=== PATIENT | female | born 1935 | race Caucasian/White ===

== ENCOUNTER 2017-02-27 14:06 | Outpatient (CLI) | payer OTHER ==
[2017-02-27 14:21] LABS: BILIRUBIN,URINE Negative (NEGATIVE); KETONES,URINE Negative (NEGATIVE); LEUKOCYTE ESTERASE ,URINE 1+ (NEGATIVE); NITRITE,URINE Positive (NEGATIVE); PH,URINE 5.5 (5-9); PROTEIN,URINE 1+ (NEGATIVE); URINE, BLOOD Trace-intact (NEGATIVE)
[2017-02-27 14:25] LABS: ADD URINE MICROSCOPIC YES
[2017-02-27 14:27] LABS: BACTERIA,URINE 2+ (NOT PRESENT)
== END 2017-02-27 14:07 | disposition home or self-care (01) ==
LOC: NONPT 14:06
PROVIDERS: ATTEND Family Medicine
DX: R30.0 Dysuria (principal)
CPT/HCPCS: 81001; 87086; 87186

== ENCOUNTER 2017-04-26 08:54 | Outpatient (CLI) | END 2017-04-26 08:55 | disposition home or self-care (01) | LOC: AMBL 08:54 | PROVIDERS: ATTEND Internal Medicine | DX: R53.1 Weakness (principal); R00.0 Tachycardia, unspecified; I49.3 Ventricular premature depolarization; R73.9 Hyperglycemia, unspecified; H57.04 Mydriasis ==

== ENCOUNTER 2017-08-09 08:34 | Emergency (ER) | payer OTHER ==
[2017-08-09 08:57] VITALS: BP 112/72; TEMP 99.8; BMI 25.8
--- NOTE | 2017-08-09 09:07 | ED.PDOC ---
General ED Provider: Dr. PRECIOUS BEASLEY Chief Complaint: Nausea/Vomiting Stated Complaint: Patient is here for nausea & vomitting. Patient is a very poor historian. States this problem has been going on for months. He's seen at least 2 doctors but has no idea what they did or concluded. Admits to weakness and poor appetite. Admits to vague abdominal pain. Time Seen by Physician: 09:00 Mode of Arrival: Ambulance Information Source: Patient, Prison Exam Limitations: Other (Patient has only vague knowledge of PMH and current complaint) Nursing and Triage Documentation Reviewed and Agree: Yes GI Complaint Exam - Vomiting/Diarrhea Complaint/Exam Symptoms Are: Still present Episodes of Diarrhea Over Last 24 Hours: 0 Initial Severity: Mild Current Severity: Moderate Character of Vomiting: Reports: Non-bilious Aggravating: Reports: None Alleviating: Reports: None Associated Signs and Symptoms: Reports: Light-headedness, Abdominal pain Last Oral Intake: earlier today ate a peanut butter sandwich and kept it down Last Bowel Movement: unknown Non-GI Risk Factors: Reports: None Surgical Obstruction Risk Factors: Reports: None Abdominal Findings: Present: None Kussmaul Respirations Present: No Differential Diagnoses: Dehydration, Gastritis, PUD Review of Systems - Review Of Systems Constitutional: Reports: Weakness, Loss of appetite Respiratory: Reports: No symptoms Cardiac: Reports: No symptoms GI: Reports: Abdominal pain, Nausea, Poor appetite, Vomiting : Reports: No symptoms Musculoskeletal: Reports: No symptoms Skin: Reports: No symptoms Neurological: Reports: No symptoms All Other Systems: Reviewed and Negative Past Medical History - Past Medical History Previously Healthy: Yes Endocrine: Reports: Hypothyroid Cardiovascular: Reports: CAD Respiratory: Reports: None Hematological: Reports: None Gastrointestinal: Reports: None Genitourinary: Reports: Other (BPH) 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, CVA Musculoskeletal: Reports: None Cancer: Reports: None Last Menstrual Period: n/a - Surgical History General Surgical History: Reports: Orthopedic (OMER), Stent Placement - Family History Family History: Reports: Unknown - Social History Smoking Status: Never smoker Hx Substance Use: No Alcohol Screening: Occasionally Lives: Alone - Immunizations Tetanus Shot up to Date: Yes Influenza Vaccine within 12 Months: No Pneumococcal Vaccine up to Date: No Physical Exam - Physical Exam Appearance: Well-appearing, No pain distress, Well-nourished Ill-appearing: None Pain Distress: None Eyes: JESU, EOMI, Conjunctiva clear ENT: Ears normal, Nose normal, Oropharynx normal Neck: Supple Respiratory: Airway patent, Breath sounds clear (frequent moist cough noted), Breath sounds equal, Respirations nonlabored Cardiovascular: RRR, Pulses normal, No rub, No murmur GI/: Soft, No masses, Bowel sounds normal, No Organomegaly, Tender Musculoskeletal: ROM intact, No edema, No calf tenderness, Limited strength Skin: Warm, Dry, Normal color Neurological: Sensation intact, Motor intact, Reflexes intact, Cranial nerves intact, Alert, Oriented Psychiatric: Affect appropriate, Mood appropriate Critical Care Note - Critical Care Note Total Time (mins): 0 Course - Course Hematology/Chemistry: 08/09/17 09:25 08/09/17 09:25 Orders, Labs, Meds: Lab Review 08/09/17 08/09/17 09:25 09:40 WBC 10.76 H RBC 3.80 L Hgb 11.1 L Hct 34.2 L MCV 90.0 MCH 29.2 MCHC 32.5 RDW Coeff of Sandra 14.7 Plt Count 120 L Immature Gran % (Auto) 0.5 Neut % (Auto) 86.6 Lymph % (Auto) 5.7 L [place] % (Auto) 5.6 Eos % (Auto) 1.3 Baso % (Auto) 0.3 Immature Gran # (Auto) 0.1 Neut # 9.3 H Lymph # 0.6 Davie # 0.6 Eos # 0.1 Baso # 0.0 Sodium 139 Potassium 4.1 Chloride 106 Carbon Dioxide 21 L Anion Gap 16.1 BUN 36 H Creatinine 1.98 H Estimated GFR (MDRD) 24.00 BUN/Creatinine Ratio 18.18 Glucose 138 H Calcium 9.3 Total Bilirubin 0.48 AST 18 ALT 12 Alkaline Phosphatase 57 Total Protein 6.7 Albumin 3.0 L Globulin 3.7 Albumin/Globulin Ratio 0.81 Amylase 40 Lipase 8 Urine Color Yellow Urine Clarity Slightly Urine pH 5.5 Ur Specific [place] 1.025 Urine Protein 2+ Urine Glucose (UA) Negative Urine Ketones Negative Urine Blood 2+ Urine Nitrite Positive Urine Bilirubin Negative Urine Urobilinogen 0.2 Ur Leukocyte Esterase 1+ Urine Microscopic RBC 2-5 Urine Microscopic WBC 10-20 Ur Squamous Epith Cells 0-2 Urine Bacteria 2+ Orders Category Date Time Status AMYLASE Stat LAB 08/09/17 09:25 Completed CBC W/ AUTO DIFF Stat LAB 08/09/17 09:25 Completed COMPREHENSIVE METABOLIC PANEL Stat LAB 08/09/17 09:25 Completed LIPASE Stat LAB 08/09/17 09:25 Completed URINALYSIS C & S IF INDICATED Stat LAB 08/09/17 09:40 Completed URINE CULTURE Stat LAB 08/09/17 09:40 Received Sodium Chloride 0.9% [Sodium Chloride] 1,000 ml MEDS 08/09/17 09:18 Active IV BOLUS Medications Discontinued Medications Generic Name Dose Route Start Last Admin Trade Name Ridgeq PRN Reason Stop Dose Admin Sodium Chloride 1,000 mls @ 1,000 mls/hr 08/09/17 09:18 08/09/17 09:38 Sodium Chloride IV 08/09/17 10:17 1,000 mls/hr BOLUS STA Administration Vital Signs: Temp Pulse Resp BP Pulse Ox 08/09/17 08:40 99.8 F H 98 H 20 112/72 95 Departure - Departure Time of Disposition: 10:31 Disposition: HOME SELF-CARE Discharge Problem: Prostatitis, acute Discharge Problem: (Ruled Out): Urinary tract infection Instructions: Prostatitis (ED) Condition: Good Pt referred to PMD for follow-up: No (if no better in 3 days, see PCP) Additional Instructions: Hold simvastatin (Zocor) while taking Biaxin. Resume once finished. Prescriptions: Clarithromycin [Biaxin] 500 mg PO Q12HR #42 tablet Allergies/Adverse Reactions: Allergies No Known Allergies Allergy (Unverified 08/09/17 09:06) Home Medications: Ambulatory Orders Acetaminophen [Mapap] 2 tab PO Q4HR PRN 08/09/17 Allopurinol 300 mg PO BEDTIME 08/09/17 Aspirin 81 mg PO DAILY 08/09/17 Bumetanide 0.5 mg PO DAILY 08/09/17 Cetirizine HCl [Zyrtec] 10 mg PO DAILY 08/09/17 Clarithromycin [Biaxin] 500 mg PO Q12HR #42 tablet 08/09/17 Docusate Sodium [Dok] 100 mg PO DAILY 08/09/17 Hydrocodone/Acetaminophen [[place] 5-325 Tablet] 5 - 325 mg PO BID 08/09/17 Hydrocortisone [Hydrocortisone 1% Cream] 1 bottle TP Q12HR PRN 08/09/17 Insulin Glargine,Hum.rec.anlog [Lantus Solostar] 10 units SUBCUT BEDTIME Ipratropium/Albuterol Neb [Duoneb] 0.5 - 2.5 mg INH Q12HR PRN 08/09/17 Levothyroxine Sodium [Synthroid] 100 mcg PO DAILY 08/09/17 Lisinopril [Zestril] 5 mg PO DAILY 08/09/17 Nitroglycerin [Nitrostat] 0.4 mg PO PRN PRN 08/09/17 Ondansetron HCl [Zofran] 4 mg PO Q6HR PRN 08/09/17 Penicillin V Potassium 500 mg PO TID 08/09/17 Polyethylene Glycol 3350 [Miralax] 17 gm PO BID 08/09/17 Sennosides/Docusate Sodium [Senokot-S Tablet] 1 mg PO BID 08/09/17 Simvastatin [Zocor] 40 mg PO DAILY 08/09/17 Tamsulosin HCl [Flomax] 0.4 mg PO DAILY 08/09/17
[2017-08-09] MEDS ORDERED: SODIUM CHLORIDE 1,000 ML IV STA (09:18)
[2017-08-09 09:33] LABS: BASOPHILS % (AUTO) 0.3 % (0.0-3.0); EOSINOPHILS # (AUTO) 0.1 K/ul (0.0-0.7); EOSINOPHILS % (AUTO) 1.3 % (0.0-7.0); HEMATOCRIT 34.2 % (37.0-47.0); HEMOGLOBIN 11.1 g/dl (12.0-16.0); IMMATURE GRANULOCYTE % (AUTO) 0.5 % (0.0-5.0); LYMPHOCYTES # (AUTO) 0.6 K/uL (0.60-3.4); LYMPHOCYTES % (AUTO) 5.7 (10.0-50.0); MEAN CORPUSCULAR HEMOGLOBIN 29.2 pg (27.0-31.0); MEAN CORPUSCULAR HGB CONC 32.5 (31.8-35.4); MONOCYTES # (AUTO) 0.6 K/uL (0.4-2.0); MONOCYTES % (AUTO) 5.6 (0-10); NEUTROPHILS # (AUTO) 9.3 K/ul (2.0-6.9); NEUTROPHILS % (AUTO) 86.6; PLATELET COUNT 120 10^3/uL (140-440); WHITE BLOOD COUNT 10.76 K/ul (4.6-10.2)
[2017-08-09 09:48] LABS: BILIRUBIN,URINE Negative (NEGATIVE); KETONES,URINE Negative (NEGATIVE); LEUKOCYTE ESTERASE ,URINE 1+ (NEGATIVE); NITRITE,URINE Positive (NEGATIVE); PH,URINE 5.5 (5-9); PROTEIN,URINE 2+ (NEGATIVE); URINE, BLOOD 2+ (NEGATIVE)
[2017-08-09 09:49] LABS: ADD URINE MICROSCOPIC YES
[2017-08-09 09:50] LABS: BACTERIA,URINE 2+ (NOT PRESENT)
[2017-08-09 09:52] LABS: ALBUMIN/GLOBULIN RATIO 0.81; ANION GAP 16.1; BILIRUBIN,TOTAL 0.48 mg/dL (0.00-1.20); BUN/CREATININE RATIO 18.18; CALCIUM 9.3 mg/dL (8.2-10.2); CREATININE 1.98 mg/dL (0.60-1.30); POTASSIUM 4.1 mmol/L (3.5-5.10); TOTAL PROTEIN 6.7 g/dL (5.8-8.1)
== END 2017-08-09 11:09 | disposition home or self-care (01) ==
LOC: EDSEX 08:34 → ED 08:34
DX: N41.0 Acute prostatitis (principal); R11.2 Nausea with vomiting, unspecified; R42 Dizziness and giddiness; R10.9 Unspecified abdominal pain; R53.1 Weakness; R63.0 Anorexia; R05 Cough; R50.9 Fever, unspecified; E03.9 Hypothyroidism, unspecified; I25.10 Atherosclerotic heart disease of native coronary artery without angina pectoris; Z86.73 Personal history of transient ischemic attack (TIA), and cerebral infarction without residual deficits; Z79.899 Other long term (current) drug therapy
CPT/HCPCS: 36415; 80053; 81001; 82150; 83690; 85025; 87086; 87186; 96360; 99283

== ENCOUNTER 2017-09-09 09:15 | Outpatient (CLI) | payer OTHER ==
[2017-09-09 09:26] LABS: BILIRUBIN,URINE Negative (NEGATIVE); KETONES,URINE Negative (NEGATIVE); LEUKOCYTE ESTERASE ,URINE 3+ (NEGATIVE); NITRITE,URINE Positive (NEGATIVE); PH,URINE 5.5 (5-9); PROTEIN,URINE Negative (NEGATIVE); URINE, BLOOD 1+ (NEGATIVE)
[2017-09-09 09:31] LABS: ADD URINE MICROSCOPIC YES
[2017-09-09 09:32] LABS: BACTERIA,URINE 2+ (NOT PRESENT)
== END 2017-09-09 09:16 | disposition home or self-care (01) ==
LOC: NONPT 09:15
PROVIDERS: ATTEND Family Medicine
DX: N39.0 Urinary tract infection, site not specified (principal)
CPT/HCPCS: 81001; 87086

== ENCOUNTER 2017-12-26 09:13 | Outpatient (CLI) | END 2017-12-26 09:14 | disposition home or self-care (01) | LOC: NONPT 09:13 | PROVIDERS: ATTEND Family Medicine | DX: N39.0 Urinary tract infection, site not specified (principal) | CPT/HCPCS: 81001; 87086; 87186 ==

== ENCOUNTER 2018-02-10 18:05 | Outpatient (CLI) | END 2018-02-10 18:06 | disposition home or self-care (01) | LOC: NONPT 18:05 | PROVIDERS: ATTEND Family Medicine | DX: R05 Cough (principal); R50.9 Fever, unspecified; R68.89 Other general symptoms and signs | CPT/HCPCS: 87502 ==

== ENCOUNTER 2018-03-20 13:19 | Outpatient (CLI) ==
--- NOTE | 2018-03-20 14:26 | US ---
EXAM: Scrotal ultrasound HISTORY: Right testicle pain COMPARISON: None TECHNIQUE: Scrotal ultrasound was performed FINDINGS: Right: Right testicle measures 2.1 x 2.5 x 4.1 cm. Right testicle normal in echogenicity and vascul arity.. There is a cyst in the right epididymis measuring 1.4 cm. Right epididymis otherwise unrema rkable. Small right hydrocele. No right varicocele. Left: Left testicle measures 1.8 x 2.6 x 3.9 cm. Left testicle normal in echogenicity vascularity. There is a cyst in the left epididymis measuring 0.4 cm. Left epididymis otherwise appears normal. Small left hydrocele. No left varicocele. IMPRESSION: 1. Normal appearance right and left testicle. 2. Bilateral epididymal cysts, larger on the right and measuring 0.4 cm. 3. Small bilateral hydrocele.
== END 2018-03-20 13:20 | disposition home or self-care (01) ==
LOC: RAD 13:19
PROVIDERS: ATTEND Family Medicine
DX: N50.811 Right testicular pain (principal)

== ENCOUNTER 2018-06-26 06:48 | Outpatient (CLI) | payer OTHER | END 2018-06-26 06:49 | disposition home or self-care (01) | LOC: NONPT 06:48 | PROVIDERS: ATTEND Emergency Medicine | DX: R50.9 Fever, unspecified (principal); R82.90 Unspecified abnormal findings in urine | CPT/HCPCS: 81001; 87086; 87186 ==

== ENCOUNTER 2018-08-05 08:25 | Outpatient (CLI) | payer OTHER | END 2018-08-05 08:26 | disposition home or self-care (01) | LOC: NONPT 08:25 | PROVIDERS: ATTEND Emergency Medicine | DX: N39.0 Urinary tract infection, site not specified (principal) | CPT/HCPCS: 81001 ==

== ENCOUNTER 2018-09-03 08:19 | Outpatient (CLI) | payer OTHER | END 2018-09-03 08:20 | disposition home or self-care (01) | LOC: NONPT 08:19 | PROVIDERS: ATTEND Internal Medicine | DX: R50.9 Fever, unspecified (principal); R30.0 Dysuria | CPT/HCPCS: 81001; 87086 ==

== ENCOUNTER 2019-03-05 15:30 | Outpatient (CLI) | payer OTHER ==
[2019-03-05 15:59] VITALS: BMI 26.8
== END 2019-03-05 15:36 | disposition critical access hospital (66) ==
LOC: AMBL 15:30
PROVIDERS: ATTEND Family Medicine
DX: I10 Essential (primary) hypertension (principal); I48.91 Unspecified atrial fibrillation; R73.9 Hyperglycemia, unspecified

== ENCOUNTER 2019-03-05 15:44 | Emergency (ER) | payer OTHER ==
--- NOTE | 2019-03-05 15:56 | ED.PDOC ---
General ED Provider: Dr. VIOLETTE MARTINEZ MD Chief Complaint: Hypertension Stated Complaint: high blood pressure reading, no pain Time Seen by Physician: 15:48 Information Source: EMT Exam Limitations: No limitations Primary Care Provider: HUONG COWAN Nursing and Triage Documentation Reviewed and Agree: Yes Does patient meet sepsis criteria?: No System Inflammatory Response Syndrome: Not Applicable Sepsis Protocol: For patient's 13 years and over: Temp is 96.8 and below OR 101 and greater Pulse >90 BPM Resp >20/minute Acutely Altered Mental Status Are patient's symptoms suggestive of a new infection, such as: -Pneumonia -Skin, Soft Tissue -Endocarditis -UTI -Bone, Joint Infection -Implantable Device -Acute Abdominal Infection -Wound Infection -Meningitis -Blood Stream Catheter Infection -Unknown Review of Systems - Review Of Systems Constitutional: Reports: No symptoms Eyes: Reports: No symptoms Ears, Nose, Mouth, Throat: Reports: No symptoms Respiratory: Reports: No symptoms Cardiac: Reports: No symptoms GI: Reports: No symptoms : Reports: No symptoms Musculoskeletal: Reports: No symptoms Skin: Reports: No symptoms Neurological: Reports: No symptoms Endocrine: Reports: No symptoms Hematologic/Lymphatic: Reports: No symptoms All Other Systems: Reviewed and Negative Past Medical History - Past Medical History Previously Healthy: Yes Endocrine: Reports: Hypothyroid Cardiovascular: Reports: CAD Respiratory: Reports: None Hematological: Reports: None Gastrointestinal: Reports: None Genitourinary: Reports: Other (BPH) 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, CVA Musculoskeletal: Reports: None Cancer: Reports: None - Surgical History General Surgical History: Reports: None - Family History Family History: Reports: Unknown - Social History Smoking Status: Never smoker Hx Substance Use: No Alcohol Screening: Occasionally - Immunizations Influenza Vaccine within 12 Months: No Pneumococcal Vaccine up to Date: No Physical Exam - Physical Exam Appearance: Well-appearing, No pain distress, Well-nourished, Obese Ill-appearing: None Pain Distress: None Eyes: JESU, EOMI, Conjunctiva clear ENT: Ears normal, Nose normal, Oropharynx normal Respiratory: Airway patent, Breath sounds clear, Breath sounds equal, Respirations nonlabored Cardiovascular: RRR, Pulses normal, No rub, No murmur GI/: Soft, Nontender, No masses, Bowel sounds normal, No Organomegaly Musculoskeletal: Normal strength, ROM intact, No edema, No calf tenderness Skin: Warm, Dry, Normal color Neurological: Sensation intact, Motor intact, Reflexes intact, Cranial nerves intact, Alert, Oriented Psychiatric: Affect appropriate, Mood appropriate Critical Care Note - Critical Care Note Total Time (mins): 0 Course - Course Orders, Labs, Meds: Orders Category Date Time Status Clonidine HCl [Catapres] MEDS 03/05/19 16:02 Discontinued 0.1 mg PO ONCE STA Medications Discontinued Medications Generic Name Dose Route Start Last Admin Trade Name Tunde PRN Reason Stop Dose Admin Clonidine 0.1 mg 03/05/19 16:02 03/05/19 16:37 Catapres PO 03/05/19 16:03 0.1 mg ONCE STA Administration Vital Signs: Temp Pulse Resp BP Pulse Ox 03/05/19 15:46 97.7 F 83 20 189/92 H 98 Departure - Departure Time of Disposition: 17:30 Disposition: TRANSFER SNF Discharge Problem: Hypertension Qualifiers: Hypertension type: essential hypertension Qualified Code(s): I10 - Essential ( primary) hypertension Instructions: Hypertension (ED) Condition: Good Pt referred to PMD for follow-up: Yes IPMP verified?: No Allergies/Adverse Reactions: Allergies No Known Allergies Allergy (Unverified 08/09/17 09:06) Home Medications: Ambulatory Orders Acetaminophen [Mapap] 2 tab PO Q4HR PRN 08/09/17 Allopurinol 300 mg PO BEDTIME 08/09/17 Aspirin 81 mg PO DAILY 08/09/17 Bumetanide 0.5 mg PO DAILY 08/09/17 Cetirizine HCl [Zyrtec] 10 mg PO DAILY 08/09/17 Docusate Sodium [Dok] 100 mg PO DAILY 08/09/17 Hydrocortisone [Hydrocortisone 1% Cream] 1 bottle TP Q12HR PRN 08/09/17 Insulin Glargine,Hum.rec.anlog [Lantus Solostar] 10 units SUBCUT BEDTIME Ipratropium/Albuterol Neb [Duoneb] 0.5 - 2.5 mg INH Q12HR PRN 08/09/17 Lisinopril [Zestril] 10 mg PO DAILY 08/09/17 Nitroglycerin [Nitrostat] 0.4 mg PO PRN PRN 08/09/17 Penicillin V Potassium 500 mg PO TID 08/09/17 Polyethylene Glycol 3350 [Miralax] 17 gm PO BID 08/09/17 Sennosides/Docusate Sodium [Senokot-S Tablet] 1 mg PO BID 08/09/17 Simvastatin [Zocor] 40 mg PO DAILY 08/09/17 Tamsulosin HCl [Flomax] 0.4 mg PO DAILY 08/09/17 Ferrous Sulfate 325 mg PO TID 03/05/19 Gabapentin [Neurontin] 300 mg PO BEDTIME 03/05/19 Hydrocodone/Acetaminophen [Hydrocodon-Acetaminophen 5-325] 1 each PO DAILY 03/05 Levothyroxine Sodium [Synthroid] 125 mcg PO DAILY 03/05/19 Multivitamin 1 cap PO DAILY 03/05/19 Nystatin [Nystatin Cream] 1 applic TP BID PRN 03/05/19 Transfer Form Completed: No Disposition Discussed With: Patient, Family
[2019-03-05 15:59] VITALS: TEMP 97.7; BMI 26.8
[2019-03-05] MEDS ORDERED: CATAPRES PO STA (16:02)
[2019-03-05 18:14] VITALS: BP 160/83
== END 2019-03-05 18:17 ==
LOC: ED 15:44
DX: I10 Essential (primary) hypertension (principal); I25.10 Atherosclerotic heart disease of native coronary artery without angina pectoris; E03.9 Hypothyroidism, unspecified; Z86.73 Personal history of transient ischemic attack (TIA), and cerebral infarction without residual deficits; Z79.899 Other long term (current) drug therapy
CPT/HCPCS: 99283

== ENCOUNTER 2019-04-19 09:29 | Outpatient (CLI) ==
--- NOTE | 2019-04-19 09:59 | DI ---
EXAM: Two views of the chest. History: Chest congestion. Comparison: None available. Findings: Heart is borderline enlarged. Atherosclerotic vascular calcifications. Rectangular opaci ty seen projecting over the right lower hemithorax. No pneumothorax. No appreciable pleural fluid. No acute osseous abnormalities. Calcified granuloma within the left upper lobe. Impression: A rectangular opacity seen projecting over the right lower hemithorax could represent a pleural mass or calcification. Recommend further evaluation with contrast enhanced chest CT.
[2019-04-19 16:21] VITALS: BMI 25.4
== END 2019-04-19 09:30 | disposition home or self-care (01) ==
LOC: RAD 09:29
PROVIDERS: ATTEND Internal Medicine
DX: R09.89 Other specified symptoms and signs involving the circulatory and respiratory systems (principal); Z79.2 Long term (current) use of antibiotics
CPT/HCPCS: 36415; 80053; 85025

== ENCOUNTER 2019-05-01 03:40 | Outpatient (CLI) | payer OTHER | END 2019-05-01 03:41 | disposition home or self-care (01) | LOC: LAB 03:40 | PROVIDERS: ATTEND Internal Medicine | DX: N39.0 Urinary tract infection, site not specified (principal) | CPT/HCPCS: 81001; 87086 ==

== ENCOUNTER 2019-06-19 19:15 | Inpatient (IN) ==
[2019-06-19 19:31] VITALS: BMI 26.5
--- NOTE | 2019-06-19 19:56 | ED.PDOC ---
General ED Provider: Dr. PHAN CALDWELL Chief Complaint: Fever Stated Complaint: [facility] is an 83 [facility] was given norco for fever and sent here. The [place] staff states he was confused prior to arrival. upon arrival he appears to be alert and oriented. Time Seen by Physician: 19:53 Mode of Arrival: Ambulance Information Source: Custodial, EMT Exam Limitations: No limitations Primary Care Provider: HUONG COWAN Nursing and Triage Documentation Reviewed and Agree: Yes Does patient meet sepsis criteria?: No System Inflammatory Response Syndrome: Not Applicable Sepsis Protocol: For patient's 13 years and over: Temp is 96.8 and below OR 101 and greater Pulse >90 BPM Resp >20/minute Acutely Altered Mental Status Are patient's symptoms suggestive of a new infection, such as: -Pneumonia -Skin, Soft Tissue -Endocarditis -UTI -Bone, Joint Infection -Implantable Device -Acute Abdominal Infection -Wound Infection -Meningitis -Blood Stream Catheter Infection -Unknown Miscellaneous Complaint Exam - Febrile Illness/Adult Complaint/Exam Onset/Duration: 1 day Symptoms Are: Still present Timing: Constant Highest Temperature Recorded: 101.9 Initial Severity: Moderate Current Severity: Moderate Associated Signs and Symptoms: Reports: Short of air, Cough Pseudomonas Risk Factors: Reports: None Serious Bacterial Infection Risk Factors: Reports: None Current Antibiotic Use: Yes Last Time and Dose of Tylenol (acetaminophen): just prior to arrival ( [place]) Review of Systems - Review Of Systems Constitutional: Reports: Fever Eyes: Reports: No symptoms Ears, Nose, Mouth, Throat: Reports: No symptoms Respiratory: Reports: Cough, Short of air (mild ) Cardiac: Reports: No symptoms GI: Reports: No symptoms : Reports: No symptoms Musculoskeletal: Reports: Back pain (Better after [place] ) Skin: Reports: No symptoms Neurological: Reports: No symptoms Endocrine: Reports: No symptoms Hematologic/Lymphatic: Reports: No symptoms All Other Systems: Reviewed and Negative Past Medical History - Past Medical History Previously Healthy: Yes Endocrine: Reports: DM 2, Hypothyroid Cardiovascular: Reports: CAD, Hypertension, CHF (diastolic), Other (NON RHEUMATIC VALVULAR HEART DISEASE) Respiratory: Reports: Pneumonia Hematological: Reports: Anemia (iron deficiency) Gastrointestinal: Reports: None, Other (Constipation) Genitourinary: Reports: CKD (stage 3 ), Other (BPH) 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, CVA, Dementia, Other (Dysphagia ) Musculoskeletal: Reports: Arthritis, Back Pain (spinal stenosis ), Gout Cancer: Reports: Skin (Malignant Melenoma ) Other Pertinent Past Medical History: ESBL, MUSCLE WEAKNESS - Surgical History General Surgical History: Reports: Stent, Orthopedic (right prostetic hip joint replacemetn ) - Family History Family History: Reports: Unknown - Social History Smoking Status: Never smoker Hx Substance Use: No Alcohol Screening: None Lives: In [facility]ustodial [facility] ) - Immunizations Tetanus Shot up to Date: No (unknown) Influenza Vaccine within 12 Months: No Pneumococcal Vaccine up to Date: No Physical Exam - Physical Exam Appearance: Well-appearing Eyes: JESU Neck: Supple Respiratory: Airway patent, Crackles (mild at the bases. ) Cardiovascular: RRR, Pulses normal, No rub, No murmur GI/: Soft, Nontender, No masses, Bowel sounds normal, No Organomegaly Musculoskeletal: Normal strength, ROM intact, No edema, No calf tenderness Skin: Warm, Dry, Normal color Neurological: Sensation intact, Motor intact, Cranial nerves intact, Alert, Oriented Psychiatric: Affect appropriate, Mood appropriate Interpretation - Radiology Interpretation Radiology Interpretation By: Radiologist Radiology Results: Negative Exam Interpreted: Portable CXR - EKG Interpretation Rate: Normal Rhythm: Sinus Ectopy: None [place]: NL Interpretation: no peeked T waves Physician Notification - Case Discussed Physician Notified: Dr aviles Time of Notification: 21:40 Critical Care Note - Critical Care Note Total Time (mins): 35 Course - Course Hematology/Chemistry: 06/19/19 20:02 06/19/19 20:02 Orders, Labs, Meds: Lab Review 06/19/19 06/19/19 06/19/19 16:25 20:02 20:02 WBC 14.48 H RBC 3.44 L Hgb 10.5 L Hct 32.9 L MCV 95.6 H MCH 30.5 MCHC 31.9 RDW Coeff of Sandra 13.9 Plt Count 177 Immature Gran % (Auto) 0.5 Neut % (Auto) 77.5 Lymph % (Auto) 9.3 L [place] % (Auto) 8.2 Eos % (Auto) 4.2 Baso % (Auto) 0.3 Immature Gran # (Auto) 0.1 Neut # (Auto) 11.2 H Lymph # (Auto) 1.4 [place] # (Auto) 1.2 Eos # (Auto) 0.6 Baso # (Auto) 0.1 Sodium 137.5 Potassium 5.83 H Chloride 101.5 Carbon Dioxide 26.3 Anion Gap 15.53 BUN 48.5 H Creatinine 2.12 H Estimated GFR (MDRD) 30.00 BUN/Creatinine Ratio 22.87 Glucose 130.2 H Lactic Acid Calcium 9.35 Total Bilirubin 0.64 AST 17.4 ALT 13.7 Alkaline Phosphatase 74.6 NT-Pro-B Natriuret Pep Total Protein 7.45 Albumin 4.00 Globulin 3.45 Albumin/Globulin Ratio 1.15 Amylase 101.3 Lipase 46.1 Urine Color Yellow Urine Clarity Cloudy Urine pH 7.0 Ur Specific [place] 1.015 Urine Protein 1+ Urine Glucose (UA) Negative Urine Ketones Negative Urine Blood 1+ Urine Nitrite Negative Urine Bilirubin Negative Urine Urobilinogen 0.2 Ur Leukocyte Esterase 3+ Urine Microscopic RBC 5-10 Urine Microscopic WBC Tntc Ur Squamous Epith Cells Not present Urine Bacteria 2+ Urine Mucus 1+ 06/19/19 06/19/19 20:02 20:02 WBC RBC Hgb Hct MCV MCH MCHC RDW Coeff of Sandra Plt Count Immature Gran % (Auto) Neut % (Auto) Lymph % (Auto) [place] % (Auto) Eos % (Auto) Baso % (Auto) Immature Gran # (Auto) Neut # (Auto) Lymph # (Auto) [place] # (Auto) Eos # (Auto) Baso # (Auto) Sodium Potassium Chloride Carbon Dioxide Anion Gap BUN Creatinine Estimated GFR (MDRD) BUN/Creatinine Ratio Glucose Lactic Acid 0.83 Calcium Total Bilirubin AST ALT Alkaline Phosphatase NT-Pro-B Natriuret Pep 73594.000 H Total Protein Albumin Globulin Albumin/Globulin Ratio Amylase Lipase Urine Color Urine Clarity Urine pH Ur Specific [place] Urine Protein Urine Glucose (UA) Urine Ketones Urine Blood Urine Nitrite Urine Bilirubin Urine Urobilinogen Ur Leukocyte Esterase Urine Microscopic RBC Urine Microscopic WBC Ur Squamous Epith Cells Urine Bacteria Urine Mucus Orders Category Date Time Status ED IV/MEDIPORT/POWERPORT .ONCE EMERGENCY 06/19/19 19:45 Active AMYLASE Stat LAB 06/19/19 20:02 Completed BLOOD CULTURE (ED ONLY) Stat LAB 06/19/19 20:25 Received CBC W/ AUTO DIFF Stat LAB 06/19/19 20:02 Completed COMPREHENSIVE METABOLIC PANEL Stat LAB 06/19/19 20:02 Completed LACTIC ACID Stat LAB 06/19/19 20:02 Completed LIPASE Stat LAB 06/19/19 20:02 Completed NT-PROBNP Stat LAB 06/19/19 20:02 Completed URINALYSIS C & S IF INDICATED Stat LAB 06/19/19 16:25 Completed URINE CULTURE Stat LAB 06/19/19 16:25 Received 0.9 % Sodium Chloride [Saline Flush] MEDS 06/19/19 19:45 Active 1 syr IVF PRN PRN Aztreonam [Azactam] MEDS 06/19/19 21:09 Discontinued 1 gm .ROUTE .STK-MED ONE Aztreonam [Azactam] 1 gm MEDS 06/19/19 21:01 Discontinued 0.9 % Sodium Chloride [Sodium Chloride] 50 ml IV ONCE Sodium Chloride 0.9% [Sodium Chloride] 1,000 ml MEDS 06/19/19 21:49 Active IV 75 mls/hr CHEST, 1V AP ONLY Stat RADS 06/19/19 19:56 Completed Medications Generic Name Dose Route Start Last Admin Trade Name Freq PRN Reason Stop Dose Admin Acetaminophen 650 mg 06/19/19 22:13 Tylenol PO Q4H PRN Fever > 102 Hydrocodone Bitart/Acetaminophen 1 tab 06/20/19 09:00 [place] 5-325 PO DAILY MARIA G Albuterol/Ipratropium 1 vial 06/20/19 06:00 Duoneb NEB RTBID MARIA G Allopurinol 100 mg 06/20/19 21:00 Zyloprim PO BEDTIME MARI AG Aspirin 81 mg 06/20/19 09:00 Aspirin Chewable PO DAILY MARIA G Cholecalciferol 3,000 unit 06/20/19 09:00 Vitamin D PO DAILY MARIA G Docusate Sodium 100 mg 06/20/19 09:00 Colace PO BID MARIA G Docusate Sodium 100 mg 06/20/19 09:00 Colace PO BID MARIA G Enoxaparin Sodium 30 mg 06/20/19 09:00 Lovenox SUBCUT DAILY MARIA G Ferrous Sulfate 324 mg 06/20/19 09:00 Ferrous Sulfate PO DAILY MARIA G Gabapentin 300 mg 06/20/19 21:00 Neurontin PO BEDTIME MARIA G Hydrocortisone 1 applic 06/19/19 22:17 Hydrocortisone 1% Cream TP Q12HR PRN Hemorroids Sodium Chloride 1,000 mls @ 75 mls/hr 06/19/19 21:49 Sodium Chloride IV 06/20/19 11:08 .[id number] STA Ertapenem 0.5 gm/ Sodium 50 mls @ 75 mls/hr 06/19/19 23:30 Chloride IV 06/26/19 23:29 DAILY [facility] Insulin Glargine 10 unit 06/19/19 23:00 Lantus SUBCUT BEDTIME [facility] Levothyroxine Sodium 125 mcg 06/20/19 06:30 Synthroid PO DAILY@0630 [facility] Losartan Potassium 100 mg 06/20/19 21:00 Cozaar PO BEDTIME [facility] Nitroglycerin 0.4 mg 06/19/19 22:17 Nitrostat SL PRN PRN Angina Non-Formulary Medication 10 mg 06/20/19 09:00 Cetirizine Hcl [Zyrtec] PO DAILY [facility] Ondansetron HCl 4 mg 06/19/19 22:13 Zofran 4 Mg/2 Ml IVP Q6H PRN Nausea / Vomiting Polyethylene Glycol 17 gm 06/20/19 09:00 Miralax PO DAILY [facility] Sennosides 8.6 mg 06/20/19 09:00 Senna PO BID [facility] Simvastatin 40 mg 06/20/19 21:00 Zocor PO BEDTIME [facility] Sodium Chloride 1 syr 06/19/19 19:45 Saline Flush IVF PRN PRN To flush IV Tamsulosin HCl 0.4 mg 06/20/19 09:00 Flomax PO DAILY [facility] Discontinued Medications Generic Name Dose Route Start Last Admin Trade Name Freq PRN Reason Stop Dose Admin Aztreonam 1 gm/ Sodium 50 mls @ 75 mls/hr 06/19/19 21:01 06/19/19 21:13 Chloride IV 06/19/19 21:40 75 mls/hr ONCE STA Administration Aztreonam 1 gm/ Sodium 50 mls @ 75 mls/hr 06/20/19 05:00 Chloride IV 06/23/19 04:59 Q8HR [facility] Vital Signs: Temp Pulse Resp BP Pulse Ox 06/19/19 19:17 99.3 F 89 20 144/77 H 97 Departure - Departure Time of Disposition: 22:00 Disposition: HOME SELF-CARE Discharge Problem: Hyperkalemia Acute kidney failure Qualifiers: Acute renal failure type: unspecified Qualified Code(s): N17.9 - Acute kidney failure, unspecified Urinary tract infection Qualifiers: Urinary tract infection type: acute cystitis Hematuria presence: without hematuria Qualified Code(s): N30.00 - Acute cystitis without hematuria Condition: Stable Pt referred to PMD for follow-up: Yes IPMP verified?: No Allergies/Adverse Reactions: Allergies No Known Allergies Allergy (Verified 06/19/19 19:32) Home Medications: Ambulatory Orders Aspirin 81 mg PO DAILY 08/09/17 Bumetanide 0.5 mg PO DAILY 08/09/17 Cetirizine HCl [Zyrtec] 10 mg PO DAILY 08/09/17 Docusate Sodium [Dok] 100 mg PO BID 08/09/17 Hydrocortisone [Hydrocortisone 1% Cream] 1 bottle TP Q12HR PRN 08/09/17 Insulin Glargine,Hum.rec.anlog [Lantus Solostar] 10 units SUBCUT BEDTIME Nitroglycerin [Nitrostat] 0.4 mg PO PRN PRN 08/09/17 Penicillin V Potassium 500 mg PO TID 08/09/17 Polyethylene Glycol 3350 [Miralax] 17 gm PO DAILY 08/09/17 Sennosides/Docusate Sodium [Senokot-S Tablet] 1 tab PO BID 08/09/17 Simvastatin [Zocor] 40 mg PO BEDTIME 08/09/17 Tamsulosin HCl [Flomax] 0.4 mg PO DAILY 08/09/17 Ferrous Sulfate 325 mg PO DAILY 03/05/19 Gabapentin [Neurontin] 300 mg PO BEDTIME 03/05/19 Hydrocodone/Acetaminophen [Hydrocodone-Acetamin 5-325 mg] 5 - 325 mg PO DAILY Levothyroxine Sodium [Synthroid] 125 mcg PO DAILY 03/05/19 Multivitamin 1 cap PO DAILY 03/05/19 Nystatin [Nystatin Cream] 1 applic TP BID PRN 03/05/19 Acetaminophen [Tylenol] 650 mg PO Q4HR PRN 04/19/19 Allopurinol [Zyloprim] 100 mg PO BEDTIME tablet 04/23/19 Ipratropium/Albuterol Neb [Duoneb] 1 vial NEB BID vial.neb 04/23/19 Losartan Potassium [Cozaar] 100 mg PO BEDTIME tab 04/23/19 Cholecalciferol (Vitamin D3) [Vitamin D3] 3,000 unit PO DAILY 06/19/19 Disposition Discussed With: Patient
[2019-06-19] MEDS ORDERED: AZACTAM 1 GM in SODIUM CHLORIDE 50 ML IV STA (21:01)
[2019-06-19] MEDS ORDERED: AZACTAM ONE (21:09)
--- NOTE | 2019-06-19 21:18 | DI ---
EXAM: Single view chest. HISTORY: Cough COMPARISON: 04/23/2019. FINDINGS: The heart is on the upper limits of normal in size. Calcified plaques overlie the aorta. Pulmonary vascularity is within normal limits. No focal airspace opacity or pleural effusion is seen . Calcified pleural plaque at the right lung base is not significantly changed. Left upper lung kelly cified granuloma appears unchanged. Osseous structures are unremarkable. IMPRESSION: No acute cardiopulmonary findings. Unchanged right basilar calcified pleural plaque.
[2019-06-19] MEDS ORDERED: SODIUM CHLORIDE 1,000 ML IV STA (21:49)
[2019-06-19] MEDS ORDERED: TYLENOL PO PRN (22:13)
[2019-06-19] MEDS ORDERED: ZOFRAN 4 MG/2 ML IVP PRN (22:13)
[2019-06-19] MEDS ORDERED: NITROSTAT SL PRN (22:17)
[2019-06-19] MEDS ORDERED: HYDROCORTISONE 1% CREAM TP PRN (22:17)
--- NOTE | 2019-06-19 22:58 | PCM ---
- Chief Complaint Chief Complaint: Fever, Long Term Resident, altered mental status. ESBL [place]. PCP DR. COWAN. - History of Present Illness History of Present Illness: 83 yr old CM prsented to ED [facility] at 19:53 via ambulance from [facility]. Patient with history of aortic valve insufficiency, CVA, TIA, Dementia, Peripheral neuropathy, dysphagia, CKD 3+, History of ESBL, OA, depression, h/o hip replacement. , No ETOH ,no tobacco. Family history of bladder cancer. Patient has had recent admit to hospital 04/19/19 for cough/congestion was on z melissa and prednisone through snf at that time. Admitted with pneumonitis, dehydration/renal failure, right sided chest mass, CVA, CHF, aortic stenosis, CKD, DM 2, HTN, TIA history, Gout history, hypothyroid, dementia, recurrent UTI ESBL [place]. He was admitted with tele, xopenex nebs, rocephin 1gram daily, pulmicort, NS 75 q hour, solu cortef 100 q 8, PCN and potassium, lantus, SSI, thyroid labs. [place] thick liquids and DNR status. Presented today with acute change in mental status, vitals 99.3, pulse 89, rr 20 , bp 144/77, pulse ox 97. Labs showed WBC 14.48, hgb 10.5, plt 177. Compared these to previous admit and he had 14.88 04/23/19 essentially unchanged. Hgb mildly worse but not much different than 04/21/19. MCV is elevated. Patient potassium today was 5.83, will repeat that tomorrow am. He has been on oral K+ . Was 3.45-3.85 at last eval. His current lactic acid is negative. Glucose was 130.2 and similar to last admit. Calcium normal, bili normal, ast/alt normal. Remainder of CMP today normal. Amylase and lipase normal. Last TSH 3.30 04/19/19 normal. Last Free T4 04/19/19 1.10 and normal. CXR in our ER showed "No acute cardiopulmonary findings, unchanged right basilar calcified pleural plaque. Compared this to 04/23/19 and he had cardiomegaly without acute process. CT chest 04/20/19 mild bilateral pneumonia, benign calcified pleural plaque. Cardiomegaly/CAD. 4cm ascending aortic aneursym (AVOID FQ). He was d/c 04/23/19 and returned to [place] only to return today. D/c on ertapenem daily 1 gram daily. He was treated for pneumonia, dehydration UTI ESBL. Reviewed d/c summary today. Repeat CXR cleared up. He had ESBL on urine culture. I will give him ertapenem again. They did give him aztreonam in our ER, which will likely not cover. Returning to our labs, he had lactic acid of 0.83, and a BNP of 10, 900. He was d/c on 04/20/19 with weight of 177 and now weight of 181 on the floor. He appears to be up 4 lb. Additionally his creatinine is up to 2.12 from his nromal 1.30. GFR 30. CrCl original [place] 30, modifed using adjusted body weight of 28ml/min. I would estimate him to be 28-30 as reasonable. I would like to use invanz. With his cutoff of <30 I will use 500mg/day. I will also run fluids at 120 ml/hour Normal saline. I will not give any potassium, hold home potassium as his K+ is mildly elevated. Dr. Campbell called me at 21:40. Urine noted to be 1+ protein, 1+ blood, neg nitrite, LE 3+, micro RBC 5-10, WBC Tntc, bact 2+, mucus 1+. Brought to ER by [facility] from [place]. Fever 101 norco and temp down to 99.1 Urinary problems with cloudy strong smelling urine and altered mental status. Sugars normal. 20G in right wrist. Ate lunch, limited dinner. Never smoker. AMAN, weight to be checked daily. He has no SOA, no PND, no orthopnea. He has no fever now. VIral URI possible, uti possible. Patient has history of chronic dementia, unsure of day. HE has pressure ulcer x 3-4 from [place] already that we will monitor and address during hospital stay. Personally called [facility] and Reviewed most recent weight 06/02/19 178.8. He is ranging 174- 178. 02/01/19 183.6. It seems he runs from 174-184. Diet is supposed to be nectar thick. Supposed to be on increased fluid intake due to kidney function decline. Low air loss matress to promote wound healing/protection. Pressure areas upper buttock left, coccyx, right upper buttock. Roho cushions all times. Meds reviewed, called jovanny. He was fine up until today and started having fever, responsive to norco. Confusion is present. Did not meet sirs criteria. He was pleasant, noted he had atoney of his left leg. I asked him to clarify then he said pleural, like the lung. I asked him to clarify and he could not. Back pain better after norco at [place]. No pain reported now except in his right shoulder because he noted "I used to play a lot of baseball." - Review of Systems Constitutional: fever, chills, weakness, fatigue, loss of appetite. No: sweats , other Eyes: other (patient has history of glasses but they were not present during our examination. ). No: blurred vision, double-vision, discharge, itching, pain , redness, photophobia Ears: No: pain, bleeding, drainage, ringing, hearing loss, other Nose: No: bleeding, congestion, discharge, other Throat: No: pain, swelling, voice change, other Mouth: No: bleeding, pain, swelling, other Respiratory: cough, shortness of air, wheeze. No: hemoptysis, pain with breathing, other Cardiovascular: other. No: chest pain, left arm pain, diaphoresis, PND, orthopnea, edema, palpitations, syncope Gastrointestinal: No: abdominal pain, nausea, vomiting, diarrhea, melena, hematemesis, hematochezia, dysphagia, constipation, other Genitourinary: dysuria, frequency, incontinence, flank pain (back pain resolved with norco at [place]. ). No: hematuria, penile discharge, testicular pain, testicular swelling, other Neurological: other (chronic confusion/dementia. ) Musculoskeletal: pain, swelling in joints Skin: other (sacral/coccyx/buttock pressure ulcer) Immunology: No: hives, itching, frequent infections, difficulty healing, other Hematology: easy bruising. No: swollen glands Endocrine: No: weight changes Psychiatric: No: depression, anxiety, sleeplessness, hallucinations Habits: No: tobacco use, substance use, alcohol use, other - Past Medical History Past Medical History: CVA, CHF, Aortic stenosis, CAD, Cardiomegaly, CKD 3, DM 2 , HTN, TIA, Dementia, Spinal stenosis, hypothyroid, melanoma, THR right with staph infeciton. REcurrent UTI ESBL +, renal failure Acute on chronic. Pneumonia 04/19-04/23/19. CHronic NH patient. Pressure ulcer coccyx. Melanoma, Muscle weakness. - Past Surgical History Past Surgical History: Hip replacement, melanoma. ?Stent. History obtained from review of outlying [place] records and previous H+P. Patient history is fragmented. - Allergies Allergies/Adverse Reactions: Allergies Allergy/AdvReac Type Severity Reaction Status Date / Time No Known Allergies Allergy Verified 06/19/19 19:32 - Medications Medications: Medications Generic Name Dose Route Start Last Admin Trade Name Freq PRN Reason Stop Dose Admin Acetaminophen 650 mg 06/19/19 22:13 Tylenol PO Q4H PRN Fever > 102 Hydrocodone Bitart/Acetaminophen 1 tab 06/20/19 09:00 [place] 5-325 PO DAILY MARIA G Albuterol/Ipratropium 1 vial 06/20/19 06:00 Duoneb NEB RTBID MARIA G Allopurinol 100 mg 06/20/19 21:00 Zyloprim PO BEDTIME ON LICENSE OF [facility] Aspirin 81 mg 06/20/19 09:00 Aspirin Chewable PO DAILY ON LICENSE OF [facility] Cholecalciferol 3,000 unit 06/20/19 09:00 Vitamin D PO DAILY ON LICENSE OF [facility] Docusate Sodium 100 mg 06/20/19 09:00 Colace PO BID ON LICENSE OF [facility] Enoxaparin Sodium 30 mg 06/20/19 09:00 Lovenox SUBCUT DAILY ON LICENSE OF [facility] Ferrous Sulfate 324 mg 06/20/19 09:00 Ferrous Sulfate PO DAILY MARIA G Gabapentin 300 mg 06/20/19 21:00 Neurontin PO BEDTIME MARIA G Hydrocortisone 1 applic 06/19/19 22:17 Hydrocortisone 1% Cream TP Q12HR PRN Hemorroids Sodium Chloride 1,000 mls @ 75 mls/hr 06/19/19 21:49 Sodium Chloride IV 06/20/19 11:08 .[id number] STA Aztreonam 0.5 gm/ Sodium 50 mls @ 75 mls/hr 06/20/19 05:00 Chloride IV 06/23/19 04:59 Q8HR ON LICENSE OF [facility] Insulin Glargine 10 unit 06/19/19 23:00 Lantus SUBCUT BEDTIME MARIA G Losartan Potassium 100 mg 06/20/19 21:00 Cozaar PO BEDTIME MARIA G Multivitamins 1 tab 06/20/19 09:00 Multivitamin Tablet PO DAILY MARIA G Nitroglycerin 0.4 mg 06/19/19 22:17 Nitrostat SL PRN PRN Angina Non-Formulary Medication 10 mg 06/20/19 09:00 Cetirizine Hcl [Zyrtec] PO DAILY MARIA G Non-Formulary Medication 1 tab 06/20/19 09:00 Sennosides/Docusate Sodium [Senokot-S Tablet] PO BID MARIAG Non-Formulary Medication 125 mcg 06/20/19 09:00 Levothyroxine Sodium [Synthroid] PO DAILY MARIA G Ondansetron HCl 4 mg 06/19/19 22:13 Zofran 4 Mg/2 Ml IVP Q6H PRN Nausea / Vomiting Polyethylene Glycol 17 gm 06/20/19 09:00 Miralax PO DAILY MARIA G Simvastatin 40 mg 06/20/19 21:00 Zocor PO BEDTIME MARIA G Sodium Chloride 1 syr 06/19/19 19:45 Saline Flush IVF PRN PRN To flush IV Tamsulosin HCl 0.4 mg 06/20/19 09:00 Flomax PO DAILY MARIA G - Family History Past Family History: Patient confused. Brother/sister in law. Sister in law helps him make decisions but he reports no POA. Asthma in family, TB in family. History obtained from review of outlying [place] records and previous H+P. Patient history is fragmented. - Social History Past Social History: Never smoker. No ETOH. [place] resident. .History obtained from review of outlying [place] records and previous H+P. Patient history is fragmented. - Body Composition Height: 5 ft 10 in Weight: 185 lb 3.013 oz Body Mass Index (BMI): 26.5 - Physical Examination HEENT: Constitutional: Appearance-No acute distress, Consistent with stated age. Orientation- Oriented x 3, but some answer are a little confused. He has some dementia with some periods of lucency. Build and Nutrition-[normal] General- Patient is pleasant and cooperative with the interview and exam. No glasses in place. [place] patient. Integumentary: General-Sacral ulcers stage 2 at least 3 of them with surrounding overlying slough. He has large area of erythema with 3 ulcerations that are bandaged. They arrived from [place] in this state. Appropriately bandaged and pressure/rolling will occur while in hospital. Head/Neck: Head- normocephalic and atraumatic. Neck- without visible/palpable lumps or pulsations. Palpation- No bony tenderness about head/neck along frontal, occipital, temporal, parietal, mastoid, jawline, zygoma, orbit or any other location. NO temporal artery tenderness. No TMJ tenderness. Neck Supple. Thyroid-No thyromegaly, no nodules Eye: Bilaterally PERRLA, EOMI. No discharge. Upper and lower eyelids are normal. Sclera/conjunctiva normal without discharge. No conjunctival injection. He does not have his glasses. ENMT: Pinna- normal without tenderness or erythema. External auditory canal Left- normal without erythema or discharge, no excessive cerumen. External auditory canal Right-normal without erythema or discharge, no excessive cerumen. TM left- [place]/pearly, normal light reflex and anatomy TM Right- [place]/ pearly, normal light reflex and anatomy Hearing Assessment-normal to conversational speech. Nose and sinus- No sinus tenderness along frontal/ maxillary region. External appearance normal and midline. Nares- bilateral quiet airflow, no discharge. Nasal mucosa- No bleeding noted and no ulcerations observed. [place], moist. Turbinates non boggy. Lips- normal color, moist without cracks/lesions Oral Cavity/Palate- hard/soft palate intact without lesions, oral mucosa pink and moist. Tongue normal midline. Oropharynx- no pharyngeal erythema, Uvula midline. No post nasal drip. No exudate. Salivary glands- Non tender to palpation CHEST/LUNG: Inspection- symmetric chest wall no pectus deformity. Normal effort , no distress, no use of accessory muscles. Palpation- nontender sternum, ribline. No abnormal pulsations. Auscultation- Breath sounds normal throughout all lung ch[place]. Normal tracheal sounds, Normal bronchial sounds overlying sternum, Bronchovessicular sounds normal between scapulae posteriorly, Normal vessicular breath sounds heard throughout periphery. Lungs are clear today. Adventitious sounds- No wheezes, rales, rhonchi. Normal respirations, no e/o consolidation. CARDIOVASCULAR: Carotid artery- normal, no bruits or abnormal pulsations. Jugular vein- no pulsations. Palpation/Percussion- Displaced PMI inferolaterally , no palpable thrill Auscultation- Regular rate and rhythm. III/ murmur left 2nd intercostal space radiates into carotid. Known aortic issues. It appears he has systolic and diastolic. reports of stenosis and regurgitation,which makes sense clinically. Extremities- no cyanosis, edema, or increased warmth. ABDOMEN: Inspection- normal and no visible pulsations. Normal contour. Auscultation- Bowel sounds normal, no abdominal bruits. Palpation/Percussion- soft, non-tender, no rebound tenderness, no rigidity (guarding), no jar tenderness, no masses. Liver-no hepatomegaly, Spleen no splenomegaly, Hernias - none. Rectal not examined. Peripheral Vascular: Upper extremity Left- Normal temperature with pink nailbeds and no ulcerations. Upper extremity Right- Normal temperature with pink nailbeds and no ulcerations. Lower extremity- Normal temperature with pink nailbeds and no ulcerations. DP pulses 1+ bilaterally. He has some softness to the L>R posterior heel. No skin breakdown. Concern for early pressure injury. He has reduced Pedal hair. capillary refill appears normal. Edema- No edema. Musculoskeletal: Generalized-No generalized swelling or edema of extremities, no digital clubbing or cyanosis, neurovascularly intact all four extremities. Upper extremity- Asymmetrical posture. Sitting at angle in bed. No visible deformity. Normal sensation along medial and lateral upper extremity proximally and distally. NO tenderness overlying shoulder, reports pain and limited ROM of right shoulder. ROM decreased to flex/extend/abduct. NO pain at AC but e/o degeneration bilaterally. Left shoulder more ROM with ability to lift arm above head. [place] Up 4+/5 and strength 4+/5 bilateral UE. Elbow palpated, no tenderness overlying olecranon. Normal supination, pronation to active/ passive ROM and to resisted rotation. Bicep insertion/tricep insertion appear normal without obvious pathology. Lower extremity- Hip: Not tender to palpation, no pain, no swelling, edema or erythema of surrounding tissue, normal strength and tone. Reduced appearing hip ROM bilaterally without pain. Flexion of hip 4+/5 bilaterally. Knee: Knee ROM reduced. No tenderness overlying trochanters, no tenderness about patella, quad tendon, patellar tendon. No tenderness at tibial tuberosity. Ankle: normal ROM not tender to palpation along medial/lateral malleolus. Toes mildly hyperemic but good cap refill. Spine/Rbs- No deformities, masses. Tenderness paraspinal Tspine and Lspine. Neurological: General- Moves all 4 extremities symmetrically. Symmetrical face and body posture. Cranial nerves- individually evaluated II-XII and intact. PERRLA, Normal EOMI, visual/special senses appear intact, Face is symmetrical and normal sensation/movement, normal tongue, normal strength/posture of neck musculature. Reflexes- intact with DTR 2+ patellar, Achilles, bicep, brachial, tricep. Strength- as noted aboev. Soft touch- intact bilateral UE and LE. Temperature sensation- intact bilateral UE and LE. Neuropsych: Oriented- Person, place, time. (AAOx3), other times confused to date. Pleasant jovial and in good spirit. He has chronic dementia and he seems to have improved some already with abx and tx in ER. Mood/affect- normal and congruent. Sparse information, poor historian but pleasant. Speech-Normal speech, normal rate, normal tone, Judgment/insight- Seems Appropriate, aware of care, aware of some of his history. No family present. I think patient can understand enough to know where he is and what is going on. Lymphatic: Head/Neck- normal size and non tender to palpation. Axillary- normal size and non tender to palpation. Femoral and Inguinal- normal size and non tender to palpation. GENERAL: The patient is awake, alert and oriented, lying in bed in no distress. VITAL SIGNS: Temperature 98.4 F, Pulse 70, Respiratory Rate 20, BP 135/72, Pulse Ox 100% HEENT: Head normocephalic, atraumatic. Eyes: Extraocular muscles are intact. Pupils are equal, round and reactive to light and accommodation. Ears: No lesions. Nose appeared normal. Throat: No exudate or erythema. NECK: Supple. No JVD, no carotid bruit. No lymphadenopathy or thyromegaly. LUNGS: Decreased breath sounds, Harsh breath sounds. Clear to auscultation. Percussion note normal. Chest symmetrical. HEART: S1, S2, no S3. No murmurs. No cyanosis or clubbing. No ascites. Pulses: Dorsalis pedis and posterior tibial pulses +1 to +2 both sides. ABDOMEN: Soft. Non-tender. Bowel sounds active. No CVA tenderness. No mass felt. EXTREMITIES: No edema. Full range of motion of all extremities, equal. NEUROLOGIC: No focal deficit. Cranial nerves II through XII are grossly intact. No headache, no double vision or headache. SKIN: Warm and dry. Intact. Turgor-normal. LYMPHATIC: No palpable lymph nodes/no lymphedema. MUSCULOSKELETAL: Normal joints with no swelling. Muscle tone is normal. - Lab/Tests/Diagnostic Imaging Lab/Tests/Diagnostic Imaging: Laboratory Last Values WBC 14.48 K/ul (4.2-10.2) H 06/19/19 20:02 RBC 3.44 10^6/ul (4.70-6.10) L 06/19/19 20:02 Hgb 10.5 g/dl (14.0-18.0) L 06/19/19 20:02 Hct 32.9 % (42.0-52.0) L 06/19/19: MCV 95.6 fl (80.0-94.0) H 06/19/19 20: MCH 30.5 pg (27.0-31.0) 06/19/19 20: MCHC 31.9 (31.8-35.4) 06/19/19 20: RDW Coeff of Sandra 13.9 % (11.6-14.8) 06/19/19: Plt Count 177 10^3/uL (140-440) 06/19/19 20: Immature Gran % (Auto) 0.5 % (0.0-5.0) 06/19/19 20: Neut % (Auto) 77.5 06/19/19 20:02 Lymph % (Auto) 9.3 (10.0-50.0) L 06/19/19: [place] % (Auto) 8.2 (0-10) 06/19/19 20: Eos % (Auto) 4.2 % (0.0-7.0) 06/19/19 20: Baso % (Auto) 0.3 % (0.0-3.0) 06/19/19: Immature Gran # (Auto) 0.1 (0.0-1.0) 06/19/19 20:02 Neut # (Auto) 11.2 K/ul (2.0-6.9) H 06/19/19 20:02 Lymph # (Auto) 1.4 K/uL (0.60-3.4) 06/19/19 20:02 [place] # (Auto) 1.2 K/uL (0.4-2.0) 06/19/19 20:02 Eos # (Auto) 0.6 K/ul (0.0-0.7) 06/19/19 20:02 Baso # (Auto) 0.1 K/uL (0-0.2) 06/19/19 20:02 Sodium 137.5 mmol/L (134.5-145) 06/19/19 20:02 Potassium 5.83 mmol/L (3.5-5.1) H 06/19/19 20:02 Chloride 101.5 mmol/L (98-107) 06/19/19 20:02 Carbon Dioxide 26.3 mmol/L (22-30.0) 06/19/19 20:02 Anion Gap 15.53 06/19/19 20:02 BUN 48.5 mg/dL (9-20) H 06/19/19 20:02 Creatinine 2.12 mg/dL (0.60-1.10) H 06/19/19 20:02 Estimated GFR (MDRD) 30.00 mL/min 06/19/19 20:02 BUN/Creatinine Ratio 22.87 06/19/19 20:02 Glucose 130.2 mg/dL (74-106) H 06/19/19 20:02 Lactic Acid 0.83 mmol/L (0.7-2.1) 06/19/19 20:02 Calcium 9.35 mg/dL (8.4-10.2) 06/19/19 20:02 Total Bilirubin 0.64 mg/dL (0.2-1.3) 06/19/19 20:02 AST 17.4 U/L (17-59) 06/19/19 20:02 ALT 13.7 U/L (0-50) 06/19/19 20:02 Alkaline Phosphatase 74.6 U/L (56-119) 06/19/19 20:02 NT-Pro-B Natriuret Pep 25299.000 pg/mL (0-300) H 06/19/19 20:02 Total Protein 7.45 g/dL (6.3-8.2) 06/19/19 20:02 Albumin 4.00 g/dL (3.5-5.0) 06/19/19 20:02 Globulin 3.45 06/19/19 20:02 Albumin/Globulin Ratio 1.15 06/19/19 20:02 Amylase 101.3 U/L (30-110) 06/19/19 20:02 Lipase 46.1 U/L (23-300) 06/19/19 20:02 Urine Color Yellow (YELLOW) 06/19/19 16:25 Urine Clarity Cloudy (CLEAR) 06/19/19 16:25 Urine pH 7.0 (5-9) 06/19/19 16:25 Ur Specific [place] 1.015 (1.005-1.030) 06/19/19 16:25 Urine Protein 1+ (NEGATIVE) 06/19/19 16:25 Urine Glucose (UA) Negative (NEGATIVE) 06/19/19 16:25 Urine Ketones Negative (NEGATIVE) 06/19/19 16:25 Urine Blood 1+ (NEGATIVE) 06/19/19 16:25 Urine Nitrite Negative (NEGATIVE) 06/19/19 16:25 Urine Bilirubin Negative (NEGATIVE) 06/19/19 16:25 Urine Urobilinogen 0.2 (0.2) 06/19/19 16:25 Ur Leukocyte Esterase 3+ (NEGATIVE) 06/19/19 16:25 Urine Microscopic RBC 5-10 (0-2) 06/19/19 16:25 Urine Microscopic WBC Tntc (0-2) 06/19/19 16:25 Ur Squamous Epith Cells Not present (0-5) 06/19/19 16:25 Urine Bacteria 2+ (NOT PRESENT) 06/19/19 16:25 Urine Mucus 1+ (NOT PRESENT) 06/19/19 16:25 CXR in our ER showed "No acute cardiopulmonary findings, unchanged right basilar calcified pleural plaque." Compared this to 04/23/19 cardiomegaly w/o acute process. - Assessment (1) Elevated brain natriuretic peptide (BNP) level Status: Acute Code(s): R79.89 - OTHER SPECIFIED ABNORMAL FINDINGS OF BLOOD CHEMISTRY SNOMED Code(s): 017088454, 599431172 (2) Pressure ulcer Status: Acute Code(s): L89.90 - PRESSURE ULCER OF UNSPECIFIED SITE, UNSPECIFIED STAGE SNOMED Code(s): 894028034 (3) Acute kidney failure Status: Acute Code(s): N17.9 - ACUTE KIDNEY FAILURE, UNSPECIFIED SNOMED Code (s): 42623687 Qualifiers: Acute renal failure type: unspecified Qualified Code(s): N17.9 - Acute kidney failure, unspecified (4) Hyperkalemia Status: Acute Code(s): E87.5 - HYPERKALEMIA SNOMED Code(s): 93581820 (5) Urinary tract infection Status: Acute Code(s): N39.0 - URINARY TRACT INFECTION, SITE NOT SPECIFIED SNOMED Code(s): 05285535 Qualifiers: Urinary tract infection type: acute cystitis Hematuria presence: without hematuria Qualified Code(s): N30.00 - Acute cystitis without hematuria (6) Dehydration Status: Acute Code(s): E86.0 - DEHYDRATION SNOMED Code(s): 59462929 (7) Macrocytic anemia Status: Acute Code(s): D53.9 - NUTRITIONAL ANEMIA, UNSPECIFIED SNOMED Code(s ): 61631289 - Plan Plan: Acute kidney failure (Acute)/Dehydration (Acute)/REcurrent UTI and ESBL+: AMAN on top of CKD. Appears baseline creatinine runs 1.30-1.33 and GFR around 51- 53. He is currently at 30. Dehydration, decreased PO intake, elevated K+ seem possible. Sugars seem stable. Report from [facility] that he has been under control. Continue bumex. At present 0.5mg daily will help him to continue to urinate. Repeat labs in am, adjust meds based on CrCl. - Admit to inpatient - Telemetry - Fluid hydration 100ml/hour (gentle tonight) - Duoneb BID - Labs in am (B12/folate/CBC/CMP/A1C) - Weigh patient daily - INvanz 500mg daily x 7 days adjust when CrCl >30ml/min. Elevated brain natriuretic peptide (BNP) level (Acute): Unknown chronicity for this problem. Weight at [place] ranges 174-185. He is 181 on floor. Will monitor output/weight. He is incontinent. Pressure ulcers present. ON ARB. No acute s/ sx of CHF exacerbation. Weights within range over last 6 months. NO obvious increases, no obvious swelling of LE. Hyperkalemia (Acute): Typically low. I will repeat CMP in am. Stop MVI, stop K +. - CMP in am Pressure ulcer (Acute): Calmoseptine, pressure avoidance recommended. Heel Pain: Offload pressure. Nursing updated/aware. Urinary tract infection (Acute): Aztreonam in Er. I have d/c this and added ertapenem 500mg. CrCl 28-30 thus 500mg daily. - INvanz 500mg daily. Hypothyroidism: Stable with last check of TSH 3.370 . - Resume home meds. DM2 INDDM: Will check a1c. Will given insulin 10 units lantus at night. If A1C <7.0 will consider stopping that altogether. Monitor accucheck, no correction unless >180. Not on metformin. Continue insulin lantus 10 units daily. Will adjust based on a1c. - A1C in am. - Home meds. DVT PRophy: Lovenox 30. CrCl 28-30. - Subcut Lovenox 30mg daily. Diet: [place] thick Activity: Fall precaution. Regular rolling. Disposition: >70 minutes spent during admit today. REviewed ER note, 1:1 discussion with ER provider, contacted NH, discussed case with nursing for last weights. Reviewed d/c summary from 04/23/19. Compared labs to last known labs. BNP elevated, no echo that I can find. PCP is unavailable and out of area for 1 week. He does not have s/sx of acute CHF at this time.
[2019-06-19] MEDS ORDERED: INVANZ 0.5 GM in SODIUM CHLORIDE 50 ML IV SCH (23:30)
[2019-06-20] MEDS: LANTUS SUBCUT SCH ×2 (00:01→21:22)
[2019-06-20] MEDS ORDERED: INVANZ ONE (00:06)
[2019-06-20] MEDS ORDERED: AZACTAM 0.5 GM in SODIUM CHLORIDE 50 ML IV SCH (05:00)
[2019-06-20] MEDS ORDERED: AZACTAM 1 GM in SODIUM CHLORIDE 50 ML IV SCH (05:00)
[2019-06-20] MEDS: DUONEB NEB SCH ×2 (06:05→16:45)
[2019-06-20] MEDS ORDERED: SYNTHROID PO SCH (06:30)
[2019-06-20] MEDS ORDERED: COLACE PO SCH (09:00)
[2019-06-20] MEDS ORDERED: NON-FORMULARY MEDICATION (Cetirizine Hcl [Zyrtec] 10 MG) PO SCH (09:00)
[2019-06-20] MEDS ORDERED: MULTIVITAMIN TABLET PO SCH (09:00)
[2019-06-20] MEDS: ASPIRIN CHEWABLE PO SCH (09:09)
[2019-06-20] MEDS: BUMEX PO SCH (09:09)
[2019-06-20] MEDS: COLACE PO SCH ×2 (09:10→21:22)
[2019-06-20] MEDS: SENNA PO SCH ×2 (09:10→21:22)
[2019-06-20] MEDS: CLARITIN PO SCH (09:10)
[2019-06-20] MEDS: VITAMIN D PO SCH (09:10)
[2019-06-20] MEDS: LOVENOX SUBCUT SCH (09:11)
[2019-06-20] MEDS: NORCO 5-325 PO SCH (09:11)
[2019-06-20] MEDS: FLOMAX PO SCH (09:11)
[2019-06-20] MEDS: FERROUS SULFATE PO SCH (09:11)
[2019-06-20] MEDS: MIRALAX PO SCH (09:11)
--- NOTE | 2019-06-20 09:15 | PCM.PROG ---
Subjective: 83 yo CM HD #2 admitted from ER after AL noted change in Mentation, concern for UTI. He was found to have fever, hyperkalemia, AMAN and was admitted to inpatient status due to the AMAN. AAox3 but cognition changes frequently. Chronic leukocytosis, improved from admit with am labs showing wbc 12.97 down from 14.48. Hgb down from 10.5 to 10.1 and plt dropping from 177 to 167 suggesting dilutional effect. A1C 7.46 and reasonable for age/medical problems. Hyperkalemia resolved w/ gentle hydration. Down to 4.68 from 5.83 at admit. Sodium is fine. His Creatinine has dropped from 2.12 to 2.01. Glucose is stable. Calcium stable. BNP was markedly elevated at admit at 10,900. No obvious s/sx of fluid overload. Weight today 179 with average at AL 177-182. Known ESBL, heavy growth of G- rods on our culture. I have him on INVANZ 500 daily until his CrCl >30 reliably. This am he is at 28.2-31 depending on which formula you use. I will continue invanz 500 daily x 7 days for now. He has been afebrile throughout entire stay. HR 84-98. TEle SR. O2 95-98 on RA. BP 117 /63 this am. incontinent of urine/stool. He has sacral ulcers, bandaged and tended. He had 3 voids throughout the evening hours. At this point nothing new to report. HE has had an improvement in his renal function. Await urine culture. With acute renal failure and urological source, I want to make sure that we have a speciation before we discharge back to [place]. Plan to d/c tomorrow if culture available. He is improving/stable but kidney function not yet back to baseline. Review of Systems Constitutional: fever (RESOLVED), chills (RESOLVED), weakness (IMPROVED), fatigue, loss of appetite. No: sweats, other Eyes: other. No: blurred vision, double-vision, discharge, itching, pain, redness, photophobia Ears: No: pain, bleeding, drainage, ringing, hearing loss, other Nose: No: bleeding, congestion, discharge, other Throat: No: pain, swelling, voice change, other Mouth: No: bleeding, pain, swelling, other Respiratory: cough, shortness of air, wheeze. No: hemoptysis, pain with breathing, other Cardiovascular: other. No: chest pain, left arm pain, diaphoresis, PND, orthopnea, edema, palpitations, syncope Gastrointestinal: No: abdominal pain, nausea, vomiting, diarrhea, melena, hematemesis, hematochezia, dysphagia, constipation, other Genitourinary: dysuria, frequency, incontinence, flank pain (back pain resolved with norco at AL. ). No: hematuria, penile discharge, testicular pain, testicular swelling, other Neurological: other (chronic confusion/dementia. ) Musculoskeletal: pain, swelling in joints Skin: other (sacral/coccyx/buttock pressure ulcer) Immunology: No: hives, itching, frequent infections, difficulty healing, other Hematology: easy bruising. No: swollen glands Endocrine: No: weight changes Psychiatric: No: depression, anxiety, sleeplessness, hallucinations Habits: No: tobacco use, substance use, alcohol use, other Objective: Vital Signs - 24 hr 06/19/19 06/19/19 06/20/19 19:17 22:28 02:00 Temperature 99.3 F 99.6 F 98.9 F Pulse Rate 89 84 Respiratory 20 14 Rate Blood Pressure 144/77 H O2 Sat by Pulse 97 98 Oximetry 06/20/19 05:36 Temperature 98.1 F Pulse Rate 98 H Respiratory 18 Rate Blood Pressure 117/63 O2 Sat by Pulse 95 Oximetry Constitutional: Appearance-No acute distress, Consistent with stated age. Orientation- Oriented x 3, but some answers remain a little confused. He has some dementia with some periods of lucency. Build and Nutrition-[normal] General- Patient is pleasant and cooperative with the interview and exam. No glasses in place. AL patient. Integumentary: General-Sacral ulcers stage 2 at least 3 of them with surrounding overlying slough. He has large area of erythema with 3 ulcerations that are bandaged. They arrived from [place] in this state. Appropriately bandaged and pressure/rolling will occur while in hospital. ENMT: Hearing Assessment-normal to conversational speech. Nose and sinus- No sinus tenderness along frontal/maxillary region. External appearance normal and midline. Nares- bilateral quiet airflow, no discharge. Nasal mucosa- No bleeding noted and no ulcerations observed. [place], moist. Turbinates non boggy. Lips- normal color, moist without cracks/lesions Oral Cavity/Palate- hard/soft palate intact without lesions, oral mucosa pink and moist. Tongue normal midline. Oropharynx- no pharyngeal erythema, Uvula midline. No post nasal drip. No exudate. Salivary glands- Non tender to palpation CHEST/LUNG: Inspection- symmetric chest wall no pectus deformity. Normal effort , no distress, no use of accessory muscles. Palpation- nontender sternum, ribline. No abnormal pulsations. Auscultation- Breath sounds normal throughout all lung chisholm. Normal tracheal sounds, Normal bronchial sounds overlying sternum, Bronchovessicular sounds normal between scapulae posteriorly, Normal vessicular breath sounds heard throughout periphery. Lungs are clear today. Adventitious sounds- No wheezes, rales, rhonchi. Normal respirations, no e/o consolidation. CARDIOVASCULAR: Auscultation- Regular rate and rhythm. III/ murmur left 2nd intercostal space radiates into carotid. Known aortic issues. It appears he has systolic and diastolic. reports of stenosis and regurgitation,which makes sense clinically. Extremities- no cyanosis, edema, or increased warmth. ABDOMEN: Inspection- normal and no visible pulsations. Normal contour. Auscultation- Bowel sounds normal, no abdominal bruits. Palpation/Percussion- soft, non-tender, no rebound tenderness, no rigidity (guarding), no jar tenderness, no masses. Liver-no hepatomegaly, Spleen no splenomegaly, Hernias - none. Rectal not examined. Peripheral Vascular: Lower extremity- Normal temperature with pink nailbeds and no ulcerations. DP pulses 1+ bilaterally. He has some softness to the L>R posterior heel. No skin breakdown. Concern for early pressure injury. He has reduced Pedal hair. capillary refill appears normal. Unchanged today. No sores , no lesions, no changes in skin. Neuropsych: Oriented- Sleepy today. Mood/affect- Upbeat and positive. normal and congruent. Sparse information, poor historian but pleasant. Speech-Normal speech, normal rate, normal tone, Laboratory Last Values WBC 12.97 K/ul (4.2-10.2) H 06/20/19 04:45 RBC 3.27 10^6/ul (4.70-6.10) L 06/20/19 04:45 Hgb 10.1 g/dl (14.0-18.0) L 06/20/19 04:45 Hct 31.3 % (42.0-52.0) L 06/20/19 04:45 MCV 95.7 fl (80.0-94.0) H 06/20/19 04:45 MCH 30.9 pg (27.0-31.0) 06/20/19 04:45 MCHC 32.3 (31.8-35.4) 06/20/19 04:45 RDW Coeff of Sandra 13.9 % (11.6-14.8) 06/20/19 04:45 Plt Count 167 10^3/uL (140-440) 06/20/19 04:45 Immature Gran % (Auto) 0.5 % (0.0-5.0) 06/20/19 04:45 Neut % (Auto) 75.7 06/20/19 04:45 Lymph % (Auto) 10.8 (10.0-50.0) 06/20/19 04:45 [place] % (Auto) 8.2 (0-10) 06/20/19 04:45 Eos % (Auto) 4.4 % (0.0-7.0) 06/20/19 04:45 Baso % (Auto) 0.4 % (0.0-3.0) 06/20/19 04:45 Immature Gran # (Auto) 0.1 (0.0-1.0) 06/20/19 04:45 Neut # (Auto) 9.8 K/ul (2.0-6.9) H 06/20/19 04:45 Lymph # (Auto) 1.4 K/uL (0.60-3.4) 06/20/19 04:45 [place] # (Auto) 1.1 K/uL (0.4-2.0) 06/20/19 04:45 Eos # (Auto) 0.6 K/ul (0.0-0.7) 06/20/19 04:45 Baso # (Auto) 0.1 K/uL (0-0.2) 06/20/19 04:45 Sodium 137.7 mmol/L (134.5-145) 06/20/19 04:45 Potassium 4.68 mmol/L (3.5-5.1) 06/20/19 04:45 Chloride 104.1 mmol/L (98-107) 06/20/19 04:45 Carbon Dioxide 26.0 mmol/L (22-30.0) 06/20/19 04:45 Anion Gap 12.28 06/20/19 04:45 BUN 45.3 mg/dL (9-20) H 06/20/19 04:45 Creatinine 2.01 mg/dL (0.60-1.10) H 06/20/19 04:45 Estimated GFR (MDRD) 32.00 mL/min 06/20/19 04:45 BUN/Creatinine Ratio 22.53 06/20/19 04:45 Glucose 106.2 mg/dL (74-106) H 06/20/19 04:45 Hemoglobin A1c 7.46 (4.0-6.0) H 06/20/19 04:45 Lactic Acid 0.83 mmol/L (0.7-2.1) 06/19/19 20:02 Calcium 8.84 mg/dL (8.4-10.2) 06/20/19 04:45 Total Bilirubin 0.64 mg/dL (0.2-1.3) 06/19/19 20:02 AST 17.4 U/L (17-59) 06/19/19 20:02 ALT 13.7 U/L (0-50) 06/19/19 20:02 Alkaline Phosphatase 74.6 U/L (56-119) 06/19/19 20:02 NT-Pro-B Natriuret Pep 54184.000 pg/mL (0-300) H 06/19/19 20:02 Total Protein 7.45 g/dL (6.3-8.2) 06/19/19 20:02 Albumin 4.00 g/dL (3.5-5.0) 06/19/19 20:02 Globulin 3.45 06/19/19 20:02 Albumin/Globulin Ratio 1.15 06/19/19 20:02 Amylase 101.3 U/L (30-110) 06/19/19 20:02 Lipase 46.1 U/L (23-300) 06/19/19 20:02 Vitamin B12 588 pg/mL (239-931) 06/20/19 04:45 Folate > 20.00 ng/mL (2.76-) 06/20/19 04:45 Urine Color Yellow (YELLOW) 06/19/19 16:25 Urine Clarity Cloudy (CLEAR) 06/19/19 16:25 Urine pH 7.0 (5-9) 06/19/19 16:25 Ur Specific [place] 1.015 (1.005-1.030) 06/19/19 16:25 Urine Protein 1+ (NEGATIVE) 06/19/19 16:25 Urine Glucose (UA) Negative (NEGATIVE) 06/19/19 16:25 Urine Ketones Negative (NEGATIVE) 06/19/19 16:25 Urine Blood 1+ (NEGATIVE) 06/19/19 16:25 Urine Nitrite Negative (NEGATIVE) 06/19/19 16:25 Urine Bilirubin Negative (NEGATIVE) 06/19/19 16:25 Urine Urobilinogen 0.2 (0.2) 06/19/19 16:25 Ur Leukocyte Esterase 3+ (NEGATIVE) 06/19/19 16:25 Urine Microscopic RBC 5-10 (0-2) 06/19/19 16:25 Urine Microscopic WBC Tntc (0-2) 06/19/19 16:25 Ur Squamous Epith Cells Not present (0-5) 06/19/19 16:25 Urine Bacteria 2+ (NOT PRESENT) 06/19/19 16:25 Urine Mucus 1+ (NOT PRESENT) 06/19/19 16:25 (1) Elevated brain natriuretic peptide (BNP) level Status: Acute Code(s): R79.89 - OTHER SPECIFIED ABNORMAL FINDINGS OF BLOOD CHEMISTRY SNOMED Code(s): 270860762 (2) Pressure ulcer Status: Acute Code(s): L89.90 - PRESSURE ULCER OF UNSPECIFIED SITE, UNSPECIFIED STAGE SNOMED Code(s): 354641409 (3) Acute kidney failure Status: Acute Code(s): N17.9 - ACUTE KIDNEY FAILURE, UNSPECIFIED SNOMED Code (s): 43191535 (4) Hyperkalemia Status: Acute Code(s): E87.5 - HYPERKALEMIA SNOMED Code(s): 31118703 (5) Urinary tract infection Status: Acute Code(s): N39.0 - URINARY TRACT INFECTION, SITE NOT SPECIFIED SNOMED Code(s): 70905597 (6) Dehydration Status: Acute Code(s): E86.0 - DEHYDRATION SNOMED Code(s): 99308346 (7) Macrocytic anemia Status: Acute Code(s): D53.9 - NUTRITIONAL ANEMIA, UNSPECIFIED SNOMED Code(s ): 21137615 Plan: Acute kidney failure (Acute)/Dehydration (Acute)/REcurrent UTI and ESBL+: AMAN on top of CKD. Renal function is improving. Appears baseline creatinine runs 1.30-1.33 and GFR around 51-53. He is currently at 32. CrCl 28-31 today. Still w/ e/o dehydration, decreased PO intake. His hyperkalemia has resolved. Urine culture shows heavy G- Rods. Sugars seem stable. Vitals seem stable. Weight is stable, down to 179 14.35 oz from 181 on floor. 185 in ER. - Continue admit to inpatient - Telemetry to continue - Fluid hydration 100ml/hour - Duoneb BID - Labs in am tomorrow cbc/cmp - Weigh patient daily - INvanz 500mg daily x 7 days adjust when CrCl >30ml/min. Elevated brain natriuretic peptide (BNP) level (Acute): Unknown chronicity for this problem. Weight stable now down to typical range. NO e/of fluid overload. Per NH he ranges 174-185. He was 181 on floor last night and now 180 rounded. Will continue to monitor output/weight. He is incontinent. Pressure ulcers present. ON ARB. No acute s/sx of CHF exacerbation. Weights within range over last 6 months. NO obvious increases, no obvious swelling of LE. Negative CXR and no e/o pneumonia clinically or through radiology. Hyperkalemia (Acute): Resolved. Monitor. - CMP in am tomorrow Pressure ulcer (Acute): Calmoseptine to continue, pressure avoidance recommended. Regularly rolling. Present at admit. Monitor/prevent worsening and work on healing. Urinary tract infection (Acute): On ertapenem 500mg based on his CrCl 28-31. G- Rods heavy on culture, await C+S. - Invanz 500mg daily until CrCl shows >30ml/min reliably. Hypothyroidism: Stable with last check of TSH 3.370 . - Resume home meds. DM2 INDDM: Stable, A1C <8% and reasonable. Will continue/use insulin 10 units lantus at night. Monitor accucheck, no correction unless >180. Not on metformin. Continue insulin lantus 10 units daily. - Home meds. DVT PRophy: Lovenox 30. CrCl 28-31. - Subcut Lovenox 30mg daily. Diet: [place] thick liquids Activity: Fall precaution. Regular rolling. Disposition: >35 minutes spent during rounding today. REviewed overnight nursing note, vitals, telemetry, am labs, discussed care with patient, overnight nursing. PCP is unavailable and out of area for 1 week. He does not have s/sx of acute CHF at this time. Plan for now is to consider d/c to [facility] in 24 hours if abx appropriate. He has been afebrile since arrival despite fever at AL and change in Mentation. He is improving and should be able to return to AL in next 24-48 hours.
[2019-06-20] MEDS: SODIUM CHLORIDE 1,000 ML IV SCH ×2 (09:29→21:23)
[2019-06-20] MEDS: CALMOSEPTINE OINTMENT TP SCH ×2 (17:38→21:24)
[2019-06-20] MEDS: INVANZ 0.5 GM in SODIUM CHLORIDE 50 ML IV SCH (21:21)
[2019-06-20] MEDS: COZAAR PO SCH (21:21)
[2019-06-20] MEDS: ZYLOPRIM PO SCH (21:22)
[2019-06-20] MEDS: ZOCOR PO SCH (21:22)
[2019-06-20] MEDS: NEURONTIN PO SCH (21:22)
[2019-06-21] MEDS: DUONEB NEB SCH ×3 (05:00→17:14)
[2019-06-21] MEDS: SYNTHROID PO SCH ×2 (05:58→05:59)
[2019-06-21] MEDS: MIRALAX PO SCH (08:37)
[2019-06-21] MEDS: SODIUM CHLORIDE 1,000 ML IV SCH ×4 (08:37→17:01)
[2019-06-21] MEDS: CLARITIN PO SCH (08:37)
[2019-06-21] MEDS: SENNA PO SCH ×2 (08:37→20:49)
[2019-06-21] MEDS: VITAMIN D PO SCH (08:37)
[2019-06-21] MEDS: FLOMAX PO SCH (08:38)
[2019-06-21] MEDS: ASPIRIN CHEWABLE PO SCH (08:38)
[2019-06-21] MEDS: COLACE PO SCH ×2 (08:38→20:49)
[2019-06-21] MEDS: NORCO 5-325 PO SCH (08:38)
[2019-06-21] MEDS: CALCIUM 500 + VIT D 200 MG TABLET PO SCH (08:38)
[2019-06-21] MEDS: BUMEX PO SCH (08:38)
[2019-06-21] MEDS: FERROUS SULFATE PO SCH (08:38)
[2019-06-21] MEDS: LOVENOX SUBCUT SCH (08:39)
[2019-06-21] MEDS: CALMOSEPTINE OINTMENT TP SCH ×4 (08:43→20:50)
--- NOTE | 2019-06-21 18:23 | PCM.PROG ---
Subjective: 83 yo [place] patient of DR. Blake. [facility] patient, Chronic ESBL. Now HD #3 admitted from ER after [facility] noted change in Mentation, concern for UTI. He was found to have fever, hyperkalemia, AMAN and was admitted to inpatient status due to the AMAN. Chronic leukocytosis, improved from admit now with 10.17, down from 12.97 yesterday. Hgb also down at 9.4 plt also down, suggesting dilutional effect. Weight is steadily coming down now at 178. I ADDENDED THE H +P AND IT SOMEHOW DUPLICATES THE ER WEIGHT OF 185. His creatinine did not really improve overnight. His a1c was 7.46 and fine so long as <7.5% and his calcium was low today at 8.18. I do not have a recent albumin. Will check CMP tomorrow instead of BMP and assess this. Urine culture G- Rods, species pending. BC negative x 24 hours, MRSA negative. Patient c/o of heel burning/ pain. He has known sacral ulcers that are being addressed. Incontinent several times. Urine with strong odor. He remaind on invanz now HD #2 abx at 500mg daily due to CrCl bordeline around 30. Fluids 100ml/hour over last 24 hours. Will increase to 110. Maintenance is ~120ml/hour. He is on nectar thick liquids, regular meals. Will continue them for now. No e/o aspiration. We will consider d/c tomorrow. Waiting for C+S and improvement of renal function. BP normal/stable. 118/60, 110/63, 125/62. Remains afebrile. SA/SR on tele. Sleeping well. He is stable at this time, as noted awaiting urine culture (+ ESBL LAST TIME WITH INVANZ SUSCEPTIBLE) Review of Systems Constitutional: fever (RESOLVED), chills (RESOLVED), weakness (IMPROVED), fatigue, loss of appetite. No: sweats, other Eyes: other. No: blurred vision, double-vision, discharge, itching, pain, redness, photophobia Ears: No: pain, bleeding, drainage, ringing, hearing loss, other Nose: No: bleeding, congestion, discharge, other Respiratory: cough, shortness of air, wheeze. No: hemoptysis, pain with breathing, other Cardiovascular: other. No: chest pain, left arm pain, diaphoresis, PND, orthopnea, edema, palpitations, syncope Gastrointestinal: No: abdominal pain, nausea, vomiting, diarrhea, melena, hematemesis, hematochezia, dysphagia, constipation, other Genitourinary: (CHRONIC)dysuria, (CHRONIC)frequency, (CHRONIC)incontinence, flank pain (back pain resolved with norco at [facility]. ). No: hematuria, penile discharge, testicular pain, testicular swelling, other Neurological: other (chronic confusion/dementia. ) Musculoskeletal: pain, swelling in joints Skin: other (sacral/coccyx/buttock pressure ulcer) Immunology: No: hives, itching, frequent infections, difficulty healing, other Hematology: easy bruising. No: swollen glands Endocrine: No: weight changes Psychiatric: No: depression, anxiety, sleeplessness, hallucinations Habits: No: tobacco use, substance use, alcohol use, other Objective: Vital Signs - 24 hr 06/20/19 06/20/19 06/21/19 20:00 21:12 04:42 Temperature 99.0 F 98.4 F Pulse Rate 74 69 Respiratory 18 18 16 Rate Blood Pressure 110/63 125/62 O2 Sat by Pulse 95 99 Oximetry 06/21/19 13:56 Temperature 98.8 F Pulse Rate 92 H Respiratory 18 Rate Blood Pressure 152/86 H O2 Sat by Pulse 91 L Oximetry Constitutional: Appearance-No acute distress, Consistent with stated age. Orientation- Oriented x 3, but some answers remain a little confused. He has some dementia with some periods of lucency. Build and Nutrition-[normal] General- Patient is pleasant and cooperative with the interview and exam. No glasses in place. [facility] patient. Integumentary: General-Sacral ulcers stage 2 at least 3 of them with surrounding overlying slough. He has large area of erythema with 3 ulcerations that are bandaged. They arrived from [facility] in this state. Appropriately bandaged and pressure/rolling will occur while in hospital. ENMT: Hearing Assessment-normal to conversational speech. Nose and sinus- No sinus tenderness along frontal/maxillary region. External appearance normal and midline. Nares- bilateral quiet airflow, no discharge. Nasal mucosa- No bleeding noted and no ulcerations observed. [place], moist. Turbinates non boggy. Lips- normal color, moist without cracks/lesions Oral Cavity/Palate- hard/soft palate intact without lesions, oral mucosa pink and moist. Tongue normal midline. Oropharynx- no pharyngeal erythema, Uvula midline. No post nasal drip. No exudate. Salivary glands- Non tender to palpation CHEST/LUNG: Inspection- symmetric chest wall no pectus deformity. Normal effort , no distress, no use of accessory muscles. Palpation- nontender sternum, ribline. No abnormal pulsations. Auscultation- Breath sounds normal throughout all lung [place]. Normal tracheal sounds, Normal bronchial sounds overlying sternum, Bronchovessicular sounds normal between scapulae posteriorly, Normal vessicular breath sounds heard throughout periphery. Lungs are clear today. Adventitious sounds- No wheezes, rales, rhonchi. Normal respirations, no e/o consolidation. CARDIOVASCULAR: Auscultation- Regular rate and rhythm. III/ murmur left 2nd intercostal space radiates into carotid. Known aortic issues. It appears he has systolic and diastolic. reports of stenosis and regurgitation,which makes sense clinically. Extremities- no cyanosis, edema, or increased warmth. ABDOMEN: Inspection- normal and no visible pulsations. Normal contour. Auscultation- Bowel sounds normal, no abdominal bruits. Palpation/Percussion- soft, non-tender, no rebound tenderness, no rigidity (guarding), no jar tenderness, no masses. Liver-no hepatomegaly, Spleen no splenomegaly, Hernias - none. Rectal not examined. Peripheral Vascular: Lower extremity- Normal temperature with pink nailbeds and no ulcerations. DP pulses 1+ bilaterally. He has some softness to the L>R posterior heel. No skin breakdown. Concern for early pressure injury. He has reduced Pedal hair. capillary refill appears normal. Unchanged today. No sores , no lesions, no changes in skin. Musculoskeletal: Generalized-No generalized swelling or edema of extremities, no digital clubbing or cyanosis, neurovascularly intact all four extremities. Neurological: General- Moves all 4 extremities symmetrically. Symmetrical face and body posture. Cranial nerves- individually evaluated II-XII and intact. PERRLA, Normal EOMI, visual/special senses appear intact, Face is symmetrical and normal sensation/movement, normal tongue, normal strength/posture of neck musculature. Neuropsych: Oriented- Person, place, time. (AAOx3), other times confused to date. Pleasant jovial and in good spirit. He has chronic dementia and he seems to have improved some already with abx and tx in ER. Mood/affect- normal and congruent. Sparse information, poor historian but pleasant. Speech-Normal speech, normal rate, normal tone, Laboratory Last Values WBC 10.17 K/ul (4.2-10.2) 06/21/19 05:15 RBC 3.13 10^6/ul (4.70-6.10) L 06/21/19 05:15 Hgb 9.4 g/dl (14.0-18.0) L 06/21/19 05:15 Hct 30.2 % (42.0-52.0) L 06/21/19 05:15 MCV 96.5 fl (80.0-94.0) H 06/21/19 05:15 MCH 30.0 pg (27.0-31.0) 06/21/19 05:15 MCHC 31.1 (31.8-35.4) L 06/21/19 05:15 RDW Coeff of Sandra 14.0 % (11.6-14.8) 06/21/19 05:15 Plt Count 145 10^3/uL (140-440) 06/21/19 05:15 Immature Gran % (Auto) 0.4 % (0.0-5.0) 06/21/19 05:15 Neut % (Auto) 69.1 06/21/19 05:15 Lymph % (Auto) 15.2 (10.0-50.0) 06/21/19 05:15 [place] % (Auto) 8.1 (0-10) 06/21/19 05:15 Eos % (Auto) 6.7 % (0.0-7.0) 06/21/19 05:15 Baso % (Auto) 0.5 % (0.0-3.0) 06/21/19 05:15 Immature Gran # (Auto) 0.0 (0.0-1.0) 06/21/19 05:15 Neut # (Auto) 7.0 K/ul (2.0-6.9) H 06/21/19 05:15 Lymph # (Auto) 1.6 K/uL (0.60-3.4) 06/21/19 05:15 [place] # (Auto) 0.8 K/uL (0.4-2.0) 06/21/19 05:15 Eos # (Auto) 0.7 K/ul (0.0-0.7) 06/21/19 05:15 Baso # (Auto) 0.1 K/uL (0-0.2) 06/21/19 05:15 Sodium 139.0 mmol/L (134.5-145) 06/21/19 05:15 Potassium 4.79 mmol/L (3.5-5.1) 06/21/19 05:15 Chloride 106.4 mmol/L (98-107) 06/21/19 05:15 Carbon Dioxide 24.4 mmol/L (22-30.0) 06/21/19 05:15 Anion Gap 12.99 06/21/19 05:15 BUN 43.5 mg/dL (9-20) H 06/21/19 05:15 Creatinine 2.02 mg/dL (0.60-1.10) H 06/21/19 05:15 Estimated GFR (MDRD) 32.00 mL/min 06/21/19 05:15 BUN/Creatinine Ratio 21.53 06/21/19 05:15 Glucose 82.4 mg/dL (74-106) 06/21/19 05:15 Hemoglobin A1c 7.46 (4.0-6.0) H 06/20/19 04:45 Lactic Acid 0.83 mmol/L (0.7-2.1) 06/19/19 20:02 Calcium 8.18 mg/dL (8.4-10.2) L 06/21/19 05:15 Total Bilirubin 0.64 mg/dL (0.2-1.3) 06/19/19 20:02 AST 17.4 U/L (17-59) 06/19/19 20:02 ALT 13.7 U/L (0-50) 06/19/19 20:02 Alkaline Phosphatase 74.6 U/L (56-119) 06/19/19 20:02 NT-Pro-B Natriuret Pep 88691.000 pg/mL (0-300) H 06/19/19 20:02 Total Protein 7.45 g/dL (6.3-8.2) 06/19/19 20:02 Albumin 4.00 g/dL (3.5-5.0) 06/19/19 20:02 Globulin 3.45 06/19/19 20:02 Albumin/Globulin Ratio 1.15 06/19/19 20:02 Amylase 101.3 U/L (30-110) 06/19/19 20:02 Lipase 46.1 U/L (23-300) 06/19/19 20:02 Vitamin B12 588 pg/mL (239-931) 06/20/19 04:45 Folate > 20.00 ng/mL (2.76-) 06/20/19 04:45 Urine Color Yellow (YELLOW) 06/19/19 16:25 Urine Clarity Cloudy (CLEAR) 06/19/19 16:25 Urine pH 7.0 (5-9) 06/19/19 16:25 Ur Specific [place] 1.015 (1.005-1.030) 06/19/19 16:25 Urine Protein 1+ (NEGATIVE) 06/19/19 16:25 Urine Glucose (UA) Negative (NEGATIVE) 06/19/19 16:25 Urine Ketones Negative (NEGATIVE) 06/19/19 16:25 Urine Blood 1+ (NEGATIVE) 06/19/19 16:25 Urine Nitrite Negative (NEGATIVE) 06/19/19 16:25 Urine Bilirubin Negative (NEGATIVE) 06/19/19 16:25 Urine Urobilinogen 0.2 (0.2) 06/19/19 16:25 Ur Leukocyte Esterase 3+ (NEGATIVE) 06/19/19 16:25 Urine Microscopic RBC 5-10 (0-2) 06/19/19 16:25 Urine Microscopic WBC Tntc (0-2) 06/19/19 16:25 Ur Squamous Epith Cells Not present (0-5) 06/19/19 16:25 Urine Bacteria 2+ (NOT PRESENT) 06/19/19 16:25 Urine Mucus 1+ (NOT PRESENT) 06/19/19 16:25 Glucose Trends 06/19/19 06/20/19 06/21/19 Range/Units 20:02 04:45 05:15 Glucose 130.2 H 106.2 H 82.4 (74-106) mg/dL Na/K Trends 06/19/19 06/20/19 06/21/19 Range/Units 20:02 04:45 05:15 Sodium 137.5 137.7 139.0 (134.5-145) mmol/L Potassium 5.83 H 4.68 4.79 (3.5-5.1) mmol/L BUN/CR Trends 06/19/19 06/20/19 06/21/19 Range/Units 20:02 04:45 05:15 BUN 48.5 H 45.3 H 43.5 H (9-20) mg/dL Creatinine 2.12 H 2.01 H 2.02 H (0.60-1.10) mg/dL No new imaging BC negative Urine culture pending:G- rods. (1) Elevated brain natriuretic peptide (BNP) level Status: Acute Code(s): R79.89 - OTHER SPECIFIED ABNORMAL FINDINGS OF BLOOD CHEMISTRY SNOMED Code(s): 180095091 (2) Pressure ulcer Status: Acute Code(s): L89.90 - PRESSURE ULCER OF UNSPECIFIED SITE, UNSPECIFIED STAGE SNOMED Code(s): 590080739 (3) Acute kidney failure Status: Acute Code(s): N17.9 - ACUTE KIDNEY FAILURE, UNSPECIFIED SNOMED Code (s): 03593044 (4) Hyperkalemia Status: Acute Code(s): E87.5 - HYPERKALEMIA SNOMED Code(s): 01093611 (5) Urinary tract infection Status: Acute Code(s): N39.0 - URINARY TRACT INFECTION, SITE NOT SPECIFIED SNOMED Code(s): 08719101 (6) Dehydration Status: Acute Code(s): E86.0 - DEHYDRATION SNOMED Code(s): 93860839 (7) Macrocytic anemia Status: Acute Code(s): D53.9 - NUTRITIONAL ANEMIA, UNSPECIFIED SNOMED Code(s ): 04617110 Plan: Acute kidney failure (Acute)/Dehydration (Acute)/REcurrent UTI and ESBL+: AMAN on top of CKD. Cr/GFR stalled similar to yesterday values. Renal function is not improving as I would like. Increase fluids to 110ml/hour. Appears baseline creatinine runs 1.30-1.33 and GFR around 51-53. He is currently at 32. CrCl remains 28-31 today. Still w/ e/o dehydration, decreased PO intake. Weight steadily decreasing. His hyperkalemia has resolved. Urine culture shows heavy G - Rods. Still waiting on sensitivities. Sugars seem stable. Vitals seem stable. Weight is down to ~178 from 181 on floor. 185 in ER and duplicated whenever I mess with H+P. - Continue admit to inpatient - Telemetry to continue - Fluid hydration 110ml/hour - Duoneb BID - Labs in am tomorrow cbc/cmp - Weigh patient daily - INvanz 500mg daily x 7 days adjust when CrCl >30ml/min. Elevated brain natriuretic peptide (BNP) level (Acute): Unknown chronicity for this problem. Weight stable now down to typical range. NO e/of fluid overload. NO obvious increases, no obvious swelling of LE. Negative CXR and no e/o pneumonia clinically or through radiology. Consider outpatient echo. Hyperkalemia (Acute): Resolved. Monitor. - CMP in am tomorrow (NOT BMP) Pressure ulcer (Acute): Calmoseptine, pressure avoidance recommended. Present at admit. Monitor/prevent worsening and work on healing. Working on this regularly, regular position changes. Urinary tract infection (Acute): - Invanz 500mg daily until CrCl shows >30ml/min reliably. Hypothyroidism: Stable with last check of TSH 3.370 . - Resume home meds. DM2 INDDM: Stable, A1C <8% and reasonable. Will continue/use insulin 10 units lantus at night. Monitor accucheck, no correction unless >180. Not on metformin. Continue insulin lantus 10 units daily. - Home meds. DVT PRophy: Lovenox 30. CrCl 28-31. - Subcut Lovenox 30mg daily. Diet: [place] thick liquids Activity: Fall precaution. Regular rolling. Disposition: >25 minutes spent during rounding today. Reviewed overnight nursing note, vitals, telemetry, am labs, discussed care with patient, overnight nursing. Sleeping comfortably. He c/o heel pain. He has normal lucency periods and then some confusion. PCP is unavailable and out of area for 1 week. He does not have s/sx of acute CHF at this time. Plan for now is to consider d/c to [facility] once the renal function Cr <2.0 and we have sensitivity to drive abx therapy. He has been afebrile since arrival despite fever at [facility] and change in Mentation. He is improving and should be able to return to [facility] in next 24-48 hours.
[2019-06-21] MEDS ORDERED: INVANZ ONE (20:04)
[2019-06-21] MEDS: INVANZ 0.5 GM in SODIUM CHLORIDE 50 ML IV SCH (20:46)
[2019-06-21] MEDS: LANTUS SUBCUT SCH (20:48)
[2019-06-21] MEDS: NEURONTIN PO SCH (20:49)
[2019-06-21] MEDS: ZOCOR PO SCH (20:49)
[2019-06-21] MEDS: COZAAR PO SCH (20:49)
[2019-06-21] MEDS: ZYLOPRIM PO SCH (20:50)
[2019-06-22] MEDS: SODIUM CHLORIDE 1,000 ML IV SCH ×2 (03:35→17:42)
[2019-06-22] MEDS: DUONEB NEB SCH ×2 (05:05→17:05)
[2019-06-22] MEDS: SYNTHROID PO SCH ×2 (05:43→05:44)
[2019-06-22] MEDS: SENNA PO SCH ×2 (09:00→20:56)
[2019-06-22] MEDS: BUMEX PO SCH (09:01)
[2019-06-22] MEDS: VITAMIN D PO SCH (09:02)
[2019-06-22] MEDS: FERROUS SULFATE PO SCH (09:03)
[2019-06-22] MEDS: NORCO 5-325 PO SCH (09:03)
[2019-06-22] MEDS: CALCIUM 500 + VIT D 200 MG TABLET PO SCH (09:03)
[2019-06-22] MEDS: COLACE PO SCH ×2 (09:03→20:56)
[2019-06-22] MEDS: CLARITIN PO SCH (09:03)
[2019-06-22] MEDS: FLOMAX PO SCH (09:04)
[2019-06-22] MEDS: LOVENOX SUBCUT SCH (09:04)
[2019-06-22] MEDS: ASPIRIN CHEWABLE PO SCH (09:04)
[2019-06-22] MEDS: MIRALAX PO SCH (09:10)
[2019-06-22] MEDS: CALMOSEPTINE OINTMENT TP SCH ×4 (09:22→20:57)
--- NOTE | 2019-06-22 12:25 | PCM.PROG ---
Subjective: 83 YO CM patient of DR. Blake, resident [facility] w/ eSBL, anemia, DM stable , hypothyroid stable, elevated BNP w/o recent echo. HD #4, invanz 500mg daily up until now. Culture returned today as + for ESBL invanz good choice. Leukocytosis remains improved, hyperkalemia remains resolved, hypocalcemia corrects to normal base don albumin. Weight is stable based on [place] normals. Now we are monitoring his Hgb which is down to 8.7 from 9.4 yesterday. I have talked with nursing held his fluids and will repeat CBC and CMP at 1800 today and again in am tomorrow. WBC now at 8.51 and stable. plt are 148 and stable. This am his potassium is good at 4.14. His creatinine has dropped finally to < 2.0 and is 1.74. His calcium is still low at 8.02 but albumin is 2.94 and this corrects to normal> I will still cover with oral ca++/Vit D 1x daily. He will increase invanz today to 1gram daily as his creatinine/GFR have improved and now >30. Vitals reviewed and stable. Remains incontinent of urine, no BM. He is eating 25-50% of hsi meals. Glucose <200 and reasonable for now. NO steroids on board. On nectar thick liquids, normal regular meals. He still c/ o heel pain else no c/o. Nursing had no concerns overnight. We are monitoring his Hgb now. NO s/sx of bleeds. Tele reviewed and SA w/ BBB. Review of Systems Constitutional: fever (RESOLVED), chills (RESOLVED), weakness (IMPROVED), fatigue, loss of appetite. No: sweats, other Eyes: other. No: blurred vision, double-vision, discharge, itching, pain, redness, photophobia Ears: No: pain, bleeding, drainage, ringing, hearing loss, other Nose: No: bleeding, congestion, discharge, other Throat: No: pain, swelling, voice change, other Mouth: No: bleeding, pain, swelling, other Respiratory: cough, shortness of air, wheeze. No: hemoptysis, pain with breathing, other Cardiovascular: other. No: chest pain, left arm pain, diaphoresis, PND, orthopnea, edema, palpitations, syncope Gastrointestinal: No: abdominal pain, nausea, vomiting, diarrhea, melena, hematemesis, hematochezia, dysphagia, constipation, other Genitourinary: dysuria, frequency, incontinence, flank pain (back pain resolved with norco at [place]. ). No: hematuria, penile discharge, testicular pain, testicular swelling, other Neurological: other (chronic confusion/dementia. ) Musculoskeletal: pain, swelling in joints Skin: other (sacral/coccyx/buttock pressure ulcer) Objective: Vital Signs (72 hours) 06/20/19 06/20/19 06/20/19 14:00 14:18 20:00 Temperature 99.2 F Pulse Rate 76 Respiratory 18 18 Rate Blood Pressure 86/49 L 118/60 O2 Sat by Pulse 94 L Oximetry 06/20/19 06/21/19 06/21/19 21:12 04:42 13:56 Temperature 99.0 F 98.4 F 98.8 F Pulse Rate 74 69 92 H Respiratory 18 16 18 Rate Blood Pressure 110/63 125/62 152/86 H O2 Sat by Pulse 95 99 91 L Oximetry 06/21/19 06/22/19 06/22/19 21:02 05:20 14:00 Temperature 98.5 F 98.9 F 97.6 F Pulse Rate 96 H 93 H 72 Respiratory 18 18 18 Rate Blood Pressure 126/71 133/97 H 108/60 O2 Sat by Pulse 94 L 95 96 Oximetry 06/22/19 06/23/19 21:47 05:13 Temperature 98.5 F 98.9 F Pulse Rate 70 91 H Respiratory 20 16 Rate Blood Pressure 147/69 H 147/69 H O2 Sat by Pulse 94 L 96 Oximetry Constitutional: Appearance-Nsleep on entry, easily awoken, no acute distress, Consistent with stated age. Orientation- remains a little confused but pleasant. Integumentary: Sacrum padded. Heels offloaded as before. Resting on pillows. ENMT: Hearing Assessment-normal to conversational speech. Nose and sinus- No sinus tenderness along frontal/maxillary region. External appearance normal and midline. Nares- bilateral quiet airflow, no discharge. Nasal mucosa- No bleeding noted and no ulcerations observed. [place], moist. Turbinates non boggy. Lips- normal color, moist without cracks/lesions Oral Cavity/Palate- oral mucosa pink and moist. Tongue normal midline. Oropharynx- no pharyngeal erythema, Uvula midline. No post nasal drip. No exudate. Salivary glands- Non tender to palpation CHEST/LUNG: Inspection- symmetric chest wall no pectus deformity. Normal effort , no distress, no use of accessory muscles. Palpation- nontender sternum, ribline. No abnormal pulsations. Auscultation- Breath sounds normal throughout all lung [place]. Normal tracheal sounds, Normal bronchial sounds overlying sternum, Bronchovessicular sounds normal between scapulae posteriorly, Normal vessicular breath sounds heard throughout periphery. Lungs are clear today. Adventitious sounds- No wheezes, rales, rhonchi. Normal respirations, no e/o consolidation. CARDIOVASCULAR: Auscultation- Regular rate and rhythm. III/ murmur left 2nd intercostal space radiates into carotid. Known aortic issues. It appears he has systolic and diastolic. reports of stenosis and regurgitation,which makes sense clinically. Extremities- no cyanosis, edema, or increased warmth. ABDOMEN: Inspection- normal and no visible pulsations. Normal contour. Auscultation- Bowel sounds normal, no abdominal bruits. Palpation/Percussion- soft, non-tender, no rebound tenderness, no rigidity (guarding), no jar tenderness, no masses. Peripheral Vascular: Lower extremity- Normal temperature with pink nailbeds and no ulcerations. DP pulses 1+ bilaterally. He has some softness to the L>R posterior heel. No skin breakdown. Concern for early pressure injury. He has reduced Pedal hair. capillary refill appears normal. Unchanged today. No sores , no lesions, no changes in skin. Musculoskeletal: Generalized-No generalized swelling or edema of extremities, no digital clubbing or cyanosis, neurovascularly intact all four extremities. Neurological: General- Moves all 4 extremities symmetrically. Symmetrical face and body posture. Cranial nerves- individually evaluated II-XII and intact. PERRLA, Normal EOMI, visual/special senses appear intact, Face is symmetrical and normal sensation/movement, normal tongue, normal strength/posture of neck musculature. Neuropsych: Oriented- Person, place, time. (AAOx3), other times confused to date. Pleasant jovial and in good spirit. He has chronic dementia and he seems to have improved some already with abx and tx in ER. Mood/affect- normal and congruent. Sparse information, poor historian but pleasant. Speech-Normal speech, normal rate, normal tone, Exam essentially unchanged. H/H Trends 06/19/19 06/20/19 06/21/19 Range/Units 20:02 04:45 05:15 Hgb 10.5 L 10.1 L 9.4 L (14.0-18.0) g/dl Hct 32.9 L 31.3 L 30.2 L (42.0-52.0) % 06/22/19 06/22/19 06/23/19 Range/Units 07:20 18:18 04:35 Hgb 8.7 L 9.5 L 7.4 L (14.0-18.0) g/dl Hct 27.2 L 29.5 L 23.4 L D (42.0-52.0) % 06/23/19 Range/Units 06:10 Hgb 9.1 L (14.0-18.0) g/dl Hct 28.3 L (42.0-52.0) % Na/K Trends 06/19/19 06/20/19 06/21/19 Range/Units 20:02 04:45 05:15 Sodium 137.5 137.7 139.0 (134.5-145) mmol/L Potassium 5.83 H 4.68 4.79 (3.5-5.1) mmol/L 06/22/19 06/22/19 06/23/19 Range/Units 07:20 18:18 04:35 Sodium 138.8 137.8 139.6 (134.5-145) mmol/L Potassium 4.14 4.13 4.09 (3.5-5.1) mmol/L 06/23/19 Range/Units 06:10 Sodium 139.3 (134.5-145) mmol/L Potassium 3.94 (3.5-5.1) mmol/L BUN/CR Trends 06/19/19 06/20/19 06/21/19 Range/Units 20:02 04:45 05:15 BUN 48.5 H 45.3 H 43.5 H (9-20) mg/dL Creatinine 2.12 H 2.01 H 2.02 H (0.60-1.10) mg/dL 06/22/19 06/22/19 06/23/19 Range/Units 07:20 18:18 04:35 BUN 41.6 H 40.9 H 38.3 H (9-20) mg/dL Creatinine 1.74 H 1.71 H 1.73 H (0.60-1.10) mg/dL 06/23/19 Range/Units 06:10 BUN 39.3 H (9-20) mg/dL Creatinine 1.75 H (0.60-1.10) mg/dL Urine Culture: + ESBL INVANZ GOOD choice. (1) Elevated brain natriuretic peptide (BNP) level Status: Acute Code(s): R79.89 - OTHER SPECIFIED ABNORMAL FINDINGS OF BLOOD CHEMISTRY SNOMED Code(s): 064558647 (2) Pressure ulcer Status: Acute Code(s): L89.90 - PRESSURE ULCER OF UNSPECIFIED SITE, UNSPECIFIED STAGE SNOMED Code(s): 797058389 (3) Acute kidney failure Status: Acute Code(s): N17.9 - ACUTE KIDNEY FAILURE, UNSPECIFIED SNOMED Code (s): 00912423 (4) Hyperkalemia Status: Acute Code(s): E87.5 - HYPERKALEMIA SNOMED Code(s): 59300007 (5) Urinary tract infection Status: Acute Code(s): N39.0 - URINARY TRACT INFECTION, SITE NOT SPECIFIED SNOMED Code(s): 83998793 (6) Dehydration Status: Acute Code(s): E86.0 - DEHYDRATION SNOMED Code(s): 78774608 (7) Macrocytic anemia Status: Acute Code(s): D53.9 - NUTRITIONAL ANEMIA, UNSPECIFIED SNOMED Code(s ): 97358991 Plan: Acute kidney failure (Acute)/Dehydration (Acute)/REcurrent UTI and ESBL+: Culture returned today + On INvanz Day 4. AMAN on top of CKD. Cr/GFR improving. Increase to 1 gram Invanz daily. Will hold fluids as ?dilutional effect on hgb. Appears baseline creatinine runs 1.30-1.33 and GFR around 51- 53. Weight steadily decreasing. Sugars stable. Vitals stable. - Continue admit to inpatient, plan d/c tomorrow (want to watch the anemia) - Telemetry to continue - d/c fluids, saline lock. - Duoneb BID - Labs in am tomorrow cbc/cmp - Weigh patient daily - INvanz 1 gram daily to complete 7 days. Anemia: WOrse, suspect dilution. Will hold fluids, repeat CBC this pm at 1800 and again in am. Elevated brain natriuretic peptide (BNP) level (Acute): Echo as outpatient. F/ U with PCP 1 week post d/c. Weight is okay/stable. Renal function is improving. Hyperkalemia (Acute): Resolved. Monitor. - CMP this pm and again in am tomorrow (NOT BMP) Pressure ulcer (Acute): Calmoseptine, pressure avoidance recommended. Present at admit. Monitor/prevent worsening and work on healing. Working on this regularly, regular position changes. Focus on heel padding and offloading as well. Urinary tract infection (Acute): - Invanz 1g daily to complete 7 days. DM2 INDDM: Stable, A1C <8% and reasonable. Will continue/use insulin 10 units lantus at night. Monitor accucheck, no correction unless >180. Not on metformin. Continue insulin lantus 10 units daily. - Home meds. DVT PRophy: Lovenox 30. CrCl 28-31. - Subcut Lovenox 30mg daily to continue 1 more day Diet: [place] thick liquids Activity: Fall precaution. Regular rolling. Disposition: >25 minutes spent during rounding today. Reviewed overnight nursing note, vitals, telemetry, am labs, discussed care with patient, overnight nursing. Sleeping comfortably, easily awoken. Still c/o heel pain. He has normal lucency periods and then some confusion. Very pleasant. PCP is unavailable and out of area for 1 week. He does not have s/sx of acute CHF at this time. Culture returned, INvanz good choice. Anemia has worsened. Option 1 keep overnight and d/c tomorrow. I will hold fluids to make sure that this is not dilutional. Plan for now that renal function Cr <2 is to consider d/c to [facility] in am tomorrow.
[2019-06-22] MEDS ORDERED: INVANZ 1 GM in SODIUM CHLORIDE 50 ML IV SCH ×2 (12:30→21:00)
[2019-06-22] MEDS: ZOCOR PO SCH (20:56)
[2019-06-22] MEDS: ZYLOPRIM PO SCH (20:56)
[2019-06-22] MEDS: NEURONTIN PO SCH (20:57)
[2019-06-22] MEDS: COZAAR PO SCH (20:57)
[2019-06-22] MEDS: LANTUS SUBCUT SCH (21:06)
[2019-06-22] MEDS ORDERED: INVANZ ONE (21:09)
[2019-06-22 21:47] VITALS: BP 147/69
[2019-06-23] MEDS: DUONEB NEB SCH (04:30)
[2019-06-23 05:14] VITALS: TEMP 98.9
[2019-06-23] MEDS: SYNTHROID PO SCH ×2 (05:36)
--- NOTE | 2019-06-23 07:29 | PCM.DC ---
Final Diagnosis: ESBL UTI Altered mental status Acute kidney failure (Acute) Chronic Kidney Disease Elevated brain natriuretic peptide (BNP) level (Acute) Hyperkalemia (RESOLVED) Macrocytic anemia (Acute) Pressure ulcer (Chronic) Dehydration (Acute) Hypocalcemia (Acute) Corrected to normal/Resolved. Aortic senosis Recurrent UTI Cardiomegaly CAD SPinal stenosis Dementia Melanoma right shoulder CHF (1) Elevated brain natriuretic peptide (BNP) level Status: Acute Code(s): R79.89 - OTHER SPECIFIED ABNORMAL FINDINGS OF BLOOD CHEMISTRY SNOMED Code(s): 625351931, 449025514 (2) Pressure ulcer Status: Acute Code(s): L89.90 - PRESSURE ULCER OF UNSPECIFIED SITE, UNSPECIFIED STAGE SNOMED Code(s): 593595580 (3) Acute kidney failure Status: Acute Code(s): N17.9 - ACUTE KIDNEY FAILURE, UNSPECIFIED SNOMED Code (s): 50858120 Qualifiers: Acute renal failure type: unspecified Qualified Code(s): N17.9 - Acute kidney failure, unspecified (4) Hyperkalemia Status: Acute Code(s): E87.5 - HYPERKALEMIA SNOMED Code(s): 36730372 (5) Urinary tract infection Status: Acute Code(s): N39.0 - URINARY TRACT INFECTION, SITE NOT SPECIFIED SNOMED Code(s): 06594376 Qualifiers: Urinary tract infection type: acute cystitis Hematuria presence: without hematuria Qualified Code(s): N30.00 - Acute cystitis without hematuria (6) Dehydration Status: Acute Code(s): E86.0 - DEHYDRATION SNOMED Code(s): 61580912 (7) Macrocytic anemia Status: Acute Code(s): D53.9 - NUTRITIONAL ANEMIA, UNSPECIFIED SNOMED Code(s ): 26546465 Reason for Hospitalization: 83 yo CM patient of Dr. Blake presented from [facility] with known ESBL, altered mental status, AMAN on top of CKD, chronic leukocytosis, hypothyroidism stable, DM2 INDDM on lantus once daily, A1C reasonable and elevated BNP. No recent echo. Will consider echo as outpatient. Admission date 06/19/19 Dr. Horton Discharge date: 06/23/19 Dr. Horton. Prognosis at Discharge: Improved cognition. ESBL Chronic treated with invanz. Will complete 7 day course. Anemia stable. Hyperkalemia: Resolved Hypocalcemia: Corrected to normal. I did add oral Ca/Vit D once daily. HTN: Chronic/reasonable DM: Lantus 10units daily to continue/stable. Pressure Ulcer: Chronic predates hospital stay currently being managed. Overall improved from admit point. Today we will d/c home as hgb has remained stable. There was an abnl low hgb today but that was an error that was repeated and hgb 9.1 and stable. Type/screen had been cancelled by me as the low hgb was spurious. Asymptomatic, he feels better. Condition at Discharge: Improved/stable. Maximized health through this hospital stay. Weight is stable. Fluids d/c yesterday to make sure hgb was not dropping due to dilutional effect. He is asymptomatic and ready for d/c back to [place]. Medications at Discharge: Ambulatory Orders Medication Instructions Recorded Aspirin 81 mg PO DAILY 08/09/17 Bumetanide 0.5 mg PO DAILY 08/09/17 Cetirizine HCl [Zyrtec] 10 mg PO DAILY 08/09/17 Docusate Sodium [Dok] 100 mg PO BID 08/09/17 Hydrocortisone [Hydrocortisone 1% 1 bottle TP Q12HR PRN 08/09/17 Cream] Insulin Glargine,Hum.rec.anlog 10 units SUBCUT BEDTIME 08/09/17 [Lantus Solostar] Nitroglycerin [Nitrostat] 0.4 mg PO PRN PRN 08/09/17 Polyethylene Glycol 3350 [Miralax] 17 gm PO DAILY 08/09/17 Sennosides/Docusate Sodium 1 tab PO BID 08/09/17 [Senokot-S Tablet] Simvastatin [Zocor] 40 mg PO BEDTIME 08/09/17 Tamsulosin HCl [Flomax] 0.4 mg PO DAILY 08/09/17 Ferrous Sulfate 325 mg PO DAILY 03/05/19 Gabapentin [Neurontin] 300 mg PO BEDTIME 03/05/19 Hydrocodone/Acetaminophen 5 - 325 mg PO DAILY 03/05/19 [Hydrocodone-Acetamin 5-325 mg] Levothyroxine Sodium [Synthroid] 125 mcg PO DAILY 03/05/19 Multivitamin 1 cap PO DAILY 03/05/19 Nystatin [Nystatin Cream] 1 applic TP BID PRN 03/05/19 Acetaminophen [Tylenol] 650 mg PO Q4HR PRN 04/19/19 Allopurinol [Zyloprim] 100 mg PO BEDTIME tablet 04/23/19 Ipratropium/Albuterol Neb [Duoneb] 1 vial NEB BID vial.neb 04/23/19 Losartan Potassium [Cozaar] 100 mg PO BEDTIME tab 04/23/19 Cholecalciferol (Vitamin D3) 3,000 unit PO DAILY 06/19/19 [Vitamin D3] Calcium Carbonate/Vitamin D3 1 each PO DAILY 30 Days #30 tablet 06/23/19 [Calcium 500 + Vit D 200 mg Tablet] Ertapenem Sodium [Invanz] 1 gm IM DAILY 4 Days #4 vial 06/23/19 Lab/Diagnostics: Laboratory Last Values WBC 8.70 K/ul (4.2-10.2) 06/23/19 06:10 RBC 2.95 10^6/ul (4.70-6.10) L 06/23/19 06:10 Hgb 9.1 g/dl (14.0-18.0) L 06/23/19 06:10 Hct 28.3 % (42.0-52.0) L 06/23/19 06:10 MCV 95.9 fl (80.0-94.0) H 06/23/19 06:10 MCH 30.8 pg (27.0-31.0) 06/23/19 06:10 MCHC 32.2 (31.8-35.4) 06/23/19 06:10 RDW Coeff of Sandra 13.7 % (11.6-14.8) 06/23/19 06:10 Plt Count 166 10^3/uL (140-440) 06/23/19 06:10 Immature Gran % (Auto) 0.3 % (0.0-5.0) 06/23/19 06:10 Neut % (Auto) 64.1 06/23/19 06:10 Lymph % (Auto) 13.8 (10.0-50.0) 06/23/19 06:10 [place] % (Auto) 8.5 (0-10) 06/23/19 06:10 Eos % (Auto) 13.0 % (0.0-7.0) H 06/23/19 06:10 Baso % (Auto) 0.3 % (0.0-3.0) 06/23/19 06:10 Immature Gran # (Auto) 0.0 (0.0-1.0) 06/23/19 06:10 Neut # (Auto) 5.6 K/ul (2.0-6.9) 06/23/19 06:10 Lymph # (Auto) 1.2 K/uL (0.60-3.4) 06/23/19 06:10 [place]ink # (Auto) 0.7 K/uL (0.4-2.0) 06/23/19 06:10 Eos # (Auto) 1.1 K/ul (0.0-0.7) H 06/23/19 06:10 Baso # (Auto) 0.0 K/uL (0-0.2) 06/23/19 06:10 Sodium 139.3 mmol/L (134.5-145) 06/23/19 06:10 Potassium 3.94 mmol/L (3.5-5.1) 06/23/19 06:10 Chloride 106.9 mmol/L (98-107) 06/23/19 06:10 Carbon Dioxide 22.4 mmol/L (22-30.0) 06/23/19 06:10 Anion Gap 13.94 06/23/19 06:10 BUN 39.3 mg/dL (9-20) H 06/23/19 06:10 Creatinine 1.75 mg/dL (0.60-1.10) H 06/23/19 06:10 Estimated GFR (MDRD) 37.00 mL/min 06/23/19 06:10 BUN/Creatinine Ratio 22.45 06/23/19 06:10 Glucose 88.5 mg/dL (74-106) 06/23/19 06:10 Hemoglobin A1c 7.46 (4.0-6.0) H 06/20/19 04:45 Lactic Acid 0.83 mmol/L (0.7-2.1) 06/19/19 20:02 Calcium 8.60 mg/dL (8.4-10.2) 06/23/19 06:10 Total Bilirubin 0.35 mg/dL (0.2-1.3) 06/23/19 06:10 AST 25.1 U/L (17-59) 06/23/19 06:10 ALT 19.0 U/L (0-50) 06/23/19 06:10 Alkaline Phosphatase 85.4 U/L (56-119) 06/23/19 06:10 NT-Pro-B Natriuret Pep 59916.000 pg/mL (0-300) H 06/19/19 20:02 Total Protein 6.69 g/dL (6.3-8.2) 06/23/19 06:10 Albumin 3.32 g/dL (3.5-5.0) L 06/23/19 06:10 Globulin 3.37 06/23/19 06:10 Albumin/Globulin Ratio 0.98 06/23/19 06:10 Amylase 101.3 U/L (30-110) 06/19/19 20:02 Lipase 46.1 U/L (23-300) 06/19/19 20:02 Vitamin B12 588 pg/mL (239-931) 06/20/19 04:45 Folate > 20.00 ng/mL (2.76-) 06/20/19 04:45 Urine Color Yellow (YELLOW) 06/19/19 16:25 Urine Clarity Cloudy (CLEAR) 06/19/19 16:25 Urine pH 7.0 (5-9) 06/19/19 16:25 Ur Specific [place] 1.015 (1.005-1.030) 06/19/19 16:25 Urine Protein 1+ (NEGATIVE) 06/19/19 16:25 Urine Glucose (UA) Negative (NEGATIVE) 06/19/19 16:25 Urine Ketones Negative (NEGATIVE) 06/19/19 16:25 Urine Blood 1+ (NEGATIVE) 06/19/19 16:25 Urine Nitrite Negative (NEGATIVE) 06/19/19 16:25 Urine Bilirubin Negative (NEGATIVE) 06/19/19 16:25 Urine Urobilinogen 0.2 (0.2) 06/19/19 16:25 Ur Leukocyte Esterase 3+ (NEGATIVE) 06/19/19 16:25 Urine Microscopic RBC 5-10 (0-2) 06/19/19 16:25 Urine Microscopic WBC Tntc (0-2) 06/19/19 16:25 Ur Squamous Epith Cells Not present (0-5) 06/19/19 16:25 Urine Bacteria 2+ (NOT PRESENT) 06/19/19 16:25 Urine Mucus 1+ (NOT PRESENT) 06/19/19 16:25 TRENDS: Na/K Trends 06/19/19 06/20/19 06/21/19 Range/Units 20:02 04:45 05:15 Sodium 137.5 137.7 139.0 (134.5-145) mmol/L Potassium 5.83 H 4.68 4.79 (3.5-5.1) mmol/L 06/22/19 06/22/19 06/23/19 Range/Units 07:20 18:18 04:35 Sodium 138.8 137.8 139.6 (134.5-145) mmol/L Potassium 4.14 4.13 4.09 (3.5-5.1) mmol/L 06/23/19 Range/Units 06:10 Sodium 139.3 (134.5-145) mmol/L Potassium 3.94 (3.5-5.1) mmol/L H/H Trends 06/19/19 06/20/19 06/21/19 Range/Units 20:02 04:45 05:15 Hgb 10.5 L 10.1 L 9.4 L (14.0-18.0) g/dl Hct 32.9 L 31.3 L 30.2 L (42.0-52.0) % 06/22/19 06/22/19 06/23/19 Range/Units 07:20 18:18 04:35 Hgb 8.7 L 9.5 L 7.4 L (14.0-18.0) g/dl Hct 27.2 L 29.5 L 23.4 L D (42.0-52.0) % 06/23/19 Range/Units 06:10 Hgb 9.1 L (14.0-18.0) g/dl Hct 28.3 L (42.0-52.0) % IMAGING: CXR in our ER showed "No acute cardiopulmonary findings, unchanged right basilar calcified pleural plaque." Compared this to 04/23/19 cardiomegaly w/o acute process. Microbiology: E.Coli ESBL+: sensitive to invanz, impenem, macrobid and zosyn. BC: Negative x 3 days MRSA SCREEN: Negative Education Provided to Patient and Family: 1. Anemia 2. ESBL/UTI/meds/abx 3. HTN/meds 4. DM/Insulin/meds 5. Elevated BNP: Consider outpatient echo and f/u with PCP 6. End of life planning discussed with patient brother/sister in law on day 2 of hospital stay 7. Return to [place] Follow-ups: Discharge: Dr. Blake in 1 week Return to [place] today Labs: CBC/CMP in 48 hours CBC/CMP in 1 week Disposition: HOME SELF-CARE Hospital Course: 83 yr old CM presented to ED 06/19/19 at 19:53 via ambulance from [facility]. Patient with history of aortic valve insufficiency, CVA, TIA, Dementia, Peripheral neuropathy, dysphagia, CKD 3+, History of ESBL, OA, depression, gout , DM2 on insulin, hypothyroid, recurrent UTI, recent pneumonia/pneumonitis admit, h/o hip replacement. , No ETOH ,no tobacco. He Presented to ER 06/19/19 with acute change in mental status, vitals 99.3, pulse 89, rr 20, bp 144/77, pulse ox 97. Labs showed WBC 14.48, hgb 10.5, plt 177. Compared these to previous admit and he had 14.88 04/23/19 essentially unchanged. Hgb mildly worse but not much different than 04/21/19. MCV is elevated. Patient potassium elevated at 5.83 and this resolved with fluids/stopping MVI. Lactic acid was negative. Glucose was 130.2 and similar to prior admit. Calcium normal, bili normal, ast/alt normal. Remainder of CMP normal at admit. Amylase and lipase normal. Last TSH 3.30 04/19/19 normal. Last Free T4 04/19/19 1.10 and normal. CXR in our ER showed "No acute cardiopulmonary findings, unchanged right basilar calcified pleural plaque. Compared this to 04/23/19 and he had cardiomegaly without acute process. CT chest 04/20/19 mild bilateral pneumonia, benign calcified pleural plaque. Cardiomegaly/CAD. 4cm ascending aortic aneursym (AVOIDED FQ). He was d/c 04/23/19 and returned to [place], did well over last ~1 month and he returned 06/19/19. D/c on ertapenem daily 1 gram daily. Previous urine culture showed that invanz was a good choice. Due to the previous culture, I gave him ertapenem again. CrCl of 28-31 reviewed and we used 500mg daily until 06/22/19 when CrCl was clearly >30 and increased invanz to 1 gram. They did give him one dose of aztreonam in our ER, which will likely not cover based on previous culture so I D/C that. He had a BNP of 10, 900 without recent echo. Consider outpatient echo as next line. Weight was found to be 181 and this is reasonable compared to [place] weights. His creatinine was up to 2.12 when his normal baseline was about1.30. Admit GFR 30. CrCl original [place] 30, modifed using adjusted body weight of 28ml/min. I estimated him to be 28-30 as reasonable. Serial labs were completed and his hgb dropped from 10.5 down to 10.1 down to 9.4 down to 8.7 yesterday. I held fluids on 06/22 and repeat labs last night and again this am. Fluids did improve his creatinine from 2.12 to 2.01, to 2.02 to 1.74 to 1.71 (now 1.73/1.75). Hgb last night improved from 8.7 to 9.5. This am he had a 7.4 but I suspected that this was an error as he was asymptomatic, no BM during hospital stay, no s/sx of bleeding. I had them repeat this and it was 9.1. They had just flushed the IV site and blood draw as on same site and thus diluted. Other than hgb, he remained in the hospital until I was able to get the final culture back 06/22/19. He had ESBL with only a few options. INvanz still a great option for the patient. He will be d/c with 4 more days of invanz 1gram IM. I will resume standard orders through [place]. DM appears stable A1C 7.46. Since <7.5% no changes. Calcium appeared low but this corrected to normal based on factor of albumin 2.94-3.3. I did put him on calcium+Vit D once daily as well. Glucose stable, vitals stable. SA w/ BBB on tele throughout most of stay. Weights monitored. BP mildly elevated at 147/69 and O2 remained >92% on RA. He was pleasantly confused at times, lucent at others. Very pleasant throughout the entire stay. I did meet with his sister in law and brother on HD #2 and we talked about end of life planning. Continue DNR. They wanted him comfortable. He c/o pain in heels/burning. We worked on padding and position changes and this did improve some. Sacral ulcers padded, wound tended throughout hospital stay. Incontinent of urine, no BM during hospital stay. This am he felt stirring to have indicated need for BM Family aware of d/c as of 06/22-06/23 and agrees to transfer back to [facility]. I will have physical therapy/occ therapy work with him at [place]. Requires help with meal, bathing, stooling, dressing, bed reposition. Overall improving. He has reached optimized benefit from this hospital admission and he is ready to return to [place]. I appreciate the opportunity to care for Dr. Blake patient and wished the patient/family wellness. Continue INvanz 4 more days Pending labs: NONE Discharge time: >30 minutes Day of d/c Examination: Vital Signs - 24 hr 06/22/19 06/22/19 06/23/19 14:00 21:47 05:13 Temperature 97.6 F 98.5 F 98.9 F Pulse Rate 72 70 91 H Respiratory 18 20 16 Rate Blood Pressure 108/60 147/69 H 147/69 H O2 Sat by Pulse 96 94 L 96 Oximetry Constitutional: Appearance-No acute distress, Consistent with stated age. Orientation- Oriented x 3, but some answers remain a little confused. He has some dementia with some periods of lucency. heels padded. Positioned regularly /changed. Build and Nutrition-[normal] General- Patient is pleasant and cooperative with the interview and exam. No glasses in place. NH patient. Integumentary: Sacrum padded. Heels offloaded ENMT: Hearing Assessment-normal to conversational speech. Nose and sinus- No sinus tenderness along frontal/maxillary region. External appearance normal and midline. Nares- bilateral quiet airflow, no discharge. Nasal mucosa- No bleeding noted and no ulcerations observed. [place], moist. Turbinates non boggy. Lips- normal color, moist without cracks/lesions Oral Cavity/Palate- hard/soft palate intact without lesions, oral mucosa pink and moist. Tongue normal midline. Oropharynx- no pharyngeal erythema, Uvula midline. No post nasal drip. No exudate. Salivary glands- Non tender to palpation CHEST/LUNG: Inspection- symmetric chest wall no pectus deformity. Normal effort , no distress, no use of accessory muscles. Palpation- nontender sternum, ribline. No abnormal pulsations. Auscultation- Breath sounds normal throughout all lung [place]. Normal tracheal sounds, Normal bronchial sounds overlying sternum, Bronchovessicular sounds normal between scapulae posteriorly, Normal vessicular breath sounds heard throughout periphery. Lungs are clear today. Adventitious sounds- No wheezes, rales, rhonchi. Normal respirations, no e/o consolidation. CARDIOVASCULAR: Auscultation- Regular rate and rhythm. III/ murmur left 2nd intercostal space radiates into carotid. Known aortic issues. It appears he has systolic and diastolic. reports of stenosis and regurgitation,which makes sense clinically. Extremities- no cyanosis, edema, or increased warmth. ABDOMEN: Inspection- normal and no visible pulsations. Normal contour. Auscultation- Bowel sounds normal, no abdominal bruits. Palpation/Percussion- soft, non-tender, no rebound tenderness, no rigidity (guarding), no jar tenderness, no masses. Peripheral Vascular: Lower extremity- Normal temperature with pink nailbeds and no ulcerations. DP pulses 1+ bilaterally. He has some softness to the L>R posterior heel. No skin breakdown. Concern for early pressure injury. He has reduced Pedal hair. capillary refill appears normal. Unchanged today. No sores , no lesions, no changes in skin. Musculoskeletal: Generalized-No generalized swelling or edema of extremities, no digital clubbing or cyanosis, neurovascularly intact all four extremities. Neurological: General- Moves all 4 extremities symmetrically. Symmetrical face and body posture. Cranial nerves- individually evaluated II-XII and intact. PERRLA, Normal EOMI, visual/special senses appear intact, Face is symmetrical and normal sensation/movement, normal tongue, normal strength/posture of neck musculature. Neuropsych: Oriented- Person, place, time. (AAOx3), other times confused to date. Pleasant jovial and in good spirit. He has chronic dementia and he seems to have improved some already with abx and tx in ER. Mood/affect- normal and congruent. Sparse information, poor historian but pleasant. Speech-Normal speech, normal rate, normal tone, Plan: We will D/C back to [facility] 06/23/19 Anemia: 1. CBC and CMP in 48 hours please fax to DR. Horton (covering for Dr. Blake) [phone] 2. CBC and CMP in 1 week. Low Calcium: 1. New medication for calcium printed and should be taken daily to improve calcium. ESBL: 1. Complete 4 days of Invanz 1gram IM Diabetes: 1. Resume normal home [facility] Shelter instructions: 1. Activty as per previous instructions, up to dining room with meals. MAY PARTICIPATE IN ACTIVITY PROGRAM 2. Resume DNR status 3. Wound care regarding patient sacral region to continue 4. Heel padding/precautions. 5. Diet: Regular diet w/ nectar thick liquids (resume previous diet) 6. Vitals daily x 1 week then weekly. 7. PT/OT EVAL AND TREAT 8. INCONTINENT CARE NEEDED 9. Code Status: DNR >30minutes spent on discharge today.
[2019-06-23] MEDS: MIRALAX PO SCH (08:52)
[2019-06-23] MEDS: VITAMIN D PO SCH (08:53)
[2019-06-23] MEDS: FERROUS SULFATE PO SCH (08:53)
[2019-06-23] MEDS: CALCIUM 500 + VIT D 200 MG TABLET PO SCH (08:53)
[2019-06-23] MEDS: NORCO 5-325 PO SCH (08:54)
[2019-06-23] MEDS: FLOMAX PO SCH (08:54)
[2019-06-23] MEDS: SENNA PO SCH (08:54)
[2019-06-23] MEDS: BUMEX PO SCH (08:54)
[2019-06-23] MEDS: COLACE PO SCH (08:55)
[2019-06-23] MEDS: CLARITIN PO SCH (08:55)
[2019-06-23] MEDS: CALMOSEPTINE OINTMENT TP SCH (08:56)
[2019-06-23] MEDS: LOVENOX SUBCUT SCH (08:56)
[2019-06-23] MEDS: ASPIRIN CHEWABLE PO SCH (08:56)
== END 2019-06-23 10:35 | DRG 683 ==
LOC: ED 19:15 → MEDSURG A 21:54 → UNDOADMIN 21:54 → MEDSURG A 21:55
PROVIDERS: ADMIT Family Medicine; ATTEND Family Medicine
DX: R05 Cough; L89.90 Pressure ulcer of unspecified site, unspecified stage; D53.9 Nutritional anemia, unspecified; E87.5 Hyperkalemia; R79.89 Other specified abnormal findings of blood chemistry; R41.82 Altered mental status, unspecified; E86.0 Dehydration; N39.0 Urinary tract infection, site not specified; R06.02 Shortness of breath; M54.9 Dorsalgia, unspecified; N30.00 Acute cystitis without hematuria; R41.0 Disorientation, unspecified; E11.9 Type 2 diabetes mellitus without complications; N17.9 Acute kidney failure, unspecified

== ENCOUNTER 2019-07-29 15:20 | Outpatient (CLI) | payer OTHER | END 2019-07-29 15:21 | disposition home or self-care (01) | LOC: NONPT 15:20 | PROVIDERS: ATTEND Internal Medicine | DX: E78.5 Hyperlipidemia, unspecified (principal); E11.9 Type 2 diabetes mellitus without complications; D50.9 Iron deficiency anemia, unspecified; E03.9 Hypothyroidism, unspecified; M10.9 Gout, unspecified; R60.9 Edema, unspecified; Z79.899 Other long term (current) drug therapy | CPT/HCPCS: 80053; 80061; 83036; 84439; 84443; 84550; 85025 ==

== ENCOUNTER 2019-08-05 09:26 | Outpatient (CLI) | payer OTHER | END 2019-08-05 09:27 | disposition home or self-care (01) | LOC: NONPT 09:26 | PROVIDERS: ATTEND Internal Medicine | DX: N39.0 Urinary tract infection, site not specified (principal) | CPT/HCPCS: 81001; 87086; 87186 ==

== ENCOUNTER 2020-05-18 18:03 | Inpatient (IN) ==
[2020-05-18] MEDS ORDERED: ZOFRAN 4 MG/2 ML IVP PRN (18:27)
[2020-05-18 18:45] LABS: HEMATOCRIT 37.9 % (42.0-52.0)
--- NOTE | 2020-05-18 18:58 | ED.PDOC ---
General ED Provider: Dr. VIOLETTE WHITAKER Chief Complaint: Wound Check Stated Complaint: Infected wound Lt Foot. Sent to ER by Dr Blake for evaluation and admission Time Seen by Physician: 17:00 Mode of Arrival: Ambulance Information Source: Patient, Halfway and EMT Primary Care Provider: HUONG BLAKE Referred to ED by: PCP Nursing and Triage Documentation Reviewed and Agree: Yes Does patient meet sepsis criteria?: No System Inflammatory Response Syndrome: Not Applicable Sepsis Protocol: For patient's 13 years and over: Temp is 96.8 and below OR 101 and greater Pulse >90 BPM Resp >20/minute Acutely Altered Mental Status Are patient's symptoms suggestive of a new infection, such as: -Pneumonia -Skin, Soft Tissue -Endocarditis -UTI -Bone, Joint Infection -Implantable Device -Acute Abdominal Infection -Wound Infection -Meningitis -Blood Stream Catheter Infection -Unknown Skin Complaint Exam Skin/Soft Tissue Complaint/Exam Symptoms Are: Still present Timing: Constant Initial Severity: Moderate Current Severity: Moderate Location: lt foot Character: Reports Redness and Swelling Aggravating: Reports Touch Alleviating: Reports Heat Associated Signs and Symptoms: Reports Tenderness Related History: Reports Similar episode Related Surgical History: Reports None Recent Exposure to Others w/Similar Symptoms: No Skin Findings: Present Erythema, Induration, Skin lesion and Wet ulceration Joint Tenderness Present: No Differential Diagnoses: Cellulitis, Infection, Lymphangitis and MRSA Review of Systems Review Of Systems Constitutional: Reports No symptoms Eyes: Reports No symptoms Ears, Nose, Mouth, Throat: Reports No symptoms Respiratory: Reports No symptoms Cardiac: Reports No symptoms GI: Reports No symptoms : Reports No symptoms Musculoskeletal: Reports No symptoms Skin: Reports Change in color Neurological: Reports No symptoms Endocrine: Reports No symptoms Hematologic/Lymphatic: Reports No symptoms All Other Systems: Reviewed and Negative [facility] Medical History (Updated 05/25/20 @ 08:10 by WARREN ROMAN) Anemia BPH (benign prostatic hyperplasia) Dementia Diabetes Elevated cholesterol Hypothyroid Neuropathy TIA (transient ischemic attack) UTI (urinary tract infection) Family History Other No known health problems Social History Smoking and tobacco status: Unknown if ever smoked History of recent travel: No Physical Exam Physical Exam Appearance: Reports Well-appearing, Well-nourished and Thin Ill-appearing: None Pain Distress: Mild Eyes: Reports JESU, EOMI and Conjunctiva clear ENT: Reports Ears normal, Nose normal and Oropharynx normal Neck: Supple Respiratory: Reports Airway patent, Breath sounds clear, Breath sounds equal and Respirations nonlabored Cardiovascular: Reports RRR, Pulses normal, No rub and No murmur GI/: Reports Soft, Nontender, No masses, Bowel sounds normal and No Organomegaly Musculoskeletal: Reports Normal strength, ROM intact, No edema and No calf tenderness Skin: Reports Warm, Dry, Normal color and Other Neurological: Reports Sensation intact, Motor intact, Reflexes intact, Cranial nerves intact, Alert and Oriented Psychiatric: Reports Affect appropriate and Mood appropriate Physician Notification Case Discussed Physician Notified: Dr Blake-discussed [id number] written Time of Notification: 18:30 Critical Care Note Critical Care Note Total Time (mins): 30 Course Course Hematology/Chemistry: 05/23/20 04:40 05/23/20 04:40 Orders, Labs, Meds: Lab Review 05/18/20 05/18/20 05/18/20 18:30 18:30 18:30 WBC 12.14 H RBC 3.89 L Hgb 11.9 L Hct 37.9 L MCV 97.4 H MCH 30.6 MCHC 31.4 L RDW Coeff of Sandra 13.3 Plt Count 157 Immature Gran % (Auto) 0.4 Neut % (Auto) 62.7 Lymph % (Auto) 16.3 Turner % (Auto) 6.7 Eos % (Auto) 13.1 H Baso % (Auto) 0.8 Neut # (Auto) 7.6 H Lymph # (Auto) 2.0 Turner # (Auto) 0.8 Eos # (Auto) 1.6 H Baso # (Auto) 0.1 Immature Gran # (Auto) 0.1 Sodium 137.5 Potassium 4.49 Chloride 103.8 Carbon Dioxide 25.7 Anion Gap 12.49 BUN 39.6 H Creatinine 1.54 H Estimated GFR (MDRD) 43.00 BUN/Creatinine Ratio 25.71 Glucose 126.7 H Uric Acid 4.60 Calcium 9.56 Total Bilirubin 0.40 AST 27.0 ALT 17.0 Alkaline Phosphatase 91.9 Total Protein 7.83 Albumin 4.24 Globulin 3.59 Albumin/Globulin Ratio 1.18 Orders Category Date Time Status EKG-(ED ONLY) Stat CARDIO 05/18/20 18:26 Completed EKG-(ED ONLY) Stat CARDIO 05/18/20 19:12 Completed ACTIVITY .Complete BR CARE 05/18/20 18:28 Active BLOOD GLUCOSE MONITORING 0630,1100,1700,2100 CARE 05/18/20 18:30 Active GIVE HS SNACK 2100 CARE 05/18/20 18:29 Active INTAKE & OUTPUT Q8HR CARE 05/18/20 18:58 Active VITAL SIGNS Q8HR CARE 05/18/20 18:28 Active ADA 1800 SOLOMON. DIET DIETARY 05/18/20 Dinner Completed HS SNACK DIETARY 05/18/20 Dinner Completed IV [ED IV/MEDIPORT/POWERPORT] .ONCE EMERGENCY 05/18/20 18:27 Active CBC W/ AUTO DIFF DAILY@0600 LAB 05/19/20 05:20 Completed CBC W/ AUTO DIFF DAILY@0600 LAB 05/20/20 05:05 Completed CBC W/ AUTO DIFF Stat LAB 05/18/20 18:30 Completed CMP [COMPREHENSIVE METABOLIC PANEL] Stat LAB 05/18/20 18:30 Completed COMPREHENSIVE METABOLIC PANEL DAILY@0600 LAB 05/19/20 05:20 Completed COMPREHENSIVE METABOLIC PANEL DAILY@0600 LAB 05/20/20 05:05 Completed UA [URINALYSIS C & S IF INDICATED] Stat LAB 05/19/20 17:30 Completed URIC ACID Stat LAB 05/18/20 18:30 Completed 0.9 % Sodium Chloride [Saline Flush] MEDS 05/18/20 18:27 Discontinued 1 syr IVF PRN PRN Acetaminophen [Tylenol] MEDS 05/18/20 18:27 Discontinued 650 mg PO Q4H PRN Aspirin [Aspirin Chewable] MEDS 05/19/20 08:30 Discontinued 81 mg PO DAILYWM Bumetanide [Bumex] MEDS 05/19/20 08:00 Discontinued 0.5 mg PO QDAC Clindamycin Phosphate/D5w [Cleocin 300 mg/50 ml D5w] MEDS 05/18/20 19:30 Discontinued 300 mg in 50 ml IV Q6HR Dexamethasone 4 mg/ml Inj [Decadron 4 mg/ml Sdv] MEDS 05/18/20 19:00 Discontinued 4 mg IVP Q12HR Dexamethasone 4 mg/ml Inj [Decadron 4 mg/ml Sdv] MEDS 05/18/20 19:00 Discontinued 4 mg IVP Q12HR Enoxaparin Sodium [Lovenox] MEDS 05/18/20 19:00 Discontinued 40 mg SUBCUT DAILY Ertapenem Sodium [Invanz] 1 gm MEDS 05/19/20 20:30 Discontinued 0.9 % Sodium Chloride [Sodium Chloride] 50 ml IV DAILY Gabapentin [Neurontin] MEDS 05/18/20 21:00 Discontinued 300 mg PO BEDTIME Hydrocodone Bit/Acetaminophen [Oktaha 5-325] MEDS 05/18/20 21:00 Discontinued 1 tab PO BEDTIME Insulin Glargine,Hum.rec.anlog [Lantus] MEDS 05/18/20 21:00 Discontinued 10 unit SUBCUT BEDTIME Levothyroxine Sodium [Synthroid] MEDS 05/19/20 06:30 Discontinued 125 mcg PO 0630 Losartan Potassium [Cozaar] MEDS 05/18/20 21:00 Discontinued 100 mg PO BEDTIME Multivitamin [Multivitamin Tablet] MEDS 05/19/20 09:00 Discontinued 1 tab PO DAILY Mupirocin [Bactroban] MEDS 05/18/20 21:00 Discontinued 1 applic TP TID Ondansetron HCl/Pf [Zofran 4 mg/2 ml] MEDS 05/18/20 18:27 Discontinued 4 mg IVP Q6H PRN Tamsulosin HCl [Flomax] MEDS 05/19/20 09:00 Discontinued 0.4 mg PO DAILY bethanechol chloride MEDS 05/18/20 21:00 Discontinued 25 mg PO QID sennosides-docusate sodium [Senokot-S] MEDS 05/18/20 21:00 Discontinued 1 tab PO BID RESUSCITATION STATUS Routine OTHERS 05/18/20 18:27 Completed CHEST, 1V AP ONLY Stat RADS 05/18/20 18:[address] FOOT LEFT WITHOUT CONTRAST Stat RADS 05/18/20 18:26 Completed Medications Discontinued Medications Generic Name Dose Route Start Last Admin Trade Name Freq PRN Reason Stop Dose Admin Acetaminophen 650 mg 05/18/20 18:27 05/21/20 13:58 Tylenol PO 650 mg Q4H PRN Administration Fever elevation Hydrocodone Bitart/Acetaminophen 1 tab 05/18/20 21:00 05/22/20 20:42 Oktaha 5-325 PO 1 tab BEDTIME MARIA G Administration Allopurinol 100 mg 05/23/20 21:00 Zyloprim PO BEDTIME MARIA G Aspirin 81 mg 05/19/20 08:30 05/23/20 08:55 Aspirin Chewable PO 81 mg DAILYWM MARIA G Administration Bethanechol Chloride 25 mg 05/19/20 10:30 05/23/20 08:56 Bethanechol Chloride PO 25 mg QID MARIA G Administration Bumetanide 0.5 mg 05/19/20 08:00 05/23/20 06:32 Bumex PO 0.5 mg QDAC MARIA G Administration Calamine/Phenol 1 applic 05/21/20 10:26 05/22/20 20:45 Calmoseptine Ointment TP 1 applic PRN PRN Administration SKIN BREAKDOWN Dexamethasone Sodium Phosphate 4 mg 05/18/20 19:00 Decadron 4 Mg/Ml Sdv IVP Q12HR [facility] Dexamethasone Sodium Phosphate 4 mg 05/18/20 19:00 05/19/20 10:56 Decadron 4 Mg/Ml Sdv IVP Not Given Q12HR [facility] Docusate Sodium 100 mg 05/19/20 09:00 05/23/20 08:56 Colace PO 100 mg DAILY [facility] Administration Enoxaparin Sodium 40 mg 05/18/20 19:00 05/23/20 08:59 Lovenox SUBCUT 40 mg DAILY [facility] Administration Gabapentin 300 mg 05/18/20 21:00 05/22/20 20:43 Neurontin PO 300 mg BEDTIME MARIA G Administration Ertapenem 1 gm/ Sodium 50 mls @ 75 mls/hr 05/19/20 20:30 Chloride IV 05/22/20 20:29 DAILY MARIA G Clindamycin Phosphate 300 mg in 50 mls @ 75 mls/hr 05/18/20 19:30 05/19/20 05:27 Cleocin 300 Mg/50 Ml D5w IV 05/21/20 19:29 75 mls/hr Q6HR MARIA G Administration Ertapenem 1 gm/ Sodium 50 mls @ 75 mls/hr 05/19/20 08:21 05/19/20 10:09 Chloride IV 05/19/20 08:54 75 mls/hr ONCE ONE Administration Clindamycin Phosphate 600 mg in 50 mls @ 75 mls/hr 05/19/20 13:00 05/22/20 05:37 Cleocin 600 Mg/50 Ml D5w IV 05/22/20 12:59 75 mls/hr Q8HR MARIA G Administration Clindamycin Phosphate 600 mg in 50 mls @ 75 mls/hr 05/22/20 13:00 05/23/20 05:32 Cleocin 600 Mg/50 Ml D5w IV 05/25/20 12:59 75 mls/hr Q8HR MARIA G Administration Meropenem/Sodium Chloride 1 gm in 50 mls @ 75 mls/hr 05/22/20 09:00 05/23/20 08:55 Merrem 1 Gm/50 Ml Nacl IV 05/25/20 08:59 75 mls/hr Q12HR MARIA G Administration Ampicillin Sodium 2 gm/ Sodium 100 mls @ 100 mls/hr 05/23/20 13:00 Chloride IV 05/26/20 12:59 Q8HR MARIA G Insulin Glargine 10 unit 05/18/20 21:00 05/22/20 20:43 Lantus SUBCUT 10 unit BEDTIME MARIA G Administration Levothyroxine Sodium 125 mcg 05/19/20 06:30 05/19/20 05:29 Synthroid PO 125 mcg 0630 MARIA G Administration Levothyroxine Sodium 100 mcg 05/20/20 06:30 05/23/20 06:32 Synthroid PO 100 mcg 0630 MARIA G Administration Levothyroxine Sodium 25 mcg 05/20/20 06:30 05/23/20 06:33 Synthroid PO 25 mcg 0630 MARIA G Administration Losartan Potassium 100 mg 05/18/20 21:00 05/22/20 20:42 Cozaar PO 100 mg BEDTIME MARIA G Administration Multivitamins 1 tab 05/19/20 09:00 05/23/20 08:55 Multivitamin Tablet PO 1 tab DAILY MARIA G Administration Mupirocin 1 applic 05/18/20 21:00 05/21/20 17:47 Bactroban TP 05/21/20 20:59 1 applic TID MARIA G Administration Mupirocin 1 applic 05/22/20 09:00 05/23/20 08:56 Bactroban TP 05/25/20 08:59 1 applic TID MARIA G Administration Non-Formulary Medication 25 mg 05/18/20 21:00 05/19/20 09:41 Bethanechol Chloride PO Not Given QID MARIA G Non-Formulary Medication 1 tab 05/18/20 21:00 05/18/20 22:06 Sennosides-Docusate Sodium [Senokot-S] PO Not Given BID MARIA G Ondansetron HCl 4 mg 05/18/20 18:27 Zofran 4 Mg/2 Ml IVP Q6H PRN Nausea / Vomiting Sennosides 8.6 mg 05/19/20 09:00 05/23/20 08:55 Senna PO 8.6 mg BID MARIA G Administration Sodium Chloride 1 syr 05/18/20 18:27 05/23/20 05:32 Saline Flush IVF 1 syr PRN PRN Administration To flush IV Tamsulosin HCl 0.4 mg 05/19/20 09:00 05/23/20 08:56 Flomax PO 0.4 mg DAILY MARIA G Administration Vital Signs: Temp Pulse Resp BP Pulse Ox 05/18/20 18:07 99.1 F 72 20 143/76 H 96 Discharge Plan Discharge Patient Disposition: ADMITTED INPATIENT Discharge Problem: Pressure ulcer, Cellulitis and abscess of foot, CKD (chronic kidney disease) ED Provider: VIOLETTE WHITAKER Condition: Stable Discharge Date/Time: 05/18/20 20:34
[2020-05-18] MEDS ORDERED: DECADRON 4 MG/ML SDV IVP SCH (19:00)
--- NOTE | 2020-05-18 19:40 | CT ---
EXAM: Helical CT of the left foot without contrast. Coronal sagittal reformats were performed. HISTORY: Cellulitis, wound check COMPARISON: None. FINDINGS: There is no acute fracture or dislocation. No evidence of osseous erosion or bone destruct ion is seen. The bones are diffusely demineralized. Calcaneal enthesiophytes are seen. Small osteo phytes are seen at the tibiotalar joint. Small osteophytes are seen at the first metatarsal phalange al joint. Otherwise joint spaces appear maintained. Diffuse soft tissue swelling of the foot and an kle is seen. Atherosclerosis is seen. No evidence of soft tissue gas is seen. OPINION: No acute osseous abnormality of the foot. Diffuse soft tissue swelling of the foot and ankle. 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 Diffuse bony demineralization. Atherosclerosis.
[2020-05-18] MEDS ORDERED: SENNOSIDES DOCUSATE SODIUM PO SCH (21:00)
[2020-05-18] MEDS: NEURONTIN PO SCH (21:55)
[2020-05-18] MEDS: COZAAR PO SCH (21:55)
[2020-05-18] MEDS: NORCO 5-325 PO SCH (21:55)
[2020-05-18] MEDS: LOVENOX SUBCUT SCH (21:55)
[2020-05-18] MEDS: LANTUS SUBCUT SCH (21:56)
[2020-05-18] MEDS: DECADRON 4 MG/ML SDV IVP SCH (22:04)
[2020-05-18] MEDS: BACTROBAN TP SCH (22:04)
[2020-05-18] MEDS: BETHANECHOL CHLORIDE 25 MG PO SCH (22:05)
--- NOTE | 2020-05-18 22:13 | DI ---
Exam: Single view chest X-ray. Date: 05/18/2020 Comparison: 06/19/2019. History: Congestion. Findings: There is mild osteopenia. There is a calcified pleural plaque over the lower right chest w all. There is no focal consolidation. Cardiac silhouette and pulmonary vasculature are normal. A c alcified granulomas. ASVD is present. Impression: No acute intrathoracic findings. Vascular and granulomatous calcifications..
[2020-05-18] MEDS: CLEOCIN 300 MG/50 ML D5W 300 MG/50 ML BAG IV SCH (22:19)
[2020-05-19 00:05] VITALS: BMI 25.6
[2020-05-19] MEDS: CLEOCIN 300 MG/50 ML D5W 300 MG/50 ML BAG IV SCH ×2 (00:20→05:27)
[2020-05-19] MEDS ORDERED: SYNTHROID PO SCH (06:30)
[2020-05-19] MEDS ORDERED: INVANZ 1 GM in SODIUM CHLORIDE 50 ML IV ONE (08:21)
[2020-05-19] MEDS: BETHANECHOL CHLORIDE 25 MG PO SCH (09:41)
[2020-05-19] MEDS: BUMEX PO SCH (10:09)
[2020-05-19] MEDS: FLOMAX PO SCH (10:10)
[2020-05-19] MEDS: SENNA PO SCH ×2 (10:10→20:17)
[2020-05-19] MEDS: ASPIRIN CHEWABLE PO SCH (10:10)
[2020-05-19] MEDS: COLACE PO SCH (10:10)
[2020-05-19] MEDS: MULTIVITAMIN TABLET PO SCH (10:11)
[2020-05-19] MEDS: TYLENOL PO PRN (10:11)
[2020-05-19] MEDS: BACTROBAN TP SCH ×3 (10:12→20:15)
[2020-05-19] MEDS: LOVENOX SUBCUT SCH (10:13)
[2020-05-19] MEDS: BETHANECHOL CHLORIDE PO SCH ×4 (10:20→20:16)
[2020-05-19] MEDS: DECADRON 4 MG/ML SDV IVP SCH (10:56)
[2020-05-19] MEDS: CLEOCIN 600 MG/50 ML D5W 600 MG/50 ML BAG IV SCH ×2 (12:38→20:17)
--- NOTE | 2020-05-19 13:54 | PN ---
DATE OF SERVICE: 05/19/20 SUBJECTIVE: 84-year-old white male who is a resident of [facility]. He was noted to have a wound on his left second toe with concerns of infection. He was started on oral Clindamycin. He had been on this for two days prior to recommendations on ER evaluation. The wound on the left second toe appeared to be infected with increasing edema in the left lower extremity. This morning the wound shows minimal improvement. The edema has decreased and the redness has improved as well. He is afebrile. He is receiving Invanz IV. We will start Clindamycin 600 mg q.8hr IV as well. After today's dose of Invanz we will discontinue that. We will keep the left foot elevated off of the bed. Continue Bactroban to wound t.i.d. REVIEW OF SYSTEMS: CONSTITUTIONAL: No night sweats. No fatigue, malaise, lethargy. No fever or chills. HEENT: Eyes: No visual changes. No eye pain. No eye discharge. ENT: No runny nose. No epistaxis. No sinus pain. No sore throat. No odynophagia. No congestion. RESPIRATORY: No cough, no congestion. No hemoptysis. No shortness of breath. CARDIOVASCULAR: No angina symptoms. No CHF symptoms. No atypical chest pain for CAD. No palpitations. No PND. No orthopnea. GASTROINTESTINAL: No abdominal pain. No nausea or vomiting. No diarrhea or constipation. No hematemesis. No hematochezia. GENITOURINARY: No urgency. No frequency. No dysuria. No hematuria. No obstructive symptoms. No discharge. No pain. No significant abnormal bleeding. MUSCULOSKELETAL: No musculoskeletal pain; no joint swelling. NEUROLOGICAL: No headache. No neck pain. No syncope. No seizures. No dizziness. PSYCHIATRIC: Not anxious. No depression. No suicidal thoughts. No homicidal thoughts. SKIN: No rash. Left second toe wound with no drainage. ENDOCRINE: No unexplained weight loss. No weight gain. HEMATOLOGIC/LYMPHATIC: No anemia. No purpura. No petechiae. No prolonged or excessive bleeding. No palpable lymph nodes. PHYSICAL EXAMINATION: VITAL SIGNS: Temperature 97.6, pulse 86, respiratory rate 20, BP 148/78, 02 sat 96. HEENT: Head normocephalic Eyes: Extraocular muscles are intact. Pupils are equal, round and reactive to light and accommodation. Contusion to left eye with sutures. Ears: No lesions. Nose appeared normal. Throat: No exudate or erythema. NECK: Supple. No JVD, no carotid bruit. No lymphadenopathy or thyromegaly. LUNGS: Diminished breath sounds. Clear to auscultation. Percussion note normal. Chest symmetrical. HEART: S1, S2, no S3. Grade II/ heart murmur. No cyanosis or clubbing. No ascites. Pulses: Dorsalis pedis and posterior tibial pulses +1 to +2 bilaterally. ABDOMEN: Soft. Nontender. Bowel sounds active. No CVA tenderness. No mass felt. EXTREMITIES: Left second toe wound, mild erythema. Left lower extremity edema improved. Full range of motion of all extremities, equal. NEUROLOGIC: No focal deficit. Cranial nerves II through XII are grossly intact. No headache, no double vision or headache. SKIN: Not dry. Intact. Turgor - normal. LYMPHATIC: No palpable lymph nodes/no lymphedema. MUSCULOSKELETAL: Normal joints with no swelling. Muscle tone is normal. ASSESSMENT: 1. Left second toe pressure ulcer. 2. Cellulitis and abscess of the left foot. 3. Chronic kidney disease. 4. Dementia. 5. Hypertension. 6. Hypothyroidism. 7. Diabetes mellitus type 2. PLAN: 1. Discontinue Invanz after today's dose on 05/19/20. 2. Clindamycin 600 mg IV q.8. 3. Bactroban continued t.i.d. to the left second toe pressure ulcer. 4. Elevate the left foot off of the bed. 5. Encourage good oral intake. 6. Fall precautions. TIME SPENT: More than 30 minutes. The patient was seen and examined with Dr. Blake. Plan was discussed. Plan and coordination of the patient's care discussed in the presence of nurse. ANANT
--- NOTE | 2020-05-19 14:25 | PN ---
DATE OF SERVICE: 05/18/20 SUBJECTIVE: The patient was hospitalized today through the emergency room with possible cellulitis and swelling of the leg, especially the left lower extremity. The patient is supposed to be on Ertapenem and Clindamycin for UTI - ESBL. Clindamycin doesn't seem to be given to the patient with possible cellulitis. We will add Clindamycin along with Ertapenem and admit this patient to be treated in the hospital. The [facility] a [facility] the [facility]. TIME SPENT: More than 30 minutes. Plan and coordination of the patient's care discussed in the presence of nurse. ANANT
[2020-05-19] MEDS: NORCO 5-325 PO SCH (20:16)
[2020-05-19] MEDS: NEURONTIN PO SCH (20:16)
[2020-05-19] MEDS: COZAAR PO SCH (20:17)
[2020-05-19] MEDS: LANTUS SUBCUT SCH (20:18)
[2020-05-19] MEDS ORDERED: INVANZ 1 GM in SODIUM CHLORIDE 50 ML IV SCH (20:30)
[2020-05-20] MEDS: ASPIRIN CHEWABLE PO SCH (09:58)
[2020-05-20] MEDS: BACTROBAN TP SCH ×3 (09:58→20:13)
[2020-05-20] MEDS: BETHANECHOL CHLORIDE PO SCH ×4 (09:59→20:12)
[2020-05-20] MEDS: BUMEX PO SCH (10:00)
[2020-05-20] MEDS: CLEOCIN 600 MG/50 ML D5W 600 MG/50 ML BAG IV SCH ×3 (10:01→20:12)
[2020-05-20] MEDS: FLOMAX PO SCH (10:02)
[2020-05-20] MEDS: COLACE PO SCH (10:02)
[2020-05-20] MEDS: MULTIVITAMIN TABLET PO SCH (10:03)
[2020-05-20] MEDS: LOVENOX SUBCUT SCH (10:03)
[2020-05-20] MEDS: SENNA PO SCH ×2 (10:04→20:11)
[2020-05-20] MEDS: SYNTHROID PO SCH ×2 (10:05)
[2020-05-20] MEDS: NORCO 5-325 PO SCH (20:12)
[2020-05-20] MEDS: NEURONTIN PO SCH (20:12)
[2020-05-20] MEDS: COZAAR PO SCH (20:12)
[2020-05-20] MEDS: LANTUS SUBCUT SCH (20:17)
[2020-05-21 05:42] LABS: HEMATOCRIT 32.3 % (42.0-52.0)
[2020-05-21] MEDS: CLEOCIN 600 MG/50 ML D5W 600 MG/50 ML BAG IV SCH ×3 (06:02→21:28)
[2020-05-21] MEDS: SYNTHROID PO SCH ×2 (06:02)
[2020-05-21] MEDS: BUMEX PO SCH (06:02)
[2020-05-21] MEDS: FLOMAX PO SCH (08:53)
[2020-05-21] MEDS: BETHANECHOL CHLORIDE PO SCH ×4 (08:54→21:40)
[2020-05-21] MEDS: SENNA PO SCH ×2 (08:54→21:28)
[2020-05-21] MEDS: COLACE PO SCH (08:54)
[2020-05-21] MEDS: ASPIRIN CHEWABLE PO SCH (08:54)
[2020-05-21] MEDS: MULTIVITAMIN TABLET PO SCH (08:54)
[2020-05-21] MEDS: LOVENOX SUBCUT SCH (08:55)
[2020-05-21] MEDS: BACTROBAN TP SCH ×2 (08:55→17:47)
[2020-05-21] MEDS: TYLENOL PO PRN (13:58)
[2020-05-21] MEDS: CALMOSEPTINE OINTMENT TP PRN (13:59)
[2020-05-21] MEDS: NEURONTIN PO SCH (21:28)
[2020-05-21] MEDS: NORCO 5-325 PO SCH (21:28)
[2020-05-21] MEDS: COZAAR PO SCH (21:28)
[2020-05-21] MEDS: LANTUS SUBCUT SCH (21:29)
[2020-05-22 05:03] LABS: HEMATOCRIT 30.6 % (42.0-52.0)
[2020-05-22] MEDS: CLEOCIN 600 MG/50 ML D5W 600 MG/50 ML BAG IV SCH ×3 (05:37→20:42)
[2020-05-22] MEDS: BUMEX PO SCH (06:07)
[2020-05-22] MEDS: SYNTHROID PO SCH ×2 (06:08)
--- NOTE | 2020-05-22 08:16 | PCM.PROG ---
Attending Provider: ATTENDING PROVIDER: Dr. HUONG COWAN This patient is seen with Sheron Altamirano, Nurse Practitioner. DATE OF SERVICE: 05/22/20 SUBJECTIVE: This 84 year old /WHITE M was hospitalized 05/18/20. The patient is resting comfortably. He is afebrile this morning. The patient had an episode of 101 temperature yesterday afternoon. We are awaiting urine culture results. We will continue Clindamycin. and continue Bactroban. Keep the left lower extremity elevated and off the bed. REVIEW OF SYSTEMS: CONSTITUTIONAL: No night sweats. No fatigue, malaise, lethargy. No fever or chills. Weakness. HEENT: Eyes: No visual changes. No eye pain. No eye discharge. ENT: No runny nose. No epistaxis. No sinus pain. No odynophagia. No congestion. RESPIRATORY: No cough, no congestion. No hemoptysis. No shortness of breath. CARDIOVASCULAR: No angina symptoms. No CHF symptoms. No atypical chest pain for CAD. No palpitations. No orthopnea.. GASTROINTESTINAL: No abdominal pain. No nausea or vomiting. No diarrhea or constipation. No hematemesis. No hematochezia. GENITOURINARY: No urgency. No frequency. No dysuria. No hematuria. No obstructive symptoms. No discharge. No pain. No significant abnormal bleeding. MUSCULOSKELETAL: No musculoskeletal pain; no joint swelling. NEUROLOGICAL: Awake, alert, oriented to time, place and person. No headache. No neck pain. No syncope. No seizures. No dizziness. PSYCHIATRIC: Not anxious. No depression. No suicidal thoughts. No homicidal thoughts. SKIN: No rash. No lesions. No wounds. ENDOCRINE: No unexplained weight loss. No weight gain. HEMATOLOGIC/LYMPHATIC: No anemia. No purpura. No petechiae. No prolonged or excessive bleeding. No palpable lymph nodes. PHYSICAL EXAMINATION: GENERAL: The patient is awake, alert and oriented, lying in bed in no distress. VITAL SIGNS: Temperature 98.6 F, Pulse 75, Respiratory Rate 18, BP 137/72, Pulse Ox 95% HEENT: Head normocephalic, atraumatic. Eyes: Extraocular muscles are intact. Pupils are equal, round and reactive to light and accommodation. Ears: No lesions. Nose appeared normal. Throat: No exudate or erythema. NECK: Supple. No JVD, no carotid bruit. No lymphadenopathy or thyromegaly. LUNGS: Diminished breath sounds. Clear to auscultation. Percussion note normal. Chest symmetrical. HEART: S1, S2, no S3. No murmurs. No cyanosis or clubbing. No ascites. Pulses: Dorsalis pedis and posterior tibial pulses +1 to +2 both sides. ABDOMEN: Soft. Non-tender. Bowel sounds active. No CVA tenderness. No mass felt. EXTREMITIES: No edema. Full range of motion of all extremities, equal. NEUROLOGIC: No focal deficit. Cranial nerves II through XII are grossly intact. No headache, no double vision or headache. SKIN: Not dry. Intact. Turgor-normal. LYMPHATIC: No palpable lymph nodes/no lymphedema. MUSCULOSKELETAL: Normal joints with no swelling. Muscle tone is normal. LAB REVIEW: 05/22/20 04:45 05/22/20 04:45 05/22/20 04:45: Sodium 136.6, Potassium 4.21, Chloride 104.8, Carbon Dioxide 27.3, Anion Gap 8.71, BUN 40.4 H, Creatinine 1.84 H, Estimated GFR (MDRD) 35.00, BUN/Creatinine Ratio 21.95, Glucose 92.9, Calcium 8.62, Total Bilirubin 0.76, AST 20.1, ALT 12.3, Alkaline Phosphatase 72.0, Total Protein 6.19 L, Albumin 3.19 L, Globulin 3.00, Albumin/Globulin Ratio 1.06 05/22/20 04:45: WBC 9.42, RBC 3.23 L, Hgb 9.9 L, Hct 30.6 L, MCV 94.7 H, MCH 30.7, MCHC 32.4, RDW Coeff of Sandra 13.6, Plt Count 128 L, Immature Gran % (Auto) 0.3, Neut % (Auto) 66.7, Lymph % (Auto) 13.1, Wilson % (Auto) 9.2, Eos % (Auto) 10.4 H, Baso % (Auto) 0.3, Neut # (Auto) 6.3, Lymph # (Auto) 1.2, Wilson # (Auto) 0.9, Eos # (Auto) 1.0 H, Baso # (Auto) 0.0, Immature Gran # (Auto) 0.0 05/21/20 05:29: TSH 4.190 05/21/20 05:29: Free T4 0.99 ASSESSMENT: Please see below. 1. Left second toe pressure ulcer. 2. Cellulitis and abscess of the left foot. 3. Chronic kidney disease. 4. Dementia. 5. Hypertension. 6. Hypothyroidism. 7. Diabetes mellitus type 2. PLAN: 1. Continue IV Clindamycin 2. Continue Bactroban TID 3. Urine culture pending 4. Elevate lower extremities 5. CT of the head 6. It is ok to remove sutures 7. Invanz 1 gram Q 12 hours. Plan and coordination of the patient's care discussed in the presence of Traveling Accountant and nurse. SCRIBED BY: Sony MERINO scribed while in presence of service performed by Dr. Cowan/Sheron Altamirano APRN on 05/22/20 ([id number])
[2020-05-22] MEDS ORDERED: INVANZ 1 GM in SODIUM CHLORIDE 50 ML IV SCH (09:00)
--- NOTE | 2020-05-22 09:30 | PN ---
DATE OF SERVICE: 05/19/2020 SUBJECTIVE: The patient was seen and examined with the Nurse Practitioner. The patient's condition seems to have improved. His toe which was inflamed with edema of the foot seems to be resolving, the left foot. The patient is on Clindamycin with leg elevations. Cellulitis surrounding the infected toe seems to be under control. TIME SPENT: More than 30 minutes. Plan and coordination of the patient's care discussed in the presence of nurse. ANANT
[2020-05-22] MEDS: MERREM 1 GM/50 ML NACL 1 GM/50 ML BAG IV SCH ×2 (10:03→21:57)
[2020-05-22] MEDS: BACTROBAN TP SCH ×3 (10:03→20:44)
[2020-05-22] MEDS: ASPIRIN CHEWABLE PO SCH (10:04)
[2020-05-22] MEDS: BETHANECHOL CHLORIDE PO SCH ×4 (10:04→20:42)
[2020-05-22] MEDS: FLOMAX PO SCH (10:05)
[2020-05-22] MEDS: COLACE PO SCH (10:05)
[2020-05-22] MEDS: MULTIVITAMIN TABLET PO SCH (10:05)
[2020-05-22] MEDS: SENNA PO SCH ×2 (10:05→20:43)
[2020-05-22] MEDS: LOVENOX SUBCUT SCH (10:11)
--- NOTE | 2020-05-22 10:13 | CT ---
EXAM: CT Head HISTORY: Fall two - 3 days ago with laceration over left forehead COMPARISON: 05/13/2020 TECHNIQUE: CT head performed without contrast FINDINGS: There is no mass effect, midline shift, or intracranial hemmorhage. Moreno white differenti ation is preserved. There is no extra-axial collection. The ventricles, sulci, and basal cisterns a re patent and symmetric. Stable chronic small vessel ischemic changes of the white matter and genera lized cerebral volume loss. There is no depressed calvarial fracture. The mastoid air cells are huber ar. The visualized paranasal sinuses are clear. There are intracranial atherosclerotic calcification s. Decreasing left frontal scalp soft tissue swelling. IMPRESSION: 1. No acute intracranial abnormality. 2. Chronic small vessel ischemic changes and generalized atrophy. 3. Decreasing left frontal scalp soft tissue swelling.
--- NOTE | 2020-05-22 11:17 | HP ---
DATE OF SERVICE: 05/18/2020 REASON FOR HOSPITALIZATION/HISTORY OF PRESENT ILLNESS: 84 year old white male who is a resident of [facility]. He developed a wound on his left second toe with concerns of infection. On an outpatient basis he was started on oral Clindamycin. He received two days worth of antibiotics. The wound became further reddened with edema noted in the left lower extremity. He was brought to [place] [facility] for evaluation. He will be admitted with routine telemetry orders for further evaluation and management of left second toe ulcer with IV antibiotics. The wound was not cultured in ER as the wound had no drainage present on admission. PAST MEDICAL HISTORY: Dementia without behavioral disturbance Chronic pain Iron deficiency anemia Dysphasia Spinal stenosis Diabetes Mellitus type 2 Hypothyroidism Polyneuropathy History of TIA History of CVA GOUT History of edema Atherosclerotic heart disease with out angina BPH CHF Nonrheumatic aortic valve insufficiency Chronic kidney disease stage three Hypertension PAST SURGICAL HISTORY: Right hip replacement REVIEW OF SYSTEMS: CONSTITUTIONAL: No night sweats. No fatigue, malaise, lethargy. No fever or chills. Weakness. HEENT: Eyes: No visual changes. No eye pain. No eye discharge. ENT: No runny nose. No epistaxis. No sinus pain. No sore throat. No odynophagia. No ear pain. No congestion. RESPIRATORY: No cough, no congestion. No hemoptysis. No shortness of breath. CARDIOVASCULAR: No angina symptoms. No CHF symptoms. No atypical chest pain for CAD. No palpitations. No PND. No orthopnea. GASTROINTESTINAL: No abdominal pain. No nausea or vomiting. No diarrhea or constipation. No hematemesis. No hematochezia. GENITOURINARY: No urgency. No frequency. No dysuria. No hematuria. No obstructive symptoms. No discharge. No pain. No significant abnormal bleeding. MUSCULOSKELETAL: No musculoskeletal pain. No joint swelling. No arthritis. NEUROLOGICAL: No headache. No neck pain. No syncope. No seizures. No dizziness. PSYCHIATRIC: Not anxious. No depression. No suicidal thoughts. No homicidal thoughts. SKIN: No rash. No lesions. No wounds. ENDOCRINE: No unexplained weight loss. No weight gain. HEMATOLOGIC/LYMPHATIC: No anemia. No purpura. No petechiae. No prolonged or excessive bleeding. No palpable lymph nodes. PERSONAL/FAMILY/SOCIAL HISTORY: He is a resident of [facility]. He is up with assistance requiring the use a walker. He uses a wheelchair for longer distances. There is no history of smoking or alcohol use. MEDICATIONS: Tamsulosin 0.4mg PO daily Senokot-S 8.6-50mg PO BID Miralax 17gram PO daily Lantus Solostar insulin 10 units SUBCUT bedtime Zyrtec 10mg PO daily PRN Aspirin 81mg PO daily Bumetanide 0.5mg PO daily Multivitamin one PO daily Hydrocodone-acetaminophen 5-325mg PO bedtime Ferrous sulfate 325mg PO daily Synthroid 125mcg PO daily Acetaminophen 650mg PO Q 4 hours PRN Allopurinol 100mg PO Bedtime Losartan 100mg PO BEDTIME Vitamin D3 3000 unit PO daily Calcium carbonate-vitamin D3 500mg *1250mg)-200 unit tablets one each PO daily 30 days Zofran 4mg PO Q 6 hours PRN Zocor 40mg PO BEDTIME Clindamycin 300mg PO TID Bethanechol chloride 25mg PO QID Mupirocin 2% one application Topical TID ALLERGIES: No known allergies PHYSICAL EXAMINATION: GENERAL: The patient is alert to person and place. VITALS: Temperature 99.1, pulse 72, respiratory rate 20, blood pressure 143/76, pulse ox 96%. HEENT: Head normocephalic, atraumatic. Eyes: Extraocular muscles are intact. Contusion around the left eye with sutures from previous fall. Pupils are equal, round and reactive to light and accommodation. Ears: No lesions. Nose appeared normal. Throat: No exudate or erythema. NECK: Supple. No JVD, no carotid bruit. No lymphadenopathy or thyromegaly. LUNGS:Diminished lung sounds. Clear to auscultation. Percussion note normal. Chest symmetrical. HEART: S1, S2, no S3. Sharla II/ murmur. No cyanosis or clubbing. No ascites. Pulses: Dorsalis pedis and posterior tibial pulses +1 to +2 bilaterally. ABDOMEN: Soft. Nontender. Bowel sounds active. No CVA tenderness. No mass felt. EXTREMITIES: No edema. Full range of motion of all extremities, equal. NEUROLOGIC: No focal deficit. Cranial nerves II through XII are grossly intact. No headache, no double vision or headache. SKIN: Not dry. Intact. Turgor - normal. LYMPHATIC: No palpable lymph nodes/no lymphedema. MUSCULOSKELETAL: Normal joints with no swelling. Muscle tone is normal. LABS: WBC 12.14, hgb 11.9, hct 37.9, plt count 157, sodium 137.5, potassium 4.49, BUN 39.6, creatinine 1.54, AST 27, ALT 17. CT of the left foot showed no acute osseous abnormality, diffused soft tissue swelling of the foot and ankle, mild osteoarthritis at the first MTP joint and the tibiotalar joint, diffused bony demineralization and Atherosclerosis. Chest x-ray showed no acute intrathoracic findings, vascular and granulomatous calcifications. ASSESSMENT: 1. Left second toe ulcer wound 2. Cellulitis of the left foot 3. Chronic kidney disease stage 3 4. Diabetes Type 2 5. Dementia without behavioral disturbance 6. Left lower extremity edema 7. History of congestive heart failure PLAN: 1. Admit 2. Routine telemetry orders 3. No cardiac markers needed 4. CBC and CMP daily 5. Continue home medications 6. O2 1-2 liters nasal canula as needed 7. Accu-checks AC and HS 8. 1800 ADA diet 9. Clindamycin and Invanz IV started 10.The patient is a DNR. The patient was seen and examined with Dr. Blake and plan was discussed. TIME SPENT: More than 70 minutes. ZULLYD
--- NOTE | 2020-05-22 12:52 | PN ---
DATE OF SERVICE: 05/21/2020 SUBJECTIVE: 84 year old white male hospitalized with left foot cellulitis. The patient is doing better. He is eating better. Cellulitis seems to have resolved it is localized. It is on the second left big toe. The patient is on Clindamycin. REVIEW OF SYSTEMS: CONSTITUTIONAL: No night sweats. No fatigue, malaise, lethargy. No fever or chills. HEENT: Eyes: No visual changes. No eye pain. No eye discharge. ENT: No runny nose. No epistaxis. No sinus pain. No sore throat. No odynophagia. No congestion. RESPIRATORY: No cough, no congestion. No hemoptysis. No shortness of breath. CARDIOVASCULAR: No angina symptoms. No CHF symptoms. No atypical chest pain for CAD. No palpitations. No PND. No orthopnea. GASTROINTESTINAL: No abdominal pain. No nausea or vomiting. No diarrhea or constipation. No hematemesis. No hematochezia. GENITOURINARY: No urgency. No frequency. No dysuria. No hematuria. No obstructive symptoms. No discharge. No pain. No significant abnormal bleeding. MUSCULOSKELETAL: No musculoskeletal pain; no joint swelling. NEUROLOGICAL: No headache. No neck pain. No syncope. No seizures. No dizziness. PSYCHIATRIC: Not anxious. No depression. No suicidal thoughts. No homicidal thoughts. SKIN: No rash. No lesions. No wounds. ENDOCRINE: No unexplained weight loss. No weight gain. HEMATOLOGIC/LYMPHATIC: No anemia. No purpura. No petechiae. No prolonged or excessive bleeding. No palpable lymph nodes. PHYSICAL EXAMINATION: VITAL SIGNS: Temperature 99.3, pulse 88, respiratory rate 16, blood pressure 146/82 and pulse ox 96%. HEENT: Head normocephalic, atraumatic. Eyes: Extraocular muscles are intact. Pupils are equal, round and reactive to light and accommodation. Ears: No lesions. Nose appeared normal. Throat: No exudate or erythema. NECK: Supple. No JVD, no carotid bruit. No lymphadenopathy or thyromegaly. LUNGS: Decreased breath sounds but clear to auscultation. Percussion note normal. Chest symmetrical. HEART: S1, S2, no S3. No murmurs. No cyanosis or clubbing. No ascites. Pulses: Dorsalis pedis and posterior tibial pulses +1 to +2 bilaterally. ABDOMEN: Soft. Nontender. Bowel sounds active. No CVA tenderness. No mass felt. EXTREMITIES: No edema. Full range of motion of all extremities, equal. NEUROLOGIC: No focal deficit. Cranial nerves II through XII are grossly intact. No headache, no double vision or headache. SKIN: Not dry. Intact. Turgor - normal. Scab on the left big toe noted with practically no surrounding redness and puckering of the skin with mild pigmentation noted. LYMPHATIC: No palpable lymph nodes/no lymphedema. MUSCULOSKELETAL: Normal joints with no swelling. Muscle tone is normal. LABS: Hgb 10.4, hct 32, WBC 11,000 normal differential, creatinine 1.6, BUN 41, potassium 4.6. ASSESSMENT: 1. Cellulitis of the left foot resolved. PLAN: 1. The patient is going to be taken care of by Wound Care. 2. The patient is diabetic. Diabetic foot care discussed with the patient and be further detail to the fpc. 3. We will also do T4 and TSH. We will do CT scan of head without contrast. 4. The patient had a fall with head injury [address] scan was negative. He still has stitches in the left eyebrow. TIME SPENT: More than 30 minutes. Plan and coordination of the patient's care discussed in the presence of nurse. ANANT
[2020-05-22] MEDS: NORCO 5-325 PO SCH (20:42)
[2020-05-22] MEDS: COZAAR PO SCH (20:42)
[2020-05-22] MEDS: LANTUS SUBCUT SCH (20:43)
[2020-05-22] MEDS: NEURONTIN PO SCH (20:43)
[2020-05-22] MEDS: CALMOSEPTINE OINTMENT TP PRN (20:45)
[2020-05-23 04:45] LABS: HEMATOCRIT 30.2 % (42.0-52.0)
[2020-05-23] MEDS: CLEOCIN 600 MG/50 ML D5W 600 MG/50 ML BAG IV SCH (05:32)
[2020-05-23 05:47] VITALS: BP 118/53; TEMP 98.4
[2020-05-23] MEDS: SYNTHROID PO SCH ×2 (06:32→06:33)
[2020-05-23] MEDS: BUMEX PO SCH (06:32)
[2020-05-23] MEDS: SENNA PO SCH (08:55)
[2020-05-23] MEDS: MULTIVITAMIN TABLET PO SCH (08:55)
[2020-05-23] MEDS: MERREM 1 GM/50 ML NACL 1 GM/50 ML BAG IV SCH (08:55)
[2020-05-23] MEDS: ASPIRIN CHEWABLE PO SCH (08:55)
--- NOTE | 2020-05-23 08:55 | PN ---
DATE OF SERVICE: 05/20/20 SUBJECTIVE: 84-year-old white male hospitalized with left foot cellulitis, mainly the second toe. It was infected but seems a lot better, practically no redness in the foot and mild redness surrounding the lesion on the right toe which is more localized. The patient is followed by Wound Care. The patient was alert, oriented to person and place. REVIEW OF SYSTEMS: CONSTITUTIONAL: No night sweats. No fatigue, malaise, lethargy. No fever or chills. HEENT: Eyes: No visual changes. No eye pain. No eye discharge. ENT: No runny nose. No epistaxis. No sinus pain. No sore throat. No odynophagia. No congestion. RESPIRATORY: No cough, no congestion. No hemoptysis. No shortness of breath. CARDIOVASCULAR: No angina symptoms. No CHF symptoms. No atypical chest pain for CAD. No palpitations. No PND. No orthopnea. GASTROINTESTINAL: No abdominal pain. No nausea or vomiting. No diarrhea or constipation. No hematemesis. No hematochezia. GENITOURINARY: No urgency. No frequency. No dysuria. No hematuria. No obstructive symptoms. No discharge. No pain. No significant abnormal bleeding. MUSCULOSKELETAL: No musculoskeletal pain; no joint swelling. NEUROLOGICAL: No headache. No neck pain. No syncope. No seizures. No dizziness. PSYCHIATRIC: Not anxious. No depression. No suicidal thoughts. No homicidal thoughts. SKIN: No rash. No lesions. No wounds. ENDOCRINE: No unexplained weight loss. No weight gain. HEMATOLOGIC/LYMPHATIC: No anemia. No purpura. No petechiae. No prolonged or excessive bleeding. No palpable lymph nodes. PHYSICAL EXAMINATION: VITAL SIGNS: Temperature 98.9, pulse 85, respiratory rate 16, blood pressure 146/70, pulse ox 97% on room air. HEENT: Head normocephalic, atraumatic. Eyes: Extraocular muscles are intact. Pupils are equal, round and reactive to light and accommodation. Ears: No lesions. Nose appeared normal. Throat: No exudate or erythema. NECK: Supple. No JVD, no carotid bruit. No lymphadenopathy or thyromegaly. LUNGS: Clear to auscultation. Percussion note normal. Chest symmetrical. HEART: S1, S2, no S3. No murmurs. No cyanosis or clubbing. No ascites. Pulses: Dorsalis pedis and posterior tibial pulses +1 to +2 bilaterally. ABDOMEN: Soft. Nontender. Bowel sounds active. No CVA tenderness. No mass felt. EXTREMITIES: Right toe has 1/3 cm size red area with eschar, practically no cellulitis surrounding area. No edema. Full range of motion of all extremities, equal. NEUROLOGIC: No focal deficit. Cranial nerves II through XII are grossly intact. No headache, no double vision or headache. SKIN: Not dry. Intact. Turgor - normal. LYMPHATIC: No palpable lymph nodes/no lymphedema. MUSCULOSKELETAL: Normal joints with no swelling. Muscle tone is normal. LABS: Hemoglobin 11, hematocrit 34, WBC 8,600, normal differential. Creatinine 1.2, BUN 36, potassium 4.9, glucose 140. ASSESSMENT: 1. Cellulitis seems to have resolved lesion on the right second left toe, seems to be healing. PLAN: 1. Continue Insulin as ordered. 2. Hydrocodone for pain. 3. Losartan for hypertension. 4. Simvastatin for cholesterol problem. 5. Clindamycin for infection. 6. Will discharge the patient home. The patient's condition has improved. CONDITION: Stable. TIME SPENT: More than 30 minutes. Plan and coordination of the patient's care discussed in the presence of nurse. ANANT
[2020-05-23] MEDS: COLACE PO SCH (08:56)
[2020-05-23] MEDS: BETHANECHOL CHLORIDE PO SCH (08:56)
[2020-05-23] MEDS: FLOMAX PO SCH (08:56)
[2020-05-23] MEDS: BACTROBAN TP SCH (08:56)
[2020-05-23] MEDS: LOVENOX SUBCUT SCH (08:59)
--- NOTE | 2020-05-23 09:01 | PN ---
DATE OF SERVICE: 05/22/20 SUBJECTIVE: The patient is doing well. He is seen and examined with the nurse practitioner. The patient spiked a fever of 101 likely from urinary tract infection, ESBL. The patient is going to be started on Ertapenem. The cellulitis of the left foot has resolved. TIME SPENT: More than 30 minutes. Plan and coordination of the patient's care discussed in the presence of nurse. ANANT
--- NOTE | 2020-05-23 09:15 | PCM.PROG ---
Attending Provider: ATTENDING PROVIDER: Dr. HUONG COWAN This patient is seen with Sheron Altamirano, Nurse Practitioner. DATE OF SERVICE: 05/23/20 SUBJECTIVE: This 84 year old /WHITE M was hospitalized 05/18/20. The patient is alert and resting in bed. He states he is feeling some better. He did run a temperature of 99 yesterday. Urine cultures pending. We will continue IV Clindamycin and Merrem. We will swing the patient today for continued IV antibiotics. The second toe on left foot remains red, nondraining. REVIEW OF SYSTEMS: CONSTITUTIONAL: Weakness. No night sweats. No fatigue, malaise, lethargy. No fever or chills. HEENT: Eyes: No visual changes. No eye pain. No eye discharge. ENT: No runny nose. No epistaxis. No sinus pain. No odynophagia. No congestion. RESPIRATORY: No cough, no congestion. No hemoptysis. No shortness of breath. CARDIOVASCULAR: No angina symptoms. No CHF symptoms. No atypical chest pain for CAD. No palpitations. No orthopnea.. GASTROINTESTINAL: No abdominal pain. No nausea or vomiting. No diarrhea or constipation. No hematemesis. No hematochezia. GENITOURINARY: No urgency. No frequency. No dysuria. No hematuria. No obstructive symptoms. No discharge. No pain. No significant abnormal bleeding. MUSCULOSKELETAL: No musculoskeletal pain; no joint swelling. NEUROLOGICAL: Awake, alert, oriented to time, place and person. No headache. No neck pain. No syncope. No seizures. No dizziness. PSYCHIATRIC: Not anxious. No depression. No suicidal thoughts. No homicidal thoughts. SKIN: No rash. No lesions. Redness left second toe. ENDOCRINE: No unexplained weight loss. No weight gain. HEMATOLOGIC/LYMPHATIC: No anemia. No purpura. No petechiae. No prolonged or excessive bleeding. No palpable lymph nodes. PHYSICAL EXAMINATION: GENERAL: The patient is awake, alert and oriented to person, lying/sitting in bed in no distress. VITAL SIGNS: Temperature 98.4 F, Pulse 72, Respiratory Rate 15, BP 118/53, Pulse Ox 96% HEENT: Head normocephalic, atraumatic. Eyes: Extraocular muscles are intact. Pupils are equal, round and reactive to light and accommodation. Ears: No lesions. Nose appeared normal. Throat: No exudate or erythema. NECK: Supple. No JVD, no carotid bruit. No lymphadenopathy or thyromegaly. LUNGS: Diminshed breath sounds. Clear to auscultation. Percussion note normal. Chest symmetrical. HEART: S1, S2, no S3. No murmurs. No cyanosis or clubbing. No ascites. Pulses: Dorsalis pedis and posterior tibial pulses +1 to +2 both sides. ABDOMEN: Soft. Non-tender. Bowel sounds active. No CVA tenderness. No mass felt. EXTREMITIES: Redness second toe on left foot. No edema. Full range of motion of all extremities, equal. NEUROLOGIC: No focal deficit. Cranial nerves II through XII are grossly intact. No headache, no double vision or headache. SKIN: Not dry. Intact. Turgor-normal. LYMPHATIC: No palpable lymph nodes/no lymphedema. MUSCULOSKELETAL: Normal joints with no swelling. Muscle tone is normal. LAB REVIEW: 05/23/20 04:40 05/23/20 04:40 05/23/20 04:40: Sodium 137.0, Potassium 4.16, Chloride 107.8 H, Carbon Dioxide 23.0, Anion Gap 10.36, BUN 43.0 H, Creatinine 1.75 H, Estimated GFR (MDRD) 37.00, BUN/Creatinine Ratio 24.57, Glucose 89.0, Calcium 8.48, Total Bilirubin 0.50, AST 20.5, ALT 13.0, Alkaline Phosphatase 72.7, Total Protein 5.98 L, Albumin 3.02 L, Globulin 2.96, Albumin/Globulin Ratio 1.02 05/23/20 04:40: WBC 7.88, RBC 3.22 L, Hgb 10.0 L, Hct 30.2 L, MCV 93.8, MCH 31.1 H, MCHC 33.1, RDW Coeff of Sandra 13.4, Plt Count 126 L, Immature Gran % (Auto) 0.4, Neut % (Auto) 57.7, Lymph % (Auto) 17.8, [place] % (Auto) 8.1, Eos % (Auto) 15.6 H, Baso % (Auto) 0.4, Neut # (Auto) 4.6, Lymph # (Auto) 1.4, [place] # (Auto) 0.6, Eos # (Auto) 1.2 H, Baso # (Auto) 0.0, Immature Gran # (Auto) 0.0 ASSESSMENT: Please see below. 1. Left second toe pressure ulcer. 2. Cellulitis and abscess of the left foot. 3. UTI. 4. Chronic kidney disease. 5. Dementia. 6. Hypertension. 7. Hypothyroidism. 8. Diabetes mellitus type 2. PLAN: 1. Will admit the patient to swing bed. 2. IV Clindamyicin and Merrem. 3. Continue Bactroban t.i.d. 4. Keep left foot elevated off bed and uncovered. Plan and coordination of the patient's care discussed in the presence of Supervisor [employer] and nurse. CONDITION: Stable SCRIBED BY: BRANDAN GREEN Enrollment Coordinator scribed while in presence of service performed by Dr. Cowan/Sheron Altamirano APRN on 05/23/20 ([id number])
[2020-05-23] MEDS ORDERED: AMPICILLIN SODIUM 2 GM in SODIUM CHLORIDE 100 ML IV SCH (13:00)
--- NOTE | 2020-05-23 13:48 | PN ---
DATE OF SERVICE: 05/23/20 SUBJECTIVE: Mr. Carrion was seen and examined with the nurse practitioner. The patient is still running low grade fever. The patient has enterococcus which is sensitive to Ampicillin. Will discontinue Ertapenem and put him on Ampicillin 2 gm q.8 otherwise his condition is stable. Will put him on swing bed. TIME SPENT: More than 30 minutes. Plan and coordination of the patient's care discussed in the presence of nurse. ANANT
[2020-05-23] MEDS ORDERED: ZYLOPRIM PO SCH (21:00)
--- NOTE | 2020-05-31 08:53 | DS ---
DATE OF SERVICE: 05/23/20 - FROM ACUTE FINAL DIAGNOSIS: 1. LEFT LOWER EXTREMITY CELLULITIS WITH ULCERATION TO THE LEFT SECOND TOE 2. LEG EDEMA 3. URINARY TRACT INFECTION, POSITIVE FOR ENTEROCOCCUS 4. CHRONIC KIDNEY DISEASE, STAGE 3 TO 4 5. DIABETES MELLITUS TYPE 2 6. DEMENTIA WITH BEHAVIORAL DISTURBANCES 7. HISTORY OF FALLS 8. HEALING LACERATION TO LEFT FOREHEAD, SUTURES REMOVED 9. DEMENTIA WITH PAIN DISTURBANCES 10. POLYARTHRITIS 11. HISTORY OF IRON DEFICIENCY ANEMIA 12. HISTORY OF DYSPHAGIA 13. SPINAL STENOSIS 14. HYPOTHYROIDISM 15. POLYNEUROPATHY 16. HISTORY OF TIA 17. HISTORY OF CVA 18. RECURRENT GOUT 19. RECURRENT UTI'S 20. CORONARY ARTERY DISEASE 21. BPH 22. HISTORY OF CHF 13. NONRHEUMATIC AORTIC VALVE INSUFFICIENCY 14. HYPERTENSION PAST SURGICAL HISTORY: 15. RIGHT HIP REPLACEMENT DISCHARGE INSTRUCTIONS: Admit to swing bed. MEDICATIONS AT DISCHARGE: Tamsulosin 0.4 mg p.o. daily Sennosides-Docusate Sodium one tab p.o. b.i.d. Polyethylene Glycol 17gm p.o. daily Lantus Solostar U-100 insulin 10 units subcut bedtime Zyrtec 10 mg p.o. daily p.r.n. Aspirin 81 mg p.o. daily Bumetanide 0.5 mg p.o. daily Multivitamin one cap p.o. daily Hydrocodone-Acetaminophen 5-325 mg p.o. bedtime Gabapentin 300 mg p.o. bedtime Ferrous Sulfate 325 mg p.o. daily Levothyroxine 125 mcg p.o. daily Acetaminophen 650 mg p.o. q.4h p.r.n. Allopurinol 100 mg p.o. bedtime Losartan 100 mg p.o. bedtime Cholecalciferol 3,000 unit p.o. daily Calcium Carbonate - vitamin D3 500 mg one each p.o. daily Ondansetron 4 mg p.o.q .6h p.r.n. Loperamide 2 mg p.o. q.6h p.r.n. Simvastatin 40 mg p.o. bedtime Clindamycin 300 mg p.o. t.i.d. Bethanechol 25 mg p.o. q.i.d. Mupirocin one application topical t.i.d. DIET INSTRUCTIONS: Heart Healthy ACTIVITY: As patient tolerates SMOKING: N/A DISEASE SPECIFIC EDUCATION: Swing Bed admission HOSPITAL COURSE: On day of discharge from acute care, the patient has been admitted initially with cellulitis of the left foot related to an ulceration. He had been on Clindamycin as an outpatient at [facility] for two days, still had worsening leg edema and redness. He was admitted, placed on Clindamyicin IV 600 mg q.8hr. Also given low dose Lasix for his edema. After keeping his legs elevated and doing Clindamycin the redness significantly improved as well as the edema. However, on the third day he did start running a temperature of 101. He does have a history of recurrent UTIs. We obtained a UA as clinically the cellulitis was improving. UA was abnormal. Culture then proved to be Enterococcus. It is sensitive to Ampicillin so we will continue him on IV antibiotics in swing bed as he has still been running fever however it has been improving. He has been eating well. He does have Stage 3 to 4 chronic kidney disease. Creatinine has been stable ranging anywhere from 1.5 to 2. He did have a fall several days ago. He had sutures on his left eyebrow. Those sutures were removed while he has been in acute care. The incision was clean, dry and intact. Repeat CT of the head showed just superficial edema of the skin. CT of the foot showed no evidence of osteomyelitis. Again, he is in stable condition, steadily improving al beit slowly, given age and underlying medical conditions so we will place him on swing bed for further IV treatment. Today on day of discharge from acute, hemoglobin 10, hematocrit 30.2, white count 7.8, sodium 137, potassium 4.16, glucose 89, BUN 43, creatinine 1.75, platelets 126. Temperature 98.4, heart rate 72, respirations 15, blood pressure 118/53, pulse ox 96%. TIME SPENT: More than 60 minutes. [facility]
== END 2020-05-23 09:50 | disposition swing bed (61) | DRG 603 ==
LOC: ED 18:03 → MEDSURG A 20:02
PROVIDERS: ADMIT Internal Medicine; ATTEND Internal Medicine
DX: Z91.81 History of falling; Z48.02 Encounter for removal of sutures; I10 Essential (primary) hypertension; Z87.19 Personal history of other diseases of the digestive system; M13.0 Polyarthritis, unspecified; L03.116 Cellulitis of left lower limb; Z51.81 Encounter for therapeutic drug level monitoring; B96.20 Unspecified Escherichia coli [E. coli] as the cause of diseases classified elsewhere; N18.3 Chronic kidney disease, stage 3 (moderate); Z79.4 Long term (current) use of insulin; I25.10 Atherosclerotic heart disease of native coronary artery without angina pectoris; L02.612 Cutaneous abscess of left foot; Z86.79 Personal history of other diseases of the circulatory system; N40.1 Benign prostatic hyperplasia with lower urinary tract symptoms; M48.00 Spinal stenosis, site unspecified; N39.0 Urinary tract infection, site not specified; D64.9 Anemia, unspecified; Z86.73 Personal history of transient ischemic attack (TIA), and cerebral infarction without residual deficits; Z79.899 Other long term (current) drug therapy; R50.9 Fever, unspecified; R53.1 Weakness; E78.5 Hyperlipidemia, unspecified; R60.9 Edema, unspecified; G89.29 Other chronic pain; G62.9 Polyneuropathy, unspecified; F03.91 Unspecified dementia, unspecified severity, with behavioral disturbance; E03.9 Hypothyroidism, unspecified; L89.890 Pressure ulcer of other site, unstageable; Z87.440 Personal history of urinary (tract) infections; E11.621 Type 2 diabetes mellitus with foot ulcer

== ENCOUNTER 2020-07-19 16:00 | Inpatient (IN) ==
[2020-07-19] MEDS ORDERED: VENTOLIN HFA (PER PUFF-WITH SPACER) IH STA (16:07)
[2020-07-19 16:35] LABS: BASOPHILS % (AUTO) 0.3 % (0.0-3.0); EOSINOPHILS # (AUTO) 0.4 K/ul (0.0-0.7); EOSINOPHILS % (AUTO) 2.5 % (0.0-7.0); HEMATOCRIT 33.1 % (42.0-52.0); HEMOGLOBIN 10.5 g/dl (14.0-18.0); IMMATURE GRANULOCYTE # (AUTO) 0.1 (0.0-1.0); IMMATURE GRANULOCYTE % (AUTO) 0.4 % (0.0-5.0); LYMPHOCYTES # (AUTO) 0.8 K/uL (0.60-3.4); LYMPHOCYTES % (AUTO) 5.8 (10.0-50.0); MEAN CORPUSCULAR HEMOGLOBIN 29.2 pg (27.0-31.0); MEAN CORPUSCULAR HGB CONC 31.7 (31.8-35.4); MEAN CORPUSCULAR VOLUME 92.2 fl (80.0-94.0); MONOCYTES # (AUTO) 0.7 K/uL (0.4-2.0); MONOCYTES % (AUTO) 5.2 (0-10); NEUTROPHILS # (AUTO) 12.2 K/ul (2.0-6.9); NEUTROPHILS % (AUTO) 85.8 % (42.2-75.2); PLATELET COUNT 193 10^3/uL (140-440); RDW COEFFICIENT OF VARIATION 13.6 % (11.6-14.8); RED BLOOD COUNT 3.59 10^6/ul (4.70-6.10)
[2020-07-19 16:47] LABS: ALBUMIN 4.08 g/dL (3.5-5.0); ALKALINE PHOSPHATASE 113.6 U/L (56-119); ASPARTATE AMINO TRANSFERASE 28.5 U/L (17-59); BILIRUBIN,TOTAL 0.34 mg/dL (0.2-1.3); CALCIUM 9.56 mg/dL (8.4-10.2); CARBON DIOXIDE 23.5 mmol/L (22-30.0); CHLORIDE 102.9 mmol/L (98-107); CREATINE KINASE 32.3 U/L (55-170); CREATININE 1.68 mg/dL (0.60-1.10); GLUCOSE 178.9 mg/dL (74-106); POTASSIUM 4.7 mmol/L (3.5-5.1); SODIUM 137.1 mmol/L (134.5-145); TOTAL PROTEIN 7.98 g/dL (6.3-8.2)
[2020-07-19 16:59] LABS: TROPONIN I 0.039 ng/ml (0.0000-0.120)
[2020-07-19 17:10] LABS: ABG BASE EXCESS -5 (-2.0-2.0); ABG PCO2 19.4 mmHg (35-45); ABG PH 7.552 (7.35-7.45); ABG TCO2 18 (22.0-28.0)
--- NOTE | 2020-07-19 18:37 | ED.PDOC ---
General ED Provider: Dr. VIOLETTE STUART Chief Complaint: Shortness of Air Stated Complaint: sent from the ca with sob Time Seen by Physician: 20:10 Mode of Arrival: Ambulance Information Source: Patient Primary Care Provider: HUONG LEONARDO Nursing and Triage Documentation Reviewed and Agree: Yes Does patient meet sepsis criteria?: No System Inflammatory Response Syndrome: Not Applicable Sepsis Protocol: For patient's 13 years and over: Temp is 96.8 and below OR 101 and greater Pulse >90 BPM Resp >20/minute Acutely Altered Mental Status Are patient's symptoms suggestive of a new infection, such as: -Pneumonia -Skin, Soft Tissue -Endocarditis -UTI -Bone, Joint Infection -Implantable Device -Acute Abdominal Infection -Wound Infection -Meningitis -Blood Stream Catheter Infection -Unknown Respiratory Complaint Exam Respiratory Complaint/Exam Onset/Duration: today Symptoms Are: Still present Timing: Intermittent Initial Severity: Mild Current Severity: Mild Location: Unknown Aggravating: Reports None Associated Signs and Symptoms: Reports Dyspnea History of Healthcare-Acquired Pneumonia: Lives at intermediate Home Oxygen Use: No Recent Stress Test: No Recent Echo/LV Function: Yes Current Antibiotic Use: No Current Asthma Medication Use: No Respiratory Distress: Mild Inadequate Respiratory Effort: No Dysphagia Present: No Stridor Present: No JVD Present: No Accessory Muscle Use: No Retractions: Not Present Diminished Breath Sounds: No Sinus Tenderness: None Grunting Respirations: No Kussmaul Respirations: No Differential Diagnoses: Pulmonary Edema and Pneumonia Non-Traumatic Chest Pain Syncope: EKG Performed Review of Systems Review Of Systems Constitutional: Reports No symptoms Eyes: Reports No symptoms Ears, Nose, Mouth, Throat: Reports No symptoms Respiratory: Reports Short of air Cardiac: Reports No symptoms GI: Reports No symptoms : Reports No symptoms Musculoskeletal: Reports No symptoms Skin: Reports No symptoms Neurological: Reports No symptoms Endocrine: Reports No symptoms Hematologic/Lymphatic: Reports No symptoms All Other Systems: Reviewed and Negative [facility] Medical History Anemia BPH (benign prostatic hyperplasia) Dementia Diabetes Elevated cholesterol Hypothyroid Neuropathy TIA (transient ischemic attack) UTI (urinary tract infection) Family History Other No known health problems Social History Smoking and tobacco status: Unknown if ever smoked History of recent travel: No Physical Exam Physical Exam Appearance: Reports Well-appearing Ill-appearing: None Pain Distress: None Eyes: Reports JESU and EOMI ENT: Reports Ears normal Neck: Supple Respiratory: Reports Airway patent, Breath sounds clear, Breath sounds equal and Rhonchi Cardiovascular: Reports RRR, Pulses normal, No rub and No murmur GI/: Reports Soft, Nontender, No masses and Bowel sounds normal Musculoskeletal: Reports Normal strength, ROM intact, No edema and No calf t enderness Skin: Reports Warm, Dry and Normal color Neurological: Reports Sensation intact, Motor intact, Reflexes intact and Cranial nerves intact Psychiatric: Reports Affect appropriate, Mood appropriate and Anxious Interpretation Radiology Interpretation Radiology Interpretation By: Radiologist Radiology Results: Positive Exam Interpreted: CXR EKG Interpretation Time of EKG #1: 20:08 Rate: Tachy Rhythm: Sinus Ectopy: None [place]: NL ST Segment: Normal Interpretation: sinus tachy Physician Notification Case Discussed Physician Notified: dr leonardo Time of Notification: 20:09 Critical Care Note Critical Care Note Total Time (mins): 30 Course Course Hematology/Chemistry: 07/19/20 16:30 07/19/20 16:30 Orders, Labs, Meds: Lab Review 07/19/20 07/19/20 07/19/20 16:06 16:30 16:30 WBC RBC Hgb Hct MCV MCH MCHC RDW Coeff of Sandra Plt Count Immature Gran % (Auto) Neut % (Auto) Lymph % (Auto) [place] % (Auto) Eos % (Auto) Baso % (Auto) Neut # (Auto) Lymph # (Auto) [place] # (Auto) Eos # (Auto) Baso # (Auto) Immature Gran # (Auto) Puncture Site Lrad O2 Saturation 98.0 ABG pH 7.552 H* ABG pCO2 19.4 L ABG pO2 83.0 L ABG HCO3 17.0 L ABG Total CO2 18 L ABG Base Excess -5 L Marlo Test + FiO2 % 21.0 Sodium 137.1 Potassium 4.70 Chloride 102.9 Carbon Dioxide 23.5 Anion Gap 15.40 BUN 40.0 H Creatinine 1.68 H Estimated GFR (MDRD) 39.00 BUN/Creatinine Ratio 23.80 Glucose 178.9 H Lactic Acid 1.59 Calcium 9.56 Total Bilirubin 0.34 AST 28.5 ALT 14.0 Alkaline Phosphatase 113.6 Total Creatine Kinase 32.3 L Troponin I 0.039 NT-Pro-B Natriuret Pep 35312.000 H Total Protein 7.98 Albumin 4.08 Globulin 3.90 Albumin/Globulin Ratio 1.04 Procalcitonin 07/19/20 07/19/20 16:30 16:30 WBC 14.20 H RBC 3.59 L Hgb 10.5 L Hct 33.1 L MCV 92.2 MCH 29.2 MCHC 31.7 L RDW Coeff of Sandra 13.6 Plt Count 193 Immature Gran % (Auto) 0.4 Neut % (Auto) 85.8 H Lymph % (Auto) 5.8 L [place] % (Auto) 5.2 Eos % (Auto) 2.5 Baso % (Auto) 0.3 Neut # (Auto) 12.2 H Lymph # (Auto) 0.8 [place] # (Auto) 0.7 Eos # (Auto) 0.4 Baso # (Auto) 0.0 Immature Gran # (Auto) 0.1 Puncture Site O2 Saturation ABG pH ABG pCO2 ABG pO2 ABG HCO3 ABG Total CO2 ABG Base Excess Marlo Test FiO2 % Sodium Potassium Chloride Carbon Dioxide Anion Gap BUN Creatinine Estimated GFR (MDRD) BUN/Creatinine Ratio Glucose Lactic Acid Calcium Total Bilirubin AST ALT Alkaline Phosphatase Total Creatine Kinase Troponin I NT-Pro-B Natriuret Pep Total Protein Albumin Globulin Albumin/Globulin Ratio Procalcitonin 0.46 Orders Category Date Time Status ABG DRAW REQUEST Stat CARDIO 07/19/20 16:06 Completed EKG-(ED ONLY) Stat CARDIO 07/19/20 16:05 Completed METERED DOSE INHALATION Routine CARDIO 07/19/20 16:08 Completed ED ROVING SIZER APPLIED .ONCE EMERGENCY 07/19/20 16:05 Active ABG Stat LAB 07/19/20 16:06 Completed BLOOD CULTURE (ED ONLY) Stat LAB 07/19/20 16:30 Received CBC W/ AUTO DIFF Stat LAB 07/19/20 16:30 Completed COMPREHENSIVE METABOLIC PANEL Stat LAB 07/19/20 16:30 Completed CREATINE KINASE Stat LAB 07/19/20 16:30 Completed LACTIC ACID Stat LAB 07/19/20 16:30 Completed NT-PROBNP Stat LAB 07/19/20 16:30 Completed PROCALCITONIN Stat LAB 07/19/20 16:30 Completed TROPONIN I Stat LAB 07/19/20 16:30 Completed Albuterol Inhaler(with Spacer) [Ventolin Hfa (Per Puff- MEDS 07/19/20 16:07 Discontinued with Spacer)] 2 puff IH ONCE STA CHEST, 1V AP ONLY Stat RADS 07/19/20 16:05 Completed Medications Discontinued Medications Generic Name Dose Route Start Last Admin Trade Name Freq PRN Reason Stop Dose Admin Albuterol Sulfate 2 puff 07/19/20 16:07 07/19/20 17:00 Ventolin Hfa (Per Puff-With Spacer) IH 07/19/20 16:08 2 puff ONCE STA Administration Vital Signs: Temp Pulse Resp BP Pulse Ox 07/19/20 16:05 98 F 120 H 36 H 141/89 H 99 Discharge Plan Discharge Patient Disposition: ADMITTED INPATIENT Discharge Problem: Cardiac volume overload, Acute pneumonitis Prescriptions: No Action polyethylene glycol 3350 [Miralax] 17 GM powder in packet 17 g PO DAILY RF: 0 sennosides-docusate sodium [Senokot-S] 1 EACH tablet 1 tab PO BID RF: 0 tamsulosin 0.4 MG capsule 0.4 mg PO DAILY RF: 0 aspirin 81 MG tablet,chewable 81 mg PO DAILY RF: 0 Zyrtec 10 MG capsule 10 mg PO DAILY PRN (Reason: Allergy Symptoms) RF: 0 hydrocodone-acetaminophen 1 EACH tablet 5 - 325 mg PO BEDTIME RF: 0 ferrous sulfate 325 MG tablet 325 mg PO DAILY RF: 0 levothyroxine [Synthroid] 125 MCG tablet 125 mcg PO QDAC RF: 0 gabapentin [Neurontin] 300 MG capsule 300 mg PO BEDTIME RF: 0 multivitamin 1 CAP capsule 1 cap PO DAILY RF: 0 acetaminophen 325 MG tablet 650 mg PO Q4HR PRN (Reason: Pain) RF: 0 allopurinol 100 MG tablet 100 mg PO BEDTIME RF: 0 mupirocin 2 % Ointment 1 applic TOPICAL TID RF: 0 simvastatin [Zocor] 40 mg Tablet 40 mg PO BEDTIME RF: 0 bethanechol chloride 25 mg Tablet 25 mg PO QID RF: 0 calcium carbonate-vitamin D3 1 EACH tablet 1 ea PO DAILY 30 Days Qty: 30 RF: 0 Calmoseptine 0.44-20.6 % Ointment 1 applic topical PRN PRN (Reason: Skin Irritation) RF: 0 Lantus U-100 Insulin 100 unit/mL Solution 10 unit SUBCUT BEDTIME RF: 0 clopidogrel [Plavix] 75 mg Tablet 75 mg PO DAILY RF: 0 nitroglycerin [Nitrostat] 0.4 mg Tablet, Sublingual 0.4 mg SUBLINGUAL Q5-15M PRN (Reason: Chest Pain) RF: 0 bisacodyl 5 mg Tablet 5 mg PO ONCE RF: 0 ED Provider: VIOLETTE STUART Condition: Stable
--- NOTE | 2020-07-19 19:31 | DI ---
Exam: Single view of the chest. Comparison: 05/18/2020. Reason for exam: Dyspnea. FINDINGS: Parenchymal change consistent with chronic lung disease. Increasing air space opacities i n the right lower lobe. Cardiac silhouette is unchanged. Impression: Developing atelectasis/pneumonia in the right lung base in the setting of chronic lung disease.
[2020-07-19] MEDS ORDERED: LASIX IVP STA (20:14)
[2020-07-19] MEDS ORDERED: NITROSTAT SL PRN (20:18)
[2020-07-19] MEDS ORDERED: TYLENOL PO PRN (20:18)
[2020-07-19] MEDS ORDERED: DULCOLAX PO SCH (21:00)
[2020-07-19] MEDS: ZOSYN 2.25 GM 2.25 GM in SODIUM CHLORIDE 50 ML IV SCH (21:18)
[2020-07-19 22:02] VITALS: BMI 24.5
[2020-07-19] MEDS ORDERED: CALMOSEPTINE OINTMENT TP PRN (22:46)
[2020-07-19] MEDS: COLACE PO SCH (22:55)
[2020-07-19] MEDS: SENNA PO SCH (22:55)
[2020-07-20] MEDS: LANTUS SUBCUT SCH ×2 (00:22→21:31)
[2020-07-20] MEDS: CALMOSEPTINE OINTMENT TP PRN (00:23)
[2020-07-20] MEDS: NORCO 5-325 PO SCH ×2 (00:24→21:30)
[2020-07-20] MEDS: NEURONTIN PO SCH ×2 (00:24→21:30)
[2020-07-20] MEDS: ZYLOPRIM PO SCH ×2 (00:24→21:30)
[2020-07-20] MEDS: ZOCOR PO SCH ×2 (00:25→21:30)
[2020-07-20] MEDS: ZOSYN 2.25 GM 2.25 GM in SODIUM CHLORIDE 50 ML IV SCH (05:15)
[2020-07-20 05:26] LABS: BASOPHILS # (AUTO) 0.1 K/uL (0-0.2); BASOPHILS % (AUTO) 0.4 % (0.0-3.0); EOSINOPHILS # (AUTO) 0.9 K/ul (0.0-0.7); EOSINOPHILS % (AUTO) 7.3 % (0.0-7.0); HEMATOCRIT 27.4 % (42.0-52.0); HEMOGLOBIN 8.8 g/dl (14.0-18.0); IMMATURE GRANULOCYTE % (AUTO) 0.3 % (0.0-5.0); LYMPHOCYTES # (AUTO) 1.8 K/uL (0.60-3.4); LYMPHOCYTES % (AUTO) 14.7 (10.0-50.0); MEAN CORPUSCULAR HEMOGLOBIN 29.7 pg (27.0-31.0); MEAN CORPUSCULAR HGB CONC 32.1 (31.8-35.4); MEAN CORPUSCULAR VOLUME 92.6 fl (80.0-94.0); MONOCYTES # (AUTO) 0.8 K/uL (0.4-2.0); MONOCYTES % (AUTO) 6.5 (0-10); NEUTROPHILS # (AUTO) 8.8 K/ul (2.0-6.9); NEUTROPHILS % (AUTO) 70.8 % (42.2-75.2); PLATELET COUNT 191 10^3/uL (140-440); RDW COEFFICIENT OF VARIATION 14.1 % (11.6-14.8); RED BLOOD COUNT 2.96 10^6/ul (4.70-6.10); WHITE BLOOD COUNT 12.41 K/ul (4.2-10.2)
[2020-07-20 05:56] LABS: ALANINE AMINOTRANSFERASE 11.3 U/L (0-50); ALBUMIN 3.38 g/dL (3.5-5.0); ALKALINE PHOSPHATASE 85.7 U/L (56-119); ASPARTATE AMINO TRANSFERASE 26.9 U/L (17-59); BILIRUBIN,TOTAL 0.56 mg/dL (0.2-1.3); BLOOD UREA NITROGEN 41.3 mg/dL (9-20); CALCIUM 8.81 mg/dL (8.4-10.2); CARBON DIOXIDE 26.9 mmol/L (22-30.0); CHLORIDE 104.1 mmol/L (98-107); CREATININE 1.77 mg/dL (0.60-1.10); GLUCOSE 80.5 mg/dL (74-106); POTASSIUM 4.04 mmol/L (3.5-5.1); SODIUM 137.6 mmol/L (134.5-145); TOTAL PROTEIN 6.89 g/dL (6.3-8.2)
[2020-07-20] MEDS ORDERED: SYNTHROID PO SCH (06:30)
[2020-07-20] MEDS: COLACE PO SCH ×2 (08:10→21:30)
[2020-07-20] MEDS: SENNA PO SCH ×2 (08:11→21:31)
[2020-07-20] MEDS: MIRALAX PO SCH (08:11)
[2020-07-20] MEDS: DULCOLAX PO SCH (08:11)
[2020-07-20] MEDS: PLAVIX PO SCH (08:15)
[2020-07-20] MEDS: LOVENOX SUBCUT SCH (08:15)
[2020-07-20] MEDS: FLOMAX PO SCH (08:15)
[2020-07-20] MEDS: FERROUS SULFATE PO SCH (08:15)
[2020-07-20] MEDS: ASPIRIN CHEWABLE PO SCH (08:15)
[2020-07-20] MEDS: ZITHROMAX PO SCH (08:21)
[2020-07-20] MEDS: ROCEPHIN 1 GM/50 ML D5W 1 GM/50 ML BAG IV SCH (08:21)
--- NOTE | 2020-07-20 08:31 | PCM.PROG ---
Attending Provider: ATTENDING PROVIDER: Dr. HUONG COWAN This patient is seen with Laura Lira, Nurse Practitioner. DATE OF SERVICE: 07/20/20 SUBJECTIVE: This 85 year old /WHITE M was hospitalized 07/19/20. The patient is resting comfortably. Has had low grade temperature. Has significant urine output. The patient is incontinent. REVIEW OF SYSTEMS: CONSTITUTIONAL: No night sweats. No fatigue, malaise, lethargy. Fever. Weakness. HEENT: Eyes: No visual changes. No eye pain. No eye discharge. ENT: No runny nose. No epistaxis. No sinus pain. No odynophagia. No congestion. RESPIRATORY: No cough, no congestion. No hemoptysis. No shortness of breath. CARDIOVASCULAR: No angina symptoms. No CHF symptoms. No atypical chest pain for CAD. No palpitations. No orthopnea.. GASTROINTESTINAL: No abdominal pain. No nausea or vomiting. No diarrhea or constipation. No hematemesis. No hematochezia. GENITOURINARY: No urgency. No frequency. Incontinent. No dysuria. No hematuria. No obstructive symptoms. No discharge. No pain. No significant abnormal bleeding. MUSCULOSKELETAL: No musculoskeletal pain; no joint swelling. NEUROLOGICAL: Awake, alert, oriented to time, place and person. No headache. No neck pain. No syncope. No seizures. No dizziness. PSYCHIATRIC: Not anxious. No depression. No suicidal thoughts. No homicidal thoughts. SKIN: No rash. No lesions. No wounds. ENDOCRINE: No unexplained weight loss. No weight gain. HEMATOLOGIC/LYMPHATIC: No anemia. No purpura. No petechiae. No prolonged or excessive bleeding. No palpable lymph nodes. PHYSICAL EXAMINATION: GENERAL: The patient is awake, alert and oriented, lying in bed in no distress. VITAL SIGNS: Temperature 97.7 F, Pulse 75, Respiratory Rate 14, BP 103/59, Pulse Ox 98% HEENT: Head normocephalic, atraumatic. Eyes: Extraocular muscles are intact. Pupils are equal, round and reactive to light and accommodation. Ears: No lesions. Nose appeared normal. Throat: No exudate or erythema. NECK: Supple. No JVD, no carotid bruit. No lymphadenopathy or thyromegaly. LUNGS: Diminished breath sounds. Clear to auscultation. Percussion note normal. Chest symmetrical. HEART: S1, S2, no S3. No murmurs. No cyanosis or clubbing. No ascites. Pulses: Dorsalis pedis and posterior tibial pulses +1 to +2 both sides. ABDOMEN: Soft. Non-tender. Bowel sounds active. No CVA tenderness. No mass felt. EXTREMITIES: trace pedal edema. Full range of motion of all extremities, equal. NEUROLOGIC: No focal deficit. Cranial nerves II through XII are grossly intact. No headache, no double vision or headache. SKIN: Not dry. Intact. Turgor-normal. LYMPHATIC: No palpable lymph nodes/no lymphedema. MUSCULOSKELETAL: Normal joints with no swelling. Muscle tone is normal. LAB REVIEW: 07/20/20 05:20 07/20/20 05:20 07/20/20 05:20: Sodium 137.6, Potassium 4.04, Chloride 104.1, Carbon Dioxide 26.9, Anion Gap 10.64, BUN 41.3 H, Creatinine 1.77 H, Estimated GFR (MDRD) 37.00, BUN/Creatinine Ratio 23.33, Glucose 80.5 D, Calcium 8.81, Total Bilirubin 0.56, AST 26.9, ALT 11.3, Alkaline Phosphatase 85.7 D, Total Protein 6.89, Albumin 3.38 L, Globulin 3.51, Albumin/Globulin Ratio 0.96 07/20/20 05:20: WBC 12.41 H, RBC 2.96 L, Hgb 8.8 L, Hct 27.4 L, MCV 92.6, MCH 29.7, MCHC 32.1, RDW Coeff of Sandra 14.1, Plt Count 191, Immature Gran % (Auto) 0.3, Neut % (Auto) 70.8, Lymph % (Auto) 14.7, [place] % (Auto) 6.5, Eos % (Auto) 7.3 H, Baso % (Auto) 0.4, Neut # (Auto) 8.8 H, Lymph # (Auto) 1.8, [place] # (Auto) 0.8, Eos # (Auto) 0.9 H, Baso # (Auto) 0.1, Immature Gran # (Auto) 0.0 07/19/20 16:30: Procalcitonin 0.46 07/19/20 16:30: WBC 14.20 H, RBC 3.59 L, Hgb 10.5 L, Hct 33.1 L, MCV 92.2, MCH 29.2, MCHC 31.7 L, RDW Coeff of [place] 13.6, Plt Count 193, Immature Gran % (Auto) 0.4, Neut % (Auto) 85.8 H, Lymph % (Auto) 5.8 L, [place] % (Auto) 5.2, Eos % (Auto) 2.5, Baso % (Auto) 0.3, Neut # (Auto) 12.2 H, Lymph # (Auto) 0.8, [place] # (Auto) 0.7, Eos # (Auto) 0.4, Baso # (Auto) 0.0, Immature Gran # (Auto) 0.1 07/19/20 16:30: Lactic Acid 1.59 07/19/20 16:30: Sodium 137.1, Potassium 4.70, Chloride 102.9, Carbon Dioxide 23.5, Anion Gap 15.40, BUN 40.0 H, Creatinine 1.68 H, Estimated GFR (MDRD) 39.00, BUN/Creatinine Ratio 23.80, Glucose 178.9 H, Calcium 9.56, Total Bilirubin 0.34, AST 28.5, ALT 14.0, Alkaline Phosphatase 113.6, Total Creatine Kinase 32.3 L, Troponin I 0.039, NT-Pro-B Natriuret Pep 34799.000 H, Total Protein 7.98, Albumin 4.08, Globulin 3.90, Albumin/Globulin Ratio 1.04 07/19/20 16:06: Puncture Site Lrad, O2 Saturation 98.0, ABG pH 7.552 H*, ABG pCO2 19.4 L, ABG pO2 83.0 L, ABG HCO3 17.0 L, ABG Total CO2 18 L, ABG Base Excess -5 L, Marlo Test +, FiO2 % 21.0 ASSESSMENT: Please see below. 1. CHF 2. Acute pneumonia 3. Chronic kidney disease stage 3 4. History of recurrent UTI 5. Severe PAD PLAN: 1. Discontinue Vancomycin and Zosyn 2. Start Rocephin 1gram daily 3. Zithromax 500mg PO daily for 3 days 4. Urinalysis. Plan and coordination of the patient's care discussed in the presence of Virology Teacher and nurse. SCRIBED BY: WARREN ROMAN, Student scribed while in presence of service performed by Dr. Cowan/Laura Lira APRN on 07/20/20 ([id number])
[2020-07-20] MEDS: BETHANECHOL CHLORIDE PO SCH ×4 (08:33→21:36)
[2020-07-20] MEDS ORDERED: URO-JET MUCOUSMEMB STA (10:00)
--- NOTE | 2020-07-20 10:43 | PN ---
DATE OF SERVICE: 07/20/2020 SUBJECTIVE: The patient was seen and examined with Nurse Practitioner. History and Physical was done by the Nurse Practitioner. The patient's condition seems to be stable with no obvious symptoms of pneumonia or heart failure. Hgb is 8.8 with hct 27, WBC 12,000 normal differential, 1.7 is creatinine with BUN 41. We will given slow IV fluids. The patient is Vancomycin and Zosyn and Lasix. CONDITION: Stable for now PROGNOSIS: Guarded. TIME SPENT: More than 30 minutes. Plan and coordination of the patient's care discussed in the presence of nurse. ANANT
--- NOTE | 2020-07-20 10:48 | PN ---
DATE OF SERVICE: 07/19/2020 SUBJECTIVE: 85 year old white male came from the long-term has his saturation had dropped. The patient is a DNR. I asked the nurse at the long-term to send the patient to the emergency room where he was seen and examined by the ER attending, Dr. Torres. He was noted to have pneumonia/heart failure. The patient was given IV Lasix. With the oxygen and steroids the patient seems to be improving. The patient is DNR. Prognosis: Guarded. TIME SPENT: More than 30 minutes. Plan and coordination of the patient's care discussed in the presence of nurse. ANANT
[2020-07-20] MEDS ORDERED: VANCOMYCIN 1 GM in SODIUM CHLORIDE 250 ML IV SCH ×3 (12:00)
[2020-07-20] MEDS ORDERED: ZOSYN 3.375 GM 3.375 GM in SODIUM CHLORIDE 50 ML IV SCH (12:00)
[2020-07-20 13:59] LABS: BILIRUBIN,URINE Negative (NEGATIVE); CLARITY,URINE Clear (CLEAR); COLOR,URINE Yellow (YELLOW); GLUCOSE, URINE (UA) Negative (NEGATIVE); KETONES,URINE Negative (NEGATIVE); LEUKOCYTE ESTERASE ,URINE 1+ (NEGATIVE); NITRITE,URINE Negative (NEGATIVE); PROTEIN,URINE 1+ (NEGATIVE); URINE, BLOOD 3+ (NEGATIVE); UROBILINOGEN,URINE 0.2 (0.2)
[2020-07-20 14:03] LABS: SQUAMOUS EPITHELIAL CELL,UR NOT PRESENT (0-5); URINE RBC, MICROSCOPIC TNTC (0-2)
[2020-07-21] MEDS ORDERED: LANOXIN IVP STA ×2 (03:40→06:44)
[2020-07-21 04:08] LABS: BASOPHILS % (AUTO) 0.3 % (0.0-3.0); EOSINOPHILS # (AUTO) 0.2 K/ul (0.0-0.7); EOSINOPHILS % (AUTO) 2.3 % (0.0-7.0); HEMATOCRIT 26.8 % (42.0-52.0); HEMOGLOBIN 8.6 g/dl (14.0-18.0); IMMATURE GRANULOCYTE % (AUTO) 0.4 % (0.0-5.0); LYMPHOCYTES # (AUTO) 0.7 K/uL (0.60-3.4); MEAN CORPUSCULAR HEMOGLOBIN 29.6 pg (27.0-31.0); MEAN CORPUSCULAR HGB CONC 32.1 (31.8-35.4); MEAN CORPUSCULAR VOLUME 92.1 fl (80.0-94.0); MONOCYTES # (AUTO) 0.9 K/uL (0.4-2.0); MONOCYTES % (AUTO) 8.7 (0-10); NEUTROPHILS # (AUTO) 8.6 K/ul (2.0-6.9); NEUTROPHILS % (AUTO) 81.3 % (42.2-75.2); PLATELET COUNT 144 10^3/uL (140-440); RDW COEFFICIENT OF VARIATION 13.9 % (11.6-14.8); RED BLOOD COUNT 2.91 10^6/ul (4.70-6.10); WHITE BLOOD COUNT 10.54 K/ul (4.2-10.2)
[2020-07-21 04:32] LABS: ALANINE AMINOTRANSFERASE 9.7 U/L (0-50); ALBUMIN 3.21 g/dL (3.5-5.0); ALKALINE PHOSPHATASE 90.3 U/L (56-119); BILIRUBIN,TOTAL 0.32 mg/dL (0.2-1.3); BLOOD UREA NITROGEN 42.4 mg/dL (9-20); CALCIUM 8.67 mg/dL (8.4-10.2); CARBON DIOXIDE 25.3 mmol/L (22-30.0); CHLORIDE 105.1 mmol/L (98-107); CREATININE 1.8 mg/dL (0.60-1.10); POTASSIUM 3.61 mmol/L (3.5-5.1); SODIUM 136.8 mmol/L (134.5-145); TOTAL PROTEIN 6.69 g/dL (6.3-8.2)
[2020-07-21 04:40] LABS: GLUCOSE 37.3 mg/dL (74-106)
[2020-07-21] MEDS ORDERED: DEXTROSE 50%-WATER ABBOJECT IVP STA (05:10)
[2020-07-21] MEDS: SYNTHROID PO SCH ×2 (06:27)
[2020-07-21] MEDS: ASPIRIN CHEWABLE PO SCH (08:12)
[2020-07-21] MEDS: COLACE PO SCH ×2 (08:12→21:19)
[2020-07-21] MEDS: PLAVIX PO SCH (08:12)
[2020-07-21] MEDS: ZITHROMAX PO SCH (08:12)
[2020-07-21] MEDS: FLOMAX PO SCH (08:12)
[2020-07-21] MEDS: MIRALAX PO SCH (08:12)
[2020-07-21] MEDS: LOVENOX SUBCUT SCH (08:13)
[2020-07-21] MEDS: FERROUS SULFATE PO SCH (08:13)
[2020-07-21] MEDS: DULCOLAX PO SCH (08:13)
[2020-07-21] MEDS: SENNA PO SCH ×2 (08:13→21:19)
[2020-07-21] MEDS: ROCEPHIN 1 GM/50 ML D5W 1 GM/50 ML BAG IV SCH (08:19)
--- NOTE | 2020-07-21 08:24 | HP ---
DATE OF SERVICE: 07/19/20 REASON FOR HOSPITALIZATION/HISTORY OF PRESENT ILLNESS: This is an 85-year-old white male who is a resident of [facility]. They said he was experiencing some shortness of breath, had a pulse ox of 78% at the senior care. PAST MEDICAL HISTORY: Severe peripheral arterial, peripheral vascular disease with resolved wound to the second left toe Chronic leg edema Chronic kidney disease, Stage 3 to 4 Dementia with behavioral disturbances History of falls History of head trauma Anemia Spinal stenosis Diabetes mellitus type 2 Hypothyroidism Polyneuropathy History of recurrent gout History of TIA History of CVA Coronary artery disesae BPH History of CHF Aortic valve insufficiency Hypertension Dyslipidemia History of recurrent UTI Chronic anemia PAST SURGICAL HISTORY: Right hip replacement Left angioplasty to the left leg in May of 2020 REVIEW OF SYSTEMS: CONSTITUTIONAL: Weakness. No night sweats. No fatigue, malaise, lethargy. No fever or chills. HEENT: Eyes: No visual changes. No eye pain. No eye discharge. ENT: No runny nose. No epistaxis. No sinus pain. No sore throat. No odynophagia. No ear pain. No congestion. RESPIRATORY: No cough, no congestion. No hemoptysis. Mild shortness of breath. CARDIOVASCULAR: No angina symptoms. No CHF symptoms. No atypical chest pain for CAD. No palpitations. No PND. No orthopnea. GASTROINTESTINAL: No abdominal pain. No nausea or vomiting. No diarrhea or constipation. No hematemesis. No hematochezia. GENITOURINARY: No urgency. No frequency. No dysuria. No hematuria. No obstructive symptoms. No discharge. No pain. No significant abnormal bleeding. MUSCULOSKELETAL: No musculoskeletal pain. No joint swelling. No arthritis. NEUROLOGICAL: Intermittent confusion. No headache. No neck pain. No syncope. No seizures. No dizziness. PSYCHIATRIC: Not anxious. No depression. No suicidal thoughts. No homicidal thoughts. SKIN: No rash. No lesions. No wounds. ENDOCRINE: No unexplained weight loss. No weight gain. HEMATOLOGIC/LYMPHATIC: No anemia. No purpura. No petechiae. No prolonged or excessive bleeding. No palpable lymph nodes. PERSONAL/FAMILY/SOCIAL HISTORY: He is . He currently resides at [facility]. His POA is his brother. He is a nonsmoker. No alcohol or ilicit drug use. MEDICATIONS: Tamsulosin 0.4 mg p.o. daily Sennosides-Docusate Sodium one tab p.o. b.i.d. Polyethylene glycol 17 gm p.o. daily Zyrtec 10 mg p.o. daily p.r.n. Aspirin 81 mg p.o. daily Multivitamin one cap p.o. daily Hydrocodone-acetaminophen 5-325 mg p.o. bedtime Gabapentin 300 mg p.o. bedtime Ferrous Sulfate 325 mg p.o. daily Levothyroxine 125 mcg p.o. q.d a.c. Acetaminophen 650 mg p.o. q.4 hr p.r.n. Allopurinol 100 mg p.o. bedtime Calcium carbonate-vitamin D3 one each p.o. daily Simvastatin 40 mg p.o. bedtime Bethanechol Chloride 25 mg p.o. q.i.d. Mupirocin 2% one application topical t.i.d. Menthol-zinc oxide one application topical p.r.n. Nitroglycerin 0.4 mg sublingual q5-15 m p.r.n. Clopidogrel 75 mg p.o. daily Bisacodyl 5 mg p.o. once Insulin Glargine 10 unit subcut bedtime ALLERGIES: NKDA PHYSICAL EXAMINATION: GENERAL: The patient is alert and oriented to person and place only. VITAL SIGNS: Temperature 98, heart rate 120, respirations 36, blood pressure 141/89, pulse ox 99%. HEENT: Head normocephalic, atraumatic. Eyes: Extraocular muscles are intact. Pupils are equal, round and reactive to light and accommodation. Ears: No lesions. Nose appeared normal. Throat: No exudate or erythema. NECK: Supple. No JVD, no carotid bruit. No lymphadenopathy or thyromegaly. LUNGS: Diminished breath sounds bilaterally. Percussion note normal. Chest symmetrical. HEART: S1, S2, no S3. Grade I/ systolic murmur. No cyanosis or clubbing. No ascites. Pulses: Dorsalis pedis and posterior tibial pulses +1 to +2 bilaterally. ABDOMEN: Soft. Nontender. Bowel sounds active. No CVA tenderness. No mass felt. EXTREMITIES: Trace pedal edema. Full range of motion of all extremities, equal. NEUROLOGIC: No focal deficit. Cranial nerves II through XII are grossly intact. No headache, no double vision or headache. SKIN: Not dry. Intact. Turgor - normal. LYMPHATIC: No palpable lymph nodes/no lymphedema. MUSCULOSKELETAL: Normal joints with no swelling. Muscle tone is normal. LABS: White count 14.20, hemoglobin 10.5, hematocrit 33.1, platelets 193. Sodium 137, potassium 4.7, BUN 40, creatinine 1.68, glucose 178. ABGs on room air 02 98, pH 7.552, pc02 19, p02 83, bicarb 17, total c02 18 with base excess of 5. Lactic acid 1.59. AST 28, ALT 14, alkaline phosphatase 113, troponin 0.039. NT-Pro-BNP 26,500, total protein 7.9. Chest x-ray shows developing atelectasis/pneumonia in the right lung base in the setting of chronic lung disease. ASSESSMENT: 1. Shortness of breath. 2. Acute pneumonitis. 3. CHF. 4. Diabetes mellitus Type 2. 5. Chronic kidney disease, Stage 3. 6. Severe PAD, PPD. 7. Chronic anemia. PLAN: 1. We will admit. 2. Routine telemetry orders. 3. Due to chest x-ray and shortness of breath the patient has been swabbed for Covid. He will be in isolation until results are received. 4. Rocephin 1 gm IV daily. 5. Lasix 40 mg IV times one. 6. Zithromax 500 mg p.o. daily times three days. 7. UA. 8. CBC, CMP daily. 9. Continue home medications. 10. Culture and sensitivity of urine. 11. Oxygen at 1 to 2L via nasal cannula as needed. 12. Sliding scale for insulin due to diabetes. 13. Fall precautions. TIME SPENT: More than 70 minutes. MTDD
--- NOTE | 2020-07-21 08:53 | PCM.PROG ---
Attending Provider: ATTENDING PROVIDER: Dr. HUONG COWAN This patient is seen with Sheron Altamirano, Nurse Practitioner. DATE OF SERVICE: 07/21/20 SUBJECTIVE: This 85 year old /WHITE M was hospitalized 07/19/20. This 85 year old /WHITE M was hospitalized 07/19/20. Resting comfortably in the bed. Had episode of hypoglycemia through the night. Blood sugar has improved last checked was 105. Discontinued his Lantus. He also had atrial fibrillation with RVR and received IV Digoxin. We will continue Digoxin 0.125mg at 10am. Continue to monitor telemetry closely. COVID test is still pending. REVIEW OF SYSTEMS: CONSTITUTIONAL: No night sweats. No fatigue, malaise, lethargy. No fever or chills. Weakness. HEENT: Eyes: No visual changes. No eye pain. No eye discharge. ENT: No runny nose. No epistaxis. No sinus pain. No odynophagia. No congestion. RESPIRATORY: No cough, no congestion. No hemoptysis. No shortness of breath. CARDIOVASCULAR: No angina symptoms. No CHF symptoms. No atypical chest pain for CAD. No palpitations. No orthopnea.. GASTROINTESTINAL: No abdominal pain. No nausea or vomiting. No diarrhea or constipation. No hematemesis. No hematochezia. GENITOURINARY: No urgency. No frequency. No dysuria. No hematuria. No obstructive symptoms. No discharge. No pain. No significant abnormal bleeding. MUSCULOSKELETAL: No musculoskeletal pain; no joint swelling. NEUROLOGICAL: Awake, alert, oriented to time, place and person. No headache. No neck pain. No syncope. No seizures. No dizziness. PSYCHIATRIC: Not anxious. No depression. No suicidal thoughts. No homicidal thoughts. SKIN: No rash. No lesions. No wounds. ENDOCRINE: No unexplained weight loss. No weight gain. HEMATOLOGIC/LYMPHATIC: No anemia. No purpura. No petechiae. No prolonged or excessive bleeding. No palpable lymph nodes. PHYSICAL EXAMINATION: GENERAL: The patient is awake, alert and oriented, lying in bed in no distress. VITAL SIGNS: Temperature 98 F, Pulse 118, Respiratory Rate 20, BP 127/79, Pulse Ox 100% HEENT: Head normocephalic, atraumatic. Eyes: Extraocular muscles are intact. Pupils are equal, round and reactive to light and accommodation. Ears: No lesions. Nose appeared normal. Throat: No exudate or erythema. NECK: Supple. No JVD, no carotid bruit. No lymphadenopathy or thyromegaly. LUNGS: Diminished breath sounds. Clear to auscultation. Percussion note normal. Chest symmetrical. HEART: S1, S2, no S3. No murmurs. Atrial fibrillation with RVR. No cyanosis or clubbing. No ascites. Pulses: Dorsalis pedis and posterior tibial pulses +1 to +2 both sides. ABDOMEN: Soft. Non-tender. Bowel sounds active. No CVA tenderness. No mass felt. EXTREMITIES: No edema. Full range of motion of all extremities, equal. NEUROLOGIC: No focal deficit. Cranial nerves II through XII are grossly intact. No headache, no double vision or headache. SKIN: Not dry. Intact. Turgor-normal. LYMPHATIC: No palpable lymph nodes/no lymphedema. MUSCULOSKELETAL: Normal joints with no swelling. Muscle tone is normal. LAB REVIEW: 07/21/20 04:05 07/21/20 04:05 07/21/20 04:05: Sodium 136.8, Potassium 3.61, Chloride 105.1, Carbon Dioxide 25.3, Anion Gap 10.01, BUN 42.4 H, Creatinine 1.80 H, Estimated GFR (MDRD) 36.00, BUN/Creatinine Ratio 23.55, Glucose 37.3 L* D, Calcium 8.67, Total Bilirubin 0.32, AST 25.0, ALT 9.7, Alkaline Phosphatase 90.3, Total Protein 6.69, Albumin 3.21 L, Globulin 3.48, Albumin/Globulin Ratio 0.92 07/21/20 04:05: WBC 10.54 H, RBC 2.91 L, Hgb 8.6 L, Hct 26.8 L, MCV 92.1, MCH 29.6, MCHC 32.1, RDW Coeff of Sandra 13.9, Plt Count 144, Immature Gran % (Auto) 0.4, Neut % (Auto) 81.3 H, Lymph % (Auto) 7.0 L, [place] % (Auto) 8.7, Eos % (Auto) 2.3, Baso % (Auto) 0.3, Neut # (Auto) 8.6 H, Lymph # (Auto) 0.7, [place] # (Auto) 0.9, Eos # (Auto) 0.2, Baso # (Auto) 0.0, Immature Gran # (Auto) 0.0 07/20/20 13:47: Urine Color Yellow, Urine Clarity Clear, Urine pH 7.0, Ur Specific [place] 1.015, Urine Protein 1+ H, Urine Glucose (UA) Negative, Urine Ketones Negative, Urine Blood 3+ H, Urine Nitrite Negative, Urine Bilirubin Negative, Urine Urobilinogen 0.2, Ur Leukocyte Esterase 1+ H, Urine Microscopic RBC Tntc, Urine Microscopic WBC 5-10, Ur Squamous Epith Cells Not present ASSESSMENT: Please see below. 1. CHF 2. Acute pneumonia 3. Chronic kidney disease stage 3 4. History of recurrent UTI 5. Severe PAD PLAN: 1. Digoxin 0.125mg IV 2. Discontinue Lantus 3. Encourage nutritional intake. Plan and coordination of the patient's care discussed in the presence of Crane Operator and nurse. SCRIBED BY: Sony MERINO scribed while in presence of service performed by Dr. Cowan/Sheron Altamirano APRN on 07/21/20 ([id number])
[2020-07-21] MEDS: BETHANECHOL CHLORIDE PO SCH ×4 (09:30→21:21)
[2020-07-21] MEDS ORDERED: LANOXIN IVP ONE (10:00)
[2020-07-21] MEDS ORDERED: CARDIZEM PO ONE ×2 (12:24→13:00)
[2020-07-21] MEDS: NORCO 5-325 PO SCH (21:18)
[2020-07-21] MEDS: ZYLOPRIM PO SCH (21:18)
[2020-07-21] MEDS: ZOCOR PO SCH (21:18)
[2020-07-21] MEDS: NEURONTIN PO SCH (21:18)
[2020-07-22] MEDS: SYNTHROID PO SCH ×2 (05:42)
[2020-07-22 06:30] LABS: BASOPHILS % (AUTO) 0.4 % (0.0-3.0); EOSINOPHILS # (AUTO) 0.9 K/ul (0.0-0.7); HEMATOCRIT 27.1 % (42.0-52.0); HEMOGLOBIN 8.5 g/dl (14.0-18.0); IMMATURE GRANULOCYTE % (AUTO) 0.2 % (0.0-5.0); LYMPHOCYTES # (AUTO) 1.2 K/uL (0.60-3.4); LYMPHOCYTES % (AUTO) 15.2 (10.0-50.0); MEAN CORPUSCULAR HEMOGLOBIN 29.3 pg (27.0-31.0); MEAN CORPUSCULAR HGB CONC 31.4 (31.8-35.4); MEAN CORPUSCULAR VOLUME 93.4 fl (80.0-94.0); MONOCYTES # (AUTO) 0.6 K/uL (0.4-2.0); MONOCYTES % (AUTO) 7.2 (0-10); NEUTROPHILS # (AUTO) 5.4 K/ul (2.0-6.9); PLATELET COUNT 162 10^3/uL (140-440); RDW COEFFICIENT OF VARIATION 13.9 % (11.6-14.8)
[2020-07-22 06:42] LABS: ALBUMIN 3.21 g/dL (3.5-5.0); ALKALINE PHOSPHATASE 86.4 U/L (56-119); ASPARTATE AMINO TRANSFERASE 38.3 U/L (17-59); BILIRUBIN,TOTAL 0.26 mg/dL (0.2-1.3); BLOOD UREA NITROGEN 40.7 mg/dL (9-20); CALCIUM 8.65 mg/dL (8.4-10.2); CARBON DIOXIDE 27.1 mmol/L (22-30.0); CHLORIDE 105.9 mmol/L (98-107); CREATININE 1.76 mg/dL (0.60-1.10); GLUCOSE 100.3 mg/dL (74-106); POTASSIUM 4.48 mmol/L (3.5-5.1); SODIUM 137.7 mmol/L (134.5-145); TOTAL PROTEIN 6.66 g/dL (6.3-8.2)
[2020-07-22] MEDS: MIRALAX PO SCH (09:03)
[2020-07-22] MEDS: ASPIRIN CHEWABLE PO SCH (09:03)
[2020-07-22] MEDS: ROCEPHIN 1 GM/50 ML D5W 1 GM/50 ML BAG IV SCH (09:03)
[2020-07-22] MEDS: DULCOLAX PO SCH (09:04)
[2020-07-22] MEDS: ZITHROMAX PO SCH (09:04)
[2020-07-22] MEDS: BETHANECHOL CHLORIDE PO SCH ×4 (09:04→20:22)
[2020-07-22] MEDS: PLAVIX PO SCH (09:04)
[2020-07-22] MEDS: FLOMAX PO SCH (09:04)
[2020-07-22] MEDS: FERROUS SULFATE PO SCH (09:04)
[2020-07-22] MEDS: SENNA PO SCH ×2 (09:05→20:23)
[2020-07-22] MEDS: COLACE PO SCH ×2 (09:05→20:23)
[2020-07-22] MEDS: LOVENOX SUBCUT SCH (09:05)
[2020-07-22] MEDS: NORCO 5-325 PO SCH (20:22)
[2020-07-22] MEDS: NEURONTIN PO SCH (20:22)
[2020-07-22] MEDS: KEFLEX PO SCH (20:22)
[2020-07-22] MEDS: ZOCOR PO SCH (20:23)
[2020-07-22] MEDS: ZYLOPRIM PO SCH (20:24)
[2020-07-23] MEDS: SYNTHROID PO SCH ×2 (05:50)
[2020-07-23] MEDS: MIRALAX PO SCH (08:59)
[2020-07-23] MEDS: PLAVIX PO SCH (09:00)
[2020-07-23] MEDS: COLACE PO SCH ×2 (09:00→20:44)
[2020-07-23] MEDS: FLOMAX PO SCH (09:00)
[2020-07-23] MEDS: DULCOLAX PO SCH (09:00)
[2020-07-23] MEDS: ASPIRIN CHEWABLE PO SCH (09:00)
[2020-07-23] MEDS: SENNA PO SCH ×2 (09:01→20:43)
[2020-07-23] MEDS: FERROUS SULFATE PO SCH (09:01)
[2020-07-23] MEDS: BETHANECHOL CHLORIDE PO SCH ×4 (09:02→21:29)
[2020-07-23] MEDS: KEFLEX PO SCH ×2 (09:09→20:42)
[2020-07-23] MEDS: LOVENOX SUBCUT SCH (09:10)
[2020-07-23] MEDS: NEURONTIN PO SCH (20:43)
[2020-07-23] MEDS: ZYLOPRIM PO SCH (20:43)
[2020-07-23] MEDS: ZOCOR PO SCH (20:43)
[2020-07-23] MEDS: NORCO 5-325 PO SCH (20:44)
[2020-07-24 05:13] LABS: BASOPHILS # (AUTO) 0.1 K/uL (0-0.2); BASOPHILS % (AUTO) 0.6 % (0.0-3.0); EOSINOPHILS # (AUTO) 0.9 K/ul (0.0-0.7); EOSINOPHILS % (AUTO) 11.7 % (0.0-7.0); HEMOGLOBIN 8.9 g/dl (14.0-18.0); IMMATURE GRANULOCYTE % (AUTO) 0.3 % (0.0-5.0); LYMPHOCYTES # (AUTO) 1.3 K/uL (0.60-3.4); LYMPHOCYTES % (AUTO) 16.4 (10.0-50.0); MEAN CORPUSCULAR HEMOGLOBIN 28.5 pg (27.0-31.0); MEAN CORPUSCULAR HGB CONC 30.7 (31.8-35.4); MEAN CORPUSCULAR VOLUME 92.9 fl (80.0-94.0); MONOCYTES # (AUTO) 0.6 K/uL (0.4-2.0); MONOCYTES % (AUTO) 7.6 (0-10); NEUTROPHILS % (AUTO) 63.4 % (42.2-75.2); PLATELET COUNT 183 10^3/uL (140-440); RDW COEFFICIENT OF VARIATION 13.7 % (11.6-14.8); RED BLOOD COUNT 3.12 10^6/ul (4.70-6.10); WHITE BLOOD COUNT 7.81 K/ul (4.2-10.2)
[2020-07-24 05:31] LABS: ALANINE AMINOTRANSFERASE 9.8 U/L (0-50); ALBUMIN 3.06 g/dL (3.5-5.0); ASPARTATE AMINO TRANSFERASE 21.9 U/L (17-59); BILIRUBIN,TOTAL 0.29 mg/dL (0.2-1.3); BLOOD UREA NITROGEN 30.7 mg/dL (9-20); CALCIUM 8.81 mg/dL (8.4-10.2); CARBON DIOXIDE 27.5 mmol/L (22-30.0); CREATININE 1.5 mg/dL (0.60-1.10); GLUCOSE 98.4 mg/dL (74-106); POTASSIUM 4.25 mmol/L (3.5-5.1); SODIUM 139.3 mmol/L (134.5-145); TOTAL PROTEIN 6.52 g/dL (6.3-8.2)
[2020-07-24] MEDS: SYNTHROID PO SCH ×2 (06:07)
--- NOTE | 2020-07-24 08:41 | PCM.PROG ---
Attending Provider: ATTENDING PROVIDER: Dr. HUONG BLAKE This patient is seen with Sheron Altamirano, Nurse Practitioner. DATE OF SERVICE: 07/24/20 SUBJECTIVE: This 85 year old /WHITE M was hospitalized 07/19/20. The patient is resting comfortably in bed. He denies any complaints this morning. Heart rate is controlled at 70 this morning but appears afib. Has had a good appetite. REVIEW OF SYSTEMS: CONSTITUTIONAL: No night sweats. No fatigue, malaise, lethargy. No fever or chills. Weakness. HEENT: Eyes: No visual changes. No eye pain. No eye discharge. ENT: No runny nos e. No epistaxis. No sinus pain. No odynophagia. No congestion. RESPIRATORY: No cough, no congestion. No hemoptysis. No shortness of breath. CARDIOVASCULAR: No angina symptoms. No CHF symptoms. No atypical chest pain for CAD. No palpitations. No orthopnea.. GASTROINTESTINAL: No abdominal pain. No nausea or vomiting. No diarrhea or constipation. No hematemesis. No hematochezia. GENITOURINARY: No urgency. No frequency. No dysuria. No hematuria. No obstructive symptoms. No discharge. No pain. No significant abnormal bleeding. MUSCULOSKELETAL: No musculoskeletal pain; no joint swelling. NEUROLOGICAL: Awake, alert, oriented to time, place and person. No headache. No neck pain. No syncope. No seizures. No dizziness. PSYCHIATRIC: Not anxious. No depression. No suicidal thoughts. No homicidal tho ughts. SKIN: No rash. No lesions. No wounds. ENDOCRINE: No unexplained weight loss. No weight gain. HEMATOLOGIC/LYMPHATIC: No anemia. No purpura. No petechiae. No prolonged or excessive bleeding. No palpable lymph nodes. PHYSICAL EXAMINATION: GENERAL: The patient is awake, alert and oriented, lying in bed in no distress. VITAL SIGNS: Temperature 98.4 F, Pulse 70, Respiratory Rate 18, BP 118/55, Pulse Ox 97% HEENT: Head normocephalic, atraumatic. Eyes: Extraocular muscles are intact. Pupils are equal, round and reactive to light and accommodation. Ears: No le sions. Nose appeared normal. Throat: No exudate or erythema. NECK: Supple. No JVD, no carotid bruit. No lymphadenopathy or thyromegaly. LUNGS: Diminished breath sounds. Clear to auscultation. Percussion note normal. Chest symmetrical. HEART: Atrial fibrillation. S1, S2, no S3. No murmurs. No cyanosis or clubbing. No ascites. Pulses: Dorsalis pedis and posterior tibial pulses +1 to +2 both sides. ABDOMEN: Soft. Non-tender. Bowel sounds active. No CVA tenderness. No mass felt. Anthony. EXTREMITIES: No edema. Full range of motion of all extremities, equal. NEUROLOGIC: No focal deficit. Cranial nerves II through XII are grossly intact. No headache, no double vision or headache. SKIN: Not dry. Intact. Turgor-normal. LYMPHATIC: No palpable lymph nodes/no lymphedema. MUSCULOSKELETAL: Normal joints with no swelling. Muscle tone is normal. LAB REVIEW: 07/24/20 04:55 07/24/20 04:55 07/24/20 04:55: Sodium 139.3, Potassium 4.25, Chloride 108.0 H, Carbon Dioxide 27.5, Anion Gap 8.05, BUN 30.7 H, Creatinine 1.50 H, Estimated GFR (MDRD) 44.00, BUN/Creatinine Ratio 20.46, Glucose 98.4, Calcium 8.81, Total Bilirubin 0.29, AST 21.9, ALT 9.8, Alkaline Phosphatase 91.0, Total Protein 6.52, Albumin 3.06 L , Globulin 3.46, Albumin/Globulin Ratio 0.88 07/24/20 04:55: WBC 7.81, RBC 3.12 L, Hgb 8.9 L, Hct 29.0 L, MCV 92.9, MCH 28.5, MCHC 30.7 L, RDW Coeff of Sandra 13.7, Plt Count 183, Immature Gran % (Auto) 0.3, Neut % (Auto) 63.4, Lymph % (Auto) 16.4, [place] % (Auto) 7.6, Eos % (Auto) 11.7 H, Baso % (Auto) 0.6, Neut # (Auto) 5.0, Lymph # (Auto) 1.3, [place] # (Auto) 0.6, Eos # (Auto) 0.9 H, Baso # (Auto) 0.1, Immature Gran # (Auto) 0.0 ASSESSMENT: Please see below. 1. CHF 2. Acute pneumonia 3. Chronic kidney disease stage 3 4. History of recurrent UTI 5. Severe PAD 6. Atrial fibrillation PLAN: 1. Will continue Telemetry 2. Encourage good nutritional intake. Plan and coordination of the patient's care discussed in the presence of Hand Kiss Setter and nurse. SCRIBED BY: Sony MERINO scribed while in presence of service performed by Dr. Blake/Sheron Altamirano APRN on 07/24/20 ([id number])
[2020-07-24] MEDS: KEFLEX PO SCH ×2 (08:45→21:00)
[2020-07-24] MEDS: FLOMAX PO SCH (08:45)
[2020-07-24] MEDS: COLACE PO SCH ×2 (08:45→20:59)
[2020-07-24] MEDS: DULCOLAX PO SCH (08:45)
[2020-07-24] MEDS: ASPIRIN CHEWABLE PO SCH (08:45)
[2020-07-24] MEDS: FERROUS SULFATE PO SCH (08:45)
[2020-07-24] MEDS: SENNA PO SCH ×2 (08:45→20:58)
[2020-07-24] MEDS: BETHANECHOL CHLORIDE PO SCH ×4 (08:46→21:36)
[2020-07-24] MEDS: PLAVIX PO SCH (08:46)
[2020-07-24] MEDS: MIRALAX PO SCH (08:46)
[2020-07-24] MEDS: LOVENOX SUBCUT SCH (08:46)
--- NOTE | 2020-07-24 11:43 | PN ---
DATE OF SERVICE: 07/22/20 SUBJECTIVE: 85-year-old white male hospitalized with pneumonia and heart failure. The patient's condition has steadily improved. The patient is not in atrial fibrillation anymore. He is in sinus rhythm with PAC. Pulse rate is 75/min. The patient is worried about his . As usual he is weak and gets tired easily. REVIEW OF SYSTEMS: CONSTITUTIONAL: Weakness, tired. No night sweats. No malaise, lethargy. No fever or chills. HEENT: Eyes: No visual changes. No eye pain. No eye discharge. ENT: No runny nose. No epistaxis. No sinus pain. No sore throat. No odynophagia. No congestion. RESPIRATORY: No cough, no congestion. No hemoptysis. No shortness of breath. CARDIOVASCULAR: No angina symptoms. No CHF symptoms. No atypical chest pain for CAD. No palpitations. No PND. No orthopnea. GASTROINTESTINAL: Appetite has improved. No abdominal pain. No nausea or vomiting. No diarrhea or constipation. No hematemesis. No hematochezia. GENITOURINARY: No urgency. No frequency. No dysuria. No hematuria. No obstructive symptoms. No discharge. No pain. No significant abnormal bleeding. MUSCULOSKELETAL: No musculoskeletal pain; no joint swelling. NEUROLOGICAL: No headache. No neck pain. No syncope. No seizures. No dizziness. PSYCHIATRIC: Not anxious. No depression. No suicidal thoughts. No homicidal thoughts. SKIN: No rash. No lesions. No wounds. ENDOCRINE: No unexplained weight loss. No weight gain. HEMATOLOGIC/LYMPHATIC: No anemia. No purpura. No petechiae. No prolonged or excessive bleeding. No palpable lymph nodes. PHYSICAL EXAMINATION: VITAL SIGNS: Temperature 97.5, pulse 80, respiratory rate 16, blood pressure 130/60, pulse ox 99%. HEENT: Head normocephalic, atraumatic. Eyes: Extraocular muscles are intact. Pupils are equal, round and reactive to light and accommodation. Ears: No lesions. Nose appeared normal. Throat: No exudate or erythema. NECK: Supple. No JVD, no carotid bruit. No lymphadenopathy or thyromegaly. LUNGS: Decreased breath sounds but clear to auscultation. Percussion note normal. Chest symmetrical. HEART: S1, S2, no S3. No murmurs. No cyanosis or clubbing. No ascites. Pulses: Dorsalis pedis and posterior tibial pulses +1 to +2 bilaterally. ABDOMEN: Soft. Nontender. Bowel sounds active. No CVA tenderness. No mass felt. EXTREMITIES: No edema. Full range of motion of all extremities, equal. NEUROLOGIC: No focal deficit. Cranial nerves II through XII are grossly intact. No headache, no double vision or headache. SKIN: Not dry. Intact. Turgor - normal. LYMPHATIC: No palpable lymph nodes/no lymphedema. MUSCULOSKELETAL: Normal joints with no swelling. Muscle tone is normal. LABS: Hemoglobin 8.5, hematocrit 27, WBC 8,100, normal differential. Creatinine 1.7, BUN 40, potassium 4.4. ASSESSMENT/PLAN: 1. Pneumonia seems to be resolving. The patient has already been on Rocephin times three days. Will discontinue Rocephin and put him on Keflex. 2. Heart failure. The patient has no symptoms of CHF. Oxygen saturation is more than 99% with 2L and he doesn't have any S3 or JVP. 3. The patient has chronic anemia with hemoglobin of 8.5 with no evidence of any GI blood loss. The patient's anemia is multifactorial. Watch CBC and CMP daily. Kidney functions are abnormal but steady. CONDITION: Stable. PROGNOSIS: Poor. TIME SPENT: More than 30 minutes. Plan and coordination of the patient's care discussed in the presence of nurse. ANANT
[2020-07-24] MEDS: NORCO 5-325 PO SCH (20:59)
[2020-07-24] MEDS: ZYLOPRIM PO SCH (20:59)
[2020-07-24] MEDS: ZOCOR PO SCH (20:59)
[2020-07-24] MEDS: NEURONTIN PO SCH (21:00)
[2020-07-25 05:15] LABS: BASOPHILS # (AUTO) 0.1 K/uL (0-0.2); BASOPHILS % (AUTO) 0.6 % (0.0-3.0); EOSINOPHILS # (AUTO) 1.1 K/ul (0.0-0.7); EOSINOPHILS % (AUTO) 13.5 % (0.0-7.0); HEMATOCRIT 27.5 % (42.0-52.0); HEMOGLOBIN 8.7 g/dl (14.0-18.0); IMMATURE GRANULOCYTE % (AUTO) 0.3 % (0.0-5.0); LYMPHOCYTES # (AUTO) 1.5 K/uL (0.60-3.4); LYMPHOCYTES % (AUTO) 19.6 (10.0-50.0); MEAN CORPUSCULAR HGB CONC 31.6 (31.8-35.4); MEAN CORPUSCULAR VOLUME 91.7 fl (80.0-94.0); MONOCYTES # (AUTO) 0.7 K/uL (0.4-2.0); NEUTROPHILS # (AUTO) 4.4 K/ul (2.0-6.9); PLATELET COUNT 180 10^3/uL (140-440); RDW COEFFICIENT OF VARIATION 13.5 % (11.6-14.8); WHITE BLOOD COUNT 7.76 K/ul (4.2-10.2)
[2020-07-25 05:26] LABS: ALANINE AMINOTRANSFERASE 10.6 U/L (0-50); ALBUMIN 2.97 g/dL (3.5-5.0); ALKALINE PHOSPHATASE 84.1 U/L (56-119); ASPARTATE AMINO TRANSFERASE 28.5 U/L (17-59); BILIRUBIN,TOTAL 0.24 mg/dL (0.2-1.3); BLOOD UREA NITROGEN 26.6 mg/dL (9-20); CALCIUM 8.82 mg/dL (8.4-10.2); CARBON DIOXIDE 26.5 mmol/L (22-30.0); CHLORIDE 107.6 mmol/L (98-107); CREATININE 1.45 mg/dL (0.60-1.10); GLUCOSE 94.7 mg/dL (74-106); POTASSIUM 4.21 mmol/L (3.5-5.1); SODIUM 137.4 mmol/L (134.5-145); TOTAL PROTEIN 6.36 g/dL (6.3-8.2)
[2020-07-25] MEDS: SYNTHROID PO SCH ×2 (05:31→06:20)
--- NOTE | 2020-07-25 08:40 | PCM.PROG ---
Attending Provider: ATTENDING PROVIDER: Dr. HUONG BLAKE This patient is seen with Sheron Altamirano, Nurse Practitioner. DATE OF SERVICE: 07/25/20 SUBJECTIVE: This 85 year old /WHITE M was hospitalized 07/19/20. The patient is resting comfortably in bed. He is complaining of cough. We will get a chest x- ray today. His appetite has been good. Lovenox and Plavix has been discontinued. He was started on Xarelto. Hgb this morning is 8.7. We will continue to monitor H&H. REVIEW OF SYSTEMS: CONSTITUTIONAL: No night sweats. No fatigue, malaise, lethargy. No fever or chills. Weakness. HEENT: Eyes: No visual changes. No eye pain. No eye discharge. ENT: No runny nose. No epistaxis. No sinus pain. No odynophagia. No congestion. RESPIRATORY: Cough, no congestion. No hemoptysis. No shortness of breath. CARDIOVASCULAR: No angina symptoms. No CHF symptoms. No atypical chest pain for CAD. No palpitations. No orthopnea.. GASTROINTESTINAL: No abdominal pain. No nausea or vomiting. No diarrhea or constipation. No hematemesis. No hematochezia. GENITOURINARY: No urgency. No frequency. No dysuria. No hematuria. No obstructive symptoms. No discharge. No pain. No significant abnormal bleeding. MUSCULOSKELETAL: No musculoskeletal pain; no joint swelling. NEUROLOGICAL: Awake, alert, oriented to time, place and person. No headache. No neck pain. No syncope. No seizures. No dizziness. PSYCHIATRIC: Not anxious. No depression. No suicidal thoughts. No homicidal thoughts. SKIN: No rash. No lesions. No wounds. ENDOCRINE: No unexplained weight loss. No weight gain. HEMATOLOGIC/LYMPHATIC: No anemia. No purpura. No petechiae. No prolonged or excessive bleeding. No palpable lymph nodes. PHYSICAL EXAMINATION: GENERAL: The patient is awake, alert and oriented, lying in bed in no distress. VITAL SIGNS: Temperature 98.6 F, Pulse 68, Respiratory Rate 18, BP 132/64, Pulse Ox 99% HEENT: Head normocephalic, atraumatic. Eyes: Extraocular muscles are intact. Pupils are equal, round and reactive to light and accommodation. Ears: No lesions. Nose appeared normal. Throat: No exudate or erythema. NECK: Supple. No JVD, no carotid bruit. No lymphadenopathy or thyromegaly. LUNGS: Diminished breath sounds. Clear to auscultation. Percussion note normal. Chest symmetrical. HEART: Atrial fibrillation versus sinus with PAC's. S1, S2, no S3. No murmurs. No cyanosis or clubbing. No ascites. Pulses: Dorsalis pedis and posterior tibial pulses +1 to +2 both sides. ABDOMEN: Soft. Non-tender. Bowel sounds active. No CVA tenderness. No mass f elt. EXTREMITIES: No edema. Full range of motion of all extremities, equal. NEUROLOGIC: No focal deficit. Cranial nerves II through XII are grossly intact. No headache, no double vision or headache. SKIN: Not dry. Intact. Turgor-normal. LYMPHATIC: No palpable lymph nodes/no lymphedema. MUSCULOSKELETAL: Normal joints with no swelling. Muscle tone is normal. LAB REVIEW: 07/25/20 04:55 07/25/20 04:55 07/25/20 04:55: Sodium 137.4, Potassium 4.21, Chloride 107.6 H, Carbon Dioxide 26.5, Anion Gap 7.51, BUN 26.6 H, Creatinine 1.45 H, Estimated GFR (MDRD) 46.00, BUN/Creatinine Ratio 18.34, Glucose 94.7, Calcium 8.82, Total Bilirubin 0.24, AST 28.5, ALT 10.6, Alkaline Phosphatase 84.1, Total Protein 6.36, Albumin 2.97 L, Globulin 3.39, Albumin/Globulin Ratio 0.87 07/25/20 04:55: WBC 7.76, RBC 3.00 L, Hgb 8.7 L, Hct 27.5 L, MCV 91.7, MCH 29.0, MCHC 31.6 L, RDW Coeff of [place] 13.5, Plt Count 180, Immature Gran % (Auto) 0.3, Neut % (Auto) 57.0, Lymph % (Auto) 19.6, [place] % (Auto) 9.0, Eos % (Auto) 13.5 H, Baso % (Auto) 0.6, Neut # (Auto) 4.4, Lymph # (Auto) 1.5, [place] # (Auto) 0.7, Eos # (Auto) 1.1 H, Baso # (Auto) 0.1, Immature Gran # (Auto) 0.0 ASSESSMENT: Please see below. 1. CHF 2. Acute pneumonia 3. Chronic kidney disease stage 3 4. History of recurrent UTI 5. Severe PAD 6. Atrial fibrillation PLAN: 1. Chest x-ray 2. Discontinue Anthony 3. Monitor CBC and CMP daily 4. Continue Telemetry. Plan and coordination of the patient's care discussed in the presence of Cupola Tender and nurse. SCRIBED BY: Sony MERINO scribed while in presence of service performed by Dr. Blake/Sheron Altamirano APRN on 07/25/20 ([id number])
[2020-07-25] MEDS: FERROUS SULFATE PO SCH (09:03)
[2020-07-25] MEDS: DULCOLAX PO SCH (09:03)
[2020-07-25] MEDS: KEFLEX PO SCH (09:03)
[2020-07-25] MEDS: FLOMAX PO SCH (09:04)
[2020-07-25] MEDS: MIRALAX PO SCH (09:07)
[2020-07-25] MEDS: COLACE PO SCH ×2 (09:07→20:58)
[2020-07-25] MEDS: SENNA PO SCH ×2 (09:08→20:56)
[2020-07-25] MEDS: BETHANECHOL CHLORIDE PO SCH ×4 (09:08→20:55)
--- NOTE | 2020-07-25 10:43 | PN ---
DATE OF SERVICE: 07/23/2020 SUBJECTIVE: 85 year old white male hospitalized with pneumonia/congestive heart failure. The patient's condition has improved. He is COVID negative. He is feeling better. He is not in any distress. REVIEW OF SYSTEMS: CONSTITUTIONAL: No night sweats. No fatigue, malaise, lethargy. No fever or chills. HEENT: Eyes: No visual changes. No eye pain. No eye discharge. ENT: No runny nose. No epistaxis. No sinus pain. No sore throat. No odynophagia. No congestion. RESPIRATORY: No cough, no congestion. No hemoptysis. No shortness of breath. CARDIOVASCULAR: No angina symptoms. No CHF symptoms. No atypical chest pain for CAD. No palpitations. No PND. No orthopnea. GASTROINTESTINAL: No abdominal pain. No nausea or vomiting. No diarrhea or constipation. No hematemesis. No hematochezia. GENITOURINARY: No urgency. No frequency. No dysuria. No hematuria. No obstructive symptoms. No discharge. No pain. No significant abnormal bleeding. MUSCULOSKELETAL: No musculoskeletal pain; no joint swelling. NEUROLOGICAL: No headache. No neck pain. No syncope. No seizures. No dizziness. PSYCHIATRIC: Not anxious. No depression. No suicidal thoughts. No homicidal thoughts. SKIN: No rash. No lesions. No wounds. ENDOCRINE: No unexplained weight loss. No weight gain. HEMATOLOGIC/LYMPHATIC: No anemia. No purpura. No petechiae. No prolonged or excessive bleeding. No palpable lymph nodes. PHYSICAL EXAMINATION: GENERAL: The patient is oriented to person and place. VITAL SIGNS: Temperature 97.4, pulse 64, respiratory rate 16, blood pressure 118/50 and pulse ox 98%. HEENT: Head normocephalic, atraumatic. Eyes: Extraocular muscles are intact. Pupils are equal, round and reactive to light and accommodation. Ears: No lesions. Nose appeared normal. Throat: No exudate or erythema. NECK: Supple. No JVD, no carotid bruit. No lymphadenopathy or thyromegaly. LUNGS:Decreased breath sounds but clear to auscultation. Percussion note normal. Chest symmetrical. HEART: S1, S2, no S3. No murmurs. No cyanosis or clubbing. No ascites. Pulses: Dorsalis pedis and posterior tibial pulses +1 to +2 bilaterally. ABDOMEN: Soft. Nontender. Bowel sounds active. No CVA tenderness. No mass felt. EXTREMITIES: No edema. Full range of motion of all extremities, equal. NEUROLOGIC: No focal deficit. Cranial nerves II through XII are grossly intact. No headache, no double vision or headache. SKIN: Not dry. Intact. Turgor - normal. LYMPHATIC: No palpable lymph nodes/no lymphedema. MUSCULOSKELETAL: Normal joints with no swelling. Muscle tone is normal. LABS: hgb 8.5, HCT 27, WBC 8,100 normal differential, creatinine 1.7, BUN 40 ASSESSMENT: 1. Pneumonia seems to be resolving 2. CHF seems to have resolved, chronic Kidney functions are stable. Cardiovascular status is stable. TIME SPENT: More than 30 minutes. Plan and coordination of the patient's care discussed in the presence of nurse. ANANT
--- NOTE | 2020-07-25 11:01 | DI ---
EXAM: Chest one view, frontal view only. HISTORY: Cough, chest congestion, shortness of breath. COMPARISON: 07/19/2020. FINDINGS: Heart size is at the upper limits of normal. Atherosclerotic calcifications present. Rig ht basilar calcified pleural plaquing noted. There appears to be new consolidation in the right kathleen hilar region. Blunting of the right costophrenic angle is stable. Left lung is clear. No pneumotho rax identified. Calcified granulomatous changes are seen. No acute osseous abnormality identified. IMPRESSION: Suspect right perihilar pneumonia.
[2020-07-25] MEDS: ROCEPHIN 1 GM/50 ML D5W 1 GM/50 ML BAG IV SCH (15:32)
[2020-07-25] MEDS: XARELTO PO SCH (17:57)
[2020-07-25] MEDS: NORCO 5-325 PO SCH (20:56)
[2020-07-25] MEDS: ZYLOPRIM PO SCH (20:56)
[2020-07-25] MEDS: ZOCOR PO SCH (20:56)
[2020-07-25] MEDS: NEURONTIN PO SCH (20:56)
[2020-07-25] MEDS: DOXY-100 100 MG in SODIUM CHLORIDE 100 ML IV SCH (20:59)
[2020-07-26 05:26] LABS: BASOPHILS # (AUTO) 0.1 K/uL (0-0.2); BASOPHILS % (AUTO) 0.7 % (0.0-3.0); EOSINOPHILS # (AUTO) 1.1 K/ul (0.0-0.7); EOSINOPHILS % (AUTO) 13.1 % (0.0-7.0); HEMATOCRIT 29.3 % (42.0-52.0); HEMOGLOBIN 9.1 g/dl (14.0-18.0); IMMATURE GRANULOCYTE % (AUTO) 0.3 % (0.0-5.0); LYMPHOCYTES # (AUTO) 1.3 K/uL (0.60-3.4); LYMPHOCYTES % (AUTO) 14.8 (10.0-50.0); MEAN CORPUSCULAR HEMOGLOBIN 28.9 pg (27.0-31.0); MEAN CORPUSCULAR HGB CONC 31.1 (31.8-35.4); MONOCYTES # (AUTO) 0.7 K/uL (0.4-2.0); MONOCYTES % (AUTO) 7.5 (0-10); NEUTROPHILS # (AUTO) 5.5 K/ul (2.0-6.9); NEUTROPHILS % (AUTO) 63.6 % (42.2-75.2); PLATELET COUNT 192 10^3/uL (140-440); RDW COEFFICIENT OF VARIATION 13.7 % (11.6-14.8); RED BLOOD COUNT 3.15 10^6/ul (4.70-6.10); WHITE BLOOD COUNT 8.71 K/ul (4.2-10.2)
[2020-07-26 05:36] LABS: ALANINE AMINOTRANSFERASE 12.3 U/L (0-50); ALBUMIN 3.24 g/dL (3.5-5.0); ALKALINE PHOSPHATASE 92.5 U/L (56-119); ASPARTATE AMINO TRANSFERASE 27.4 U/L (17-59); BILIRUBIN,TOTAL 0.26 mg/dL (0.2-1.3); BLOOD UREA NITROGEN 26.9 mg/dL (9-20); CALCIUM 9.12 mg/dL (8.4-10.2); CARBON DIOXIDE 27.5 mmol/L (22-30.0); CHLORIDE 106.7 mmol/L (98-107); CREATININE 1.44 mg/dL (0.60-1.10); GLUCOSE 101.3 mg/dL (74-106); POTASSIUM 4.38 mmol/L (3.5-5.1); SODIUM 138.4 mmol/L (134.5-145); TOTAL PROTEIN 6.86 g/dL (6.3-8.2)
[2020-07-26] MEDS: SYNTHROID PO SCH ×2 (05:42)
[2020-07-26] MEDS: DULCOLAX PO SCH (08:02)
[2020-07-26] MEDS: FERROUS SULFATE PO SCH (08:02)
[2020-07-26] MEDS: SENNA PO SCH ×2 (08:02→20:40)
[2020-07-26] MEDS: ROCEPHIN 1 GM/50 ML D5W 1 GM/50 ML BAG IV SCH (08:02)
[2020-07-26] MEDS: FLOMAX PO SCH (08:02)
[2020-07-26] MEDS: BETHANECHOL CHLORIDE PO SCH ×4 (08:02→20:40)
[2020-07-26] MEDS: CALMOSEPTINE OINTMENT TP PRN ×2 (08:03→20:46)
[2020-07-26] MEDS: COLACE PO SCH ×2 (08:03→20:40)
[2020-07-26] MEDS: MIRALAX PO SCH (08:03)
[2020-07-26] MEDS: DOXY-100 100 MG in SODIUM CHLORIDE 100 ML IV SCH ×2 (09:06→20:39)
--- NOTE | 2020-07-26 10:30 | PN ---
DATE OF SERVICE: 07/24/2020 SUBJECTIVE: The patient was seen and examined this morning with the Nurse Practitioner. The patient's condition is improving. His appetite has improved. CHF and pneumonia seems to have resolved. TIME SPENT: More than 30 minutes. Plan and coordination of the patient's care discussed in the presence of nurse. ANANT
[2020-07-26] MEDS: NYSTOP POWDER TP SCH ×2 (13:56→20:46)
--- NOTE | 2020-07-26 15:53 | RS.SLPCNOT ---
Speech Case Note Date of Note: 07/26/20 Title: Swallow consult Note: WOMEN'S SWIM COACH discussed the consult with the egg caser (Joellen). She verbalized concern for swallowing difficulty due to hx of dysphagia and nursing report of choking incident. After WOMEN'S SWIM COACH heard about pt hx, chest x-ray, and repeated chest x-ray; a formal evaluation was deemed medically necessary. WOMEN'S SWIM COACH will complete BSE to determine aspiration risks and safest and least restrictive diet.
[2020-07-26] MEDS: XARELTO PO SCH (17:07)
--- NOTE | 2020-07-26 18:51 | RS.BEDDYS ---
Subjective Date of Evaluation: 07/26/20 Diagnosis: Pneumonia Current Level of Function: This 85 year old male was admitted to the hospital with SOA and coughing. Chest X-Ray revealed possible pnuemonia and repeated chest X-ray this date revealed active pneumonia. Nursing reported pt was coughing with meals and pt has a hx of oropharyngeal dysphagia. Pt has risks for aspiration due to medical hx of dysphagia, active pneumonia, and cognitive status. Current Diet: Regular with nectar thick liquids Current Subjective/complaints:: The patient had minimal to no complaints. He did report that he "did not like the thickener in my coffee and water." However, he does not refuse to take sips of nectar thick liquids. He also reported he has a hx of dysphagia. " I eat too fast, and I don't know how to slow down." He went on to report that in the group home, " the other feeding therapist watched me eat. She would say slow down, take small bites, small drinks." He went on to state, "she also taught me to use my tongue around my teeth(lingual sweep). The LINDERMAN OPERATOR noted the pt was conversational, repeated information the LINDERMAN OPERATOR verbally presented, initiated and asked questions, and verbally agreed to eat and drink with the LINDERMAN OPERATOR. Medical History Comments:: TIA, pneumonia, dysphagia, A-fib episodes Hx Home Medications: Refer to medications for complete list. Pt is consuming medications in applesauce at this time. Patient's Goals: To consume safest and least restrictive diet. Stop coughing with eating. General Information - General Ability to Follow Directions: Good Is Patient able to Repeat Directions?: Yes Oral Expression Ability: Mild Impairment - Voice Voice Quality: Breathy, Hoarse Voice Pitch: Mildly High Voice Loudness: Mildly Soft/Quiet Oral-Facial Assessment - Face Facial Symmetry: Symmetrical - Dental/Labial Lip Protrusion: Weak - Lingual Protrusion: Weak Retraction: Weak Tip Lateralization: Weak Repeated Tip Lateralization: Weak Tip Elevation: Weak Repeated Tip Elevation: Weak Food Presentation - Solids Food Presented: Regular (Carreon tomatoes cut into halves) Behaviors/Comments: Pt fed self with fork. One half of tomato was consumed with each bite. Pt conversated and masticated. Open mouth posture noted with chewing and swallowing. Multiple swallows present on each bite. Minimal-mild oral residue. No overt s/s of aspiration. Food Presented: Mechanical Soft (lashaun crackers) Behaviors/Comments: Pt fed self. Pt monitored bite size and consumed two lashaun crackers. Pt increased rate with PO intake. Pt had multiple swallows and asked for liquid wash several times. Pt had overt coughing and effortful swallowing. - Liquids Liquid Presented: Thin (Clear water Via straw controlled by LINDERMAN OPERATOR) Behaviors/Comments: Pt took five drinks of thin liquids. First three consecutive straw drinks and then two more on separate trials at the end of the evaluation. No overt s/s of aspiration. However, delay in swallow response was observed. Liquid Presented: [place] (Via straw, sweet tea) Behaviors/Comments: Pt took three drinks as a liquid wash with lashaun crackers. He coughed immediately after swallowing liquids. He had several large inhalations to cough and voice changed. Pt swallowed multiple times post coughing and refused another drink of liquids. Recovery time approximately 1-2 minutes. - Recommendations: Dysphagia Evaluation Dietary Recommendations: Normal, [place]-thick liquids Comments:: LINDERMAN OPERATOR recommends that pt be monitored with regular diet texture. Bread and dry textures need to be moistened. [place] thick can be presented open cup or via straw. Dysphagia Swallow Precautions/Strategies: Sitting Upright (90 deg), Double Swallow, Liquids from Cup, Liquids from Straw, Small Bites and Sips, Alternate Liquids/Solids Comments:: LINDERMAN OPERATOR recommends pt also use effortful swallow. However, he probably can not remember to use strategies. Lingual sweep was utlized post meal and he verbalized using this technique. Also, pt used double swallow with each bite of food. Sitting upright with a slight recline in position may reduce risk for aspiration to occur in this pt's case. - Summary Dysphagia Evaluation Summary: Pt presents with mild-moderate oropharyngeal dysphagia as evidenced by poor labial seal, mild-moderate oral residue, mild swallow delay, effortful swallowing, difficulty with initiation of dry swallow, weak LE, and coughing/throat clear with liquids. Pt is at risk for aspiration due to pacing, bite size, and weak LE. Comments: LINDERMAN OPERATOR recommends a MBSS to determine aspiration. Functional Reporting G Codes: n/a Severity Impairment Rationale: n/a Plan Duration of Treatment: One Time Treatment Comments: LINDERMAN OPERATOR completed oral care at end of evaluation and pt had multiple food particles stuck in teeth. Pt brushed teeth and got all residue out of oral cavity. LINDERMAN OPERATOR put pt HOB down when she left the room. Pt was educated on reason for visit, dysphagia severity, meal time recommendations including pacing bite/drink sizes, aspiration definition, pneumonia and aspiration pneumonia, MBSS, and BSE. LINDERMAN OPERATOR will complete a MBSS prior to d/c if MD deems medically necessary to rule out aspiration pneumonia vs health-care aquired pneumonia. - Treatment Code (1) Oropharyngeal dysphagia Code(s): R13.12 - Dysphagia, oropharyngeal phase
[2020-07-26] MEDS: ZOCOR PO SCH (20:41)
[2020-07-26] MEDS: NORCO 5-325 PO SCH (20:41)
[2020-07-26] MEDS: NEURONTIN PO SCH (20:41)
[2020-07-26] MEDS: ZYLOPRIM PO SCH (20:41)
[2020-07-27 05:23] LABS: BASOPHILS # (AUTO) 0.1 K/uL (0-0.2); BASOPHILS % (AUTO) 0.6 % (0.0-3.0); EOSINOPHILS # (AUTO) 1.2 K/ul (0.0-0.7); EOSINOPHILS % (AUTO) 12.7 % (0.0-7.0); HEMATOCRIT 29.7 % (42.0-52.0); HEMOGLOBIN 9.2 g/dl (14.0-18.0); IMMATURE GRANULOCYTE % (AUTO) 0.3 % (0.0-5.0); LYMPHOCYTES # (AUTO) 1.5 K/uL (0.60-3.4); LYMPHOCYTES % (AUTO) 15.5 (10.0-50.0); MEAN CORPUSCULAR HEMOGLOBIN 28.6 pg (27.0-31.0); MEAN CORPUSCULAR VOLUME 92.2 fl (80.0-94.0); MONOCYTES # (AUTO) 0.8 K/uL (0.4-2.0); NEUTROPHILS # (AUTO) 5.9 K/ul (2.0-6.9); NEUTROPHILS % (AUTO) 62.9 % (42.2-75.2); PLATELET COUNT 202 10^3/uL (140-440); RDW COEFFICIENT OF VARIATION 13.6 % (11.6-14.8); RED BLOOD COUNT 3.22 10^6/ul (4.70-6.10); WHITE BLOOD COUNT 9.35 K/ul (4.2-10.2)
[2020-07-27 05:29] LABS: ALANINE AMINOTRANSFERASE 12.6 U/L (0-50); ALBUMIN 3.24 g/dL (3.5-5.0); ALKALINE PHOSPHATASE 96.4 U/L (56-119); ASPARTATE AMINO TRANSFERASE 25.4 U/L (17-59); BILIRUBIN,TOTAL 0.27 mg/dL (0.2-1.3); BLOOD UREA NITROGEN 26.1 mg/dL (9-20); CALCIUM 9.25 mg/dL (8.4-10.2); CARBON DIOXIDE 27.8 mmol/L (22-30.0); CHLORIDE 106.8 mmol/L (98-107); CREATININE 1.39 mg/dL (0.60-1.10); GLUCOSE 104.8 mg/dL (74-106); POTASSIUM 4.44 mmol/L (3.5-5.1); SODIUM 139.6 mmol/L (134.5-145); TOTAL PROTEIN 6.86 g/dL (6.3-8.2)
[2020-07-27] MEDS: SYNTHROID PO SCH ×2 (05:49→05:50)
--- NOTE | 2020-07-27 08:44 | PCM.PROG ---
Attending Provider: ATTENDING PROVIDER: Dr. HUONG COWAN This patient is seen with Sheron Altamirano, Nurse Practitioner. DATE OF SERVICE: 07/27/20 SUBJECTIVE: This 85 year old /WHITE M was hospitalized 07/19/20. The patient is resting comfortably in bed. The patient reports cough has somewhat improved. Will switch antibiotics to PO. The patient is stable for discharge to [facility] pending COVID testing as required by care home. The patient has good appetite. Has been up to the chair. Discharge pending COVID test. REVIEW OF SYSTEMS: CONSTITUTIONAL: No night sweats. No fatigue, malaise, lethargy. No fever or chills. Weakness. HEENT: Eyes: No visual changes. No eye pain. No eye discharge. ENT: No runny nose. No epistaxis. No sinus pain. No odynophagia. No congestion. RESPIRATORY: Cough, improved. No congestion. No hemoptysis. No shortness of breath. CARDIOVASCULAR: No angina symptoms. No CHF symptoms. No atypical chest pain for CAD. No palpitations. No orthopnea.. GASTROINTESTINAL: No abdominal pain. No nausea or vomiting. No diarrhea or constipation. No hematemesis. No hematochezia. GENITOURINARY: No urgency. No frequency. No dysuria. No hematuria. No obstructive symptoms. No discharge. No pain. No significant abnormal bleeding. MUSCULOSKELETAL: No musculoskeletal pain; no joint swelling. NEUROLOGICAL: Awake, alert, oriented to time, place and person. No headache. No neck pain. No syncope. No seizures. No dizziness. PSYCHIATRIC: Not anxious. No depression. No suicidal thoughts. No homicidal thoughts. SKIN: No rash. No lesions. No wounds. ENDOCRINE: No unexplained weight loss. No weight gain. HEMATOLOGIC/LYMPHATIC: No anemia. No purpura. No petechiae. No prolonged or excessive bleeding. No palpable lymph nodes. PHYSICAL EXAMINATION: GENERAL: The patient is awake, alert and oriented, lying in bed in no distress. VITAL SIGNS: Temperature 97.6 F, Pulse 72, Respiratory Rate 16, BP 141/58, Pulse Ox 100% HEENT: Head normocephalic, atraumatic. Eyes: Extraocular muscles are intact. Pupils are equal, round and reactive to light and accommodation. Ears: No lesions. Nose appeared normal. Throat: No exudate or erythema. NECK: Supple. No JVD, no carotid bruit. No lymphadenopathy or thyromegaly. LUNGS: Diminished breath sounds. Clear to auscultation. Percussion note normal. Chest symmetrical. HEART: S1, S2, no S3. No murmurs. No cyanosis or clubbing. No ascites. Pulses: Dorsalis pedis and posterior tibial pulses +1 to +2 both sides. ABDOMEN: Soft. Non-tender. Bowel sounds active. No CVA tenderness. No mass felt. EXTREMITIES: No edema. Full range of motion of all extremities, equal. NEUROLOGIC: No focal deficit. Cranial nerves II through XII are grossly intact. No headache, no double vision or headache. SKIN: Not dry. Intact. Turgor-normal. LYMPHATIC: No palpable lymph nodes/no lymphedema. MUSCULOSKELETAL: Normal joints with no swelling. Muscle tone is normal. LAB REVIEW: 07/27/20 05:03 07/27/20 05:03 07/27/20 05:03: Sodium 139.6, Potassium 4.44, Chloride 106.8, Carbon Dioxide 27.8, Anion Gap 9.44, BUN 26.1 H, Creatinine 1.39 H, Estimated GFR (MDRD) 48.00, BUN/Creatinine Ratio 18.77, Glucose 104.8, Calcium 9.25, Total Bilirubin 0.27, AST 25.4, ALT 12.6, Alkaline Phosphatase 96.4, Total Protein 6.86, Albumin 3.24 L, Globulin 3.62, Albumin/Globulin Ratio 0.89 07/27/20 05:03: WBC 9.35, RBC 3.22 L, Hgb 9.2 L, Hct 29.7 L, MCV 92.2, MCH 28.6, MCHC 31.0 L, RDW Coeff of Sandra 13.6, Plt Count 202, Immature Gran % (Auto) 0.3, Neut % (Auto) 62.9, Lymph % (Auto) 15.5, [place] % (Auto) 8.0, Eos % (Auto) 12.7 H, Baso % (Auto) 0.6, Neut # (Auto) 5.9, Lymph # (Auto) 1.5, [place] # (Auto) 0.8, Eos # (Auto) 1.2 H, Baso # (Auto) 0.1, Immature Gran # (Auto) 0.0 ASSESSMENT: Please see below. 1. CHF 2. Acute pneumonia 3. Chronic kidney disease stage 3 4. History of recurrent UTI 5. Severe PAD 6. Atrial fibrillation PLAN: 1. Omnicef 300mg BID times 5 days 2. Doxycycline 100mg BID for 5 days 3. Fall precautions 4. The patient is stable for discharge back to [facility] 5. COVID 20 test pending 6. Resume previous medications 7. Will follow at the care home. 8. Speech recommended nectar thickened liquids and trim mechanic soft diet. The patient agrees to thicken liquids but refuses trim mechanic soft Plan and coordination of the patient's care discussed in the presence of Terrazzo Roller and nurse. SCRIBED BY: WARREN ROMAN Domestic Technician scribed while in presence of service performed by Dr. Cowan/Sheron Altamirano APRN on 07/27/20 ([id number])
[2020-07-27] MEDS: BETHANECHOL CHLORIDE PO SCH ×4 (09:16→20:53)
[2020-07-27] MEDS: FERROUS SULFATE PO SCH (09:17)
[2020-07-27] MEDS: DOXYCYCLINE HYCLATE PO SCH ×2 (09:17→20:54)
[2020-07-27] MEDS: OMNICEF PO SCH ×2 (09:17→20:53)
[2020-07-27] MEDS: DULCOLAX PO SCH (09:18)
[2020-07-27] MEDS: COLACE PO SCH ×2 (09:18→20:54)
[2020-07-27] MEDS: MIRALAX PO SCH (09:19)
[2020-07-27] MEDS: FLOMAX PO SCH (09:19)
[2020-07-27] MEDS: NYSTOP POWDER TP SCH ×2 (09:19→20:55)
[2020-07-27] MEDS: SENNA PO SCH ×2 (09:19→20:54)
--- NOTE | 2020-07-27 11:57 | PN ---
DATE OF SERVICE: 07/26/2020 SUBJECTIVE: 85 year old white male hospitalized with pneumonia/heart failure. The patient's condition has improved. REVIEW OF SYSTEMS: CONSTITUTIONAL: No night sweats. No fatigue, malaise, lethargy. No fever or chills. Confusion at times. HEENT: Eyes: No visual changes. No eye pain. No eye discharge. ENT: No runny nose. No epistaxis. No sinus pain. No sore throat. No odynophagia. No congestion. RESPIRATORY: No cough, no congestion. No hemoptysis. No shortness of breath. CARDIOVASCULAR: No angina symptoms. No CHF symptoms. No atypical chest pain for CAD. No palpitations. No PND. No orthopnea. GASTROINTESTINAL: No abdominal pain. No nausea or vomiting. No diarrhea or constipation. No hematemesis. No hematochezia. GENITOURINARY: No urgency. No frequency. No dysuria. No hematuria. No obstructive symptoms. No discharge. No pain. No significant abnormal bleeding. MUSCULOSKELETAL: No musculoskeletal pain; no joint swelling. NEUROLOGICAL: No headache. No neck pain. No syncope. No seizures. No dizziness. PSYCHIATRIC: Not anxious. No depression. No suicidal thoughts. No homicidal thoughts. SKIN: No rash. No lesions. No wounds. ENDOCRINE: No unexplained weight loss. No weight gain. HEMATOLOGIC/LYMPHATIC: No anemia. No purpura. No petechiae. No prolonged or excessive bleeding. No palpable lymph nodes. PHYSICAL EXAMINATION: VITAL SIGNS: Temperature 98, pulse 69, respiratory rate 18, blood pressure 139/59 and pulse ox 98%. HEENT: Head normocephalic, atraumatic. Eyes: Extraocular muscles are intact. Pupils are equal, round and reactive to light and accommodation. Ears: No lesions. Nose appeared normal. Throat: No exudate or erythema. NECK: Supple. No JVD, no carotid bruit. No lymphadenopathy or thyromegaly. LUNGS: Decreased breath sounds but clear to auscultation. Percussion note normal. Chest symmetrical. HEART: S1, S2, no S3. No murmurs. No cyanosis or clubbing. No ascites. Pulses: Dorsalis pedis and posterior tibial pulses +1 to +2 bilaterally. ABDOMEN: Soft. Nontender. Bowel sounds active. No CVA tenderness. No mass felt. EXTREMITIES: No edema. Full range of motion of all extremities, equal. NEUROLOGIC: No focal deficit. Cranial nerves II through XII are grossly intact. No headache, no double vision or headache. SKIN: Not dry. Intact. Turgor - normal. LYMPHATIC: No palpable lymph nodes/no lymphedema. MUSCULOSKELETAL: Normal joints with no swelling. Muscle tone is normal. LABS: Hgb 9.1, hct 29, WBC 8,000 normal differential, creatinine 1.4, BUN 26, potassium 4.3 ASSESSMENT: 1. Pneumonia/CHF seems to have resolved PLAN: 1. The patient may go home tomorrow 2. Continue antibiotics 3. Anemia is stable 4. The patient is DNR TIME SPENT: More than 30 minutes. Plan and coordination of the patient's care discussed in the presence of nurse. ANANT
[2020-07-27] MEDS: XARELTO PO SCH (17:08)
[2020-07-27] MEDS: ZOCOR PO SCH (20:54)
[2020-07-27] MEDS: NEURONTIN PO SCH (20:54)
[2020-07-27] MEDS: ZYLOPRIM PO SCH (20:54)
[2020-07-27] MEDS: NORCO 5-325 PO SCH (20:54)
[2020-07-27] MEDS: CALMOSEPTINE OINTMENT TP PRN (20:55)
[2020-07-28 05:43] VITALS: BP 123/49; TEMP 97.9
[2020-07-28] MEDS: SYNTHROID PO SCH ×2 (05:44→05:45)
[2020-07-28] MEDS: SENNA PO SCH (09:01)
[2020-07-28] MEDS: OMNICEF PO SCH (09:02)
[2020-07-28] MEDS: DULCOLAX PO SCH (09:02)
[2020-07-28] MEDS: FLOMAX PO SCH (09:02)
[2020-07-28] MEDS: COLACE PO SCH (09:02)
[2020-07-28] MEDS: DOXYCYCLINE HYCLATE PO SCH (09:02)
[2020-07-28] MEDS: FERROUS SULFATE PO SCH (09:02)
[2020-07-28] MEDS: BETHANECHOL CHLORIDE PO SCH ×2 (09:02→12:39)
--- NOTE | 2020-07-28 09:02 | PCM.PROG ---
Attending Provider: ATTENDING PROVIDER: Dr. HUONG COWAN This patient is seen with Sheron Altamirano, Nurse Practitioner. DATE OF SERVICE: 07/28/20 SUBJECTIVE: This 85 year old /WHITE M was hospitalized 07/19/20. The patient is resting in the bed comfortably. The patient is denying any further cough. He is [facility]. alf should have bed for him today. COVID test was negative. We will continue with previous plan of antibiotics. We will follow at the [facility]. REVIEW OF SYSTEMS: CONSTITUTIONAL: No night sweats. No fatigue, malaise, lethargy. No fever or chills. Weakness. HEENT: Eyes: No visual changes. No eye pain. No eye discharge. ENT: No runny nose. No epistaxis. No sinus pain. No odynophagia. No congestion. RESPIRATORY: Cough improved, no congestion. No hemoptysis. No shortness of breath. CARDIOVASCULAR: No angina symptoms. No CHF symptoms. No atypical chest pain for CAD. No palpitations. No orthopnea.. GASTROINTESTINAL: No abdominal pain. No nausea or vomiting. No diarrhea or constipation. No hematemesis. No hematochezia. GENITOURINARY: No urgency. No frequency. No dysuria. No hematuria. No obstructive symptoms. No discharge. No pain. No significant abnormal bleeding. MUSCULOSKELETAL: No musculoskeletal pain; no joint swelling. NEUROLOGICAL: Awake, alert, oriented to time, place and person. No headache. No neck pain. No syncope. No seizures. No dizziness. PSYCHIATRIC: Not anxious. No depression. No suicidal thoughts. No homicidal thoughts. SKIN: No rash. No lesions. No wounds. ENDOCRINE: No unexplained weight loss. No weight gain. HEMATOLOGIC/LYMPHATIC: No anemia. No purpura. No petechiae. No prolonged or excessive bleeding. No palpable lymph nodes. PHYSICAL EXAMINATION: GENERAL: The patient is awake, alert and oriented, lying in bed in no distress. VITAL SIGNS: Temperature 97.9 F, Pulse 52, Respiratory Rate 16, BP 123/49, Pulse Ox 96% HEENT: Head normocephalic, atraumatic. Eyes: Extraocular muscles are intact. Pupils are equal, round and reactive to light and accommodation. Ears: No lesions. Nose appeared normal. Throat: No exudate or erythema. NECK: Supple. No JVD, no carotid bruit. No lymphadenopathy or thyromegaly. LUNGS: Diminished breath sounds. Clear to auscultation. Percussion note normal. Chest symmetrical. HEART: S1, S2, no S3. No murmurs. No cyanosis or clubbing. No ascites. Pulses: Dorsalis pedis and posterior tibial pulses +1 to +2 both sides. ABDOMEN: Soft. Non-tender. Bowel sounds active. No CVA tenderness. No mass felt. EXTREMITIES: No edema. Full range of motion of all extremities, equal. NEUROLOGIC: No focal deficit. Cranial nerves II through XII are grossly intact. No headache, no double vision or headache. SKIN: Not dry. Intact. Turgor-normal. LYMPHATIC: No palpable lymph nodes/no lymphedema. MUSCULOSKELETAL: Normal joints with no swelling. Muscle tone is normal. LAB REVIEW: 07/27/20 05:03 07/27/20 05:03 07/26/20 12:33: SARS-CoV-2 (PCR) Not detected ASSESSMENT: Please see below. 1. CHF 2. Acute pneumonia 3. Chronic kidney disease stage 3 4. History of recurrent UTI 5. Severe PAD 6. Atrial fibrillation PLAN: 1. Continue Omnicef and Doxycycline 2. Fall precautions 3. [place] thickened liquids with mechanical soft, The patient refuses mechanical soft. 4. CBC and CMP in one week 5. Discharge back to [facility] today. Plan and coordination of the patient's care discussed in the presence of Mash Preparatory Operator and nurse. SCRIBED BY: WARREN ROMAN Soils Analyst scribed while in presence of service performed by Dr. Cowan/Sheron Altamirano APRN on 07/28/20 ([id number])
[2020-07-28] MEDS: MIRALAX PO SCH (09:03)
[2020-07-28] MEDS: NYSTOP POWDER TP SCH (09:07)
--- NOTE | 2020-07-28 11:06 | PN ---
DATE OF SERVICE: 07/27/20 SUBJECTIVE: The patient was seen and examined with the nurse practitioner. The patient's condition has improved. He is alert, he has no symptoms of pneumonia or CHF. The patient is going to be discharged to the long term. TIME SPENT: More than 30 minutes. Plan and coordination of the patient's care discussed in the presence of nurse. ANANT
--- NOTE | 2020-07-28 11:17 | PN ---
BILLING 07/19/20 ADMISSION DAY LEVEL 5 07/20/20 INTERMEDIATE 07/21/20 INTERMEDIATE 07/22/20 INTERMEDIATE 07/23/20 INTERMEDIATE 07/24/20 INTERMEDIATE 07/25/20 INTERMEDIATE 07/26/20 INTERMEDIATE 07/27/20 INTERMEDIATE 07/28/20 INTERMEDIATE MTDD
--- NOTE | 2020-07-28 12:34 | CM.DICTOOL ---
ADMISSION: 07/19/20 20:13 DISCHARGE: JULY 28, 2020 DATE OF SERVICE: 07/28/20 FINAL DIAGNOSIS PNEUMONIA CHF ATRIAL FIBRILLATION ANEMIA CHRONIC KIDNEY DISEASE, STAGE 3 HISTORY RECURRENT UTI SEVERE PAD HISTORY: HYPERTENSION CAD CELLULITIS LEFT FOOT DEMENTIA UTI DIABETES MELLITUS, TYPE 2 HYPOTHRYOID ELEVATED CHOLESTEROL TIA PAD POLYNEUROPATHY SPINAL STENOSIS MELANOMA, RIGHT SHOULDER ANGIOPLASTY LEFT LEG, 05/2020 LAST ECHO: (06/01/2020) BORDERLINE LV CAVITY LVH WITH ENLARGED LEFT ATRIAL CAVITY CALCIFIC AORTIC VALVES WITH MILD AORTIC STENOSIS LVEF 43% LAST VITALS Temp Pulse Resp BP Pulse Ox 97.9 F 52 L 16 123/49 L 96 07/28/20 05:41 07/28/20 05:41 07/28/20 05:41 07/28/20 05:41 07/28/20 05:41 TAKE THESE MEDICATIONS AT HOME Acetaminophen (Tylenol) 650 mg PO Q4HR PRN PRN Reason: Mild Pain Hydrocodone Bitart/Acetaminophen ([place] 5-325) 1 tab PO BEDTIME [facility] Last Admin: 07/27/20 20:54 Dose: 1 tab Documented by: Allopurinol (Zyloprim) 100 mg PO BEDTIME [facility] Last Admin: 07/27/20 20:54 Dose: 100 mg Documented by: Bethanechol Chloride (Bethanechol Chloride) 25 mg PO QID [facility] Last Admin: 07/28/20 09:02 Dose: 25 mg Documented by: Bisacodyl (Dulcolax) 5 mg PO DAILY [facility] Last Admin: 07/28/20 09:02 Dose: 5 mg Documented by: Calamine/Phenol (Calmoseptine Ointment) 1 applic TP Q8HR PRN PRN Reason: Excoriation Last Admin: 07/27/20 20:55 Dose: 1 applic Documented by: Cefdinir (Omnicef) 300 mg PO BID [facility] FOR 4 DAYS Stop: 07/31/20 23:00 Last Admin: 07/28/20 09:02 Dose: 300 mg Documented by: Docusate Sodium (Colace) 100 mg PO BID [facility] Last Admin: 07/28/20 09:02 Dose: 100 mg Documented by: Doxycycline Hyclate (Doxycycline Hyclate) 100 mg PO Q12HR [facility] FOR 4 DAYS Stop: 07/31/20 23:59 Last Admin: 07/28/20 09:02 Dose: 100 mg Documented by: Ferrous Sulfate (Ferrous Sulfate) 324 mg PO DAILY [facility] Last Admin: 07/28/20 09:02 Dose: 324 mg Documented by: Gabapentin (Neurontin) 300 mg PO BEDTIME [facility] Last Admin: 07/27/20 20:54 Dose: 300 mg Documented by: Levothyroxine Sodium (Synthroid) 125 mcg PO QDAC [facility] Last Admin: 07/28/20 05:45 Dose: 100 mcg Documented by: Nitroglycerin (Nitrostat) 0.4 mg SL Q5MIN X 3 DOSES PRN PRN Reason: Chest Pain Nystatin (Nystop Powder) 1 applic TP BID [facility] Last Admin: 07/28/20 09:07 Dose: 1 applic Documented by: Polyethylene Glycol (Miralax) 17 gm PO DAILY [facility] Last Admin: 07/28/20 09:03 Dose: Not Given Documented by: Rivaroxaban (Xarelto) 15 mg PO QPM [facility] Last Admin: 07/27/20 17:08 Dose: 15 mg Documented by: Sennosides (Senna) 8.6 mg PO BID [facility] Last Admin: 07/28/20 09:01 Dose: 8.6 mg Documented by: Simvastatin (Zocor) 40 mg PO BEDTIME [facility] Last Admin: 07/27/20 20:54 Dose: 40 mg Documented by: Tamsulosin HCl (Flomax) 0.4 mg PO DAILY [facility] Last Admin: 07/28/20 09:02 Dose: 0.4 mg Documented by: Multivitamin 1 PO DAILY Last Admin: ALLERGIES No Known Allergies Allergy (Verified 07/19/20 16:11) DISCONTINUED MEDICATIONS PLAVIX ASPIRIN LANTUS NEW PRESCRIPTIONS: XARELTO 15 MG DAILY (ATRIAL FIBRILLATION) DOXYCYCLINE HYCLATE 100 MG BID FOR 4 MORE DAYS CEFDINIR 300 MG BID FOR 4 MORE DAYS SMOKING: NOT APPLICABLE DISEASE SPECIFIC EDUCATION: SAFE SWALLOWING TECHNIQUES IMPORTANCE OF TURNING LAB REVIEW: 07/27/20 05:03 07/27/20 05:03 07/26/20 12:33: SARS-CoV-2 (PCR) Not detected PLAN: DISCHARGE TO [facility] DIET: CONSISTENT CARBOHYDRATES; MECHANICAL SOFT NECTAR THICK LIQUIDS SIT UPRIGHT FOR MEALS SMALL BITES, MULTIPLE SWALLOWS FOR EACH BITE ACTIVITY: UP IN CHAIR DAILY TURN/REPOSITION EVERY 2 HOURS PHYSICAL/OCCUPATIONAL/SPEECH THERAPY EVALUATIONS INCONTINENT CARE PRN DECUBITUS PRECAUTIONS PRN VITAL SIGNS DAILY WEEKLY WEIGHTS ACCU-CHECK BEFORE BREAKFAST AND AT BEDTIME NASAL OXYGEN AT 2 LITERS PRN SATURATIONS BELOW 92% CHECK OXYGEN SATURATION DAILY CBC, CMP IN ONE WEEK AND THEN EVERY 2 WEEKS A1C EVERY 3 MONTHS TSH, T4, LIPIDS AND URIC ACID EVERY 6 MONTHS CODE STATUS: DNR MR. CORONADO IS ALERT TO PERSON, PLACE. HE TALKS OF CURRENT EVENTS (POLITICS, NEWS). MR. CORONADO REQUIRES ASSISTANCE WITH MEAL TRAY PREPARATION, BUT FEEDS HIMSELF. HE NEEDS ENCOURAGEMENT AND REMINDERS TO EAT SLOWLY AND FOLLOW SAFE SWALLOWING TECHNIQUES. HIS APPETITE IS 75-100% FOR BREAKFAST; BUT 0-25% FOR ALL OTHER MEALS. LANTUS INSULIN WAS DISCONTINUED DUE TO DECREASED MEAL INTAKES AND SEVERAL EPISODES OF LOW BLOOD SUGARS NOTED IN THE MORNINGS. HE IS INCONTINENT OF BOWEL AND BLADDER. SHEARING IS NOTED TO COCCYX AND SCROTUM FROM FREQUENT URINARY INCONTINENCE. GROIN AREAS ARE MOIST FROM FREQUENT EPISODES OF INCONTINENCE. MR. CORONADO REQUIRES ASSISTANCE WITH BED MOBILITY AND OUT OF BED. HE TRANSFERS TO THE CHAIR WITH ASSISTANCE OF 2 STAFF MEMBERS. MR. CORONADO IS DEPENDENT FOR PERSONAL CARE. HUONG COWAN MD
--- NOTE | 2020-07-28 12:52 | PN ---
DATE OF SERVICE: 07/28/20 SUBJECTIVE: The patient was not discharged yesterday but is going to be discharged today. They didn't have a spot in the detention. Condition is stable. The patient was seen and examined with the nurse practitioner. TIME SPENT: More than 30 minutes. Plan and coordination of the patient's care discussed in the presence of nurse. ANANT
--- NOTE | 2020-07-31 13:12 | PN ---
07/19/2020: Level 5 07/20/2020: Intermediate 07/21/2020: Intermediate 07/22/2020: Intermediate 07/23/2020: Intermediate 07/24/2020: Intermediate 07/25/2020: Intermediate 07/26/2020: Intermediate 07/27/2020: Intermediate 07/28/2020: D as in discharge MTDD
--- NOTE | 2020-07-31 13:12 | DS ---
DATE OF SERVICE: 07/28/2020 FINAL DIAGNOSIS: PNEUMONIA CHF ATRIAL FIBRILLATION ANEMIA CHRONIC KIDNEY DISEASE, STAGE 3 HISTORY RECURRENT UTI SEVERE PAD HISTORY: HYPERTENSION CAD CELLULITIS LEFT FOOT DEMENTIA UTI DIABETES MELLITUS, TYPE 2 HYPOTHRYOID ELEVATED CHOLESTEROL TIA PAD POLYNEUROPATHY SPINAL STENOSIS MELANOMA, RIGHT SHOULDER ANGIOPLASTY LEFT LEG, 05/2020 LAST ECHO: (06/01/2020) BORDERLINE LV CAVITY LVH WITH ENLARGED LEFT ATRIAL CAVITY CALCIFIC AORTIC VALVES WITH MILD AORTIC STENOSIS LVEF 43% LAST VITALS Temp Pulse Resp BP Pulse Ox 97.9 F 52 L 16 123/49 L 96 07/28/20 05:41 07/28/20 05:41 07/28/20 05:41 07/28/20 05:41 07/28/20 05:41 DISCHARGE INSTRUCTIONS: DISCHARGE TO [facility]. PHYSICAL/OCCUPATIONAL/SPEECH THERAPY EVALUATIONS. INCONTINENT CARE PRN. DECUBITUS PRECAUTIONS PRN. VITAL SIGNS DAILY, WEEKLY WEIGHTS, ACCU-CHECK BEFORE BREAKFAST AND AT BEDTIME NASAL OXYGEN AT 2 LITERS PRN SATURATIONS BELOW 92%, CHECK OXYGEN SATURATION DAILY, CBC, CMP IN ONE WEEK AND THEN EVERY 2 WEEKS, A1C EVERY 3 MONTHS and TSH, T4, LIPIDS AND URIC ACID EVERY 6 MONTHS. CODE STATUS: DNR. TAKE THESE MEDICATIONS AT HOME: Acetaminophen (Tylenol) 650 mg PO Q4HR PRN PRN Reason: Mild Pain Hydrocodone Bitart/Acetaminophen ([place] 5-325) 1 tab PO BEDTIME [facility] Last Admin: 07/27/20 20:54 Dose: 1 tab Documented by: Allopurinol (Zyloprim) 100 mg PO BEDTIME [facility] Last Admin: 07/27/20 20:54 Dose: 100 mg Documented by: Bethanechol Chloride (Bethanechol Chloride) 25 mg PO QID [facility] Last Admin: 07/28/20 09:02 Dose: 25 mg Documented by: Bisacodyl (Dulcolax) 5 mg PO DAILY [facility] Last Admin: 07/28/20 09:02 Dose: 5 mg Documented by: Calamine/Phenol (Calmoseptine Ointment) 1 applic TP Q8HR PRN PRN Reason: Excoriation Last Admin: 07/27/20 20:55 Dose: 1 applic Documented by: Cefdinir (Omnicef) 300 mg PO BID [facility] FOR 4 DAYS Stop: 07/31/20 23:00 Last Admin: 07/28/20 09:02 Dose: 300 mg Documented by: Docusate Sodium (Colace) 100 mg PO BID [facility] Last Admin: 07/28/20 09:02 Dose: 100 mg Documented by: Doxycycline Hyclate (Doxycycline Hyclate) 100 mg PO Q12HR [facility] FOR 4 DAYS Stop: 07/31/20 23:59 Last Admin: 07/28/20 09:02 Dose: 100 mg Documented by: Ferrous Sulfate (Ferrous Sulfate) 324 mg PO DAILY [facility] Last Admin: 07/28/20 09:02 Dose: 324 mg Documented by: Gabapentin (Neurontin) 300 mg PO BEDTIME [facility] Last Admin: 07/27/20 20:54 Dose: 300 mg Documented by: Levothyroxine Sodium (Synthroid) 125 mcg PO QDAC [facility] Last Admin: 07/28/20 05:45 Dose: 100 mcg Documented by: Nitroglycerin (Nitrostat) 0.4 mg SL Q5MIN X 3 DOSES PRN PRN Reason: Chest Pain Nystatin (Nystop Powder) 1 applic TP BID [facility] Last Admin: 07/28/20 09:07 Dose: 1 applic Documented by: Polyethylene Glycol (Miralax) 17 gm PO DAILY [facility] Last Admin: 07/28/20 09:03 Dose: Not Given Documented by: Rivaroxaban (Xarelto) 15 mg PO QPM [facility] Last Admin: 07/27/20 17:08 Dose: 15 mg Documented by: Sennosides (Senna) 8.6 mg PO BID [facility] Last Admin: 07/28/20 09:01 Dose: 8.6 mg Documented by: Simvastatin (Zocor) 40 mg PO BEDTIME [facility] Last Admin: 07/27/20 20:54 Dose: 40 mg Documented by: Tamsulosin HCl (Flomax) 0.4 mg PO DAILY [facility] Last Admin: 07/28/20 09:02 Dose: 0.4 mg Documented by: Multivitamin 1 PO DAILY Last Admin: ALLERGIES: No Known Allergies Allergy (Verified 07/19/20 16:11) DISCONTINUED MEDICATIONS: PLAVIX ASPIRIN LANTUS NEW PRESCRIPTIONS: XARELTO 15 MG DAILY (ATRIAL FIBRILLATION) DOXYCYCLINE HYCLATE 100 MG BID FOR 4 MORE DAYS CEFDINIR 300 MG BID FOR 4 MORE DAYS SMOKING: NOT APPLICABLE DISEASE SPECIFIC EDUCATION: SAFE SWALLOWING TECHNIQUES IMPORTANCE OF TURNING LAB REVIEW: 07/27/20 05:03 07/27/20 05:03 07/26/20 12:33: SARS-CoV-2 (PCR) Not detected DIET: CONSISTENT CARBOHYDRATES; MECHANICAL SOFT NECTAR THICK LIQUIDS SIT UPRIGHT FOR MEALS SMALL BITES, MULTIPLE SWALLOWS FOR EACH BITE ACTIVITY: UP IN CHAIR DAILY TURN/REPOSITION EVERY 2 HOURS HOSPITAL COURSE: Mr. Carrion was hospitalized with pneumonitis and CHF type of symptoms. The patient I don't think had a CHF because he was given IV Lasix and also was given antibiotics Rocephin and Zithromax on Doxycycline was added as chest x-ray showed persistent pneumonia findings. The patient was practically afebrile throughout the stay in the hospital. His appetite also improved. His one meal a day like a breakfast was the good meal the rest of the day he had not much appetite, the way he has been for awhile. The patient at the time of discharge was put on Omnicef and Doxycycline. He was discharged home in stable condition to be followed as an outpatient. The patient is going to the [place] [facility]. The patient has been afebrile. During the stay in the hospital had atrial fibrillation which was more or less chronic, intermittent sinus rhythm. The was put on Xarelto 15mg. The patient has no obvious bleeding disorders. Xarelto was discussed with him with intracranial bleed as a side effect along with GI bleed. Make sure that the patient is not on non-steroidal antiinflammatory or given that in the [place] [facility]. TIME SPENT: More than 60 minutes. ANANT
== END 2020-07-28 14:05 | DRG 195 ==
LOC: ED 16:00 → MEDSURG B 20:13 → SCU 21:26 → MEDSURG B 07-21 16:00
PROVIDERS: ADMIT Internal Medicine; ATTEND Internal Medicine
DX: Z86.73 Personal history of transient ischemic attack (TIA), and cerebral infarction without residual deficits; F03.91 Unspecified dementia, unspecified severity, with behavioral disturbance; R39.81 Functional urinary incontinence; N18.3 Chronic kidney disease, stage 3 (moderate); R06.02 Shortness of breath; Z79.4 Long term (current) use of insulin; E11.9 Type 2 diabetes mellitus without complications; R60.0 Localized edema; Z98.890 Other specified postprocedural states; I25.10 Atherosclerotic heart disease of native coronary artery without angina pectoris; I50.9 Heart failure, unspecified; J18.9 Pneumonia, unspecified organism; I10 Essential (primary) hypertension; Z03.818 Encounter for observation for suspected exposure to other biological agents ruled out; I73.9 Peripheral vascular disease, unspecified; Z87.440 Personal history of urinary (tract) infections; E03.9 Hypothyroidism, unspecified; Z79.899 Other long term (current) drug therapy; R60.9 Edema, unspecified; R53.1 Weakness; G62.9 Polyneuropathy, unspecified; E78.5 Hyperlipidemia, unspecified; D64.9 Anemia, unspecified; I48.91 Unspecified atrial fibrillation; Z51.81 Encounter for therapeutic drug level monitoring; F03.90 Unspecified dementia, unspecified severity, without behavioral disturbance, psychotic disturbance, mood disturbance, and anxiety

== ENCOUNTER 2020-10-26 21:05 | Inpatient (IN) ==
[2020-10-26 21:54] LABS: BASOPHILS % (AUTO) 0.4 % (0.0-3.0); EOSINOPHILS # (AUTO) 0.1 K/ul (0.0-0.7); EOSINOPHILS % (AUTO) 1.6 % (0.0-7.0); HEMATOCRIT 28.1 % (42.0-52.0); IMMATURE GRANULOCYTE % (AUTO) 0.4 % (0.0-5.0); LYMPHOCYTES # (AUTO) 0.4 K/uL (0.60-3.4); MEAN CORPUSCULAR HEMOGLOBIN 27.2 pg (27.0-31.0); MEAN CORPUSCULAR VOLUME 84.9 fl (80.0-94.0); MONOCYTES # (AUTO) 0.4 K/uL (0.4-2.0); MONOCYTES % (AUTO) 5.4 (0-10); NEUTROPHILS # (AUTO) 6.9 K/ul (2.0-6.9); NEUTROPHILS % (AUTO) 87.2 % (42.2-75.2); PLATELET COUNT 193 10^3/uL (140-440); RDW COEFFICIENT OF VARIATION 16.1 % (11.6-14.8); RED BLOOD COUNT 3.31 10^6/ul (4.70-6.10); WHITE BLOOD COUNT 7.94 K/ul (4.2-10.2)
[2020-10-26 21:59] LABS: ABG PH 7.48 (7.35-7.45)
[2020-10-26 22:00] LABS: ABG BASE EXCESS -0.4 (-2.0-2.0); ABG HCO3 23.1 (22.0-26.0); ABG TCO2 24.1 (22.0-28.0)
[2020-10-26 22:01] LABS: ABG OXYGEN SATURATION 89.8 % (95-100)
[2020-10-26 22:06] LABS: ALANINE AMINOTRANSFERASE 12.8 U/L (0-50); ALBUMIN 3.03 g/dL (3.5-5.0); ALKALINE PHOSPHATASE 120.7 U/L (56-119); ASPARTATE AMINO TRANSFERASE 19.9 U/L (17-59); BLOOD UREA NITROGEN 39.8 mg/dL (9-20); CALCIUM 9.28 mg/dL (8.4-10.2); CARBON DIOXIDE 23.4 mmol/L (22-30.0); CHLORIDE 111.4 mmol/L (98-107); CREATININE 1.55 mg/dL (0.60-1.10); GLUCOSE 168.5 mg/dL (74-106); POTASSIUM 4.01 mmol/L (3.5-5.1); SODIUM 141.2 mmol/L (134.5-145); TOTAL PROTEIN 6.51 g/dL (6.3-8.2)
[2020-10-26 22:10] LABS: MOLECULAR FLU A NEGATIVE BY NAAT (NEGATIVE); MOLECULAR FLU B NEGATIVE BY NAAT (NEGATIVE)
--- NOTE | 2020-10-26 22:10 | ED.PDOC ---
General ED Provider: Dr. VIOLETTE STUART Chief Complaint: Shortness of Air Stated Complaint: covid pos from the [facility] sent out for sob, cough and worsening lung sounds Time Seen by Physician: 22:36 Mode of Arrival: Ambulance Information Source: Patient, Usp and EMT Primary Care Provider: HUONG LEONARDO Nursing and Triage Documentation Reviewed and Agree: Yes Does patient meet sepsis criteria?: No System Inflammatory Response Syndrome: Not Applicable Sepsis Protocol: For patient's 13 years and over: Temp is 96.8 and below OR 101 and greater Pulse >90 BPM Resp >20/minute Acutely Altered Mental Status Are patient's symptoms suggestive of a new infection, such as: -Pneumonia -Skin, Soft Tissue -Endocarditis -UTI -Bone, Joint Infection -Implantable Device -Acute Abdominal Infection -Wound Infection -Meningitis -Blood Stream Catheter Infection -Unknown Respiratory Complaint Exam Shortness of Air Complaint/Exam Onset/Duration: 2 days Symptoms Are: Still present Timing: Constant Initial Severity: Mild Current Severity: Moderate Character: Reports Dyspnea on exertion Aggravating: Reports None Alleviating: Reports None Associated Signs and Symptoms: Reports Cough and Labored breathing History of Healthcare-Acquired Pneumonia: Lives at [facility] Home Oxygen Use: No Recent Stress Test: No Recent Echo/LV Function: No Respiratory Distress: Mild Stridor Present: No Tracheal Deviation: No Subcutaneous Emphysema: No Accessory Muscle Use: No Retractions: Not Present Diminished Breath Sounds: No Prolonged Expiratory Phase: No Unable to Speak Full Sentences: No Fatigue: Yes Leg Swelling: No Yonatan's Sign Present: No Grunting Respirations: No Kussmaul Respirations: No Differential Diagnoses: Pneumonia Quality Indicator For Non-Traumatic Chest Pain/Syncope: EKG Performed Review of Systems Review Of Systems Constitutional: Reports No symptoms Eyes: Reports No symptoms Ears, Nose, Mouth, Throat: Reports No symptoms Respiratory: Reports Cough and Short of air Cardiac: Reports No symptoms GI: Reports No symptoms : Reports No symptoms Musculoskeletal: Reports No symptoms Skin: Reports No symptoms Neurological: Reports No symptoms Endocrine: Reports No symptoms Hematologic/Lymphatic: Reports No symptoms All Other Systems: Reviewed and Negative [facility] Medical History Anemia BPH (benign prostatic hyperplasia) Dementia Diabetes Elevated cholesterol Hypothyroid Neuropathy TIA (transient ischemic attack) UTI (urinary tract infection) Family History Other No known health problems Social History (Updated 07/19/20 @ 21:44 by ESTHER WESTBROOK RN) Smoking and tobacco status: Unknown if ever smoked Housing: [facility] History of recent travel: No Surgical History History of right hip replacement Physical Exam Physical Exam Appearance: Reports Ill-appearing Ill-appearing: Mild Pain Distress: None Eyes: Reports JESU, EOMI and Conjunctiva clear ENT: Reports Ears normal, Nose normal and Oropharynx normal Neck: Supple Respiratory: Reports Airway patent, Breath sounds diminished, Crackles and Rhonchi Cardiovascular: Reports RRR, Pulses normal and No rub GI/: Reports Soft, Nontender and No masses Musculoskeletal: Reports Normal strength, ROM intact, No edema and No calf tenderness Skin: Reports Warm, Dry and Normal color Neurological: Reports Sensation intact, Motor intact, Reflexes intact and [employer] nial nerves intact Psychiatric: Reports Affect appropriate and Mood appropriate Interpretation Radiology Interpretation Radiology Interpretation By: Radiologist Radiology Results: Positive Exam Interpreted: Portable CXR EKG Interpretation Time of EKG #1: 22:09 Rate: Normal Rhythm: Sinus Ectopy: None [place]: NL ST Segment: Normal Interpretation: sinus rythym Physician Notification Case Discussed Physician Notified: dr leonardo Time of Notification: 22:35 Critical Care Note Critical Care Note Total Critical Care Time (mins): 30 Course Course Hematology/Chemistry: 10/26/20 21:43 10/26/20 21:43 Orders, Labs, Meds: Lab Review 10/26/20 10/26/20 10/26/20 21:12 21:43 21:43 WBC 7.94 RBC 3.31 L Hgb 9.0 L Hct 28.1 L MCV 84.9 MCH 27.2 MCHC 32.0 RDW Coeff of Sandra 16.1 H Plt Count 193 Immature Gran % (Auto) 0.4 Neut % (Auto) 87.2 H Lymph % (Auto) 5.0 L Leon % (Auto) 5.4 Eos % (Auto) 1.6 Baso % (Auto) 0.4 Neut # (Auto) 6.9 Lymph # (Auto) 0.4 L Leon # (Auto) 0.4 Eos # (Auto) 0.1 Baso # (Auto) 0.0 Immature Gran # (Auto) 0.0 Puncture Site Rrad O2 Saturation 89.8 L ABG pH 7.48 H ABG pCO2 31.0 L ABG pO2 56.0 L* ABG HCO3 23.1 ABG Total CO2 24.1 ABG Base Excess -0.4 Marlo Test + FiO2 % 21.0 Sodium 141.2 Potassium 4.01 Chloride 111.4 H Carbon Dioxide 23.4 Anion Gap 10.41 BUN 39.8 H Creatinine 1.55 H Estimated GFR (MDRD) 43.00 BUN/Creatinine Ratio 25.67 Glucose 168.5 H Lactic Acid Calcium 9.28 Total Bilirubin 0.50 AST 19.9 ALT 12.8 Alkaline Phosphatase 120.7 H Total Creatine Kinase < 20.0 L Troponin I 0.099 Total Protein 6.51 Albumin 3.03 L Globulin 3.48 Albumin/Globulin Ratio 0.87 Influ A Molecular Assay Influ B Molecular Assay 10/26/20 10/26/20 21:43 21:43 WBC RBC Hgb Hct MCV MCH MCHC RDW Coeff of Sandra Plt Count Immature Gran % (Auto) Neut % (Auto) Lymph % (Auto) Leon % (Auto) Eos % (Auto) Baso % (Auto) Neut # (Auto) Lymph # (Auto) Leon # (Auto) Eos # (Auto) Baso # (Auto) Immature Gran # (Auto) Puncture Site O2 Saturation ABG pH ABG pCO2 ABG pO2 ABG HCO3 ABG Total CO2 ABG Base Excess Marlo Test FiO2 % Sodium Potassium Chloride Carbon Dioxide Anion Gap BUN Creatinine Estimated GFR (MDRD) BUN/Creatinine Ratio Glucose Lactic Acid 1.15 Calcium Total Bilirubin AST ALT Alkaline Phosphatase Total Creatine Kinase Troponin I Total Protein Albumin Globulin Albumin/Globulin Ratio Influ A Molecular Assay Negative by naat Influ B Molecular Assay Negative by naat Orders Category Date Time Status ABG DRAW REQUEST Stat CARDIO 10/26/20 21:12 Completed EKG-(ED ONLY) Stat CARDIO 10/26/20 21:12 Completed ED INTERACTIVE DEVELOPER APPLIED .ONCE EMERGENCY 10/26/20 21:12 Active ED IV/MEDIPORT/POWERPORT .ONCE EMERGENCY 10/26/20 21:12 Active ABG Stat LAB 10/26/20 21:12 Completed BLOOD CULTURE (ED ONLY) Stat LAB 10/26/20 21:43 Received CBC W/ AUTO DIFF Stat LAB 10/26/20 21:43 Completed COMPREHENSIVE METABOLIC PANEL Stat LAB 10/26/20 21:43 Completed CREATINE KINASE Stat LAB 10/26/20 21:43 Completed FLU A/B MOLECULAR Stat LAB 10/26/20 21:43 Completed LACTIC ACID Stat LAB 10/26/20 21:43 Completed PROCALCITONIN Stat LAB 10/26/20 21:43 Received TROPONIN I Stat LAB 10/26/20 21:43 Completed 0.9 % Sodium Chloride [Saline Flush] MEDS 10/26/20 21:12 Active 1 syr IVF PRN PRN CHEST, 1V AP ONLY Stat RADS 10/26/20 21:13 Completed Medications Generic Name Dose Route Start Last Admin Trade Name Freq PRN Reason Stop Dose Admin Sodium Chloride 1 syr 10/26/20 21:12 0.9% Sodium Chloride 10 Ml Disp.Syrin IVF PRN PRN To flush IV Vital Signs: Temp Pulse Resp BP Pulse Ox 10/26/20 21:23 98.1 F 89 20 109/59 L 94 L Discharge Plan Discharge Patient Disposition: ADMITTED INPATIENT Discharge Problem: Acute pneumonitis, COVID-19 Prescriptions: No Action polyethylene glycol 3350 [Miralax] 17 GM powder in packet 17 g PO DAILY RF: 0 sennosides-docusate sodium [Senokot-S] 1 EACH tablet 1 tab PO BID RF: 0 tamsulosin 0.4 MG capsule 0.4 mg PO DAILY RF: 0 hydrocodone-acetaminophen 1 EACH tablet 5 - 325 mg PO BEDTIME RF: 0 ferrous sulfate 325 MG tablet 325 mg PO DAILY RF: 0 levothyroxine [Synthroid] 125 MCG tablet 125 mcg PO QDAC RF: 0 gabapentin [Neurontin] 300 MG capsule 300 mg PO BEDTIME RF: 0 multivitamin 1 CAP capsule 1 cap PO DAILY RF: 0 acetaminophen 325 MG tablet 650 mg PO Q4HR PRN (Reason: Pain) RF: 0 allopurinol 100 MG tablet 100 mg PO BEDTIME RF: 0 mupirocin 2 % Ointment 1 applic TOPICAL TID RF: 0 simvastatin [Zocor] 40 mg Tablet 40 mg PO BEDTIME RF: 0 bethanechol chloride 25 mg Tablet 25 mg PO QID RF: 0 calcium carbonate-vitamin D3 1 EACH tablet 1 ea PO DAILY 30 Days Qty: 30 RF: 0 Calmoseptine 0.44-20.6 % Ointment 1 applic topical PRN PRN (Reason: Skin Irritation) RF: 0 nitroglycerin [Nitrostat] 0.4 mg Tablet, Sublingual 0.4 mg SUBLINGUAL Q5-15M PRN (Reason: Chest Pain) RF: 0 bisacodyl 5 mg Tablet 5 mg PO ONCE RF: 0 Xarelto 15 mg Tablet 15 mg PO QPM Qty: 30 RF: 6 doxycycline hyclate 100 mg Capsule 100 mg PO BID Qty: 8 RF: 0 cefdinir 300 mg Capsule 300 mg PO BID Qty: 8 RF: 0 ED Provider: VIOLETTE STUART Condition: Stable Physician Progress Note: []
--- NOTE | 2020-10-26 22:17 | DI ---
EXAM: Portable chest HISTORY: Dyspnea COMPARISON: Single-view chest 07/25/2020 FINDINGS: There is stable prominence of the cardiac silhouette. Atherosclerotic changes are seen in volving the aortic arch.. They are benign granulomatous changes.. Calcified pleural plaque at the r ight lung base. Consolidation is noted at the left lung base compatible with pneumonia and/or atelec tasis. Consolidation is noted at the right lung base with hazy opacity throughout the remainder of t he right lung. IMPRESSION: Stable prominent cardiac silhouette. Bibasilar pneumonia. Interstitial opacities noted throughout the remaining right lung
[2020-10-26 22:18] LABS: TROPONIN I 0.099 ng/ml (0.0000-0.120)
[2020-10-26 22:19] LABS: CREATINE KINASE < 20.0 U/L (55-170)
[2020-10-26] MEDS ORDERED: TYLENOL PO PRN (22:38)
[2020-10-26] MEDS ORDERED: NITROSTAT SL PRN (22:42)
[2020-10-26] MEDS ORDERED: REMDESIVIR 200 MG in SODIUM CHLORIDE 210 ML IV ONE (22:49)
[2020-10-26] MEDS ORDERED: DULCOLAX PO SCH (23:30)
[2020-10-27] MEDS: PROAIR HFA (SINGLE PATIENT USE) IH SCH ×2 (00:13→05:42)
[2020-10-27 01:40] VITALS: BMI 21.6
[2020-10-27 05:26] LABS: BASOPHILS # (AUTO) 0.1 K/uL (0-0.2); BASOPHILS % (AUTO) 0.6 % (0.0-3.0); EOSINOPHILS # (AUTO) 0.3 K/ul (0.0-0.7); EOSINOPHILS % (AUTO) 3.2 % (0.0-7.0); HEMATOCRIT 30.1 % (42.0-52.0); HEMOGLOBIN 9.4 g/dl (14.0-18.0); IMMATURE GRANULOCYTE % (AUTO) 0.4 % (0.0-5.0); LYMPHOCYTES # (AUTO) 0.6 K/uL (0.60-3.4); MEAN CORPUSCULAR HEMOGLOBIN 26.8 pg (27.0-31.0); MEAN CORPUSCULAR HGB CONC 31.2 (31.8-35.4); MEAN CORPUSCULAR VOLUME 85.8 fl (80.0-94.0); MONOCYTES # (AUTO) 0.5 K/uL (0.4-2.0); MONOCYTES % (AUTO) 6.4 (0-10); NEUTROPHILS # (AUTO) 6.8 K/ul (2.0-6.9); NEUTROPHILS % (AUTO) 82.4 % (42.2-75.2); PLATELET COUNT 191 10^3/uL (140-440); RDW COEFFICIENT OF VARIATION 16.3 % (11.6-14.8); RED BLOOD COUNT 3.51 10^6/ul (4.70-6.10); WHITE BLOOD COUNT 8.25 K/ul (4.2-10.2)
[2020-10-27] MEDS: SYNTHROID PO SCH ×2 (05:34)
[2020-10-27] MEDS ORDERED: ATROVENT HFA INHALER (PER PUFF-WITH SPACER) IH ONE (05:42)
[2020-10-27 05:45] LABS: ALANINE AMINOTRANSFERASE 12.8 U/L (0-50); ALBUMIN 3.14 g/dL (3.5-5.0); BILIRUBIN,TOTAL 0.61 mg/dL (0.2-1.3); BLOOD UREA NITROGEN 40.2 mg/dL (9-20); CALCIUM 9.47 mg/dL (8.4-10.2); CARBON DIOXIDE 24.4 mmol/L (22-30.0); CHLORIDE 110.5 mmol/L (98-107); CREATININE 1.59 mg/dL (0.60-1.10); GLUCOSE 168.9 mg/dL (74-106); POTASSIUM 4.48 mmol/L (3.5-5.1); SODIUM 142.6 mmol/L (134.5-145); TOTAL PROTEIN 6.67 g/dL (6.3-8.2)
[2020-10-27] MEDS ORDERED: ATROVENT HFA INHALER (SINGLE PATIENT USE) IH SCH ×2 (06:00→09:00)
[2020-10-27] MEDS ORDERED: REMDESIVIR 200 MG in SODIUM CHLORIDE 210 ML IV ONE (08:00)
[2020-10-27] MEDS ORDERED: LOVENOX SUBCUT SCH (09:00)
[2020-10-27] MEDS ORDERED: SENNOSIDES DOCUSATE SODIUM PO SCH (09:00)
[2020-10-27] MEDS ORDERED: PEPCID IVP SCH (09:00)
[2020-10-27] MEDS: BETHANECHOL CHLORIDE PO SCH ×4 (09:41→21:21)
[2020-10-27] MEDS: FERROUS SULFATE PO SCH (09:42)
[2020-10-27] MEDS: COLACE PO SCH (09:42)
[2020-10-27] MEDS: CALCIUM 500 + VIT D 5 MCG (200 IU) TABLET PO SCH (09:42)
[2020-10-27] MEDS: SENNA PO SCH ×2 (09:42→20:53)
[2020-10-27] MEDS: FLOMAX PO SCH (09:42)
[2020-10-27] MEDS: DOXY-100 100 MG in SODIUM CHLORIDE 100 ML IV SCH ×2 (09:43→20:52)
[2020-10-27] MEDS: MIRALAX PO SCH (09:43)
[2020-10-27] MEDS: SYMBICORT 160-4.5 MCG INHALER IH SCH ×2 (11:01→23:25)
[2020-10-27] MEDS: DECADRON IVP SCH (11:02)
[2020-10-27] MEDS: PEPCID PO SCH (11:03)
[2020-10-27] MEDS: VITAMIN D PO SCH (11:03)
[2020-10-27] MEDS: SODIUM CHLORIDE 1,000 ML IV SCH (11:07)
[2020-10-27] MEDS: ZINC-220 PO SCH (11:08)
[2020-10-27] MEDS: VENTOLIN HFA (PER PUFF-WITH SPACER) IH SCH ×3 (11:32→23:13)
[2020-10-27] MEDS: ATROVENT HFA INHALER (PER PUFF-WITH SPACER) IH SCH ×3 (11:33→23:13)
[2020-10-27] MEDS ORDERED: ATROVENT HFA INHALER (PER PUFF-WITH SPACER) IH SCH (12:00)
[2020-10-27] MEDS: ROCEPHIN 1 GM/50 ML D5W 1 GM/50 ML BAG IV SCH (14:34)
[2020-10-27] MEDS ORDERED: URO-JET MUCOUSMEMB STA (15:03)
[2020-10-27 15:51] LABS: BILIRUBIN,URINE Negative (NEGATIVE); CLARITY,URINE Cloudy (CLEAR); COLOR,URINE Yellow (YELLOW); GLUCOSE, URINE (UA) Negative (NEGATIVE); KETONES,URINE Negative (NEGATIVE); LEUKOCYTE ESTERASE ,URINE 3+ (NEGATIVE); NITRITE,URINE Negative (NEGATIVE); PH,URINE 8.5 (5-9); PROTEIN,URINE 2+ (NEGATIVE); URINE, BLOOD 1+ (NEGATIVE); UROBILINOGEN,URINE 0.2 (0.2)
[2020-10-27 15:59] LABS: AMORPHOUS SEDIMENT,UR 1+ (NOT PRESENT); BACTERIA,URINE 1+ (NOT PRESENT); URINE WBC, MICROSCOPIC 30-50 (0-2)
[2020-10-27] MEDS: XARELTO PO SCH (16:43)
[2020-10-27] MEDS: ZYLOPRIM PO SCH (20:52)
[2020-10-27] MEDS: NEURONTIN PO SCH (20:52)
[2020-10-27] MEDS: LIPITOR PO SCH (20:53)
[2020-10-28] MEDS: ATROVENT HFA INHALER (PER PUFF-WITH SPACER) IH SCH ×4 (05:08→23:16)
[2020-10-28] MEDS: VENTOLIN HFA (PER PUFF-WITH SPACER) IH SCH ×4 (05:08→23:16)
[2020-10-28] MEDS: SODIUM CHLORIDE 1,000 ML IV SCH ×3 (05:20→17:30)
[2020-10-28 05:44] LABS: BASOPHILS % (AUTO) 0.3 % (0.0-3.0); HEMATOCRIT 29.2 % (42.0-52.0); HEMOGLOBIN 9.1 g/dl (14.0-18.0); IMMATURE GRANULOCYTE % (AUTO) 0.5 % (0.0-5.0); LYMPHOCYTES # (AUTO) 0.4 K/uL (0.60-3.4); LYMPHOCYTES % (AUTO) 10.6 (10.0-50.0); MEAN CORPUSCULAR HEMOGLOBIN 26.5 pg (27.0-31.0); MEAN CORPUSCULAR HGB CONC 31.2 (31.8-35.4); MEAN CORPUSCULAR VOLUME 85.1 fl (80.0-94.0); MONOCYTES # (AUTO) 0.3 K/uL (0.4-2.0); MONOCYTES % (AUTO) 7.1 (0-10); NEUTROPHILS # (AUTO) 3.2 K/ul (2.0-6.9); NEUTROPHILS % (AUTO) 81.5 % (42.2-75.2); PLATELET COUNT 164 10^3/uL (140-440); RDW COEFFICIENT OF VARIATION 16.4 % (11.6-14.8); RED BLOOD COUNT 3.43 10^6/ul (4.70-6.10); WHITE BLOOD COUNT 3.95 K/ul (4.2-10.2)
[2020-10-28] MEDS: SYNTHROID PO SCH ×2 (05:50→05:51)
[2020-10-28 06:50] LABS: ALANINE AMINOTRANSFERASE 14.6 U/L (0-50); ALBUMIN 3.01 g/dL (3.5-5.0); ASPARTATE AMINO TRANSFERASE 23.7 U/L (17-59); BILIRUBIN,TOTAL 0.34 mg/dL (0.2-1.3); BLOOD UREA NITROGEN 43.1 mg/dL (9-20); CALCIUM 9.12 mg/dL (8.4-10.2); CHLORIDE 110.9 mmol/L (98-107); CREATININE 1.4 mg/dL (0.60-1.10); GLUCOSE 227.8 mg/dL (74-106); POTASSIUM 3.96 mmol/L (3.5-5.1); SODIUM 140.9 mmol/L (134.5-145); TOTAL PROTEIN 6.46 g/dL (6.3-8.2)
[2020-10-28] MEDS: MIRALAX PO SCH (09:02)
[2020-10-28] MEDS: VITAMIN D PO SCH (09:02)
[2020-10-28] MEDS: CALCIUM 500 + VIT D 5 MCG (200 IU) TABLET PO SCH (09:03)
[2020-10-28] MEDS: ZINC-220 PO SCH (09:03)
[2020-10-28] MEDS: PEPCID PO SCH (09:03)
[2020-10-28] MEDS: FERROUS SULFATE PO SCH (09:03)
[2020-10-28] MEDS: COLACE PO SCH (09:04)
[2020-10-28] MEDS: SYMBICORT 160-4.5 MCG INHALER IH SCH ×2 (09:05→20:25)
[2020-10-28] MEDS: SENNA PO SCH ×2 (09:05→20:21)
[2020-10-28] MEDS: FLOMAX PO SCH (09:05)
[2020-10-28] MEDS: REMDESIVIR 100 MG in SODIUM CHLORIDE 230 ML IV SCH (09:09)
[2020-10-28] MEDS: BETHANECHOL CHLORIDE PO SCH ×4 (09:09→20:21)
[2020-10-28] MEDS: DECADRON IVP SCH (09:36)
[2020-10-28] MEDS: ROCEPHIN 1 GM/50 ML D5W 1 GM/50 ML BAG IV SCH (10:21)
[2020-10-28] MEDS: DOXY-100 100 MG in SODIUM CHLORIDE 100 ML IV SCH ×2 (11:05→20:21)
[2020-10-28] MEDS ORDERED: PEPCID PO SCH (17:00)
[2020-10-28] MEDS: XARELTO PO SCH (17:13)
[2020-10-28] MEDS: ZYLOPRIM PO SCH (20:21)
[2020-10-28] MEDS: LIPITOR PO SCH (20:21)
[2020-10-28] MEDS: NEURONTIN PO SCH (20:22)
[2020-10-28] MEDS: HUMULIN R SUBCUT PRN (21:50)
[2020-10-29] MEDS: SODIUM CHLORIDE 1,000 ML IV SCH (01:10)
[2020-10-29] MEDS: VENTOLIN HFA (PER PUFF-WITH SPACER) IH SCH ×4 (04:48→23:03)
[2020-10-29] MEDS: ATROVENT HFA INHALER (PER PUFF-WITH SPACER) IH SCH ×4 (04:48→23:03)
[2020-10-29 05:03] LABS: BASOPHILS % (AUTO) 0.1 % (0.0-3.0); HEMATOCRIT 30.1 % (42.0-52.0); HEMOGLOBIN 9.4 g/dl (14.0-18.0); IMMATURE GRANULOCYTE % (AUTO) 0.3 % (0.0-5.0); LYMPHOCYTES # (AUTO) 0.7 K/uL (0.60-3.4); LYMPHOCYTES % (AUTO) 9.1 (10.0-50.0); MEAN CORPUSCULAR HEMOGLOBIN 26.5 pg (27.0-31.0); MEAN CORPUSCULAR HGB CONC 31.2 (31.8-35.4); MEAN CORPUSCULAR VOLUME 84.8 fl (80.0-94.0); MONOCYTES # (AUTO) 0.5 K/uL (0.4-2.0); MONOCYTES % (AUTO) 6.7 (0-10); NEUTROPHILS % (AUTO) 83.8 % (42.2-75.2); PLATELET COUNT 171 10^3/uL (140-440); RDW COEFFICIENT OF VARIATION 16.4 % (11.6-14.8); RED BLOOD COUNT 3.55 10^6/ul (4.70-6.10); WHITE BLOOD COUNT 7.14 K/ul (4.2-10.2)
[2020-10-29 05:20] LABS: ALBUMIN 2.89 g/dL (3.5-5.0); ALKALINE PHOSPHATASE 123.7 U/L (56-119); ASPARTATE AMINO TRANSFERASE 22.2 U/L (17-59); BILIRUBIN,TOTAL 0.25 mg/dL (0.2-1.3); BLOOD UREA NITROGEN 46.7 mg/dL (9-20); CALCIUM 9.43 mg/dL (8.4-10.2); CARBON DIOXIDE 21.7 mmol/L (22-30.0); CHLORIDE 111.3 mmol/L (98-107); CREATININE 1.37 mg/dL (0.60-1.10); GLUCOSE 96.7 mg/dL (74-106); POTASSIUM 3.9 mmol/L (3.5-5.1); TOTAL PROTEIN 6.39 g/dL (6.3-8.2)
[2020-10-29] MEDS: SYNTHROID PO SCH ×2 (06:23→06:24)
[2020-10-29 06:39] LABS: PROTHROMBIN TIME 16.6 SEC (9.3-11.0)
[2020-10-29] MEDS: MIRALAX PO SCH (08:22)
[2020-10-29] MEDS: ROCEPHIN 1 GM/50 ML D5W 1 GM/50 ML BAG IV SCH (08:22)
[2020-10-29] MEDS: FLOMAX PO SCH (08:23)
[2020-10-29] MEDS: PEPCID PO SCH (08:23)
[2020-10-29] MEDS: BETHANECHOL CHLORIDE PO SCH ×4 (08:23→21:26)
[2020-10-29] MEDS: VITAMIN D PO SCH (08:23)
[2020-10-29] MEDS: SENNA PO SCH ×2 (08:24→21:26)
[2020-10-29] MEDS: ZINC-220 PO SCH (08:24)
[2020-10-29] MEDS: CALCIUM 500 + VIT D 5 MCG (200 IU) TABLET PO SCH (08:24)
[2020-10-29] MEDS: COLACE PO SCH (08:24)
[2020-10-29] MEDS: FERROUS SULFATE PO SCH (08:24)
[2020-10-29] MEDS: SYMBICORT 160-4.5 MCG INHALER IH SCH ×2 (08:25→21:26)
[2020-10-29] MEDS: DOXY-100 100 MG in SODIUM CHLORIDE 100 ML IV SCH ×2 (09:54→21:25)
[2020-10-29] MEDS: DECADRON IVP SCH (11:57)
[2020-10-29] MEDS: REMDESIVIR 100 MG in SODIUM CHLORIDE 230 ML IV SCH (11:57)
[2020-10-29] MEDS: HUMULIN R SUBCUT PRN (16:54)
[2020-10-29] MEDS: XARELTO PO SCH (16:55)
[2020-10-29] MEDS: BACTROBAN TP SCH (21:26)
[2020-10-29] MEDS: LIPITOR PO SCH (21:26)
[2020-10-29] MEDS: NEURONTIN PO SCH (21:26)
[2020-10-29] MEDS: ZYLOPRIM PO SCH (21:26)
[2020-10-30] MEDS: ATROVENT HFA INHALER (PER PUFF-WITH SPACER) IH SCH ×4 (05:00→23:05)
[2020-10-30] MEDS: VENTOLIN HFA (PER PUFF-WITH SPACER) IH SCH ×4 (05:00→23:05)
[2020-10-30] MEDS: SYNTHROID PO SCH ×2 (05:32→05:33)
[2020-10-30 06:14] LABS: BASOPHILS % (AUTO) 0.1 % (0.0-3.0); HEMATOCRIT 32.1 % (42.0-52.0); HEMOGLOBIN 10.2 g/dl (14.0-18.0); IMMATURE GRANULOCYTE # (AUTO) 0.1 (0.0-1.0); IMMATURE GRANULOCYTE % (AUTO) 0.8 % (0.0-5.0); LYMPHOCYTES # (AUTO) 0.7 K/uL (0.60-3.4); LYMPHOCYTES % (AUTO) 5.2 (10.0-50.0); MEAN CORPUSCULAR HEMOGLOBIN 26.5 pg (27.0-31.0); MEAN CORPUSCULAR HGB CONC 31.8 (31.8-35.4); MEAN CORPUSCULAR VOLUME 83.4 fl (80.0-94.0); MONOCYTES # (AUTO) 0.8 K/uL (0.4-2.0); MONOCYTES % (AUTO) 6.2 (0-10); NEUTROPHILS # (AUTO) 11.1 K/ul (2.0-6.9); NEUTROPHILS % (AUTO) 87.7 % (42.2-75.2); PLATELET COUNT 189 10^3/uL (140-440); RDW COEFFICIENT OF VARIATION 16.6 % (11.6-14.8); RED BLOOD COUNT 3.85 10^6/ul (4.70-6.10); WHITE BLOOD COUNT 12.61 K/ul (4.2-10.2)
[2020-10-30 06:24] LABS: ALANINE AMINOTRANSFERASE 18.7 U/L (0-50); ALBUMIN 3.15 g/dL (3.5-5.0); ALKALINE PHOSPHATASE 133.2 U/L (56-119); ASPARTATE AMINO TRANSFERASE 26.7 U/L (17-59); BILIRUBIN,TOTAL 0.33 mg/dL (0.2-1.3); BLOOD UREA NITROGEN 54.7 mg/dL (9-20); CALCIUM 9.62 mg/dL (8.4-10.2); CHLORIDE 112.1 mmol/L (98-107); CREATININE 1.48 mg/dL (0.60-1.10); GLUCOSE 95.8 mg/dL (74-106); POTASSIUM 4.31 mmol/L (3.5-5.1); SODIUM 140.4 mmol/L (134.5-145); TOTAL PROTEIN 6.71 g/dL (6.3-8.2)
[2020-10-30 06:24] LABS: PROTHROMBIN TIME 18.7 SEC (9.3-11.0)
[2020-10-30] MEDS: BACTROBAN TP SCH ×2 (09:29→21:15)
[2020-10-30] MEDS: VITAMIN D PO SCH (09:30)
[2020-10-30] MEDS: SYMBICORT 160-4.5 MCG INHALER IH SCH ×2 (09:30→21:14)
[2020-10-30] MEDS: FERROUS SULFATE PO SCH (09:31)
[2020-10-30] MEDS: FLOMAX PO SCH (09:31)
[2020-10-30] MEDS: CALCIUM 500 + VIT D 5 MCG (200 IU) TABLET PO SCH (09:31)
[2020-10-30] MEDS: ZINC-220 PO SCH (09:31)
[2020-10-30] MEDS: PEPCID PO SCH (09:31)
[2020-10-30] MEDS: COLACE PO SCH (09:32)
[2020-10-30] MEDS: SENNA PO SCH ×2 (09:32→20:57)
[2020-10-30] MEDS: DECADRON IVP SCH (09:32)
[2020-10-30] MEDS: ROCEPHIN 1 GM/50 ML D5W 1 GM/50 ML BAG IV SCH (09:33)
[2020-10-30] MEDS: MIRALAX PO SCH (09:33)
[2020-10-30] MEDS: BETHANECHOL CHLORIDE PO SCH ×4 (09:40→21:55)
--- NOTE | 2020-10-30 09:51 | PCM.PROG ---
Attending Provider: ATTENDING PROVIDER: Dr. HUONG BLAKE This patient is seen with Laura Lira, Nurse Practitioner. DATE OF SERVICE: 10/30/20 SUBJECTIVE: This 85 year old /WHITE M was hospitalized 10/26/20. The patient is alert to person with confusion. BUN and creatinine slightly worse today. Eating well. No fever. REVIEW OF SYSTEMS: CONSTITUTIONAL: No night sweats. No fatigue, malaise, lethargy. No fever or chills. Weakness. HEENT: Eyes: No visual changes. No eye pain. No eye discharge. ENT: No runny nose. No epistaxis. No sinus pain. No odynophagia. No congestion. RESPIRATORY: Cough, no congestion. No hemoptysis. No shortness of breath. CARDIOVASCULAR: No angina symptoms. No CHF symptoms. No atypical chest pain for CAD. No palpitations. No orthopnea.. GASTROINTESTINAL: No abdominal pain. No nausea or vomiting. No diarrhea or constipation. No hematemesis. No hematochezia. GENITOURINARY: No urgency. No frequency. No dysuria. No hematuria. No obstruct bean symptoms. No discharge. No pain. No significant abnormal bleeding. MUSCULOSKELETAL: No musculoskeletal pain; no joint swelling. NEUROLOGICAL: Awake, alert, confusion. No headache. No neck pain. No syncope. No seizures. No dizziness. PSYCHIATRIC: Not anxious. No depression. No suicidal thoughts. No homicidal thoughts. SKIN: No rash. No lesions. No wounds. ENDOCRINE: No unexplained weight loss. No weight gain. HEMATOLOGIC/LYMPHATIC: No anemia. No purpura. No petechiae. No prolonged or excessive bleeding. No palpable lymph nodes. PHYSICAL EXAMINATION: GENERAL: The patient is awake, alert and oriented to person, lying in bed in no distress. VITAL SIGNS: Temperature 97 F, Pulse 85, Respiratory Rate 22, BP 150/84, Pulse Ox 94% HEENT: Head normocephalic, atraumatic. Eyes: Extraocular muscles are intact. Pupils are equal, round and reactive to light and accommodation. Ears: No lesions. Nose appeared normal. Throat: No exudate or erythema. NECK: Supple. No JVD, no carotid bruit. No lymphadenopathy or thyromegaly. LUNGS: Diminished breath sounds. Clear to auscultation. Percussion note normal. Chest symmetrical. HEART: S1, S2, no S3. No murmurs. No cyanosis or clubbing. No ascites. Pulses: Dorsalis pedis and posterior tibial pulses +1 to +2 both sides. ABDOMEN: Soft. Non-tender. Bowel sounds active. No CVA tenderness. No mass felt. EXTREMITIES: No edema. Full range of motion of all extremities, equal. NEUROLOGIC: No focal deficit. Cranial nerves II through XII are grossly intact. No headache, no double vision or headache. SKIN: Not dry. Intact. Turgor-normal. LYMPHATIC: No palpable lymph nodes/no lymphedema. MUSCULOSKELETAL: Normal joints with no swelling. Muscle tone is normal. LAB REVIEW: 10/30/20 06:07 10/30/20 06:07 10/30/20 06:07: Sodium 140.4, Potassium 4.31, Chloride 112.1 H, Carbon Dioxide 20.0 L, Anion Gap 12.61, BUN 54.7 H, Creatinine 1.48 H, Estimated GFR (MDRD) 45.00, BUN/Creatinine Ratio 36.95, Glucose 95.8, Calcium 9.62, Total Bilirubin 0.33, AST 26.7, ALT 18.7, Alkaline Phosphatase 133.2 H, Total Protein 6.71, Albumin 3.15 L, Globulin 3.56, Albumin/Globulin Ratio 0.88 10/30/20 06:07: WBC 12.61 H D, RBC 3.85 L, Hgb 10.2 L, Hct 32.1 L, MCV 83.4, MCH 26.5 L, MCHC 31.8, RDW Coeff of Sandra 16.6 H, Plt Count 189, Immature Gran % (Auto) 0.8, Neut % (Auto) 87.7 H, Lymph % (Auto) 5.2 L, [place] % (Auto) 6.2, Eos % (Auto) 0.0, Baso % (Auto) 0.1, Neut # (Auto) 11.1 H, Lymph # (Auto) 0.7, [place] # (Auto) 0.8, Eos # (Auto) 0.0, Baso # (Auto) 0.0, Immature Gran # (Auto) 0.1 10/30/20 05:19: PT 18.7 H, INR 1.99 ASSESSMENT: Please see below. 1. COVID 19 2. Bilateral pneumonia 3. Acute on chronic renal failure 4. Chronic anemia 5. Peripheral vascular disease 6. Atrial fibrillation 7. UTI, positive proteus. PLAN: 1. Increase normal saline to 75cc an hour. Plan and coordination of the patient's care discussed in the presence of Case Amilcar calvin and nurse. SCRIBED BY: Cami MERINOist scribed while in presence of service performed by Dr. Blake/Laura Lira APRN on 10/30/20 ([id number])
[2020-10-30] MEDS: REMDESIVIR 100 MG in SODIUM CHLORIDE 230 ML IV SCH (10:42)
--- NOTE | 2020-10-30 11:36 | PN ---
DATE OF SERVICE: 10/26/20 - ADMIT NOTE SUBJECTIVE: 85-year-old white male hospitalized with Covid-19 pneumonia. The patient has hypoxemia with pneumonia. The patient is going to be in the hospital with Remdesivir to be given, steroids, IV fluids, monitor CBC, CMP, telemetry. His condition is stable. He is DNR. The patient turned Covid positive on 10/23/20. It was three days prior to hospitalization. TIME SPENT: More than 30 minutes. Plan and coordination of the patient's care discussed in the presence of nurse. ANANT
--- NOTE | 2020-10-30 11:39 | PN ---
DATE OF SERVICE: 10/27/20 SUBJECTIVE: This 85-year-old male was seen and examined with the nurse practitioner. The patient's condition is stabilizing. His overall cardiovascular status is stable. His creatinine is 1.5, BUN 40. His appetite has improved. His hydration status has improved. The patient is continued on steroids and Remdesivir along with other medications. Saturation on 2L is 100%. TIME SPENT: More than 30 minutes. Plan and coordination of the patient's care discussed in the presence of nurse. ANANT
--- NOTE | 2020-10-30 11:48 | PN ---
DATE OF SERVICE: 10/29/2020 SUBJECTIVE: 85 year old white male hospitalized with COVID 19 pneumonia and respiratory failure. The patient's condition seems to have improved and his appetite seems to be improving. He eats every other meal. REVIEW OF SYSTEMS: CONSTITUTIONAL: No night sweats. No fatigue, malaise, lethargy. No fever or chills. HEENT: Eyes: No visual changes. No eye pain. No eye discharge. ENT: No runny nose. No epistaxis. No sinus pain. No sore throat. No odynophagia. No congestion. RESPIRATORY: No cough, no congestion. No hemoptysis. No shortness of breath. CARDIOVASCULAR: No angina symptoms. No CHF symptoms. No atypical chest pain for CAD. No palpitations. No PND. No orthopnea. GASTROINTESTINAL: No abdominal pain. No nausea or vomiting. No diarrhea or constipation. No hematemesis. No hematochezia. GENITOURINARY: No urgency. No frequency. No dysuria. No hematuria. No obstructive symptoms. No discharge. No pain. No significant abnormal bleeding. MUSCULOSKELETAL: No musculoskeletal pain; no joint swelling. NEUROLOGICAL: No headache. No neck pain. No syncope. No seizures. No dizziness. PSYCHIATRIC: Not anxious. No depression. No suicidal thoughts. No homicidal thoughts. SKIN: No rash. No lesions. No wounds. ENDOCRINE: No unexplained weight loss. No weight gain. HEMATOLOGIC/LYMPHATIC: No anemia. No purpura. No petechiae. No prolonged or excessive bleeding. No palpable lymph nodes. PHYSICAL EXAMINATION: VITAL SIGNS: Temperature 97, pulse 90, respiratory rate 14, blood pressure 120/80 and pulse ox 98%. HEENT: Head normocephalic, atraumatic. Eyes: Extraocular muscles are intact. Pupils are equal, round and reactive to light and accommodation. Ears: No lesions. Nose appeared normal. Throat: No exudate or erythema. NECK: Supple. No JVD, no carotid bruit. No lymphadenopathy or thyromegaly. LUNGS:Decreased breath sounds but clear to auscultation. Percussion note normal. Chest symmetrical. HEART: S1, S2, no S3. No murmurs. No cyanosis or clubbing. No ascites. Pulses: Dorsalis pedis and posterior tibial pulses +1 to +2 bilaterally. ABDOMEN: Soft. Nontender. Bowel sounds active. No CVA tenderness. No mass felt. EXTREMITIES: No edema. Full range of motion of all extremities, equal. NEUROLOGIC: No focal deficit. Cranial nerves II through XII are grossly intact. No headache, no double vision or headache. SKIN: Not dry. Intact. Turgor - normal. LYMPHATIC: No palpable lymph nodes/no lymphedema. MUSCULOSKELETAL: Normal joints with no swelling. Muscle tone is normal. LABS: Hgb 9.4, hct 30, WBC 7000 normal differential, creatinine 1.3, BUN 46, potassium 3.9. ASSESSMENT: 1. Pneumonia with respiratory failure with COVID 19 infection 2. Mild dementia 3. Dyslipidemia 4. Gout arthritis 5. Reflux disease 6. Chronic anemia 7. Neuropathy PLAN: 1. Continue Ceftriaxone, Doxycycline 2. Continue insulin 3. Levothyroxine 4. Tamsulosin 5. Zinc TIME SPENT: More than 30 minutes. Plan and coordination of the patient's care discussed in the presence of nurse. ANANT
--- NOTE | 2020-10-30 11:54 | PN ---
DATE OF SERVICE: 10/28/20 SUBJECTIVE: The patient is doing well. He is alert. His appetite has improved. He had 100% breakfast today, 100 cc IV fluid per hour. Will decrease it to 50 cc and discontinue after the present IV bag is over. Overall status has improved. REVIEW OF SYSTEMS: CONSTITUTIONAL: No night sweats. No fatigue, malaise, lethargy. No fever or chills. HEENT: Eyes: No visual changes. No eye pain. No eye discharge. ENT: No runny nose. No epistaxis. No sinus pain. No sore throat. No odynophagia. No congestion. RESPIRATORY: No cough, no congestion. No hemoptysis. No shortness of breath. CARDIOVASCULAR: No angina symptoms. No CHF symptoms. No atypical chest pain for CAD. No palpitations. No PND. No orthopnea. GASTROINTESTINAL: Appetite has improved. No abdominal pain. No nausea or vomiting. No diarrhea or constipation. No hematemesis. No hematochezia. GENITOURINARY: No urgency. No frequency. No dysuria. No hematuria. No obstructive symptoms. No discharge. No pain. No significant abnormal bleeding. MUSCULOSKELETAL: No musculoskeletal pain; no joint swelling. NEUROLOGICAL: No headache. No neck pain. No syncope. No seizures. No dizziness. PSYCHIATRIC: Not anxious. No depression. No suicidal thoughts. No homicidal thoughts. SKIN: No rash. No lesions. No wounds. ENDOCRINE: No unexplained weight loss. No weight gain. HEMATOLOGIC/LYMPHATIC: No anemia. No purpura. No petechiae. No prolonged or excessive bleeding. No palpable lymph nodes. PHYSICAL EXAMINATION: VITAL SIGNS: Temperature 97.5, pulse 90, respiratory rate 28, blood pressure 120/70, pulse ox 100% on 2L. HEENT: Head normocephalic, atraumatic. Eyes: Extraocular muscles are intact. Pupils are equal, round and reactive to light and accommodation. Ears: No lesions. Nose appeared normal. Throat: No exudate or erythema. NECK: Supple. No JVD, no carotid bruit. No lymphadenopathy or thyromegaly. LUNGS: Decreased breath sounds but clear to auscultation. Percussion note normal. Chest symmetrical. HEART: S1, S2, no S3. No murmurs. No cyanosis or clubbing. No ascites. Pulses: Dorsalis pedis and posterior tibial pulses +1 to +2 bilaterally. ABDOMEN: Soft. Nontender. Bowel sounds active. No CVA tenderness. No mass felt. EXTREMITIES: No edema. Full range of motion of all extremities, equal. NEUROLOGIC: No focal deficit. Cranial nerves II through XII are grossly intact. No headache, no double vision or headache. SKIN: Not dry. Intact. Turgor - normal. LYMPHATIC: No palpable lymph nodes/no lymphedema. MUSCULOSKELETAL: Normal joints with no swelling. Muscle tone is normal. LABS: Hemoglobin 9.1, hematocrit 29, WBC 3,900, normal differential. Creatinine 1.5, BUN 40, potassium 4.4. ASSESSMENT: 1. Covid-19 pneumonia. 2. Chronic anemia. 3. Kidney disease. 4. Polyarthritis. 5. Dyslipidemia. 6. Anemia chronic. PLAN: 1. Continue Remdesivir, Dexamethasone, Rocephin, Doxycycline. 2. IV fluids to be decreased to 50 cc/hr and d/c after the present bag is over. CONDITION: Improving. TIME SPENT: More than 30 minutes. Plan and coordination of the patient's care discussed in the presence of nurse. ANANT
[2020-10-30] MEDS: DOXY-100 100 MG in SODIUM CHLORIDE 100 ML IV SCH ×2 (12:17→21:42)
[2020-10-30] MEDS: HUMULIN R SUBCUT PRN ×3 (14:16→20:57)
[2020-10-30] MEDS: SODIUM CHLORIDE 1,000 ML IV SCH (14:37)
[2020-10-30] MEDS: XARELTO PO SCH (17:18)
[2020-10-30] MEDS: NEURONTIN PO SCH (20:56)
[2020-10-30] MEDS: LIPITOR PO SCH (20:57)
[2020-10-30] MEDS: ZYLOPRIM PO SCH (20:57)
[2020-10-31] MEDS: VENTOLIN HFA (PER PUFF-WITH SPACER) IH SCH ×4 (04:23→23:05)
[2020-10-31] MEDS: ATROVENT HFA INHALER (PER PUFF-WITH SPACER) IH SCH ×4 (04:23→23:05)
[2020-10-31] MEDS: SODIUM CHLORIDE 1,000 ML IV SCH ×2 (05:14→19:47)
[2020-10-31] MEDS: SYNTHROID PO SCH ×2 (05:33)
[2020-10-31 05:45] LABS: BASOPHILS % (AUTO) 0.1 % (0.0-3.0); HEMATOCRIT 32.2 % (42.0-52.0); HEMOGLOBIN 10.3 g/dl (14.0-18.0); IMMATURE GRANULOCYTE # (AUTO) 0.2 (0.0-1.0); IMMATURE GRANULOCYTE % (AUTO) 1.2 % (0.0-5.0); LYMPHOCYTES # (AUTO) 0.7 K/uL (0.60-3.4); LYMPHOCYTES % (AUTO) 4.9 (10.0-50.0); MEAN CORPUSCULAR HEMOGLOBIN 26.7 pg (27.0-31.0); MEAN CORPUSCULAR VOLUME 83.4 fl (80.0-94.0); MONOCYTES % (AUTO) 6.6 (0-10); NEUTROPHILS # (AUTO) 12.7 K/ul (2.0-6.9); NEUTROPHILS % (AUTO) 87.2 % (42.2-75.2); PLATELET COUNT 160 10^3/uL (140-440); RDW COEFFICIENT OF VARIATION 16.9 % (11.6-14.8); RED BLOOD COUNT 3.86 10^6/ul (4.70-6.10)
[2020-10-31 05:57] LABS: ALBUMIN 3.08 g/dL (3.5-5.0); ALKALINE PHOSPHATASE 138.7 U/L (56-119); ASPARTATE AMINO TRANSFERASE 54.9 U/L (17-59); BILIRUBIN,TOTAL 0.37 mg/dL (0.2-1.3); BLOOD UREA NITROGEN 53.8 mg/dL (9-20); CALCIUM 9.64 mg/dL (8.4-10.2); CHLORIDE 113.7 mmol/L (98-107); CREATININE 1.49 mg/dL (0.60-1.10); GLUCOSE 79.3 mg/dL (74-106); POTASSIUM 3.8 mmol/L (3.5-5.1); SODIUM 141.7 mmol/L (134.5-145); TOTAL PROTEIN 6.57 g/dL (6.3-8.2)
[2020-10-31 05:58] LABS: PROTHROMBIN TIME 22.3 SEC (9.3-11.0)
--- NOTE | 2020-10-31 08:48 | HP ---
DATE OF SERVICE: 10/26/20 HISTORY OF PRESENT ILLNESS: This is an 85-year-old white male who is a resident of [place]. He was positive I do believe on 10/25 for Covid, was asymptomatic at first and developed shortness of breath, cough and worsening lung sounds. His brother is his POA and wishes for him to be sent out; however, he is a DNR. PAST MEDICAL HISTORY: History of pneumonia CHF Atrial fibrillation Chronic kidney disease, Stage 3 Recurrent UTI Severe PAD, had angioplasty Hypertension Coronary artery disease Dementia Diabetes mellitus Type 2 Hypothyroidism Chronic anemia Dyslipidemia History of TIA Polyneuropathy Spinal stenosis Melanoma right shoulder Mild aortic stenosis, ejection fraction 43% PAST SURGICAL HISTORY: Melanoma removed right shoulder Angioplasty left leg on 06/19 Last echo was 06/[address] Blake Total right hip replacement REVIEW OF SYSTEMS: CONSTITUTIONAL: Positive for weakness, fever. No night sweats. No fatigue, malaise, lethargy. No chills. HEENT: Eyes: No visual changes. No eye pain. No eye discharge. ENT: No runny nose. No epistaxis. No sinus pain. No sore throat. No odynophagia. No ear pain. No congestion. RESPIRATORY: Positive for cough. No hemoptysis. Positive for shortness of breath. CARDIOVASCULAR: No angina symptoms. No CHF symptoms. No atypical chest pain for CAD. No palpitations. No PND. No orthopnea. GASTROINTESTINAL: No abdominal pain. No nausea or vomiting. No diarrhea or constipation. No hematemesis. No hematochezia. GENITOURINARY: No urgency. No frequency. No dysuria. No hematuria. No obstructive symptoms. No discharge. No pain. No significant abnormal bleeding. MUSCULOSKELETAL: No musculoskeletal pain. No joint swelling. No arthritis. NEUROLOGICAL: No headache. No neck pain. No syncope. No seizures. No dizziness. PSYCHIATRIC: Not anxious. No depression. No suicidal thoughts. No homicidal thoughts. SKIN: No rash. No lesions. No wounds. ENDOCRINE: No unexplained weight loss. No weight gain. HEMATOLOGIC/LYMPHATIC: No anemia. No purpura. No petechiae. No prolonged or excessive bleeding. No palpable lymph nodes. PERSONAL/FAMILY/SOCIAL HISTORY: He is , lives at [place], nonsmoker. No alcohol or ilicit drug use. MEDICATIONS: (HOME) Tamsulosin 0.4 mg p.o. daily Sennosides-Docusate Sodium one tab p.o. b.i.d. Polyethylene Glycol 17 gm p.o. daily Multivitamin one cap p.o. daily Hydrocodone-Acetaminophen 5-325 mg p.o. bedtime Gabapentin 300 mg p.o. bedtime Ferrous Sulfate 325 mg p.o. daily Levothyroxine 100 mcg p.o. q.d. a.c. Acetaminophen 650 mg p.o. q.4h p.r.n. Allopurinol 100 mg p.o. bedtime Calcium Carbonate-Vitamin D3 500 mg one each p.o. daily Simvastatin 40 mg p.o. bedtime Bethanechol Chloride 25 mg p.o. q.i.d. Menthol-zinc oxide one application topical p.r.n. Nitroglycerin 0.4 mg sublingual q5-15M p.r.n. Bisacodyl 5 mg p.o. once Rivaroxaban 15 mg p.o. q.p.m. Doxycycline 100 mg p.o. b.i.d. Zinc Sulfate 220 mg p.o. daily Pantoprazole 40 mg p.o. daily Loperamide 2 mg p.o. q.6h p.r.n. ALLERGIES: NKDA PHYSICAL EXAMINATION: GENERAL: Alert, not oriented. VITAL SIGNS: Temperature 98.1, heart rate 89, respirations 20, blood pressure 109/59, 02 sat 94 on 2L. HEENT: Head normocephalic, atraumatic. Eyes: Extraocular muscles are intact. Pupils are equal, round and reactive to light and accommodation. Ears: No lesions. Nose appeared normal. Throat: No exudate or erythema. NECK: Supple. No JVD, no carotid bruit. No lymphadenopathy or thyromegaly. LUNGS: Diminished breath sounds bilaterally. Bilateral rhonchi. Percussion note normal. Chest symmetrical. HEART: S1, S2, no S3. No murmur. No cyanosis or clubbing. No ascites. Pulses: Dorsalis pedis and posterior tibial pulses +1 to +2 bilaterally. ABDOMEN: Soft. Nontender. Bowel sounds active. No CVA tenderness. No mass felt. EXTREMITIES: Trace leg edema. Full range of motion of all extremities, equal. NEUROLOGIC: No focal deficit. Cranial nerves II through XII are grossly intact. No headache, no double vision or headache. SKIN: Not dry. Intact. Turgor - normal. LYMPHATIC: No palpable lymph nodes/no lymphedema. MUSCULOSKELETAL: Normal joints with no swelling. Muscle tone is normal. LABS/IMAGING/ABG'S: White count 7.9, hemoglobin 9.0, hematocrit 28.1, platelets 93. Sodium 141, potassium 4.0, BUN 39, creatinine 1.55, glucose 168. ABG on room air - pH 7.48, pc02 31, p02 56, base excess -0.4, bicarb 23.1, TC02 24.1, 02 sat 89. Chest x- ray shows bibasilar pneumonia, interstitial opacities noted throughout the remaining right lung. Lactic acid 1.15. AST 19, ALT 12, alkaline phosphatase 120, rapid flu A and B negative. Again, he was previously Covid positive at the sn[facility] on the . ASSESSMENT: 1. COVID-19. 2. BILATERAL PNEUMONIA. 3. SHORTNESS OF BREATH. 4. GENERALIZED WEAKNESS. 5. ACUTE RESPIRATORY FAILURE. 6. ACUTE RENAL FAILURE. 7. CHRONIC ANEMIA. 8. UNDERLYING CHRONIC KIDNEY DISEASE, STAGE 3. 9. HISTORY OF UTI. PLAN: 1. We will admit. 2. Routine telemetry orders. 3. The patient is to go into the Covid Unit and quarantine. 4. Start Rocephin 1 gm IV daily. 5. Doxycycline 100 mg IV q.12hr. 6. Start Remdesivir per guidelines. 7. Normal Saline at 75 cc/hr. 8. Continue all home medications, which would include: Vitamin D 5000 daily, Zinc 220 daily and Pepcid 20 mg b.i.d. The patient is to be on Decadron 6 mg IM daily, Albuterol inhaler two puffs t.i.d., Symbicort inhaler 160 two puffs b.i.d. 9. Daily CBC and CMP. 10. Oxygen at 2 to 3L via nasal cannula. 11. Will follow closely. TIME SPENT: More than 70 minutes. MTDD
[2020-10-31] MEDS: DOXY-100 100 MG in SODIUM CHLORIDE 100 ML IV SCH ×2 (09:32→21:06)
[2020-10-31] MEDS: DECADRON IVP SCH (09:36)
[2020-10-31] MEDS: NORCO 5-325 PO SCH ×2 (09:38→21:07)
[2020-10-31] MEDS: PEPCID PO SCH (09:38)
[2020-10-31] MEDS: ATIVAN PO PRN ×2 (09:39→23:49)
[2020-10-31] MEDS: VITAMIN D PO SCH (09:39)
[2020-10-31] MEDS: ZINC-220 PO SCH (09:39)
[2020-10-31] MEDS: CALCIUM 500 + VIT D 5 MCG (200 IU) TABLET PO SCH (09:39)
[2020-10-31] MEDS: FERROUS SULFATE PO SCH (09:39)
[2020-10-31] MEDS: FLOMAX PO SCH (09:39)
[2020-10-31] MEDS: SENNA PO SCH ×2 (09:40→21:07)
--- NOTE | 2020-10-31 09:42 | PCM.PROG ---
Attending Provider: ATTENDING PROVIDER: Dr. HUONG COWAN This patient is seen with Laura Lira, Nurse Practitioner. DATE OF SERVICE: 10/31/20 SUBJECTIVE: This 85 year old /WHITE M was hospitalized 10/26/20. The patient is agitated pulling out IV. He is chewing on tubing. He is confused and has been eating some. Congested cough and no fever. REVIEW OF SYSTEMS: CONSTITUTIONAL: No night sweats. No fatigue, malaise, lethargy. No fever or chills. HEENT: Eyes: No visual changes. No eye pain. No eye discharge. ENT: No runny nose. No epistaxis. No sinus pain. No odynophagia. No congestion. RESPIRATORY: Cough, no congestion. No hemoptysis. Shortness of breath. CARDIOVASCULAR: No angina symptoms. No CHF symptoms. No atypical chest pain for CAD. No palpitations. No orthopnea.. GASTROINTESTINAL: No abdominal pain. No nausea or vomiting. No diarrhea or constipation. No hematemesis. No hematochezia. Decreased in appetite. GENITOURINARY: No urgency. No frequency. No dysuria. No hematuria. No obstructive symptoms. No discharge. No pain. No significant abnormal bleeding. MUSCULOSKELETAL: No musculoskeletal pain; no joint swelling. NEUROLOGICAL: Awake, alert, confused. No headache. No neck pain. No syncope. No seizures. No dizziness. Agitated. PSYCHIATRIC: Not anxious. No depression. No suicidal thoughts. No homicidal thoughts. SKIN: No rash. No lesions. No wounds. ENDOCRINE: No unexplained weight loss. No weight gain. HEMATOLOGIC/LYMPHATIC: No anemia. No purpura. No petechiae. No prolonged or excessive bleeding. No palpable lymph nodes. PHYSICAL EXAMINATION: GENERAL: The patient is awake, alert and not oriented, lying in bed in no distress. VITAL SIGNS: Temperature 97.6 F, Pulse 83, Respiratory Rate 22, BP 133/84, Puls e Ox 95% HEENT: Head normocephalic, atraumatic. Eyes: Extraocular muscles are intact. Pupils are equal, round and reactive to light and accommodation. Ears: No lesions. Nose appeared normal. Throat: No exudate or erythema. NECK: Supple. No JVD, no carotid bruit. No lymphadenopathy or thyromegaly. LUNGS: Diminished breath sounds. Clear to auscultation. Percussion note normal. Chest symmetrical. HEART: S1, S2, no S3. No murmurs. No cyanosis or clubbing. No ascites. Pulses: Dorsalis pedis and posterior tibial pulses +1 to +2 both sides. ABDOMEN: Soft. Non-tender. Bowel sounds active. No CVA tenderness. No mass felt. EXTREMITIES: No edema. Full range of motion of all extremities, equal. NEUROLOGIC: No focal deficit. Cranial nerves II through XII are grossly intact. No headache, no double vision or headache. SKIN: Not dry. Intact. Pallor. Cachectic. LYMPHATIC: No palpable lymph nodes/no lymphedema. MUSCULOSKELETAL: Normal joints with no swelling. Muscle tone is normal. LAB REVIEW: 10/31/20 05:20 10/31/20 05:20 10/31/20 05:20: PT 22.3 H, INR 2.40 10/31/20 05:20: Sodium 141.7, Potassium 3.80, Chloride 113.7 H, Carbon Dioxide 19.0 L, Anion Gap 12.80, BUN 53.8 H, Creatinine 1.49 H, Estimated GFR (MDRD) 45.00, BUN/Creatinine Ratio 36.10, Glucose 79.3, Calcium 9.64, Total Bilirubin 0.37, AST 54.9 D, ALT 25.0, Alkaline Phosphatase 138.7 H, Total Protein 6.57, A lbumin 3.08 L, Globulin 3.49, Albumin/Globulin Ratio 0.88 10/31/20 05:20: WBC 14.60 H, RBC 3.86 L, Hgb 10.3 L, Hct 32.2 L, MCV 83.4, MCH 26.7 L, MCHC 32.0, RDW Coeff of Sandra 16.9 H, Plt Count 160, Immature Gran % (Auto) 1.2, Neut % (Auto) 87.2 H, Lymph % (Auto) 4.9 L, [place] % (Auto) 6.6, Eos % (Auto) 0.0, Baso % (Auto) 0.1, Neut # (Auto) 12.7 H, Lymph # (Auto) 0.7, [place] # (Auto) 1.0, Eos # (Auto) 0.0, Baso # (Auto) 0.0, Immature Gran # (Auto) 0.2 ASSESSMENT: Please see below. 1. Acute renal failure 2. Bilateral pneumonia 3. COVID 19 4. Chronic anemia 5. General weakness 6. Weight loss 7. Dementia PLAN: 1. [place] 5mg BID 2. Ativan 1mg PO BID 3. Continue Rocephin and doxycycline 4. Increase fluids to 100 Plan and coordination of the patient's care discussed in the presence of Route Delivery Driver and nurse. SCRIBED BY: WARREN ROMAN Environmental Science Technician scribed while in presence of service performed by Dr. Cowan/Laura Lira APRN on 10/31/20 ([id number])
[2020-10-31] MEDS: BACTROBAN TP SCH ×2 (10:05→21:25)
[2020-10-31] MEDS: SYMBICORT 160-4.5 MCG INHALER IH SCH ×2 (10:05→21:25)
[2020-10-31] MEDS: ROCEPHIN 1 GM/50 ML D5W 1 GM/50 ML BAG IV SCH (10:33)
[2020-10-31] MEDS: BETHANECHOL CHLORIDE PO SCH ×5 (10:34→21:33)
[2020-10-31] MEDS: MIRALAX PO SCH (10:39)
--- NOTE | 2020-10-31 10:40 | PN ---
DATE OF SERVICE: 10/30/2020 SUBJECTIVE: The patient was seen and examined with the Nurse Practitioner. The patient has COVID 19 pneumonia which seems to be improving. Oxygen saturation is improved. His appetite has improved. CONDITION: Stable. TIME SPENT: More than 30 minutes. Plan and coordination of the patient's care discussed in the presence of nurse. ANANT
--- NOTE | 2020-10-31 11:18 | PN ---
DATE OF SERVICE: 10/27/20 SUBJECTIVE: The patient is examined this morning. He is alert. He is still somewhat short of breath. He was admitted last night through the emergency room. Chest x-ray shows bilateral pneumonia. He was positive for Covid two days ago, was asymptomatic until last night when he developed shortness of breath and fever. This morning vital signs appear stable. He is on 2L. Kidney function is elevated. REVIEW OF SYSTEMS: CONSTITUTIONAL: Positive for weakness, fever. No night sweats. No fatigue, malaise, lethargy. No chills. HEENT: Eyes: No visual changes. No eye pain. No eye discharge. ENT: No runny nose. No epistaxis. No sinus pain. No sore throat. No odynophagia. No congestion. RESPIRATORY: Positive for cough and shortness of breath. No hemoptysis. CARDIOVASCULAR: No angina symptoms. No CHF symptoms. No atypical chest pain for CAD. No palpitations. No PND. No orthopnea. GASTROINTESTINAL: No abdominal pain. No nausea or vomiting. No diarrhea or constipation. No hematemesis. No hematochezia. GENITOURINARY: No urgency. No frequency. No dysuria. No hematuria. No obstructive symptoms. No discharge. No pain. No significant abnormal bleeding. MUSCULOSKELETAL: No musculoskeletal pain; no joint swelling. NEUROLOGICAL: No headache. No neck pain. No syncope. No seizures. No dizziness. PSYCHIATRIC: Not anxious. No depression. No suicidal thoughts. No homicidal thoughts. SKIN: No rash. No lesions. No wounds. ENDOCRINE: No unexplained weight loss. No weight gain. HEMATOLOGIC/LYMPHATIC: No anemia. No purpura. No petechiae. No prolonged or excessive bleeding. No palpable lymph nodes. PHYSICAL EXAMINATION: VITAL SIGNS: Temperature 98.7, heart rate 94, respirations 30, blood pressure 112/74. Pulse ox 100% on 3L. HEENT: Head normocephalic, atraumatic. Eyes: Extraocular muscles are intact. Pupils are equal, round and reactive to light and accommodation. Ears: No lesions. Nose appeared normal. Throat: No exudate or erythema. NECK: Supple. No JVD, no carotid bruit. No lymphadenopathy or thyromegaly. LUNGS: Clear to auscultation. Percussion note normal. Chest symmetrical. HEART: Irregular heart rate consistent with atrial fibrillation. S1, S2, no S3. No murmurs. No cyanosis or clubbing. No ascites. Pulses: Dorsalis pedis and posterior tibial pulses +1 to +2 bilaterally. ABDOMEN: Soft. Nontender. Bowel sounds active. No CVA tenderness. No mass felt. EXTREMITIES: No edema. Full range of motion of all extremities, equal. NEUROLOGIC: No focal deficit. Cranial nerves II through XII are grossly intact. No headache, no double vision or headache. SKIN: Not dry. Intact. Turgor - normal. LYMPHATIC: No palpable lymph nodes/no lymphedema. MUSCULOSKELETAL: Normal joints with no swelling. Muscle tone is normal. ASSESSMENT: 1. COVID POSITIVE. 2. BILATERAL PNEUMONIA. 3. SHORTNESS OF BREATH. 4. ACUTE RESPIRATORY FAILURE. 5. DEHYDRATION. PLAN: 1. Start IV fluids. 2. Normal Saline at 75 cc/hr. 3. Continue IV Rocephin and Doxycycline. 4. Remdesivir is to be started today as the first dose was not given last night in ER. 5. Will follow closely. TIME SPENT: More than 30 minutes. Plan and coordination of the patient's care discussed in the presence of nurse. ANANT
[2020-10-31] MEDS: REMDESIVIR 100 MG in SODIUM CHLORIDE 230 ML IV SCH (12:24)
[2020-10-31] MEDS: COLACE PO SCH (15:32)
[2020-10-31] MEDS: XARELTO PO SCH (18:02)
[2020-10-31] MEDS: HUMULIN R SUBCUT PRN ×2 (18:07→21:14)
[2020-10-31] MEDS: LIPITOR PO SCH (21:07)
[2020-10-31] MEDS: NEURONTIN PO SCH ×2 (21:07→21:34)
[2020-10-31] MEDS: ZYLOPRIM PO SCH (21:07)
[2020-11-01] MEDS: SODIUM CHLORIDE 1,000 ML IV SCH ×2 (01:34→08:29)
[2020-11-01] MEDS: ATROVENT HFA INHALER (PER PUFF-WITH SPACER) IH SCH ×4 (04:35→23:14)
[2020-11-01] MEDS: VENTOLIN HFA (PER PUFF-WITH SPACER) IH SCH ×4 (04:35→23:14)
[2020-11-01 05:26] LABS: HEMATOCRIT 30.5 % (42.0-52.0); HEMOGLOBIN 9.6 g/dl (14.0-18.0); MEAN CORPUSCULAR HEMOGLOBIN 26.5 pg (27.0-31.0); MEAN CORPUSCULAR HGB CONC 31.5 (31.8-35.4); MEAN CORPUSCULAR VOLUME 84.3 fl (80.0-94.0); PLATELET COUNT 117 10^3/uL (140-440); RDW COEFFICIENT OF VARIATION 17.1 % (11.6-14.8); RED BLOOD COUNT 3.62 10^6/ul (4.70-6.10); WHITE BLOOD COUNT 16.33 K/ul (4.2-10.2)
[2020-11-01 05:41] LABS: ALANINE AMINOTRANSFERASE 46.9 U/L (0-50); ALBUMIN 2.7 g/dL (3.5-5.0); ALKALINE PHOSPHATASE 127.4 U/L (56-119); ASPARTATE AMINO TRANSFERASE 93.2 U/L (17-59); BILIRUBIN,TOTAL 0.38 mg/dL (0.2-1.3); BLOOD UREA NITROGEN 57.1 mg/dL (9-20); CALCIUM 9.25 mg/dL (8.4-10.2); CARBON DIOXIDE 17.7 mmol/L (22-30.0); CHLORIDE 118.2 mmol/L (98-107); CREATININE 1.63 mg/dL (0.60-1.10); GLUCOSE 115.6 mg/dL (74-106); POTASSIUM 3.82 mmol/L (3.5-5.1); SODIUM 143.6 mmol/L (134.5-145); TOTAL PROTEIN 5.91 g/dL (6.3-8.2)
[2020-11-01] MEDS: SYNTHROID PO SCH ×2 (05:44)
[2020-11-01 05:45] LABS: ANISOCYTOSIS NOT PRESENT (NOT PRESENT)
[2020-11-01] MEDS: ROCEPHIN 1 GM/50 ML D5W 1 GM/50 ML BAG IV SCH (08:42)
[2020-11-01] MEDS: BACTROBAN TP SCH (09:10)
[2020-11-01] MEDS: DECADRON IVP SCH (09:15)
[2020-11-01] MEDS: DOXY-100 100 MG in SODIUM CHLORIDE 100 ML IV SCH ×2 (09:46→21:20)
[2020-11-01] MEDS ORDERED: LASIX IVP STA (12:01)
[2020-11-01] MEDS: CALCIUM 500 + VIT D 5 MCG (200 IU) TABLET PO SCH (12:07)
[2020-11-01] MEDS: BETHANECHOL CHLORIDE PO SCH ×4 (12:07→22:59)
[2020-11-01] MEDS: COLACE PO SCH (12:07)
[2020-11-01] MEDS: FLOMAX PO SCH (12:08)
[2020-11-01] MEDS: FERROUS SULFATE PO SCH (12:08)
[2020-11-01] MEDS: MIRALAX PO SCH (12:09)
[2020-11-01] MEDS: PEPCID PO SCH (12:09)
[2020-11-01] MEDS: NORCO 5-325 PO SCH ×2 (12:09→23:00)
[2020-11-01] MEDS: SENNA PO SCH ×2 (12:10→23:00)
[2020-11-01] MEDS: SYMBICORT 160-4.5 MCG INHALER IH SCH ×2 (12:10→23:01)
[2020-11-01] MEDS: VITAMIN D PO SCH (12:10)
[2020-11-01] MEDS: ZINC-220 PO SCH (12:11)
[2020-11-01] MEDS ORDERED: ATIVAN IVP PRN (13:24)
[2020-11-01] MEDS ORDERED: SODIUM CHLORIDE 1,000 ML IV SCH (13:52)
[2020-11-01] MEDS: LIPITOR PO SCH (23:00)
[2020-11-01] MEDS: NEURONTIN PO SCH (23:00)
[2020-11-01] MEDS: ZYLOPRIM PO SCH (23:01)
[2020-11-02 04:24] LABS: ABG BASE EXCESS 10.4 (-2.0-2.0); ABG HCO3 15.2 (22.0-26.0); ABG TCO2 17 (22.0-28.0)
[2020-11-02 04:25] LABS: ABG OXYGEN SATURATION 97.5 % (95-100)
[2020-11-02 04:30] VITALS: BP 95/55
[2020-11-02] MEDS: VENTOLIN HFA (PER PUFF-WITH SPACER) IH SCH ×3 (04:45→18:09)
[2020-11-02] MEDS: ATROVENT HFA INHALER (PER PUFF-WITH SPACER) IH SCH ×3 (04:45→18:10)
[2020-11-02 07:20] LABS: BASOPHILS % (AUTO) 0.1 % (0.0-3.0); HEMATOCRIT 33.9 % (42.0-52.0); HEMOGLOBIN 10.4 g/dl (14.0-18.0); IMMATURE GRANULOCYTE # (AUTO) 0.2 (0.0-1.0); LYMPHOCYTES # (AUTO) 0.7 K/uL (0.60-3.4); LYMPHOCYTES % (AUTO) 3.5 (10.0-50.0); MEAN CORPUSCULAR HEMOGLOBIN 26.3 pg (27.0-31.0); MEAN CORPUSCULAR HGB CONC 30.7 (31.8-35.4); MEAN CORPUSCULAR VOLUME 85.6 fl (80.0-94.0); MONOCYTES # (AUTO) 0.7 K/uL (0.4-2.0); MONOCYTES % (AUTO) 3.2 (0-10); NEUTROPHILS # (AUTO) 19.1 K/ul (2.0-6.9); NEUTROPHILS % (AUTO) 92.2 % (42.2-75.2); PLATELET COUNT 132 10^3/uL (140-440); RDW COEFFICIENT OF VARIATION 17.8 % (11.6-14.8); RED BLOOD COUNT 3.96 10^6/ul (4.70-6.10); WHITE BLOOD COUNT 20.74 K/ul (4.2-10.2)
[2020-11-02 07:33] LABS: ALANINE AMINOTRANSFERASE 71.3 U/L (0-50); ALBUMIN 2.76 g/dL (3.5-5.0); ALKALINE PHOSPHATASE 140.3 U/L (56-119); ASPARTATE AMINO TRANSFERASE 80.4 U/L (17-59); BILIRUBIN,TOTAL 0.37 mg/dL (0.2-1.3); CALCIUM 9.4 mg/dL (8.4-10.2); CARBON DIOXIDE 16.9 mmol/L (22-30.0); CHLORIDE 120.6 mmol/L (98-107); CREATININE 2.18 mg/dL (0.60-1.10); GLUCOSE 243.7 mg/dL (74-106); POTASSIUM 4.18 mmol/L (3.5-5.1); SODIUM 147.2 mmol/L (134.5-145); TOTAL PROTEIN 6.06 g/dL (6.3-8.2)
[2020-11-02 08:01] LABS: BLOOD UREA NITROGEN 69.9 mg/dL (9-20)
--- NOTE | 2020-11-02 08:59 | PCM.PROG ---
Attending Provider: ATTENDING PROVIDER: Dr. HUONG COWAN This patient is seen with Laura Lira, Nurse Practitioner. DATE OF SERVICE: 11/02/20 SUBJECTIVE: This 85 year old /WHITE M was hospitalized 10/26/20. The patient has had a change in status, he is no longer responsive. He is having difficulty breathing with labored aspirations. Kidney function is steadily worsening. Condition is steadily declining. REVIEW OF SYSTEMS: CONSTITUTIONAL: No night sweats. No fatigue, malaise, lethargy. No fever or chills. Weakness. HEENT: Eyes: No visual changes. No eye pain. No eye discharge. ENT: No runny nose. No epistaxis. No sinus pain. No odynophagia. No congestion. RESPIRATORY: No cough, no congestion. No hemoptysis. Shortness of breath. CARDIOVASCULAR: No angina symptoms. No CHF symptoms. No atypical chest pain for CAD. No palpitations. No orthopnea.. GASTROINTESTINAL: No abdominal pain. No nausea or vomiting. No diarrhea or constipation. No hematemesis. No hematochezia. Unable to eat. GENITOURINARY: No urgency. No frequency. No dysuria. No hematuria. No obs tructive symptoms. No discharge. No pain. No significant abnormal bleeding. MUSCULOSKELETAL: No musculoskeletal pain; no joint swelling. NEUROLOGICAL: Awake, alert, oriented to time, place and person. No headache. No neck pain. No syncope. No seizures. No dizziness. PSYCHIATRIC: Not anxious. No depression. No suicidal thoughts. No homicidal thoughts. SKIN: No rash. No lesions. No wounds. ENDOCRINE: No unexplained weight loss. No weight gain. HEMATOLOGIC/LYMPHATIC: No anemia. No purpura. No petechiae. No prolonged or excessive bleeding. No palpable lymph nodes. PHYSICAL EXAMINATION: GENERAL: The patient is awake, alert and not oriented, lying in bed in no distress. VITAL SIGNS: Temperature 97.5 F, Pulse 80, Respiratory Rate 24, BP 95/55, Pulse Ox 99% HEENT: Head normocephalic, atraumatic. Eyes: Extraocular muscles are intact. Pupils are equal, round and reactive to light and accommodation. Ears: No lesions. Nose appeared normal. Throat: No exudate or erythema. NECK: Supple. No JVD, no carotid bruit. No lymphadenopathy or thyromegaly. LUNGS:Severely diminished breath sounds. Clear to auscultation. Percussion note normal. Chest symmetrical. HEART: S1, S2, no S3. No murmurs. No cyanosis or clubbing. No ascites. Pulses: Dorsalis pedis and posterior tibial pulses +1 to +2 both sides. ABDOMEN: Soft. Non-tender. Bowel sounds active. No CVA tenderness. No mass felt. EXTREMITIES: No edema. Full range of motion of all extremities, equal. NEUROLOGIC: No focal deficit. Cranial nerves II through XII are grossly intact. No headache, no double vision or headache. SKIN: Not dry. Intact. Turgor-normal. LYMPHATIC: No palpable lymph nodes/no lymphedema. MUSCULOSKELETAL: Normal joints with no swelling. Muscle tone is normal. LAB REVIEW: 11/02/20 07:05 11/02/20 07:05 11/02/20 07:05: Sodium 147.2 H, Potassium 4.18, Chloride 120.6 H, Carbon Dioxide 16.9 L, Anion Gap 13.88, BUN 69.9 H*, Creatinine 2.18 H D, Estimated GFR (MDRD) 29.00, BUN/Creatinine Ratio 32.06, Glucose 243.7 H, Calcium 9.40, Total Bilirubin 0.37, AST 80.4 H, ALT 71.3 H, Alkaline Phosphatase 140.3 H, Total Protein 6.06 L, Albumin 2.76 L, Globulin 3.30, Albumin/Globulin Ratio 0.83 11/02/20 07:05: WBC 20.74 H, RBC 3.96 L, Hgb 10.4 L, Hct 33.9 L, MCV 85.6, MCH 26.3 L, MCHC 30.7 L, RDW Coeff of Sandra 17.8 H, Plt Count 132 L, Immature Gran % (Auto) 1.0, Neut % (Auto) 92.2 H, Lymph % (Auto) 3.5 L, [place] % (Auto) 3.2, Eos % (Auto) 0.0, Baso % (Auto) 0.1, Neut # (Auto) 19.1 H, Lymph # (Auto) 0.7, [place] # (Auto) 0.7, Eos # (Auto) 0.0, Baso # (Auto) 0.0, Immature Gran # (Auto) 0.2 11/02/20 04:19: Puncture Site Lb, O2 Saturation 97.5, ABG pH 7.20 L*, ABG pCO2 59.0 H, ABG pO2 136.0 H, ABG HCO3 15.2 L, ABG Total CO2 17 L, ABG Base Excess 10.4 H, Marlo Test +, O2 Delivery Device Nrb, Oxygen Liter Flow 15.00, FiO2 % 100.0 ASSESSMENT: Please see below. 1. Acute renal failure 2. Bilateral pneumonia 3. COVID 19 4. Acute respiratory failure. PLAN: 1. Will call and speak with the POA. I do believe that the patient is actively dying despite our best invasive measures. We will recommend palliative care at this time. Plan and coordination of the patient's care discussed in the presence of Retail Service Specialist and nurse. SCRIBED BY: WARREN ROMAN Voip Network Technician scribed while in presence of service performed by Dr. Cowan/Laura Lira APRN on 11/02/20 ([id number])
[2020-11-02] MEDS: DOXY-100 100 MG in SODIUM CHLORIDE 100 ML IV SCH ×2 (10:04→11:30)
[2020-11-02] MEDS ORDERED: MORPHINE 2 MG/ML SYRINGE IVP PRN (10:23)
[2020-11-02] MEDS: COLACE PO SCH (10:29)
[2020-11-02] MEDS: CALCIUM 500 + VIT D 5 MCG (200 IU) TABLET PO SCH (10:29)
[2020-11-02] MEDS: BETHANECHOL CHLORIDE PO SCH ×3 (10:29→17:29)
[2020-11-02] MEDS: FERROUS SULFATE PO SCH (10:30)
[2020-11-02] MEDS: MIRALAX PO SCH (10:30)
[2020-11-02] MEDS: FLOMAX PO SCH (10:30)
[2020-11-02] MEDS: ZINC-220 PO SCH (10:30)
[2020-11-02] MEDS: VITAMIN D PO SCH (10:30)
[2020-11-02] MEDS: SYNTHROID PO SCH ×2 (10:31)
[2020-11-02] MEDS: SENNA PO SCH (10:31)
[2020-11-02] MEDS: SYMBICORT 160-4.5 MCG INHALER IH SCH (10:31)
[2020-11-02] MEDS: PEPCID PO SCH (10:32)
[2020-11-02] MEDS: NORCO 5-325 PO SCH (10:32)
[2020-11-02] MEDS ORDERED: ROXANOL 20 MG/ML PO PRN (11:29)
[2020-11-02] MEDS: ROCEPHIN 1 GM/50 ML D5W 1 GM/50 ML BAG IV SCH (11:30)
[2020-11-02] MEDS: DECADRON IVP SCH (11:30)
--- NOTE | 2020-11-02 14:45 | PN ---
DATE OF SERVICE: 11/01/2020 SUBJECTIVE: 85 year old white male hospitalized with COVID pneumonia with respiratory failure. Condition was steadily improving but he has been drowsy and not responding the way he usual was. The patient has tea colored urine. He was suctioned probably aspirated. Saturation still around 95% on 3 liters. There is no real distress but moaning and not coherent. REVIEW OF SYSTEMS: CONSTITUTIONAL: No night sweats. No fatigue, malaise, lethargy. No fever or chills. HEENT: Eyes: No visual changes. No eye pain. No eye discharge. ENT: No runny nose. No epistaxis. No sinus pain. No sore throat. No odynophagia. No congestion. RESPIRATORY: No cough, no congestion. No hemoptysis. No shortness of breath. CARDIOVASCULAR: No angina symptoms. No CHF symptoms. No atypical chest pain for CAD. No palpitations. No PND. No orthopnea. GASTROINTESTINAL: No abdominal pain. No nausea or vomiting. No diarrhea or constipation. No hematemesis. No hematochezia. GENITOURINARY: No urgency. No frequency. No dysuria. No hematuria. No obstructive symptoms. No discharge. No pain. No significant abnormal bleeding. MUSCULOSKELETAL: No musculoskeletal pain; no joint swelling. NEUROLOGICAL: No headache. No neck pain. No syncope. No seizures. No dizziness. PSYCHIATRIC: Not anxious. No depression. No suicidal thoughts. No homicidal thoughts. SKIN: No rash. No lesions. No wounds. ENDOCRINE: No unexplained weight loss. No weight gain. HEMATOLOGIC/LYMPHATIC: No anemia. No purpura. No petechiae. No prolonged or excessive bleeding. No palpable lymph nodes. PHYSICAL EXAMINATION: VITAL SIGNS: Temperature 97.8, pulse 90, respiratory rate 28, blood pressure 128/70 and pulse ox 95% HEENT: Head normocephalic, atraumatic. Eyes: Extraocular muscles are intact. Pupils are equal, round and reactive to light and accommodation. Ears: No lesions. Nose appeared normal. Throat: No exudate or erythema. NECK: Supple. No JVD, no carotid bruit. No lymphadenopathy or thyromegaly. LUNGS: Decreased breath sounds with mild wheeze. Clear to auscultation. Percussion note normal. Chest symmetrical. HEART: S1, S2, no S3. No murmurs. No cyanosis or clubbing. No ascites. Pulses: Dorsalis pedis and posterior tibial pulses +1 to +2 bilaterally. ABDOMEN: Soft. Nontender. Bowel sounds active. No CVA tenderness. No mass felt. EXTREMITIES: No edema. Full range of motion of all extremities, equal. NEUROLOGIC: No focal deficit. Cranial nerves II through XII are grossly intact. No headache, no double vision or headache. SKIN: Not dry. Intact. Turgor - normal. LYMPHATIC: No palpable lymph nodes/no lymphedema. MUSCULOSKELETAL: Normal joints with no swelling. Muscle tone is normal. LABS: Hgb 9.6, hct 30, WBC ,85436 normal differential, creatinine 1.6, BUN 57, potassium 3.8. ASSESSMENT: 1. COVID pneumonia with respiratory failure 2. Worsening of condition with possible aspiration pneumonitis 3. Chronic kidney disease with renal azotemia 4. Chronic anemia PLAN: 1. Discontinue Xarelto for 24 hours 2. IV fluids to 50cc per hour 3. 20mg of IV Lasix in case the patient is in CHF 4. Ativan 1mg IV given every 8 hourly PRN for restlessness 5. Continue the rest of the treatment as before. That is steroids and antibiotics. PROGNOSIS: Guarded. TIME SPENT: More than 30 minutes. Plan and coordination of the patient's care discussed in the presence of nurse. ANANT
[2020-11-02 15:21] VITALS: TEMP 92.1
--- NOTE | 2020-11-02 18:19 | PCM.PROG ---
Time of : 18:05 Preliminary Cause of : Respiratory failure /Pneumonitis , COVID 19
--- NOTE | 2020-11-03 11:08 | PN ---
DATE OF SERVICE: 10/31/20 SUBJECTIVE: Mr. Carrion was seen and examined with the nurse practitioner. The patient is alert, saturation is more than 90%. Condition seems to be stable. Appetite seems to be improving. The patient was seen and examined with the nurse practitioner. TIME SPENT: More than 30 minutes. Plan and coordination of the patient's care discussed in the presence of nurse. ANANT
--- NOTE | 2020-11-03 11:41 | PN ---
10/26/2020: Level 5 10/27/2020: Extensive 10/28/2020: Intermediate 10/29/2020: Intermediate 10/30/2020: Intermediate 10/31/2020: Intermediate 11/01/2020: Intermediate 11/02/2020: D as in discharge MTDD
--- NOTE | 2020-11-03 11:41 | DS ---
DATE OF SERVICE: 11/02/2020 CAUSE OF : 1. COVID 19 bilateral pneumonia 2. Respiratory failure 3. Acute renal failure 4. Chronic anemia 5. History of pneumonia in the past 6. CHF 7. Atrial fibrillation 8. Kidney disease 9. PAD with angioplasty 10.Hypertension 11.Depression 12.Diabetes Mellitus type 2 13.Hypothyroidism 14.Anemia 15.Spinal stenosis 16.Polyneuropathy 17.Total right hip replacement 18. COVID 19 pneumonia HOSPITAL COURSE: 85 year old white male hospitalized with COVID 19 pneumonia. The patient had COVID test on 10/25/2020 which was positive. He was asymptomatic at first but then got short of breath and was treated with Remdesivir, steroids, inhalers. He was put on Rocephin and Doxycycline. The patient's condition initially seemed to improve but last 48 hours it deteriorated with respiratory failure. He become more or less obtunded, confused. Saturation dropped despite of continuing all the antibiotics and Remdesivir etc. The patient was a DNR with multiple comorbidities. The patient on 11/02/2020 TIME SPENT: More than 60 minutes. ANANT
--- NOTE | 2020-11-03 12:56 | PN ---
DATE OF SERVICE: 11/02/20 SUBJECTIVE: Mr. Carrion was seen and examined with the nurse practitioner. The patient's condition has deteriorated. Covid pneumonia has worsened with deterioration in his mental status. The patient is more or less obtunded. Prognosis is poor. TIME SPENT: More than 30 minutes. Plan and coordination of the patient's care discussed in the presence of nurse. ANANT
== END 2020-11-02 19:35 | disposition expired | DRG 193 ==
LOC: ED 21:11 → MEDSURG B 23:02
PROVIDERS: ADMIT Internal Medicine; ATTEND Internal Medicine
DX: R53.1 Weakness; I48.91 Unspecified atrial fibrillation; I28.9 Disease of pulmonary vessels, unspecified; J96.90 Respiratory failure, unspecified, unspecified whether with hypoxia or hypercapnia; N39.0 Urinary tract infection, site not specified; F03.90 Unspecified dementia, unspecified severity, without behavioral disturbance, psychotic disturbance, mood disturbance, and anxiety; N18.30 Chronic kidney disease, stage 3 unspecified; I50.9 Heart failure, unspecified; N17.9 Acute kidney failure, unspecified; K21.9 Gastro-esophageal reflux disease without esophagitis; B96.4 Proteus (mirabilis) (morganii) as the cause of diseases classified elsewhere; E11.9 Type 2 diabetes mellitus without complications; E03.9 Hypothyroidism, unspecified; E86.0 Dehydration; R63.4 Abnormal weight loss; F32.9 Major depressive disorder, single episode, unspecified; R05 Cough; J16.8 Pneumonia due to other specified infectious organisms; E78.5 Hyperlipidemia, unspecified; I10 Essential (primary) hypertension; M48.00 Spinal stenosis, site unspecified; D64.9 Anemia, unspecified